=== PATIENT | female | born 1940 | race Hispanic/Latino ===

== ENCOUNTER 2017-08-11 02:00 | Emergency (ER) | payer OTHER ==
--- OUTSIDE RECORDS SUMMARY | 2017-08-11 02:03 | XMS REPORT ---
:1940 Author Organization eClinicalWorks Care Team Providers Name Role Phone Blake Barajas Provider Role Unavailable Allergies No Known Allergies Problems Problem Type Condition Code Onset Dates Condition Status Assessment Cirrhosis of liver K74.60 Active Assessment Chronic kidney disease, stage 3 N18.3 Active Assessment Hyperlipidemia, mixed E78.2 Active Assessment Hypothyroidism E03.9 Active Assessment Hypertension I10 Active Assessment Diabetes type 2, uncontrolled E11.65 Active Problem Hypomagnesemia E83.42 Active Problem Diabetic neuropathy E11.40 Active Problem Venous insufficiency I87.2 Active Problem Allergic rhinitis, seasonal J30.2 Active Problem Gastritis K29.70 Active Problem HSV (herpes simplex virus) A60.9 Active anogenital infection Problem GERD (gastroesophageal reflux K21.9 Active disease) Problem Hyperlipidemia, mixed E78.2 Active Problem Diverticulosis of colon K57.30 Active Problem Varicose veins I86.8 Active Problem Thrombocytopenia D69.6 Active Problem Nausea R11.0 Active Problem Hypothyroidism E03.9 Active Problem Vitamin D deficiency E55.9 Active Problem Elevated alkaline phosphatase level R74.8 Active Problem Diabetes type 2, uncontrolled E11.65 Active Problem Cirrhosis of liver K74.60 Active Problem Vitamin B 12 deficiency E53.8 Active Problem Malaise and fatigue R53.81 Active Problem Depression with anxiety F41.8 Active Assessment Depression with anxiety F41.8 Active Problem Cervical disc disorder at C4-C5 M50.121 Active level with radiculopathy Assessment Iron deficiency anemia due to D50.0 Active chronic blood loss Problem Chronic kidney disease, stage 3 N18.3 Active Problem Dizziness R42 Active Assessment Hypomagnesemia E83.42 Active Problem Hypertension I10 Active Problem Intramural leiomyoma of uterus D25.1 Active Problem Iron deficiency anemia due to D50.0 Active chronic blood loss Problem Osteoarthritis of multiple joints M15.9 Active Problem Secondary esophageal varices I85.10 Active without bleeding Medications Medication Code Code Instructions Start End Status Dosage System Date Date Zoloft [facility] 70009106062 25 MG Orally July Active 1 tablet Once a day 2017 Amlodipine [facility] 98939412673 10 MG Orally Active 1 tablet Besylate Once a day NovoLog Mix [facility] 41524701106 (70-30) 100 Active INJECT 70 70/30 Flexpen UNIT/ML UNITS UNDER Subcutaneous THE SKIN Twice a day EVERY MORNING WITH BREAKFAST AND 40 UNITS EVERY EVENING WITH DINNER Promethazine HCl ND 45227735626 25 MG Orally Active 1 tablet as every 12 hrs needed Omeprazole [facility] 57653495350 40 MG Orally Active 1 capsule Once a day Furosemide [facility] 09375748315 20 MG Orally Active 1 tablet Once a day Magnesium Oxide [facility] 68645761108 400 MG Orally Active 1 tablet as Once a day needed Pravastatin [facility] 74938949360 40 MG Orally Active 1 tablet Sodium Once a day Cozaar [facility] 26162986215 100 MG Orally Active 1 tablet Once a day Metoprolol [facility] 44395770374 50 MG Orally Active 1 tablet Succinate ER Once a day NovoFine [facility] 27485773750 32G X 6 MM SB July Active as directed Twice a day 2017 [place] [facility] 90381250446 5-325 MG Orally Active 1 tablet as every 6 hrs needed Acyclovir [facility] 23414869279 200 MG Orally Active 1 capsule Three times a day Aspir-81 [facility] 33691392113 81 MG Orally Active 1 tablet Once a day Levothyroxine [facility] 27199471415 125 MCG Orally Active 1 tablet on Sodium Once a day an empty stomach in the morning Meclizine HCl [facility] 59230435462 25 MG Orally Active 1 tablet as Once a day needed Results No Known Results Summary Purpose eClinicalWorks Submission
[2017-08-11] MEDS ORDERED: FAMOTIDINE 20 MG/2 ML VIAL IV ONE ×2 (03:05)
[2017-08-11 03:14] LABS: Protime INR 1.01
[2017-08-11 03:15] LABS: Absolute Lymphocytes (CBC) 1.3 K/uL (0.7-4.9); Absolute Monocytes 0.6 K/uL (0.1-1.3); Absolute Neutrophil 4.8 K/uL (1.8-8.0); Basophils % 0.4 % (0-1.3); Eosinophils % 1.3 % (0-4.4); Hematocrit 29.9 % (36.0-45.0); Lymphocytes % 19.2 % (15.3-44.8); MCH 28.8 pg (27.0-35.0); MCV 86.6 fL (80-100); MPV 11.1 fL (7.6-11.3); Monocytes % 8.2 % (3.3-12.3); RBC Red Blood Cell Count 3.45 M/uL (3.86-4.86)
[2017-08-11 03:32] LABS: Potassium 3.8 mEq/L (3.6-5.0)
[2017-08-11 03:39] LABS: Albumin 3.8 g/dL (3.2-5.5); Bilirubin Direct 0.1 mg/dL (0-0.2); Bilirubin Total 0.7 mg/dL (0.3-1.2); Magnesium 1.6 mg/dL (1.8-2.5); Protein, Total 7.6 g/dL (6.0-8.3)
[2017-08-11] MEDS ORDERED: MAGNESIUM SULFATE 1 gm IVPB 1 GM/100 ML BAG IV ONE (04:13)
--- NOTE | 2017-08-11 04:21 | ER ---
Nurse's Notes [facility] Name: Shayy Mcgovern Age: 76 yrs Sex: Female : 1940 Arrival Date: 08/11/2017 Time: 02:02 Bed 14 Private MD: Diagnosis: Chest pain, unspecified;Epigastric pain Presentation: 08/11 02:20 Presenting complaint: Patient states: She started feeling her chest burning at 1500 ea yesterday and continued throughout the night, reports the intensity has decreased. At 2100 she started feeling dizzy and had a fall, denies hitting head or LOC, reports she took her anxiety, nausea and dizziness medication. Transition of care: patient was not received from another setting of care. Onset of symptoms was August 11, 2017. Care prior to arrival: Medication(s) given: home medications. 02:20 Method Of Arrival: Wheelchair ea 02:20 Acuity: CORINE 3 ea Triage Assessment: 02:20 General: Appears uncomfortable. Pain: Denies pain. Complains of pain in epigastric area ea Pain does not radiate. Quality of pain is described as burning. Historical: - Allergies: 02:17 Ciprofloxacin; lp1 02:17 Macrodantin; lp1 02:17 nitrofuran macrocrystal (bulk); lp1 02:17 PENICILLINS; lp1 02:17 Sulfa (Sulfonamide Antibiotics); lp1 - Home Meds: 02:17 omeprazole 40 mg Oral cpDR 1 cap once daily [Active]; promethazine 25 mg Oral tab three lp1 times a day [Active]; levothyroxine 125 mcg tab 1 tab once daily [Active]; aspirin 81 mg oral TbEC once daily [Active]; furosemide 20 mg Oral tab 1 tab once daily [Active]; diazepam 5 mg Oral tab 1 tab daily [Active]; sertraline 25 mg oral tab 1 tab once daily [Active]; losartan-hydrochlorothiazide 100-25 mg Oral tab 1 tab once daily [Active]; pravastatin 40 mg Oral tab 1 tab nightly [Active]; [place] 5-325 mg Oral tab 1 tab three times a day [Active]; metoprolol tartrate 50 mg Oral tab 1 tab 2 times per day [Active]; Novolin 70/30 [place] Sub-Q 70-30 unit/mL [Active]; - PMHx: 02:17 Anxiety; Depression; Diabetes - IDDM; gastritis; Hypertension; Hypothyroidism; lp1 - Immunization history:: Adult Immunizations up to date. - Social history:: Smoking status: Patient/guardian denies using tobacco. Screenin:46 Abuse screen: Denies threats or abuse. Nutritional screening: No deficits noted. ea Tuberculosis screening: No symptoms or risk factors identified. Fall Risk None identified. Assessment: 02:15 General: Appears uncomfortable, Behavior is calm, cooperative, appropriate for age. ea Pain: Denies pain. Complains of pain in epigastric area Pain does not radiate. Quality of pain is described as burning, Pain began 1 day ago. Neuro: Level of Consciousness is awake, alert, obeys commands, Oriented to person, place, time, situation, Speech is normal, Facial symmetry appears normal. Cardiovascular: Patient's skin is warm and dry. Respiratory: Airway is patent Respiratory effort is even, unlabored, Respiratory pattern is regular, symmetrical, Breath sounds are clear bilaterally. GI: Abdomen is round Bowel sounds present X 4 quads. : No signs and/or symptoms were reported regarding the genitourinary system. Derm: Skin is dry, Skin is normal, Skin temperature is warm. 03:27 Reassessment: Pt resting with eyes closed, respirations even and unlabored, chest ea expansions even and symmetrical. No s/s of pain or discomfort at this time. Family at bedside. 03:46 Reassessment: Daughter left phone number Tiffany [phone] reported she had to go home ea and check on her family but would return. 04:21 Reassessment: Pt resting with eyes closed respirations even and unlabored, chest ea expansions even and symmetrical, no s/s of pain or discomfort noted at this time. Awaiting for completion of IV medication. 04:29 Reassessment: Patient and/or family updated on plan of care and expected duration. Pain ea level reassessed. Physician at bedside, pt reports dizziness, verbal order obtained. 04:37 Reassessment: Patient and/or family updated on plan of care and expected duration. Pain ea level reassessed. Patient is alert, oriented x 3, equal unlabored respirations, skin warm/dry/pink. Medication administered patient tolerated well. 04:44 Reassessment: Patient and/or family updated on plan of care and expected duration. Pain ea level reassessed. Patient is alert, oriented x 3, equal unlabored respirations, skin warm/dry/pink. Awaiting on completion of IV medication, daughter notified of discharge reported she will be here shortly. 05:06 Reassessment: Patient and/or family updated on plan of care and expected duration. Pain ea level reassessed. Patient is alert, oriented x 3, equal unlabored respirations, skin warm/dry/pink. Discharge instructions given to patient, awaiting on daughter to pick her up. 06:22 Reassessment: Patient and/or family updated on plan of care and expected duration. Pain ea level reassessed. Patient is alert, oriented x 3, equal unlabored respirations, skin warm/dry/pink. Daughter contacted, stated she was 5 minutes away and wanted her mother ready in the lobby. Patient states symptoms have improved. Vital Signs: 02:20 BP 152 / 78; Pulse 75; Resp 26; Temp 99.6; Pulse Ox 96% on R/A; Weight 91.17 kg; Height ea 5 ft. 5 in. (165.10 cm); 03:01 BP 133 / 61; Pulse 66; Resp 21 S; Pulse Ox 96% ; ea 03:29 BP 117 / 58; Pulse 64; Resp 18 S; Pulse Ox 96% on R/A; ea 04:39 BP 138 / 67; Pulse 64; Resp 19 S; Pulse Ox 97% on R/A; ea 05:08 BP 121 / 67; Pulse 62; Resp 19; Pulse Ox 97% on R/A; ea 02:20 Body Mass Index 33.45 (91.17 kg, 165.10 cm) ea ED Course: 02:02 Patient arrived in ED. am2 02:10 Ti Mesa MD is Attending Physician. 02:18 Ashlie Zhou, CHRIS is Primary Nurse. ea 02:20 Patient has correct armband on for positive identification. Bed in low position. Call ea light in reach. Side rails up X2. patient service coordinator on. Pulse ox on. NIBP on. 02:20 Patient placed in an exam room, on a stretcher, on oxygen, on blender, on pulse ea oximetry. 02:35 Inserted saline lock: 20 gauge in left antecubital area, using aseptic technique. Blood lp1 collected. 02:44 Triage completed. ea 02:46 XRAY Chest (1 view) In Process Unspecified. EDMS 02:46 Patient maintains SpO2 saturation greater than 95% on room air. ea 04:42 No provider procedures requiring assistance completed. ea 06:20 IV discontinued, intact, bleeding controlled, No redness/swelling at site. Pressure ea dressing applied. Administered Medications: 02:51 Drug: Pepcid 20 mg Route: IVP; Site: left antecubital; kb1 03:01 Follow up: Response: No adverse reaction ea 04:00 Drug: Magnesium Sulfate 1 grams Route: IVPB; Infused Over: 1 hrs; Site: left ea antecubital; 05:10 Follow up: Response: No adverse reaction; IV Status: Completed infusion ea 04:38 Drug: Ativan 0.5 mg Route: IVP; Site: left antecubital; ea 05:11 Follow up: Response: No adverse reaction; Marked relief of symptoms ea Point of Care Testing: Blood Glucose: 02:47 Blood Glucose: 166 mg/dL; lp1 Ranges: Outcome: 04:20 Discharge ordered by . dyan 05:07 Condition: good ea 05:07 Discharge instructions given to patient, Instructed on discharge instructions, follow up and referral plans. Demonstrated understanding of instructions, follow-up care. 06:21 Discharged to Awaiting in lobby for daughter. ea 06:21 Condition: improved 06:24 Patient left the ED. ea Signatures: Dispatcher [employer] EDMS Sapphire Gooden RN RN lp1 Angelica Marcelino am2 Ashlie Zhou RN RN Ti Martel MD MD gs Brown, Kristina, RN RN kb1
--- NOTE | 2017-08-11 04:21 | EDPHYS ---
Physician Documentation [facility] Name: Shayy Mcgovern Age: 76 yrs Sex: Female : 1940 Arrival Date: 08/11/2017 Time: 02:02 Bed 14 Private MD: ED Physician Ti Mesa HPI: 08/11 04:09 This 76 yrs old Female presents to ER via Wheelchair with complaints of Chest gs Pain, Nausea, Fall Injury. 04:09 The patient or guardian reports chest pain that is located primarily in the epigastric gs area. Onset: yesterday, at 15:00. The pain does not radiate. Associated signs and symptoms: Pertinent positives: nausea, Pertinent negatives: shortness of breath. The chest pain is described as burning, causing indigestion. Duration: The patient or guardian reports a single episode, that is still ongoing, and unchanged. Modifying factors: The symptoms are alleviated by nothing. the symptoms are aggravated by nothing. Severity of pain: At its worst the pain was moderate in the emergency department the pain is unchanged. The patient has experienced similar episodes in the past, several times. Historical: - Allergies: 02:17 Ciprofloxacin; lp1 02:17 Macrodantin; lp1 02:17 nitrofuran macrocrystal (bulk); lp1 02:17 PENICILLINS; lp1 02:17 Sulfa (Sulfonamide Antibiotics); lp1 - Home Meds: 02:17 omeprazole 40 mg Oral cpDR 1 cap once daily [Active]; promethazine 25 mg Oral tab three lp1 times a day [Active]; levothyroxine 125 mcg tab 1 tab once daily [Active]; aspirin 81 mg oral TbEC once daily [Active]; furosemide 20 mg Oral tab 1 tab once daily [Active]; diazepam 5 mg Oral tab 1 tab daily [Active]; sertraline 25 mg oral tab 1 tab once daily [Active]; losartan-hydrochlorothiazide 100-25 mg Oral tab 1 tab once daily [Active]; pravastatin 40 mg Oral tab 1 tab nightly [Active]; [place] 5-325 mg Oral tab 1 tab three times a day [Active]; metoprolol tartrate 50 mg Oral tab 1 tab 2 times per day [Active]; Novolin 70/30 [place] Sub-Q 70-30 unit/mL [Active]; - PMHx: 02:17 Anxiety; Depression; Diabetes - IDDM; gastritis; Hypertension; Hypothyroidism; lp1 - Immunization history:: Adult Immunizations up to date. - Social history:: Smoking status: Patient/guardian denies using tobacco. ROS: 04:09 Neuro: Positive for vertigo, has had before took meds for same has resolved. gs 04:09 All other systems are negative. Exam: 04:09 Head/Face: Normocephalic, atraumatic. Eyes: Pupils equal round and reactive to light, gs extra-ocular motions intact. Lids and lashes normal. Conjunctiva and sclera are non-icteric and not injected. Cornea within normal limits. Periorbital areas with no swelling, redness, or edema. ENT: Nares patent. No nasal discharge, no septal abnormalities noted. Tympanic membranes are normal and external auditory canals are clear. Oropharynx with no redness, swelling, or masses, exudates, or evidence of obstruction, uvula midline. Mucous membranes moist. Neck: Trachea midline, no thyromegaly or masses palpated, and no cervical lymphadenopathy. Supple, full range of motion without nuchal rigidity, or vertebral point tenderness. No Meningismus. Chest/axilla: Normal chest wall appearance and motion. Nontender with no deformity. No lesions are appreciated. Cardiovascular: Regular rate and rhythm with a normal S1 and S2. No gallops, murmurs, or rubs. Normal PMI, no JVD. No pulse deficits. Respiratory: Lungs have equal breath sounds bilaterally, clear to auscultation and percussion. No rales, rhonchi or wheezes noted. No increased work of breathing, no retractions or nasal flaring. Abdomen/GI: Soft, non-tender, with normal bowel sounds. No distension or tympany. No guarding or rebound. No evidence of tenderness throughout. Back: No spinal tenderness. No costovertebral tenderness. Full range of motion. Skin: Warm, dry with normal turgor. Normal color with no rashes, no lesions, and no evidence of cellulitis. MS/ Extremity: Pulses equal, no cyanosis. Neurovascular intact. Full, normal range of motion. Neuro: Awake and alert, GCS 15, oriented to person, place, time, and situation. Cranial nerves II-XII grossly intact. Motor strength 5/5 in all extremities. Sensory grossly intact. Cerebellar exam normal. Normal gait. 04:09 Constitutional: The patient appears alert, awake. 04:09 ECG was reviewed by the Attending Physician. Vital Signs: 02:20 BP 152 / 78; Pulse 75; Resp 26; Temp 99.6; Pulse Ox 96% on R/A; Weight 91.17 kg; Height ea 5 ft. 5 in. (165.10 cm); 03:01 BP 133 / 61; Pulse 66; Resp 21 S; Pulse Ox 96% ; ea 03:29 BP 117 / 58; Pulse 64; Resp 18 S; Pulse Ox 96% on R/A; ea 04:39 BP 138 / 67; Pulse 64; Resp 19 S; Pulse Ox 97% on R/A; ea 05:08 BP 121 / 67; Pulse 62; Resp 19; Pulse Ox 97% on R/A; ea 02:20 Body Mass Index 33.45 (91.17 kg, 165.10 cm) ea MDM: 02:20 Patient medically screened. 04:09 Differential diagnosis: acute myocardial infarction, chest wall pain, gastroesophageal gs reflux disease (GERD), pancreatitis. Data reviewed: vital signs, nurses notes, and as a result, I will discharge patient. Response to treatment: the patient's symptoms have resolved after treatment, the patient is now symptom free. 08/11 02:30 Order name: Basic Metabolic Panel; Complete Time: 03:46 gs 08/11 02:30 Order name: BNP; Complete Time: 03:46 gs 08/11 02:30 Order name: CBC with Diff; Complete Time: 05:47 gs 08/11 02:30 Order name: CPK; Complete Time: 03:46 gs 08/11 02:30 Order name: LFT's; Complete Time: 03:46 gs 08/11 02:30 Order name: Magnesium; Complete Time: 03:46 gs 08/11 02:30 Order name: PT-INR; Complete Time: 03:46 gs 08/11 02:30 Order name: Troponin (emerg Dept Use Only); Complete Time: 03:46 gs 08/11 02:30 Order name: XRAY Chest (1 view) gs 08/11 02:30 Order name: Lipase; Complete Time: 03:46 gs 08/11 03:18 Order name: CBC Smear Scan; Complete Time: 05:47 EDMS 08/11 04:11 Order name: Urine Dipstick--Ancillary (enter results); Complete Time: 05:47 oe 08/11 02:30 Order name: EKG; Complete Time: 02:31 gs 08/11 02:30 Order name: Cardiac monitoring; Complete Time: 02:47 gs 08/11 02:30 Order name: EKG - Nurse/Tech; Complete Time: 03:01 gs 08/11 02:30 Order name: IV Saline Lock; Complete Time: 02:47 gs 08/11 02:30 Order name: Labs collected and sent; Complete Time: 02:47 gs 08/11 02:30 Order name: O2 Per Protocol; Complete Time: 02:47 gs 08/11 02:30 Order name: O2 Sat Monitoring; Complete Time: :47 gs 08/11 02:30 Order name: Urine Dipstick-Ancillary (obtain specimen); Complete Time: 04:10 gs EC:09 Rate is 68 beats/min. Rhythm is regular. TX interval is normal. QRS interval is normal. gs T waves are Inverted. Clinical impression: Abnormal EKG without significant change. No change from previous ECG on June 15, 2017. Interpreted by me. Administered Medications: 02:51 Drug: Pepcid 20 mg Route: IVP; Site: left antecubital; kb1 03:01 Follow up: Response: No adverse reaction ea 04:00 Drug: Magnesium Sulfate 1 grams Route: IVPB; Infused Over: 1 hrs; Site: left ea antecubital; 05:10 Follow up: Response: No adverse reaction; IV Status: Completed infusion ea 04:38 Drug: Ativan 0.5 mg Route: IVP; Site: left antecubital; ea 05:11 Follow up: Response: No adverse reaction; Marked relief of symptoms ea Point of Care Testing: Blood Glucose: 02:47 Blood Glucose: 166 mg/dL; lp1 Ranges: Critical Glucose Levels:Adult <50 mg/dl or >400 mg/dl <40 mg/dl or >180 mg/dl Disposition: 08/11/17 04:20 Discharged to Home. Impression: Chest pain, unspecified, Epigastric pain. - Condition is Stable. - Discharge Instructions: Abdominal Pain, Adult, Nonspecific Chest Pain. - Medication Reconciliation Form, Thank You Letter, Antibiotic Education, Prescription Opioid Use form. - Follow up: Private Physician; When: 1 - 2 days; Reason: Recheck today's complaints, Re-evaluation by your physician. Signatures: Dispatcher [employer] Sapphire Alvarenga RN RN lp1 Ashlie Zhou RN RN ea Ti Mesa MD MD gs Lexy Tang RN RN kb1
[2017-08-11] MEDS ORDERED: LORazepam 2 MG/ML VIAL ONE (04:53)
[2017-08-11 05:06] LABS: Blood Morphology Comment NOTED (NOT SEEN); Platelet Estimate DECR; Teardrop Cell 1+; Urine White Blood Cell Casts OK
[2017-08-11 05:07] LABS: Urine Blood NEGATIVE (NEG); Urine Glucose NEGATIVE (NEG); Urine Protein NEGATIVE (NEG)
[2017-08-11 06:35] VITALS: TEMP 99.6
[2017-08-11 06:39] VITALS: O2SAT 97
[2017-08-11 06:40] VITALS: BP 121/67
--- NOTE | 2017-08-11 09:04 | RAD REPORT ---
EXAM DESCRIPTION: RAD - Chest Single View - 08/11/2017 2:46 am CLINICAL HISTORY: Diabetes, chest pain. COMPARISON: 07/06/2016, 06/21/2016 FINDINGS: Portable technique limits examination quality. The lungs are grossly clear. The heart is normal in size. No displaced fractures. IMPRESSION: No acute intrathoracic process suspected.
--- NOTE | 2017-08-11 09:18 | EKG ---
Test Date: 2017-08-11 Test Time: 02:56:18 Scarf Gluer: MALIK MEASUREMENT RESULTS: Intervals: Rate: 68 ND: 138 QRSD: 90 QT: 434 QTc: 461 [place]: P: 28 ND: 138 QRS: 17 T: 14 INTERPRETIVE STATEMENTS: Normal sinus rhythm T wave abnormality, consider anterolateral ischemia Abnormal ECG Compared to ECG 06/15/2017 15:12:06 No significant changes Electronically Signed On 08-11-17 09:17:56 CDT by Evelio Cody
== END 2017-08-11 06:24 | disposition home or self-care (01) ==
LOC: ER 02:00
DX: R10.13 Epigastric pain (principal); I10 Essential (primary) hypertension; E11.9 Type 2 diabetes mellitus without complications; F32.9 Major depressive disorder, single episode, unspecified; F41.9 Anxiety disorder, unspecified; Z79.82 Long term (current) use of aspirin; Z79.4 Long term (current) use of insulin; Z88.0 Allergy status to penicillin; Z88.2 Allergy status to sulfonamides; Z88.3 Allergy status to other anti-infective agents; Z88.8 Allergy status to other drugs, medicaments and biological substances
CPT/HCPCS: 36415; 71045; 80048; 80076; 81003; 82550; 82962; 83690; 83735; 83880; 84484; 85025; 85610; 93005; 96365; 96375; 99285; J3475

== ENCOUNTER 2017-09-10 10:46 | Emergency (ER) | payer OTHER ==
--- OUTSIDE RECORDS SUMMARY | 2017-09-10 10:49 | XMS REPORT ---
[...] End Status Dosage System Date Date Zoloft [facility] 80715579879 25 MG Orally July Active 1 tablet Once a day 2017 Amlodipine [facility] 74112069316 10 MG Orally Active 1 tablet Besylate Once a day NovoLog Mix [facility] 84533395843 (70-30) 100 Active INJECT 70 70/30 Flexpen UNIT/ML UNITS UNDER Subcutaneous THE SKIN Twice a day EVERY MORNING WITH BREAKFAST AND 40 UNITS EVERY EVENING WITH DINNER Promethazine HCl ND 72628426590 25 MG Orally Active 1 tablet as every 12 hrs needed Omeprazole [facility] 25993383100 40 MG Orally Active 1 capsule Once a day Furosemide [facility] 18634842415 20 MG Orally Active 1 tablet Once a day Magnesium Oxide [facility] 72736594058 400 MG Orally Active 1 tablet as Once a day needed Pravastatin [facility] 81782853505 40 MG Orally Active 1 tablet Sodium Once a day Cozaar [facility] 52136785609 100 MG Orally Active 1 tablet Once a day Metoprolol [facility] 65458059298 50 MG Orally Active 1 tablet Succinate ER Once a day NovoFine [facility] 75495078542 32G X 6 MM SB July Active as directed Twice a day 2017 Sunol [facility] 10858791457 5-325 MG Orally Active 1 tablet as every 6 hrs needed Acyclovir [facility] 88399798178 200 MG Orally Active 1 capsule Three times a day Aspir-81 [facility] 63667005159 81 MG Orally Active 1 tablet Once a day Levothyroxine [facility] 47424782093 125 MCG Orally Active 1 tablet on Sodium Once a day an empty stomach in the morning Meclizine HCl [facility] 60584388350 25 MG Orally Active 1 tablet as Once a day needed Results No Known Results Summary Purpose eClinicalWorks Submission
--- OUTSIDE RECORDS SUMMARY | 2017-09-10 10:49 | XMS REPORT ---
[...] Start End Status Dosage System Date Date Pravastatin [facility] 91211346885 40 MG Orally Active 1 tablet Sodium Once a day Aspir-81 [facility] 39706897487 81 MG Orally Active 1 tablet Once a day BusPIRone HCl [facility] 14170893198 5 MG Orally BID August Active 1 tablet 2017 Promethazine HCl [facility] 66837206024 25 MG Orally Active 1 tablet as every 12 hrs needed Amlodipine [facility] 02772259541 10 MG Orally Active 1 tablet Besylate Once a day Levothyroxine [facility] 96052665150 125 MCG Orally Active 1 tablet on Sodium Once a day an empty stomach in the morning Cozaar [facility] 95993310433 100 MG Orally Active 1 tablet Once a day Zoloft [facility] 25643000225 25 MG Orally Inactive 1 tablet Once a day Acyclovir [facility] 99321052907 200 MG Orally Active 1 capsule Three times a day Omeprazole [facility] 89059018604 40 MG Orally Active 1 capsule Once a day Magnesium Oxide [facility] 59888723647 400 MG Orally Active 1 tablet as Once a day needed NovoFine [facility] 36608297995 32G X 6 MM SB Active as directed Twice a day NovoLog Mix [facility] 37878140093 (70-30) 100 Active INJECT 70 70/30 Flexpen UNIT/ML UNITS UNDER Subcutaneous THE SKIN Twice a day EVERY MORNING WITH BREAKFAST AND 40 UNITS EVERY EVENING WITH DINNER [place] [facility] 17592064361 5-325 MG Orally Active 1 tablet as every 6 hrs needed True Metrix [facility] 27592466103 - Active USE TWICE Blood Glucose DAILY Test Metoprolol [facility] 41061622254 50 MG Orally Active 1 tablet Succinate ER Once a day Furosemide [facility] 40385068856 20 MG Orally Active 1 tablet Once a day Meclizine HCl [facility] 77136722229 25 MG Orally Active 1 tablet as Once a day needed Results No Known Results Summary Purpose eClinicalWorks Submission
--- OUTSIDE RECORDS SUMMARY | 2017-09-10 10:50 | XMS REPORT ---
:1940 Author Organization eClinicalWorks Care Team Providers Name Role Phone BarajasBlake Provider Role Unavailable Allergies No Known Allergies Problems Problem Type Condition Code Onset Dates Condition Status Problem Hypomagnesemia E83.42 Active Problem Diabetic neuropathy [...] Active Problem Depression with anxiety F41.8 Active Problem Cervical disc disorder at C4-C5 M50.121 Active level with radiculopathy Problem Chronic kidney disease, stage 3 N18.3 Active Problem Dizziness R42 Active Problem Hypertension I10 Active Problem Intramural leiomyoma of uterus D25.1 Active Problem Iron deficiency anemia due to D50.0 Active chronic blood loss Problem Osteoarthritis of multiple joints M15.9 Active Problem Secondary esophageal varices I85.10 Active without bleeding Medications Medication Code Code Instructions Start End Status Dosage System Date Date Nystatin [facility] [id number] UNIT/GM September 05October Active 1 application Externally Twice 2017, to a day 2018 area Results No Known Results Summary Purpose eClinicalWorks Submission
[2017-09-10] MEDS ORDERED: MECLIZINE HCL 12.5 MG TAB ONE (11:36)
[2017-09-10] MEDS ORDERED: ONDANSETRON 4 MG/2 ML VIAL ONE (11:36)
[2017-09-10] MEDS ORDERED: NA CHLORIDE 0.9% 500 ML ONE ×2 (11:36→12:40)
--- NOTE | 2017-09-10 11:37 | RAD REPORT ---
EXAM DESCRIPTION: CT - Head Brain Wo Cont - 09/10/2017 11:30 am CLINICAL HISTORY: Dizziness, syncope. COMPARISON: 07/06/2016, 08/06/2013 TECHNIQUE: All CT scans are performed using dose optimization technique as appropriate and may inclu de automated exposure control or mA/KV adjustment according to patient size. FINDINGS: No intracranial hemorrhage, hydrocephalus or extra-axial fluid collection.No areas of brai n edema or evidence of midline shift. The paranasal sinuses and mastoids are clear. The calvarium is intact. IMPRESSION: No acute intracranial abnormality.
[2017-09-10 11:45] LABS: Absolute Lymphocytes (CBC) 1.1 K/uL (0.7-4.9); Absolute Monocytes 0.3 K/uL (0.1-1.3); Absolute Neutrophil 4.7 K/uL (1.8-8.0); Basophils % 0.3 % (0-1.3); Eosinophils % 0.4 % (0-4.4); Lymphocytes % 17.1 % (15.3-44.8); MCH 28.7 pg (27.0-35.0); MCV 85.2 fL (80-100); MPV 10.5 fL (7.6-11.3); Monocytes % 5.5 % (3.3-12.3); RBC Red Blood Cell Count 3.64 M/uL (3.86-4.86)
[2017-09-10 11:47] LABS: Urine Blood NEGATIVE (NEG); Urine Glucose 2+ (NEG); Urine Protein NEGATIVE (NEG)
[2017-09-10 11:48] LABS: Protime INR 1.04
[2017-09-10 11:50] LABS: Urine Bacteria <20 /HPF (<20); Urine Culture Reflex Order NOT NEEDED; Urine RBC <5 /HPF (NONE SEEN)
[2017-09-10 11:55] LABS: Potassium 3.5 mEq/L (3.6-5.0)
[2017-09-10 12:01] LABS: Albumin 4.1 g/dL (3.2-5.5); Bilirubin Direct 0.1 mg/dL (0-0.2); Bilirubin Total 0.7 mg/dL (0.3-1.2)
[2017-09-10 12:04] LABS: Magnesium 1.3 mg/dL (1.8-2.5)
[2017-09-10] MEDS ORDERED: PROMETHAZINE 25 MG/ML VIAL ONE ×2 (12:07→13:18)
[2017-09-10 12:19] LABS: Blood Morphology Comment NOT SEEN (NOT SEEN); Platelet Estimate DECR; Urine White Blood Cell Casts OK
[2017-09-10] MEDS ORDERED: MAGNESIUM SULFATE 1 gm IVPB 1 GM/100 ML BAG IV ONE (12:41)
--- NOTE | 2017-09-10 13:49 | RAD REPORT ---
EXAM DESCRIPTION: CT - Abdomen Pelvis Wo Contrast - 09/10/2017 1:34 pm CLINICAL HISTORY: Abdominal pain. COMPARISON: 06/21/2016 TECHNIQUE: CT imaging of the abdomen and pelvis was performed without contrast. Solid organ, bowel a nd vascular assessment is limited due to lack of IV and oral contrast. All CT scans are performed using dose optimization technique as appropriate and may include automated exposure control or mA/KV adjustment according to patient size. FINDINGS: The lower lung tucker are clear. Noncontrast assessment of the liver parenchyma demonstrates a subtle nodular contour. No focal mass o r intrahepatic biliary dilatation. Moderate splenomegaly is seen. The pancreas, adrenal glands and ki dneys show no acute abnormality. No bowel obstruction, free air, free fluid or abscess. Small fat containing ventral hernia. The appen linda is normal. Prominent diverticulosis involving the sigmoid colon. The osseous structures are within normal limits. IMPRESSION: No acute abnormality is detected. Liver cirrhosis with mild splenomegaly. Sigmoid diverticulosis without diverticulitis. Small fat containing ventral hernia. A limited non-contrast examination was performed as detailed.
[2017-09-10] MEDS ORDERED: DIAZEPAM 5 MG TABLET ONE (13:57)
--- NOTE | 2017-09-10 15:13 | EDPHYS ---
Physician Documentation [facility] Name: Shayy Mcgovern Age: 76 yrs Sex: Female : 1940 Arrival Date: 09/10/2017 Time: 10:50 Bed 14 Private MD: ED Physician Jake Pressley HPI: 09/10 12:51 This 76 yrs old Female presents to ER via Ambulatory with complaints of rn Weakness, LIGHTHEADED, Nausea. 12:51 The patient presents with dizziness, sense of spinning. Onset: The symptoms/episode rn began/occurred this morning. Modifying factors: The symptoms are alleviated by nothing, the symptoms are aggravated by movement of head. Severity of symptoms: At their worst the symptoms were moderate in the emergency department the symptoms are unchanged. The patient has not experienced similar symptoms in the past. Reports woke up today around 0400 with dizziness, worse with laying down and moving head, no fever, no trauma, no headache, reports urinary burning, no abd pain/chest pain/sob. . Historical: - Allergies: 11:03 Ciprofloxacin; aj 11:03 Macrodantin; aj 11:03 nitrofuran macrocrystal (bulk); aj 11:03 PENICILLINS; aj 11:03 Sulfa (Sulfonamide Antibiotics); aj - Home Meds: 11:03 aspirin 81 mg Oral TbEC once daily [Active]; diazepam 5 mg Oral tab 1 tab daily aj [Active]; furosemide 20 mg Oral tab 1 tab once daily [Active]; levothyroxine 125 mcg tab 1 tab once daily [Active]; losartan-hydrochlorothiazide 100-25 mg Oral tab 1 tab once daily [Active]; metoprolol tartrate 50 mg Oral tab 1 tab 2 times per day [Active]; [place] 5-325 mg Oral tab 1 tab three times a day [Active]; Novolin 70/30 [place] Sub-Q 70-30 unit/mL [Active]; omeprazole 40 mg Oral cpDR 1 cap once daily [Active]; pravastatin 40 mg Oral tab 1 tab nightly [Active]; promethazine 25 mg Oral tab three times a day [Active]; sertraline 25 mg Oral tab 1 tab once daily [Active]; - PMHx: 11:03 Anxiety; Depression; Diabetes - IDDM; gastritis; Hypertension; Hypothyroidism; aj - Immunization history:: Adult Immunizations up to date. - Social history:: Smoking status: Patient/guardian denies using tobacco. - Family history:: not pertinent. - Hospitalizations: : No recent hospitalization is reported. ROS: 12:51 Constitutional: Negative for fever, chills, and weight loss, Eyes: Negative for injury, rn pain, redness, and discharge, Neck: Negative for injury, pain, and swelling, Cardiovascular: Negative for chest pain, palpitations, and edema, Respiratory: Negative for shortness of breath, cough, wheezing, and pleuritic chest pain, Abdomen/GI: Negative for abdominal pain, diarrhea, and constipation, MS/Extremity: Negative for injury and deformity, Skin: Negative for injury, rash, and discoloration, Neuro: Negative for headache, numbness, tingling, and seizure. Exam: 12:54 Constitutional: This is a well developed, well nourished patient who is awake, alert, rn appears anxious Head/Face: Normocephalic, atraumatic. Eyes: Pupils equal round and reactive to light, extra-ocular motions intact. Lids and lashes normal. Conjunctiva and sclera are non-icteric and not injected. Cornea within normal limits. Periorbital areas with no swelling, redness, or edema. ENT: Nares patent. No nasal discharge, no septal abnormalities noted. bilaterl TM normal. Neck: Trachea midline, no thyromegaly or masses palpated, and no cervical lymphadenopathy. Supple, full range of motion without nuchal rigidity, or vertebral point tenderness. No Meningismus. Cardiovascular: Regular rate and rhythm with a normal S1 and S2. No gallops, murmurs, or rubs. Normal PMI, no JVD. No pulse deficits. Respiratory: Lungs have equal breath sounds bilaterally, clear to auscultation and percussion. No rales, rhonchi or wheezes noted. No increased work of breathing, no retractions or nasal flaring. Abdomen/GI: Soft, non-tender, with normal bowel sounds. No distension or tympany. No guarding or rebound. No evidence of tenderness throughout. MS/ Extremity: Pulses equal, no cyanosis. Neurovascular intact. Full, normal range of motion. Equal circumference. Neuro: Awake and alert, GCS 15, oriented to person, place, time, and situation. Cranial nerves II-XII grossly intact. Motor strength 5/5 in all extremities. Sensory grossly intact. Cerebellar exam normal. Normal gait. Vital Signs: 11:03 BP 146 / 69; Pulse 82; Resp 19; Temp 98.0; Pulse Ox 98% on R/A; Weight 90.72 kg; Height aj 5 ft. 0 in. (152.40 cm); Pain 0/10; 12:27 BP 130 / 59; Pulse 75; Resp 19; Pulse Ox 100% on R/A; la1 15:30 BP 137 / 74; Pulse 86; Resp 16; Temp 97.5; Pulse Ox 100% on R/A; la1 11:03 Body Mass Index 39.06 (90.72 kg, 152.40 cm) aj MDM: 11:05 Patient medically screened. rn 14:18 Differential diagnosis: generalized weakness, hyperventilation, hypovolemia, idiopathic rn dizziness, vertigo. Data reviewed: vital signs, nurses notes, lab test result(s), EKG, radiologic studies, CT scan, plain films, and as a result, I will discharge patient. Counseling: I had a detailed discussion with the patient and/or guardian regarding: the historical points, exam findings, and any diagnostic results supporting the discharge/admit diagnosis, lab results, radiology results, the need for outpatient follow up, to return to the emergency department if symptoms worsen or persist or if there are any questions or concerns that arise at home. 15:10 Response to treatment: the patient's symptoms have markedly improved after treatment, rn and as a result, I will discharge patient. Special discussion: I discussed with the patient/guardian in detail that at this point there is no indication for admission to the hospital. It is understood, however, that if the symptoms persist or worsen the patient needs to return immediately for re-evaluation. Based on the history and exam findings, there is no indication for further emergent testing or inpatient evaluation. I discussed with the patient/guardian the need to see the neurologist for further evaluation of the symptoms. ED course: Pt feels better, no nausea, asking for food, reports dizziness and nausea have improved. Has ride home. States now that has had vertigo before, got better, understands return precautions. . 09/10 11:14 Order name: Urine Microscopic Only; Complete Time: 12:05 rn 09/10 11:14 Order name: Basic Metabolic Panel; Complete Time: 12:36 rn 09/10 11:14 Order name: BNP; Complete Time: 12:05 rn 09/10 11:14 Order name: CBC with Diff; Complete Time: 12:36 rn 09/10 11:14 Order name: Hepatic Function; Complete Time: 12:36 rn 09/10 11:14 Order name: Lipase; Complete Time: 12:36 rn 09/10 11:14 Order name: CT Head Brain wo Cont; Complete Time: 11:43 rn 09/10 11:14 Order name: Magnesium; Complete Time: 12:36 rn 09/10 11:14 Order name: Protime (+inr); Complete Time: 12:05 rn 09/10 11:14 Order name: Ptt, Activated; Complete Time: 12:05 rn 09/10 11:14 Order name: Troponin (emerg Dept Use Only); Complete Time: 12:05 rn 09/10 11:18 Order name: Urine Dipstick--Ancillary (enter results); Complete Time: 11:49 eb 09/10 12:04 Order name: CBC Smear Scan; Complete Time: 12:36 EDMS 09/10 12:07 Order name: CT Abd/Pelvis - Without Cont; Complete Time: 13:50 rn 09/10 11:14 Order name: EKG; Complete Time: 11:15 rn 09/10 11:14 Order name: Cardiac monitoring; Complete Time: 11:45 rn 09/10 11:14 Order name: EKG - Nurse/Tech; Complete Time: 11:45 rn 09/10 11:14 Order name: IV Saline Lock; Complete Time: 11:41 rn 09/10 11:14 Order name: Labs collected and sent; Complete Time: 11:41 rn 06 11:14 Order name: NPO; Complete Time: 11:17 rn 09/10 11:14 Order name: O2 Per Protocol; Complete Time: 11:17 rn 09/10 11:14 Order name: O2 Sat Monitoring; Complete Time: 11:17 rn 09/10 11:14 Order name: Urine Dipstick-Ancillary (obtain specimen); Complete Time: 11:17 rn Administered Medications: 11:40 Drug: NS 0.9% 500 ml Route: IV; Rate: bolus; Site: left antecubital; la1 12:18 Follow up: IV Status: Completed infusion la1 11:40 Drug: Meclizine 50 mg Route: PO; la1 12:18 Follow up: Response: No adverse reaction la1 11:40 Drug: Zofran 4 mg Route: IVP; Site: left antecubital; la1 12:18 Follow up: Response: No adverse reaction la1 12:18 Drug: Phenergan 12.5 mg Route: IVP; Site: left antecubital; la1 14:38 Follow up: Response: No adverse reaction la1 12:46 Drug: Magnesium Sulfate 1 grams Route: IVPB; Infused Over: 1 hrs; Site: left la1 antecubital; 15:31 Follow up: IV Status: Completed infusion la1 12:46 Drug: NS 0.9% 500 ml Route: IV; Rate: bolus; Site: left antecubital; la1 15:31 Follow up: IV Status: Completed infusion la1 13:20 Drug: Phenergan 12.5 mg Route: IVP; Site: left antecubital; la1 14:38 Follow up: Response: No adverse reaction; Nausea is decreased la1 14:03 Drug: Valium 2 mg Route: PO; la1 14:39 Follow up: Response: No adverse reaction la1 Disposition: 18 15:12 Discharged to Home. Impression: Vertigo. - Condition is Stable. - Discharge Instructions: Vertigo. - Prescriptions for Zofran ODT 4 mg Oral tablet,disintegrating - place 1 tablet by TRANSLINGUAL route every 8-10 hours As needed; 20 tablet. Valium 2 mg Oral Tablet - take 1 tablet by ORAL route every 8 hours As needed; 20 tablet. Zithromax Z- Adin 250 mg Oral Tablet - take 1 tablet by ORAL route as directed for 5 days Day 1 - take two (2) tablets one time. Day 2, 3, 4 , 5 take one (1) tablet once daily.; 6 tablet. - Medication Reconciliation Form, Thank You Letter, Antibiotic Education, Prescription Opioid Use form. - Follow up: Steve Becerril MD; When: As needed; Reason: Recheck today's complaints, Re-evaluation by your physician. - Problem is new. - Symptoms have improved. Signatures: Dispatcher [employer] EDAngelica Pugh RN RN aj Nieto, Roman, MD MD rn Attema, Lee, RN RN la1 Corrections: (The following items were deleted from the chart) 15:37 15:12 09/10/2017 15:12 Discharged to Home. Impression: Vertigo. Condition is Stable. la1 Forms are Medication Reconciliation Form, Thank You Letter, Antibiotic Education, Prescription Opioid Use. Follow up: Steve Becerril; When: As needed; Reason: Recheck today's complaints, Re-evaluation by your physician. Problem is new. Symptoms have improved. brandie
--- NOTE | 2017-09-10 15:13 | ER ---
Nurse's Notes [facility] Name: Shayy Mcgovern Age: 76 yrs Sex: Female : 1940 Arrival Date: 09/10/2017 Time: 10:50 Bed 14 Private MD: Diagnosis: Vertigo Presentation: 09/10 10:59 Presenting complaint: Patient states: Reports Nausea with small amount of vomiting for aj 4 days. Reports generalized weakness and SOB and burning/itching with urination. Transition of care: patient was not received from another setting of care. 10:59 Method Of Arrival: Ambulatory aj 11:00 Onset of symptoms was September 10, 2017. Initial Sepsis Screen: Does the patient meet any 2 aj criteria? No. Patient's initial sepsis screen is negative. Does the patient have a suspected source of infection? No. Patient's initial sepsis screen is negative. Care prior to arrival: None. 11:00 Acuity: CORINE 3 aj Triage Assessment: 11:03 General: Appears in no apparent distress. uncomfortable, Behavior is calm, cooperative, aj appropriate for age. Pain: Denies pain. Neuro: Level of Consciousness is awake, alert, obeys commands, Oriented to person, place, time, situation. Respiratory: Airway is patent Respiratory effort is even, unlabored, Respiratory pattern is regular, symmetrical. : Reports burning with urination. Derm: Skin is intact, is healthy with good turgor, Skin is pink, warm \T\ dry. normal. Historical: - Allergies: 11:03 Ciprofloxacin; aj 11:03 Macrodantin; aj 11:03 nitrofuran macrocrystal (bulk); aj 11:03 PENICILLINS; aj 11:03 Sulfa (Sulfonamide Antibiotics); aj - Home Meds: 11:03 aspirin 81 mg Oral TbEC once daily [Active]; diazepam 5 mg Oral tab 1 tab daily aj [Active]; furosemide 20 mg Oral tab 1 tab once daily [Active]; levothyroxine 125 mcg tab 1 tab once daily [Active]; losartan-hydrochlorothiazide 100-25 mg Oral tab 1 tab once daily [Active]; metoprolol tartrate 50 mg Oral tab 1 tab 2 times per day [Active]; [place] 5-325 mg Oral tab 1 tab three times a day [Active]; Novolin 70/30 [place] Sub-Q 70-30 unit/mL [Active]; omeprazole 40 mg Oral cpDR 1 cap once daily [Active]; pravastatin 40 mg Oral tab 1 tab nightly [Active]; promethazine 25 mg Oral tab three times a day [Active]; sertraline 25 mg Oral tab 1 tab once daily [Active]; - PMHx: 11:03 Anxiety; Depression; Diabetes - IDDM; gastritis; Hypertension; Hypothyroidism; aj - Immunization history:: Adult Immunizations up to date. - Social history:: Smoking status: Patient/guardian denies using tobacco. - Family history:: not pertinent. - Hospitalizations: : No recent hospitalization is reported. Screenin:17 Abuse screen: Denies threats or abuse. Denies injuries from another. Nutritional la1 screening: No deficits noted. Tuberculosis screening: No symptoms or risk factors identified. Fall Risk None identified. Assessment: 11:16 General: Appears uncomfortable, Behavior is calm, cooperative. Pain: Complains of pain la1 in back. Neuro: Level of Consciousness is awake, alert, obeys commands, Oriented to person, place, time, situation, Polysomnography Technician are equal bilaterally Moves all extremities. Full function Gait is steady, Speech is normal, Facial symmetry appears normal, Reports dizziness. Cardiovascular: Capillary refill < 3 seconds Patient's skin is warm and dry. Respiratory: Airway is patent Respiratory effort is even, unlabored, Respiratory pattern is regular, symmetrical, Breath sounds are clear bilaterally. GI: Abdomen is non-distended, obese, Bowel sounds present X 4 quads. Abd is soft and non tender X 4 quads. : Reports burning with urination. 11:59 Reassessment: Patient appears in no apparent distress at this time. No changes from la1 previously documented assessment. Patient and/or family updated on plan of care and expected duration. Pain level reassessed. 12:07 Reassessment: Dr. Pressley notified of critical lab value magnesium of 1.3. ss 13:38 Reassessment: Patient appears in no apparent distress at this time. No changes from la1 previously documented assessment. Patient and/or family updated on plan of care and expected duration. Pain level reassessed. 14:11 Reassessment: Patient appears in no apparent distress at this time. No changes from la1 previously documented assessment. Patient and/or family updated on plan of care and expected duration. Pain level reassessed. 15:30 Reassessment: Patient appears in no apparent distress at this time. No changes from la1 previously documented assessment. Patient and/or family updated on plan of care and expected duration. Pain level reassessed. Patient is alert, oriented x 3, equal unlabored respirations, skin warm/dry/pink. Patient states symptoms have improved. Vital Signs: 11:03 BP 146 / 69; Pulse 82; Resp 19; Temp 98.0; Pulse Ox 98% on R/A; Weight 90.72 kg; Height aj 5 ft. 0 in. (152.40 cm); Pain 0/10; 12:27 BP 130 / 59; Pulse 75; Resp 19; Pulse Ox 100% on R/A; la1 15:30 BP 137 / 74; Pulse 86; Resp 16; Temp 97.5; Pulse Ox 100% on R/A; la1 11:03 Body Mass Index 39.06 (90.72 kg, 152.40 cm) ED Course: 10:50 Patient arrived in ED. sb2 11:01 Triage completed. aj 11:03 Jake Pressley MD is Attending Physician. rn 11:03 Arm band placed on right wrist. Patient placed in an exam room. aj 11:09 Nahid Acosta RN is Primary Nurse. la1 11:17 Bed in low position. Call light in reach. Side rails up X 1. equipment monitor phototypesetting on. Pulse la1 ox on. NIBP on. 11:27 Inserted saline lock: 20 gauge in left antecubital area, using aseptic technique. Blood la1 collected. 11:29 CT completed. Patient moved to CT via wheelchair. Patient moved back from CT. bq 11:30 CT Head Brain wo Cont In Process Unspecified. EDMS 11:46 EKG done, by ED staff, reviewed by Jake Pressley MD. dh3 13:35 CT Abd/Pelvis - Without Cont In Process Unspecified. EDMS 15:12 Steve Becerril MD is Referral Physician. rn 15:30 No provider procedures requiring assistance completed. IV discontinued, intact, la1 bleeding controlled, No redness/swelling at site. Pressure dressing applied. Administered Medications: 11:40 Drug: NS 0.9% 500 ml Route: IV; Rate: bolus; Site: left antecubital; la1 12:18 Follow up: IV Status: Completed infusion la1 11:40 Drug: Meclizine 50 mg Route: PO; la1 12:18 Follow up: Response: No adverse reaction la1 11:40 Drug: Zofran 4 mg Route: IVP; Site: left antecubital; la1 12:18 Follow up: Response: No adverse reaction la1 12:18 Drug: Phenergan 12.5 mg Route: IVP; Site: left antecubital; la1 14:38 Follow up: Response: No adverse reaction la1 12:46 Drug: Magnesium Sulfate 1 grams Route: IVPB; Infused Over: 1 hrs; Site: left la1 antecubital; 15:31 Follow up: IV Status: Completed infusion la1 12:46 Drug: NS 0.9% 500 ml Route: IV; Rate: bolus; Site: left antecubital; la1 15:31 Follow up: IV Status: Completed infusion la1 13:20 Drug: Phenergan 12.5 mg Route: IVP; Site: left antecubital; la1 14:38 Follow up: Response: No adverse reaction; Nausea is decreased la1 14:03 Drug: Valium 2 mg Route: PO; la1 14:39 Follow up: Response: No adverse reaction la1 Outcome: 15:12 Discharge ordered by . rn 15:30 Discharged to home via wheelchair. la1 15:30 Condition: stable 15:30 Discharge instructions given to patient, Instructed on discharge instructions, follow up and referral plans. Demonstrated understanding of instructions, follow-up care, medications, Prescriptions given X 3. 15:37 Patient left the ED. la1 Signatures: Dispatcher [employer] Angelica Meyers RN RN aj Quilty, Betty bq Nieto, Roman, MD MD rn Smirch, Shelby, RN RN ss Attema, Lee, RN RN la1 Radha Sarkar 3 Hanny Degroot Corrections: (The following items were deleted from the chart) 11:01 10:59 Presenting complaint: Patient states: Reports Nausea with small amount of aj vomiting for 4 days. Reports generalized weakness and SOB. aj
[2017-09-10 15:52] VITALS: O2SAT 100
[2017-09-10 15:55] VITALS: BP 137/74; TEMP 97.5
--- NOTE | 2017-09-11 11:08 | EKG ---
Test Date: 2017-09-10 Test Time: 11:39:38 Computer Lab Para Professional: CHRISTOPHER MEASUREMENT RESULTS: Intervals: Rate: 87 IN: 150 QRSD: 86 QT: 390 QTc: 469 [place]: P: 57 IN: 150 QRS: 38 T: 7 INTERPRETIVE STATEMENTS: Normal sinus rhythm ST & T wave abnormality, consider anterior ischemia Abnormal ECG Compared to ECG 08/11/2017 02:56:18 no significant change from previous ECG Electronically Signed On 09-11-17 11:07:47 CDT by Evelio Cody
== END 2017-09-10 15:37 | disposition home or self-care (01) ==
LOC: ER 10:46
DX: R42 Dizziness and giddiness (principal); I10 Essential (primary) hypertension; E11.9 Type 2 diabetes mellitus without complications; E03.9 Hypothyroidism, unspecified; F41.9 Anxiety disorder, unspecified; F32.9 Major depressive disorder, single episode, unspecified; Z79.82 Long term (current) use of aspirin; Z79.4 Long term (current) use of insulin; Z88.0 Allergy status to penicillin; Z88.2 Allergy status to sulfonamides; Z88.3 Allergy status to other anti-infective agents; Z88.8 Allergy status to other drugs, medicaments and biological substances
CPT/HCPCS: 36415; 70450; 74176; 80048; 80076; 83690; 83735; 83880; 84484; 85025; 85610; 85730; 93005; J2405; J2550 ×2; J3475; 81003; 81015; 96361; 96365; 96366; 96375; 99285

== ENCOUNTER 2018-01-22 18:34 | Observation (INO) | payer OTHER ==
--- OUTSIDE RECORDS SUMMARY | 2018-01-22 18:35 | XMS REPORT ---
[...] Status Dosage System Date Date Zoloft [facility] 15132491371 25 MG Orally July Active 1 tablet Once a day 2017 Amlodipine [facility] 38035269431 10 MG Orally Active 1 tablet Besylate Once a day NovoLog Mix [facility] 14953127773 (70-30) 100 Active INJECT 70 70/30 Flexpen UNIT/ML UNITS UNDER Subcutaneous THE SKIN Twice a day EVERY MORNING WITH BREAKFAST AND 40 UNITS EVERY EVENING WITH DINNER Promethazine HCl ND 94902050578 25 MG Orally Active 1 tablet as every 12 hrs needed Omeprazole [facility] 50088160696 40 MG Orally Active 1 capsule Once a day Furosemide [facility] 72292979134 20 MG Orally Active 1 tablet Once a day Magnesium Oxide [facility] 81647935789 400 MG Orally Active 1 tablet as Once a day needed Pravastatin [facility] 04981298534 40 MG Orally Active 1 tablet Sodium Once a day Cozaar [facility] 83019145008 100 MG Orally Active 1 tablet Once a day Metoprolol [facility] 97546464418 50 MG Orally Active 1 tablet Succinate ER Once a day NovoFine [facility] 28181854161 32G X 6 MM SB July Active as directed Twice a day 2017 [place] [facility] 86155611740 5-325 MG Orally Active 1 tablet as every 6 hrs needed Acyclovir [facility] 09025533618 200 MG Orally Active 1 capsule Three times a day Aspir-81 [facility] 27435491677 81 MG Orally Active 1 tablet Once a day Levothyroxine [facility] 39305090294 125 MCG Orally Active 1 tablet on Sodium Once a day an empty stomach in the morning Meclizine HCl [facility] 12851322661 25 MG Orally Active 1 tablet as Once a day needed Results No Known Results Summary Purpose eClinicalWorks Submission
--- OUTSIDE RECORDS SUMMARY | 2018-01-22 18:36 | XMS REPORT ---
:1940 Author Organization eClinicalWorks Care Team Providers Name Role Phone Karl Blake Provider Role Unavailable Allergies No Known Allergies Problems Problem Type Condition Code Onset Dates Condition Status Assessment Aphthous ulcer of mouth K12.0 Active Problem Hypomagnesemia E83.42 Active Problem Diabetic [...] Start End Status Dosage System Date Date [facility] 95642100413 81 MG Orally Active 1 tablet Once a day Promethazine HCl ND 41625549136 25 MG Orally Active 1 tablet as every 12 hrs needed [place] [facility] 67891789842 5-325 MG Orally Active 1 tablet as every 6 hrs needed Acyclovir ND 25108767075 200 MG Orally Active 1 capsule Three times a day True Metrix [facility] 88846827315 - Active USE TWICE Blood Glucose DAILY Test NovoFine [facility] 47972477418 32G X 6 MM SB Active as directed Twice a day Metoprolol [facility] 68737271932 50 MG Orally Active 1 tablet Succinate ER Once a day Omeprazole [facility] 95210082386 40 MG Orally Active 1 capsule Once a day NovoLog Mix [facility] 43898303593 (70-30) 100 Active INJECT 70 70/30 Flexpen UNIT/ML UNITS UNDER Subcutaneous THE SKIN Twice a day EVERY MORNING WITH BREAKFAST AND 40 UNITS EVERY EVENING WITH DINNER Levothyroxine [facility] 55048074878 125 MCG Orally Active 1 tablet on Sodium Once a day an empty stomach in the morning Magnesium Oxide [facility] 11743682594 400 MG Orally Active 1 tablet as Twice a day needed Levothyroxine [facility] 33673814304 125 MCG Orally Active 1 tablet on Sodium Once a day an empty stomach in the morning Cozaar [facility] 40058808932 100 MG Orally Active 1 tablet Once a day Pravastatin [facility] 81982004791 40 MG Orally Active 1 tablet Sodium Once a day Meclizine HCl [facility] 07515751025 25 MG Orally Active 1 tablet as Once a day needed Lidocaine HCl [facility] 71477643997 2 % Dec 07, Active 15 ml to Mouth/Throat 2017 affected every 3 hrs as area as needed (Swish needed around in mouth and spit out). MAX 8 doses/day Amlodipine [facility] 96820056954 10 MG Orally Active 1 tablet Besylate Once a day BusPIRone HCl [facility] 28148810259 5 MG Orally BID Active [address] [facility] 89974116775 0.12 % Dec 07, Dec 17, Active 10-15 mL Gluconate Mouth/Throat 2017 2017 (Swish/Spit Every 12 hours ) Metoprolol [facility] 55931911634 50 MG Active 1 TAB(S) Succinate ER TWICE DAILY Furosemide ND 47963588123 20 MG Orally Active 1 tablet Once a day Results No Known Results Summary Purpose eClinicalWorks Submission
--- OUTSIDE RECORDS SUMMARY | 2018-01-22 18:36 | XMS REPORT ---
[...] End Status Dosage System Date Date Nystatin [facility] 71790481415 [id number] UNIT/GM September 05October Active 1 application Externally Twice 2017, to a day 2018 area Results No Known Results Summary Purpose eClinicalWorks Submission
--- OUTSIDE RECORDS SUMMARY | 2018-01-22 18:36 | XMS REPORT ---
:1940 Author Organization eClinicalWorks Care Team Providers Name Role Phone Gisell Barajash Provider Role Unavailable Allergies, Adverse Reactions, Alerts Substance Reaction Event Type penicillin Info Not Available Drug Allergy Macrodantin Info Not Available Drug Allergy Cipro Info Not Available Drug Allergy Bactrim DS Info Not Available Drug Allergy Problems Problem Type Condition Code Onset Dates Condition Status Assessment Acute cystitis without hematuria N30.00 Active Problem Hypomagnesemia E83.42 Active Problem Diabetic [...] Instructions Start End Status Dosage System Date [facility] 76580517287 81 MG Orally Active 1 tablet Once a day [place] [facility] 67075644470 5-325 MG Orally Active 1 tablet as every 6 hrs needed Omeprazole [facility] 62699026578 40 MG Orally Active 1 capsule Once a day Metoprolol [facility] 18716076017 50 MG Active 1 TAB(S) Succinate ER TWICE DAILY Levothyroxine [facility] 63541663795 125 MCG Orally Active 1 tablet on Sodium Once a day an empty stomach in the morning BusPIRone HCl [facility] 75724570934 5 MG Orally BID Active 1 tablet Metoprolol ND 49518886943 50 MG Orally Active 1 tablet Succinate ER Once a day Acyclovir ND 95827036983 200 MG Orally Active 1 capsule Three times a day NovoFine [facility] 55251519213 32G X 6 MM SB Active as directed Twice a day Furosemide ND 40654412418 20 MG Orally Active 1 tablet Once a day Lidocaine HCl [facility] 86639538872 2 % Dec 07, Active 15 ml to Mouth/Throat 2017 affected every 3 hrs as area as needed (Swish needed around in mouth and spit out). MAX 8 doses/day Magnesium Oxide ND 69008822103 400 MG Orally Active 1 tablet as Twice a day needed NovoLog Mix [facility] 41966341971 (70-30) 100 Active INJECT 70 70/30 Flexpen UNIT/ML UNITS UNDER Subcutaneous THE SKIN Twice a day EVERY MORNING WITH BREAKFAST AND 40 UNITS EVERY EVENING WITH DINNER Levothyroxine ND 37489427074 125 MCG Orally Active 1 tablet on Sodium Once a day an empty stomach in the morning Meclizine HCl ND 59501783113 25 MG Orally Active 1 tablet as Once a day needed Promethazine HCl ND 40699532202 25 MG Orally Active 1 tablet as every 12 hrs needed Pravastatin [facility] 10610399130 40 MG Orally Active 1 tablet Sodium Once a day Levaquin [facility] 83231094073 250 MG Orally Dec 27, Dec 30, Active 1 tablet Once a day 2017 2017 Amlodipine [facility] 92179820940 10 MG Orally Active 1 tablet Besylate Once a day True Metrix [facility] 21891770318 - Active USE TWICE Blood Glucose DAILY Test Cozaar [facility] 00249298122 100 MG Orally Active 1 tablet Once a day Results Name Result Date Reference Range Unit Abnormality Flag Urine Dip Stick ----Appearance Dark yellow/clear 20171227 ----SP. Gr 1.015 20171227 ----pH 7.0 20171227 ----Ketone Negative [id number] ----Glucose Negative 20171227 ----Blood Negative 20171227 ----Protein Negative 20171227 ----Nitrite Negative 20171227 ----Leukocytes 1+ 20171227 Summary Purpose eClinicalWorks Submission
--- OUTSIDE RECORDS SUMMARY | 2018-01-22 18:36 | XMS REPORT ---
:1940 Author Organization eClinicalWorks Care Team Providers Name Role Phone Blake Barajas Provider Role Unavailable Allergies No Known Allergies Problems Problem Type Condition Code Onset Dates Condition Status Assessment Hypothyroidism E03.9 Active Assessment Cirrhosis of liver K74.60 Active Assessment Hypertension I10 Active Assessment Hyperlipidemia, mixed E78.2 Active Assessment Diabetes type 2, uncontrolled E11.65 [...] Problem Depression with anxiety F41.8 Active Assessment Iron deficiency anemia due to D50.0 Active chronic blood loss Problem Cervical disc disorder at C4-C5 M50.121 Active level with radiculopathy Assessment Chronic kidney disease, stage 3 N18.3 Active Problem Chronic kidney disease, stage 3 N18.3 Active Assessment Hypomagnesemia E83.42 Active Problem Dizziness R42 Active Assessment Depression with anxiety F41.8 Active Problem Hypertension I10 Active Problem Intramural leiomyoma of uterus D25.1 Active Problem Iron deficiency anemia due to D50.0 Active chronic blood loss Problem Osteoarthritis of multiple joints M15.9 Active Problem Secondary esophageal varices I85.10 Active without bleeding Medications Medication Code Code Instructions Start End Status Dosage System Date Date A[place]odip[place] [facility] [place] 79653482597 10 MG Orally Active 1 tablet Besylate Once a day Ana [facility] [place] 23507303299 100 MG Orally Active 1 tablet Once a day Pravastatin ND 36846454212 40 MG Orally Active 1 tablet Sodium Once a day Omeprazole [facility] [place] 06769702321 40 MG Orally Active 1 capsule Once a day Aspir-81 [facility] [place] 83025057859 81 MG Orally Active 1 tablet Once a day Magnesium Oxide [facility] [place] 14538623719 400 MG Orally Active 1 tablet as Twice a day needed NovoFine [facility] [place] 51864532322 32G X 6 MM SB Active as directed Twice a day Levothyroxine [facility] [place] 36173155566 125 MCG Orally Active 1 tablet on Sodium Once a day an empty stomach in the morning True Metrix [facility] [place] 50691884388 - Active USE TWICE Blood Glucose DAILY Test [place] [facility] [place] 48311177557 5-325 MG Orally Active 1 tablet as every 6 hrs needed BusPIRone HCl [facility] [place] 76478782529 5 MG Orally BID Active 1 tablet NovoLog Mix [facility] [place] 49808626372 (70-30) 100 Active INJECT 70 70/30 Flexpen UNIT/ML UNITS UNDER Subcutaneous THE SKIN Twice a day EVERY MORNING WITH BREAKFAST AND 40 UNITS EVERY EVENING WITH DINNER Metoprolol [facility] [place] 11727570264 50 MG Active 1 TAB(S) Succinate ER TWICE DAILY Levothyroxine [facility] [place] 00300108531 125 MCG Orally Active 1 tablet on Sodium Once a day an empty stomach in the morning Promethazine HCl [facility] [place] 89614532911 25 MG Orally Active 1 tablet as every 12 hrs needed Acyclovir [facility] [place] 89662965934 200 MG Orally Active 1 capsule Three times a day Furosemide [facility] [place] 39840120244 20 MG Orally Active 1 tablet Once a day Metoprolol [facility] [place] 33184547845 50 MG Orally Active 1 tablet Succinate ER Once a day Meclizine HCl [facility] [place] 10659994201 25 MG Orally Active 1 tablet as Once a day needed Results No Known Results Summary Purpose eClinicalWorks Submission
--- OUTSIDE RECORDS SUMMARY | 2018-01-22 18:36 | XMS REPORT ---
[...] End Status Dosage System Date Date Pravastatin [facility] 87899455071 40 MG Orally Active 1 tablet Sodium Once a day Aspir-81 [facility] 59703916627 81 MG Orally Active 1 tablet Once a day BusPIRone HCl [facility] 58650647703 5 MG Orally BID August Active 1 tablet 2017 Promethazine HCl [facility] 90626261072 25 MG Orally Active 1 tablet as every 12 hrs needed Amlodipine [facility] 10969502356 10 MG Orally Active 1 tablet Besylate Once a day Levothyroxine [facility] 38318452618 125 MCG Orally Active 1 tablet on Sodium Once a day an empty stomach in the morning Cozaar [facility] 23938332460 100 MG Orally Active 1 tablet Once a day Zoloft [facility] 83867914190 25 MG Orally Inactive 1 tablet Once a day Acyclovir [facility] 16794413696 200 MG Orally Active 1 capsule Three times a day Omeprazole [facility] 74501971965 40 MG Orally Active 1 capsule Once a day Magnesium Oxide [facility] 02346313493 400 MG Orally Active 1 tablet as Once a day needed NovoFine [facility] 81880435597 32G X 6 MM SB Active as directed Twice a day NovoLog Mix [facility] 01495738598 (70-30) 100 Active INJECT 70 70/30 Flexpen UNIT/ML UNITS UNDER Subcutaneous THE SKIN Twice a day EVERY MORNING WITH BREAKFAST AND 40 UNITS EVERY EVENING WITH DINNER [place] [facility] 90488641899 5-325 MG Orally Active 1 tablet as every 6 hrs needed True Metrix [facility] 80308939814 - Active USE TWICE Blood Glucose DAILY Test Metoprolol [facility] 66096431219 50 MG Orally Active 1 tablet Succinate ER Once a day Furosemide [facility] 66896181681 20 MG Orally Active 1 tablet Once a day Meclizine HCl [facility] 68438449991 25 MG Orally Active 1 tablet as Once a day needed Results No Known Results Summary Purpose eClinicalWorks Submission
--- OUTSIDE RECORDS SUMMARY | 2018-01-22 18:36 | XMS REPORT ---
[...] Start End Status Dosage System Date Date Levothyroxine [facility] 27902643794 125 MCG Orally Active 1 tablet Sodium Once a day on an empty stomach in the morning Results No Known Results Summary Purpose eClinicalWorks Submission
--- OUTSIDE RECORDS SUMMARY | 2018-01-22 18:36 | XMS REPORT ---
:1940 Author Organization eClinicalWorks Care Team Providers Name Role Phone Karl Blake Provider Role Unavailable Allergies No Known Allergies Problems Problem Type Condition Code Onset Dates Condition Status Assessment Hyperlipidemia, mixed E78.2 Active Problem Hypomagnesemia E83.42 Active Problem Diabetic [...] End Status Dosage System Date Date Pravastatin [facility] 85590864820 40 MG Orally Active 1 tablet Sodium Once a day Results No Known Results Summary Purpose eClinicalWorks Submission
[2018-01-22] MEDS ORDERED: NA CHLORIDE 0.9% 1,000 ML ONE (20:08)
--- NOTE | 2018-01-22 20:10 | RAD REPORT ---
EXAM DESCRIPTION: RAD - Chest Single View - 01/22/2018 7:53 pm CLINICAL HISTORY: hyperglycemia Chest pain. COMPARISON: Chest Single View dated 08/11/2017; Chest Single View dated 07/06/2016; Chest Single View da jose 06/21/2016; Chest Single View dated 03/23/2016 FINDINGS: Portable technique limits examination quality. The lungs are grossly clear. The heart is mildly enlarged in size. No displaced fractures. IMPRESSION: No acute intrathoracic process suspected.
[2018-01-22 20:45] LABS: ALT/SGPT 23 U/L (12-78); AST/SGOT 23 U/L (15-37); Albumin 3.5 g/dL (3.4-5.0); Alkaline Phosphatase 124 U/L (45-117); BUN Blood Urea Nitrogen 14 mg/dL (7-18); Bicarbonate 24 mmol/L (21-32); Bilirubin Direct 0.1 mg/dL (0-0.2); Bilirubin Total 0.4 mg/dL (0.2-1.0); C-Reactive Protein 5.66 mg/L (<3.00); Creatine Phosphokinase 114 U/L (26-192); Glucose Level 106 mg/dL (74-106); Lipase 258 U/L (73-393); Potassium 3.8 mmol/L (3.5-5.1); Protein, Total 7.7 g/dL (6.4-8.2); Sodium Level 130 mmol/L (136-145); Troponin (Emerg Dept Use Only) < 0.02 ng/mL (0.0-0.045)
[2018-01-22 21:04] LABS: Absolute Lymphocytes (CBC) 1.8 K/uL (0.7-4.9); Absolute Monocytes 0.6 K/uL (0.1-1.3); Absolute Neutrophil 5.4 K/uL (1.8-8.0); Basophils % 0.5 % (0-1.3); Eosinophils % 1.3 % (0-4.4); Hematocrit 22.4 % (36.0-45.0); Lymphocytes % 22.4 % (15.3-44.8); MCV 81.3 fL (80-100); MPV 10.6 fL (7.6-11.3); Monocytes % 8.1 % (3.3-12.3); RBC Red Blood Cell Count 2.75 M/uL (3.86-4.86)
[2018-01-22 21:39] LABS: Urine Blood NEGATIVE (NEG); Urine Glucose NEGATIVE (NEG); Urine Protein NEGATIVE (NEG); Urine Specific Gravity 1.015 (1.005-1.030); Urine pH 6.5 (5.0-7.0)
[2018-01-22 21:56] LABS: Protime INR 1.02
[2018-01-22 22:01] LABS: Urine Bacteria <20 /HPF (<20); Urine Culture Reflex Order NOT NEEDED; Urine RBC NONE SEEN /HPF (NONE SEEN)
[2018-01-22] MEDS ORDERED: PROMETHAZINE 25 MG/ML VIAL ONE (22:05)
[2018-01-22] MEDS ORDERED: FENTANYL CITR 100 MCG/2 ML ONE (22:06)
--- NOTE | 2018-01-22 22:47 | ER ---
Nurse's Notes [facility] Name: Shayy Mcgovern Age: 77 yrs Sex: Female : 1940 Arrival Date: 01/22/2018 Time: 18:37 Bed 17 Private MD: Mike Chambers Diagnosis: Gastrointestinal hemorrhage, unspecified;Anemia, unspecified Presentation: 01/22 18:58 Presenting complaint: Patient states: mostly nicaraguan speaking, reports " my blood sg sugars have been high this morning and have just been getting higher and higher, I also have nausea. last sugar was at 1650 today with reading of greater than 500. I take medications but it has never been like this before." denies fever/vomiting/diarrhea. Transition of care: patient was not received from another setting of care. Onset of symptoms was January 22, 2018. Risk Assessment: Do you want to hurt yourself or someone else? Patient reports no desire to harm self or others. Initial Sepsis Screen: Does the patient meet any 2 criteria? No. Patient's initial sepsis screen is negative. Does the patient have a suspected source of infection? No. Patient's initial sepsis screen is negative. Care prior to arrival: None. 18:58 Method Of Arrival: Ambulatory sg 18:58 Acuity: CORINE 3 sg Historical: - Allergies: 19:00 Ciprofloxacin; sg 19:00 Macrodantin; sg 19:00 nitrofuran macrocrystal (bulk); sg 19:00 PENICILLINS; sg 19:00 Sulfa (Sulfonamide Antibiotics); sg - PMHx: 19:00 Anxiety; Depression; Diabetes - IDDM; gastritis; Hypertension; Hypothyroidism; sg - Immunization history:: Adult Immunizations up to date. - Social history:: Smoking status: Patient/guardian denies using tobacco. - Ebola Screening: : Patient negative for fever greater than or equal to 101.5 degrees Fahrenheit, and additional compatible Ebola Virus Disease symptoms Patient denies exposure to infectious person Patient denies travel to an Ebola-affected area in the 21 days before illness onset No symptoms or risks identified at this time. Screenin:13 Abuse screen: Denies threats or abuse. Denies injuries from another. Nutritional bp screening: No deficits noted. Tuberculosis screening: No symptoms or risk factors identified. Fall Risk None identified. Assessment: 19:00 General: Appears in no apparent distress. comfortable, Behavior is calm, cooperative, bp appropriate for age. Pain: Denies pain. Neuro: Level of Consciousness is awake, alert, obeys commands, Oriented to person, place, time, situation, Appropriate for age. Cardiovascular: No deficits noted. Rhythm is sinus rhythm. Respiratory: Airway is patent Respiratory effort is even, unlabored, Respiratory pattern is regular, symmetrical. GI: No signs and/or symptoms were reported involving the gastrointestinal system. : No signs and/or symptoms were reported regarding the genitourinary system. EENT: No deficits noted. Derm: No deficits noted. Musculoskeletal: Circulation, motion, and sensation intact. Range of motion: intact in all extremities. 20:29 Reassessment: PT RESTING QUIETLY ON MONITOR, INITIAL LABS IN PROCESS, BGL NOTED NORMAL. bp 21:38 Reassessment: PT INITIAL LABS ABNORMAL, PROVIDER NOTIFIED. bp 22:15 Reassessment: PT VERY ANXIOUS, STATING HER SUGAR IS LOW. BGL MEASURED AT 102. PROVIDER bp INFORMED. 22:32 Reassessment: PT TBA FOR ANEMIA. bp Vital Signs: 19:01 BP 140 / 60; Pulse 82; Resp 19; Temp 98.3; Pulse Ox 95% on R/A; sg 19:13 BP 136 / 59; Pulse 80; Resp 14; Pulse Ox 95% ; bp 20:24 BP 148 / 69; Pulse 73; Resp 14; Pulse Ox 96% ; bp 21:30 BP 140 / 68; Pulse 75; Resp 20; Pulse Ox 96% ; bp 22:23 BP 120 / 52; Pulse 73; Resp 22; Pulse Ox 95% ; bp 23:30 BP 130 / 55; Pulse 77; Resp 16; Pulse Ox 100% ; bp ED Course: 18:37 Patient arrived in ED. sb2 18:38 Mike Chambers MD is Private Physician. sb2 18:58 Arm band placed on. sg 19:00 Triage completed. sg 19:01 Mark Pichardo, CHRIS is Primary Nurse. bp 19:13 Patient has correct armband on for positive identification. Bed in low position. Call bp light in reach. Side rails up X2. 19:15 Jayy Mayberry MD is Attending Physician. russ 19:15 Anna Sherman [facility]-C [facility]. snw 19:50 X-ray completed. Portable x-ray completed in exam room. Patient tolerated procedure ka well. 19:53 Chest Single View XRAY In Process Unspecified. EDMS 20:00 Initial lab(s) drawn, by me, sent to lab. First set of blood cultures drawn. EKG done, cb2 by ED staff, reviewed by Anna SIERRA. Inserted saline lock: 20 gauge in left antecubital area, using aseptic technique. Blood collected. 21:09 Notified Nurse Practitioner and/or Physician Casino Dealer of a critical lab result(s), HGB bb of 7.4 S. Whit LEGAL SERVICES MANAGER notified. 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 Patient admitted, IV remains in place. bp 22:45 Carline Barnes MD is Hospitalizing Provider. snw Administered Medications: 19:45 Drug: NS 0.9% 1000 ml Route: IV; Rate: 125 ml/hr; Site: left antecubital; bp 23:19 Follow up: IV Status: Infusion continued upon admission bp 22:05 Drug: fentaNYL (PF) 25 mcg Route: IVP; Site: left antecubital; bp 22:21 Follow up: Response: Nausea is decreased bp 22:05 Drug: Phenergan 6.25 mg Route: IVP; Site: left antecubital; bp 22:21 Follow up: Response: Nausea is decreased bp Point of Care Testing: Blood Glucose: 20:16 Blood Glucose: 117 mg/dL; cb2 22:24 Blood Glucose: 102 mg/dL; bp Ranges: Outcome: 22:46 Decision to Hospitalize by Provider. snw 23:47 Admitted to Med/surg accompanied by tech, family with patient, via wheelchair, room bp 204, with chart, Report called to KISHA PEREZ 23:48 Condition: stable bp 23:48 Instructed on the need for admit. 23:53 Patient left the ED. bp Signatures: Dispatcher [employer] EDMS Ubaldo Brennan, Jayy Thomas RN, MD MD cha Therrien, Shelly, FNP-C FNP-Beatrizw Radha Baker, RN RN Marley Davis Christian cb2 Mark Pichardo RN RN bp Hanny Degroot sb2
--- NOTE | 2018-01-22 22:47 | EDPHYS ---
Physician Documentation [facility] Department Name: Shayy Mcgovern Age: 77 yrs Sex: Female : 1940 Arrival Date: 01/22/2018 Time: 18:37 Bed 17 Private MD: Mike Chambers ED Physician Jayy Mayberry HPI: 01/22 19:23 This 77 yrs old Female presents to ER via Ambulatory with complaints of High snw Blood Sugar. 19:23 The patient or guardian reports hyperglycemia, that was potentially precipitated by no snw particular event. Onset: The symptoms/episode began/occurred suddenly, today. Associated signs and symptoms: Pertinent positives:. Historical: - Allergies: 19:00 Ciprofloxacin; sg 19:00 Macrodantin; sg 19:00 nitrofuran macrocrystal (bulk); sg 19:00 PENICILLINS; sg 19:00 Sulfa (Sulfonamide Antibiotics); sg - PMHx: 19:00 Anxiety; Depression; Diabetes - IDDM; gastritis; Hypertension; Hypothyroidism; sg - Immunization history:: Adult Immunizations up to date. - Social history:: Smoking status: Patient/guardian denies using tobacco. - Ebola Screening: : Patient negative for fever greater than or equal to 101.5 degrees Fahrenheit, and additional compatible Ebola Virus Disease symptoms Patient denies exposure to infectious person Patient denies travel to an Ebola-affected area in the 21 days before illness onset No symptoms or risks identified at this time. ROS: 19:22 Eyes: Negative for injury, pain, redness, and discharge, ENT: Negative for injury, snw pain, and discharge, Neck: Negative for injury, pain, and swelling, Cardiovascular: Negative for chest pain, palpitations, and edema, Respiratory: Negative for shortness of breath, cough, wheezing, and pleuritic chest pain, Back: Negative for injury and pain. 19:22 MS/Extremity: Negative for injury and deformity, Skin: Negative for injury, rash, and discoloration, Neuro: Negative for headache, weakness, numbness, tingling, and seizure, Psych: Negative for depression, anxiety, suicide ideation, homicidal ideation, and hallucinations. 19:22 Constitutional: Positive for poor PO intake, because blood sugars are high today. 19:22 Abdomen/GI: Positive for nausea. 19:22 Back: Positive for Exam: 19:22 Head/Face: Normocephalic, atraumatic. Eyes: Pupils equal round and reactive to light, snw extra-ocular motions intact. Lids and lashes normal. Conjunctiva and sclera are non-icteric and not injected. Cornea within normal limits. Periorbital areas with no swelling, redness, or edema. ENT: Nares patent. No nasal discharge, no septal abnormalities noted. Tympanic membranes are normal and external auditory canals are clear. Oropharynx with no redness, swelling, or masses, exudates, or evidence of obstruction, uvula midline. Mucous membranes moist. Neck: Trachea midline, no thyromegaly or masses palpated, and no cervical lymphadenopathy. Supple, full range of motion without nuchal rigidity, or vertebral point tenderness. No Meningismus. Chest/axilla: Normal chest wall appearance and motion. Nontender with no deformity. No lesions are appreciated. Cardiovascular: Regular rate and rhythm with a normal S1 and S2. No gallops, murmurs, or rubs. Normal PMI, no JVD. No pulse deficits. Respiratory: Lungs have equal breath sounds bilaterally, clear to auscultation and percussion. No rales, rhonchi or wheezes noted. No increased work of breathing, no retractions or nasal flaring. Back: No spinal tenderness. No costovertebral tenderness. Full range of motion. Skin: Warm, dry with normal turgor. Normal color with no rashes, no lesions, and no evidence of cellulitis. MS/ Extremity: Pulses equal, no cyanosis. Neurovascular intact. Full, normal range of motion. Neuro: Awake and alert, GCS 15, oriented to person, place, time, and situation. Cranial nerves II-XII grossly intact. Motor strength 5/5 in all extremities. Sensory grossly intact. Cerebellar exam normal. Normal gait. 19:22 Constitutional: The patient appears awake, anxious, obese. 19:22 Abdomen/GI: Inspection: obese Bowel sounds: normal, Palpation: abdomen is soft and non-tender. Vital Signs: 19:01 BP 140 / 60; Pulse 82; Resp 19; Temp 98.3; Pulse Ox 95% on R/A; sg 19:13 BP 136 / 59; Pulse 80; Resp 14; Pulse Ox 95% ; bp 20:24 BP 148 / 69; Pulse 73; Resp 14; Pulse Ox 96% ; bp 21:30 BP 140 / 68; Pulse 75; Resp 20; Pulse Ox 96% ; bp 22:23 BP 120 / 52; Pulse 73; Resp 22; Pulse Ox 95% ; bp 23:30 BP 130 / 55; Pulse 77; Resp 16; Pulse Ox 100% ; bp MDM: 19:15 Patient medically screened. russ 22:46 Data reviewed: vital signs, nurses notes. Data interpreted: Pulse oximetry: on room air snw is 95 %. Interpretation: acceptable. Counseling: I had a detailed discussion with the patient and/or guardian regarding: the historical points, exam findings, and any diagnostic results supporting the discharge/admit diagnosis, lab results, the need for outpatient follow up, to return to the emergency department if symptoms worsen or persist or if there are any questions or concerns that arise at home. Counseling: I had a detailed discussion with the patient and/or guardian regarding:. Physician consultation: Carline Barnes MD was called at 22:47, was contacted at 22:47, regarding admission, to the telemetry unit. and will see patient in ED, shortly. 01/22 19:21 Order name: T\T\S [facility] 01/22 19:21 Order name: Basic Metabolic Panel; Complete Time: 20:57 w 01/22 19:21 Order name: Blood Culture Adult (2) [facility] 01/22 19:21 Order name: C-Reactive Protein; Complete Time: 20:57 w 01/22 19:21 Order name: CBC with Diff; Complete Time: 21:57 w 01/22 19:21 Order name: Ckmb; Complete Time: 20:57 w 01/22 19:21 Order name: CPK; Complete Time: 20:57 w 01/22 19:21 Order name: Lactate; Complete Time: 20:57 w 01/22 19:21 Order name: LFT's; Complete Time: 20:57 w 01/22 19:21 Order name: Lipase; Complete Time: 20:57 w 01/22 19:21 Order name: Procalcitonin [facility] 01/22 19:21 Order name: Protime (+inr); Complete Time: 22:03 w 01/22 19:21 Order name: Ptt, Activated; Complete Time: 22:03 w 01/22 19:21 Order name: Sed Rate; Complete Time: 21:57 snw 01/22 19:21 Order name: Troponin (emerg Dept Use Only); Complete Time: 20:57 snw 01/22 19:21 Order name: Chest Single View XRAY; Complete Time: 20:11 snw 01/22 21:20 Order name: Urine Dipstick--Ancillary (enter results); Complete Time: 21:40 rg2 01/22 21:22 Order name: Urine Microscopic Only; Complete Time: 22:03 bp 01/22 21:22 Order name: Urine Culture bp 01/22 22:33 Order name: Bb Add On snw 01/22 22:59 Order name: ABO/RH no charge; Complete Time: 23:03 EDCA 01/22 23:00 Order name: Packed RBC Leukored -1 [facility] 01/22 23:30 Order name: Basic Metabolic Panel [facility] 01/22 23:30 Order name: Basic Metabolic Panel [facility] 01/22 23:30 Order name: CBC with Automated Diff [facility] 01/22 23:30 Order name: CBC with Automated Diff [facility] 01/22 19:21 Order name: Accucheck; Complete Time: 20:16 snw 01/22 19:21 Order name: Cardiac monitoring; Complete Time: 20:17 snw 01/22 19:21 Order name: EKG - Nurse/Tech; Complete Time: 19:43 snw 01/22 19:21 Order name: IV Saline Lock - Large Bore; Complete Time: 20:17 snw 01/22 19:21 Order name: Labs collected and sent; Complete Time: 20:17 w 01/22 19:21 Order name: O2 Per Protocol; Complete Time: 19:43 w 01/22 19:21 Order name: O2 Sat Monitoring; Complete Time: 19:44 snw 01/22 19:21 Order name: Urine Dipstick-Ancillary (obtain specimen); Complete Time: 21:39 snw 01/22 23:30 Order name: CONS Physician Consult [facility] 01/22 23:30 Order name: NPO EDCA Administered Medications: 19:45 Drug: NS 0.9% 1000 ml Route: IV; Rate: 125 ml/hr; Site: left antecubital; bp 23:19 Follow up: IV Status: Infusion continued upon admission bp 22:05 Drug: fentaNYL (PF) 25 mcg Route: IVP; Site: left antecubital; bp 22:21 Follow up: Response: Nausea is decreased bp 22:05 Drug: Phenergan 6.25 mg Route: IVP; Site: left antecubital; bp 22:21 Follow up: Response: Nausea is decreased bp Point of Care Testing: Blood Glucose: 20:16 Blood Glucose: 117 mg/dL; cb2 22:24 Blood Glucose: 102 mg/dL; bp Ranges: Critical Glucose Levels:Adult <50 mg/dl or >400 mg/dl <40 mg/dl or >180 mg/dl Disposition: 01/23 07:22 Co-signature as Attending Physician, Jayy Mayberry MD I agree with the assessment and russ plan of care. Disposition: 01/22/18 22:46 Hospitalization ordered by Carline Barnes for Inpatient Admission. Preliminary diagnosis are Gastrointestinal hemorrhage, unspecified, Anemia, unspecified. - Bed requested for Telemetry/MedSurg (Inpatient). - Status is Inpatient Admission. bp - Condition is Stable. - Problem is new. - Symptoms have worsened. UTI on Admission? No Signatures: Dispatcher [employer] EDCA Grecia Velazco RN RN mw Gay, Steven, RN RN sg Anderson, Corey, MD MD cha Therrien, Shelly, SALES AGENT [employer] SALES AGENT [employer]Csnw Mark Pichardo, CHRIS RN bp Corrections: (The following items were deleted from the chart) 01/22 23:00 22:46 Hospitalization Ordered by Carline Barnes MD for Inpatient Admission. Preliminary diagnosis is Gastrointestinal hemorrhage, unspecified; Anemia, unspecified. Bed requested for Telemetry/MedSurg (Inpatient). Status is Inpatient Admission. Condition is Stable. Problem is new. Symptoms have worsened. UTI on Admission? No. snw 23:53 23:00 01/22/2018 22:46 Hospitalization Ordered by Carline Barnes MD for Inpatient bp Admission. Preliminary diagnosis is Gastrointestinal hemorrhage, unspecified; Anemia, unspecified. Bed requested for Telemetry/MedSurg (Inpatient). Status is Inpatient Admission. Condition is Stable. Problem is new. Symptoms have worsened. UTI on Admission? No. mw
[2018-01-22] MEDS ORDERED: ONDANSETRON 4 MG/2 ML VIAL IV PRN (23:28)
[2018-01-22] MEDS ORDERED: SODIUM CHLORIDE 0.9% 10ML INJ IV PRN (23:30)
--- NOTE | 2018-01-22 23:40 | P.HP ---
Certification for Inpatient Patient admitted to: Observation With expected LOS: <2 Midnights Practitioner: I am a practitioner with admitting privileges, knowledge of patient current condition, hospital course, and medical plan of care. Services: Services provided to patient in accordance with Admission requirements found in Title 42 Section 412.3 of the Code of Federal Regulations Patient History Date of Service: 01/22/18 Reason for admission: Anemia History of Present Illness: Ms Posey is 77-year-old woman with history of insulin-dependent diabetes mellitus, gastritis, anemia, came to ED complaining of hyperglycemia and headache. This afternoon the patient blood sugar was elevated according to her statement, it was about 300 mg/dl. She was also complaining of headache associated with nausea. She denied any chest pain, shortness of breath, abdominal pain, vomiting or diarrhea. Lab work was remarkable for hemoglobin of 7.4 mg/dl (his was a significant stroke since wearing 45 days ago, which was 9.5 mg/dl). The patient denied also black stools or bloody stools. At the time of my examination, she was in no distress, with stable vital signs. Allergies Sulfa (Sulfonamide Antibiotics) Allergy (Severe, Verified 07/17/15 06:09) Nausea/Vomiting ciprofloxacin HCl [From Cipro] Allergy (Unknown, Verified 07/17/15 06:09) Unknown gentamicin [Gentamicin] Allergy (Unknown, Verified 07/17/15 06:09) Unknown sulfamethoxazole [From Bactrim] Allergy (Unknown, Verified 07/17/15 06:09) unknown Iodinated Contrast- Oral and IV Dye [Iodinated Contrast Media - IV Dye] Allergy (Verified 07/17/15 06:09) Hives/Rash nitrofurantoin macrocrystal [From Macrodantin] Allergy (Unverified 10/17/16 07: 39) Unknown Penicillins Allergy (Unverified 07/22/15 21:27) Unknown pseudoephedrine Adverse Reaction (Verified 07/17/15 06:09) Nausea/Vomiting nitro Allergy (Uncoded 10/16/16 23:43) Unknown nitrof Allergy (Uncoded 01/25/16 18:09) Unknown nitrofuran m Allergy (Uncoded 09/03/15 22:27) Unknown nitrofuran ma Allergy (Uncoded 09/23/15 17:53) Unknown nitrofuran mac Allergy (Uncoded 09/06/15 18:18) Unknown nitrofuran macr Allergy (Uncoded 06/12/16 13:05) Unknown nitrofuran macrocrys Allergy (Uncoded 07/22/15 21:27) Unknown Home medications list reviewed: Yes Home Medications: ALPRAZolam [Xanax*] 0.25 mg PO BID PRN 10/09/14 Aspirin [Aspirin EC 81 MG] 81 mg PO DAILY 10/09/14 Losartan/Hydrochlorothiazide [Losartan-Hctz 100-25 mg Tab] 1 each PO DAILY 10/09 Metoprolol Succinate 50 mg PO BID 10/09/14 Nitroglycerin 0.4 mg SL ONCE PRN 10/09/14 Pantoprazole [Protonix Tab*] 40 mg PO DAILY 10/09/14 Promethazine Tab [Phenergan*] 25 mg PO Q6HP PRN 10/09/14 Simvastatin 40 mg PO DAILY 10/09/14 Sitagliptin Phos/Metformin HCl [Janumet Xr 50-1,000 mg Tablet] 1 each PO BID 08/20 diazePAM [Valium*] 5 mg PO DAILY PRN 10/09/14 Cyanocobalamin (Vitamin B-12) [B-12] 1,000 mcg PO DAILY 12/16/14 Gabapentin [Neurontin*] 1 cap PO BID 12/16/14 Glipizide [Glipizide ER] 10 mg PO BID 12/16/14 Levothyroxine [Synthroid*] 125 mcg PO [id number] 12/16/14 Meclizine HCl [Antivert*] 2 tab PO TIDP PRN 12/16/14 Pioglitazone [Actos*] 45 mg PO DAILY 12/16/14 Ferrous Sulfate [Ferrous Sulfate*] 325 mg PO BID #60 tab 12/17/14 Magnesium Oxide [Mag 0X*] 400 mg PO BID #60 tab 12/17/14 Hydrocodone 10/APAP 325 [[place] 10/325] 1 tab PO Q6H PRN #30 tab 07/17/15 - Past Medical/Surgical History Diabetic: Yes -: HTN -: DM -: hypothyroid -: migraines -: arthritis -: gastritis -: harvey Psychosocial/ Personal History: . - Family History Family History: Reviewed- Non-Contributory - Social History Smoking Status: Never smoker Alcohol use: No CD- Drugs: No Caffeine use: Yes Place of Residence: Home Review of Systems 10-point ROS is otherwise unremarkable Physical Examination - Physical Exam General: Alert, In no apparent distress, Other (pale) HEENT: Atraumatic, PERRLA, Mucous membr. moist/pink, EOMI, Sclerae nonicteric Neck: Supple, 2+ carotid pulse no bruit, No LAD, Without JVD or thyroid abnormality Respiratory: Clear to auscultation bilaterally, Normal air movement Cardiovascular: Normal S1 S2, No gallops Gastrointestinal: Normal bowel sounds, No tenderness Musculoskeletal: No tenderness Integumentary: No rashes Neurological: Normal speech, Normal strength at 5/5 x4 extr, Normal tone, Normal affect Lymphatics: No axilla or inguinal lymphadenopathy - Studies Laboratory Data (last 24 hrs) 01/22/18 21:24: PT 12.0, INR 1.02, APTT 27.6 01/22/18 20:00: WBC 8.0, Hgb 7.4 L*, Hct 22.4 L, Plt Count 134 L 01/22/18 20:00: Sodium 130 L, Potassium 3.8, BUN 14, Creatinine 1.10, Glucose 106, Total Bilirubin 0.4, AST 23, ALT 23, Alkaline Phosphatase 124 H, Lipase 258 Assessment and Plan - Plan Assessment: 1. Anemia 2. Insulin-dependent diabetes mellitus 3. Obesity 4. Migraine headache 5. Hypertension 6. History of gastritis Plan: Will admit the patient under observation for acute on chronic anemia. She has been ordered in ER blood transfusion, guaiac was positive, will continue with PPI, consult GI specialist for evaluation recommendation. The patient is hemodynamically stable. - Advance Directives Does patient have a Living Will: No Does patient have a Durable POA for Healthcare: No - Code Status/Comfort Care Code Status Assessed: Yes Code Status: Full Code
[2018-01-22] MEDS: D5 0.9 NS 1,000 ML IV SCH (23:45)
[2018-01-23 00:09] VITALS: BMI 33.5
[2018-01-23] MEDS ORDERED: NA CHLORIDE 0.9% 250 ML ONE (00:54)
[2018-01-23] MEDS ORDERED: LORAZEPAM 0.5 MG TABLET PO ONE (01:32)
[2018-01-23] MEDS ORDERED: KETOROLAC 30 MG/ML INJ IV PRN (05:03)
[2018-01-23] MEDS: INSULIN -REGULAR HUMAN 50 UNIT/0.5 ML ML SQ SCH ×2 (05:49)
[2018-01-23] MEDS ORDERED: MORPHINE 2 MG/ML SYR IV ONE (06:36)
[2018-01-23] MEDS ORDERED: PNEUMOCOCCAL VACCINE 0.5 ML IMVAC ONE (08:00)
[2018-01-23] MEDS ORDERED: PANTOPRAZOLE 40 MG INJ IVP SCH (09:00)
[2018-01-23] MEDS: D5 0.9 NS 1,000 ML IV SCH (09:45)
[2018-01-23 11:18] LABS: Absolute Lymphocytes (CBC) 1.3 K/uL (0.7-4.9); Absolute Monocytes 0.4 K/uL (0.1-1.3); Absolute Neutrophil 3.7 K/uL (1.8-8.0); Basophils % 0.6 % (0-1.3); Eosinophils % 1.1 % (0-4.4); Hematocrit 26.2 % (36.0-45.0); Lymphocytes % 23.5 % (15.3-44.8); MCH 27.4 pg (27.0-35.0); MCV 81.8 fL (80-100); MPV 9.8 fL (7.6-11.3)
[2018-01-23 11:28] LABS: Potassium 4.5 mmol/L (3.5-5.1)
[2018-01-23 11:59] VITALS: O2SAT 96
[2018-01-23 13:02] VITALS: BP 116/58; TEMP 97.8
--- NOTE | 2018-01-23 14:57 | P.SSS ---
Patient History Date of Service: 01/23/18 Reason for admission: Anemia History of Present Illness: Ms Posey is 77-year-old woman with history of insulin-dependent diabetes mellitus, gastritis, anemia, came to ED complaining of hyperglycemia and headache. This afternoon the patient blood sugar was elevated according to her statement, it was about 300 mg/dl. She was also complaining of headache associated with nausea. She denied any chest pain, shortness of breath, abdominal pain, vomiting or diarrhea. Lab work was remarkable for hemoglobin of 7.4 mg/dl (his was a significant stroke since wearing 45 days ago, which was 9.5 mg/dl). The patient denied also black stools or bloody stools. At the time of my examination, she was in no distress, with stable vital signs. Allergies Sulfa (Sulfonamide Antibiotics) Allergy (Severe, Verified 07/17/15 06:09) Nausea/Vomiting ciprofloxacin HCl [From Cipro] Allergy (Unknown, Verified 07/17/15 06:09) Unknown gentamicin [Gentamicin] Allergy (Unknown, Verified 07/17/15 06:09) Unknown sulfamethoxazole [From Bactrim] Allergy (Unknown, Verified 07/17/15 06:09) unknown Iodinated Contrast- Oral and IV Dye [Iodinated Contrast Media - IV Dye] Allergy (Verified 07/17/15 06:09) Hives/Rash nitrofurantoin macrocrystal [From Macrodantin] Allergy (Verified 01/23/18 05:24) Itching/Hives/Rash Penicillins Allergy (Verified 01/23/18 05:24) Itching/Hives/Rash pseudoephedrine Adverse Reaction (Verified 07/17/15 06:09) Nausea/Vomiting Home Medications: Aspirin [Aspirin EC 81 MG] 81 mg PO BEDTIME 01/23/18 Diazepam [Valium] 5 mg PO DAILY PRN 01/23/18 Hydrocodone Bit/Acetaminophen [Hydrocodon-Acetaminophen 5-325] 1 tab PO TID PRN 01/23/18 Insulin Aspart Protam & Aspart [Novolog Mix 70-30 Flexpen Syrn] 30 units SQ LUNCH 01/23/18 Insulin Aspart Protam & Aspart [Novolog Mix 70-30 Flexpen Syrn] 60 units SQ BREAKFAST 01/23/18 Levothyroxine [Synthroid*] 125 mcg PO DAILY 01/23/18 Losartan/Hydrochlorothiazide [Losartan-Hctz 100-25 mg Tab] 1 tab PO DAILY Metoprolol Succinate [Toprol Xl*] 50 mg PO DAILY 01/23/18 Omeprazole [Prilosec] 40 mg PO DAILY 01/23/18 Pravastatin Sodium [Pravachol] 40 mg PO DAILY 01/23/18 Promethazine HCl 25 mg PO BID PRN 01/23/18 - Past Medical/Surgical History Has patient received pneumonia vaccine in the past: No Diabetic: Yes -: HTN -: DM -: hypothyroid -: migraines -: arthritis -: gastritis -: harvey Psychosocial/ Personal History: . - Family History Family History: Reviewed- Non-Contributory - Social History Smoking Status: Never smoker Alcohol use: No CD- Drugs: No Caffeine use: Yes Place of Residence: Home Review of Systems 10-point ROS is otherwise unremarkable Physical Examination - Vital Signs Temperature: 97.8 F Blood Pressure: 116/58 Pulse: 69 Respirations: 20 Pulse Ox (%): 98 - Physical Exam General: Alert, In no apparent distress HEENT: Atraumatic, PERRLA, Mucous membr. moist/pink, EOMI, Sclerae nonicteric Neck: Supple, 2+ carotid pulse no bruit, No LAD, Without JVD or thyroid abnormality Respiratory: Clear to auscultation bilaterally, Normal air movement Cardiovascular: Regular rate/rhythm, Normal S1 S2 Gastrointestinal: Normal bowel sounds, No tenderness Musculoskeletal: No tenderness Integumentary: No rashes Neurological: Normal gait, Normal speech, Normal strength at 5/5 x4 extr, Normal tone, Normal affect Lymphatics: No axilla or inguinal lymphadenopathy - Studies Laboratory Data (last 24 hrs) 01/22/18 21:24: PT 12.0, INR 1.02, APTT 27.6 01/22/18 20:00: WBC 8.0, Hgb 7.4 L*, Hct 22.4 L, Plt Count 134 L 01/22/18 20:00: Sodium 130 L, Potassium 3.8, BUN 14, Creatinine 1.10, Glucose 106, Total Bilirubin 0.4, AST 23, ALT 23, Alkaline Phosphatase 124 H, Lipase 258 Treatment Summary: Discharge diagnosis: 1. Acute blood loss anemia most likely secondary to upper GI bleeding 2. Generalized weakness. 3. Fatty infiltration of the liver 4. Moderate obesity with BMI of over 30 5. Hypertension 6. Type 2 diabetes Hospital Course: Overall during the hospital stay patient remained stable The patient was initially admitted to the hospital for anemia most likely secondary to upper GI bleed with guaiac-positive. GI was consulted who stated that patient recently had an EGD done about 3 months ago consistent with gastritis and mild varices. Recommended patient get 2 units of transfusion and then be discharged home if no symptoms persist. Patient was given 2 units of blood and did well overall. No dizziness or any other associated symptoms to anemia were noted. Patient then was asked to follow up with GI outpatient where she will be scheduled for an EGD during this week to assess further for her cause of bleeding. Patient and family demonstrated understanding and thus was discharged home under stable condition. All other chronic conditions remained stable while here in the hospital - Disposition Disposition: ROUTINE DISCHARGE Condition: GOOD Patient Discharge Instructions: Please f.u with Dr Resendiz in 1 to 2 days post discharge. No New medication. Continue taking all medication as precribed especially Omeprezole. You will need to schedule for outpatient EGD with Dr Huitron to evaluate for Upper GI bleeding Diet: Regular Activity: Ad andrea
--- NOTE | 2018-01-23 15:39 | EKG ---
Test Date: 2018-01-22 Test Time: 19:34:40 [employer] Account Assistant: RAFAEL MEASUREMENT RESULTS: Intervals: Rate: 77 VT: 160 QRSD: 80 QT: 416 QTc: 470 [place]: P: 53 VT: 160 QRS: 39 T: 42 INTERPRETIVE STATEMENTS: Normal sinus rhythm T wave abnormality, consider anterior ischemia Prolonged QT Abnormal ECG Compared to ECG 09/10/2017 11:39:38 T-wave abnormality now present Prolonged QT interval now present ST (T wave) deviation no longer present Possible ischemia still present Electronically Signed On 01-23-18 15:35:15 CDT by Jeffery Jacques
== END 2018-01-23 14:50 | disposition home or self-care (01) ==
LOC: ER 18:34 → ERHOLD 23:27 → 2ND 23:35
PROVIDERS: ADMIT Internal Medicine; ATTEND Internal Medicine
PROC: 30233N1 Transfusion of Nonautologous Red Blood Cells into Peripheral Vein, Percutaneous Approach (ICD-10-PCS; principal; 2018-01-22)
DX: D62 Acute posthemorrhagic anemia (principal); E11.9 Type 2 diabetes mellitus without complications; I10 Essential (primary) hypertension; G43.909 Migraine, unspecified, not intractable, without status migrainosus; E03.9 Hypothyroidism, unspecified; R19.5 Other fecal abnormalities; E66.9 Obesity, unspecified; Z68.33 Body mass index [BMI] 33.0-33.9, adult; Z79.82 Long term (current) use of aspirin; Z88.0 Allergy status to penicillin; Z88.2 Allergy status to sulfonamides
CPT/HCPCS: 36415; 36430; 71045; 80048 ×2; 80076; 82550; 82553; 82962 ×5; 83605; 83690; 84145; 84484; 85025 ×2; 85610; 85652; 85730; 86140; 86850; 86900; 86901; 87040 ×2; 87086; 87088; 93005; 96361; 96374; 96375; 99285; C9113; J2270; J2405; J2550; J3010; J7030; P9016 ×2; 81003; 81015

== ENCOUNTER 2018-03-02 20:39 | Observation (INO) | payer OTHER ==
--- OUTSIDE RECORDS SUMMARY | 2018-03-02 20:41 | XMS REPORT ---
[...] End Status Dosage System Date Date Nystatin [facility] [id number] UNIT/GM September 05October Active 1 application Externally Twice 2017, to a day 2018 area Results No Known Results Summary Purpose eClinicalWorks Submission
--- OUTSIDE RECORDS SUMMARY | 2018-03-02 20:41 | XMS REPORT ---
[...] Status Dosage System Date Date Zoloft [facility] 98879622869 25 MG Orally July Active 1 tablet Once a day 2017 Amlodipine [facility] 87481517564 10 MG Orally Active 1 tablet Besylate Once a day NovoLog Mix [facility] 62469890762 (70-30) 100 Active INJECT 70 70/30 Flexpen UNIT/ML UNITS UNDER Subcutaneous THE SKIN Twice a day EVERY MORNING WITH BREAKFAST AND 40 UNITS EVERY EVENING WITH DINNER Promethazine HCl ND 09808848524 25 MG Orally Active 1 tablet as every 12 hrs needed Omeprazole [facility] 81833211106 40 MG Orally Active 1 capsule Once a day Furosemide [facility] 95651488386 20 MG Orally Active 1 tablet Once a day Magnesium Oxide [facility] 85235176070 400 MG Orally Active 1 tablet as Once a day needed Pravastatin [facility] 72968088544 40 MG Orally Active 1 tablet Sodium Once a day Cozaar [facility] 25962261030 100 MG Orally Active 1 tablet Once a day Metoprolol [facility] 97585638148 50 MG Orally Active 1 tablet Succinate ER Once a day NovoFine [facility] 83410513960 32G X 6 MM SB July Active as directed Twice a day 2017 [place] [facility] 11630290093 5-325 MG Orally Active 1 tablet as every 6 hrs needed Acyclovir [facility] 93218853161 200 MG Orally Active 1 capsule Three times a day Aspir-81 [facility] 69146377177 81 MG Orally Active 1 tablet Once a day Levothyroxine [facility] 89559991301 125 MCG Orally Active 1 tablet on Sodium Once a day an empty stomach in the morning Meclizine HCl [facility] 46742184240 25 MG Orally Active 1 tablet as Once a day needed Results No Known Results Summary Purpose eClinicalWorks Submission
--- OUTSIDE RECORDS SUMMARY | 2018-03-02 20:41 | XMS REPORT ---
[...] End Status Dosage System Date Date Pravastatin [facility] 72969137618 40 MG Orally Active 1 tablet Sodium Once a day Aspir-81 [facility] 75326871701 81 MG Orally Active 1 tablet Once a day BusPIRone HCl [facility] 63458217162 5 MG Orally BID August Active 1 tablet 2017 Promethazine HCl [facility] 78595519612 25 MG Orally Active 1 tablet as every 12 hrs needed Amlodipine [facility] 19629825375 10 MG Orally Active 1 tablet Besylate Once a day Levothyroxine [facility] 16294404786 125 MCG Orally Active 1 tablet on Sodium Once a day an empty stomach in the morning Cozaar [facility] 28058592831 100 MG Orally Active 1 tablet Once a day Zoloft [facility] 15195826209 25 MG Orally Inactive 1 tablet Once a day Acyclovir [facility] 68933372006 200 MG Orally Active 1 capsule Three times a day Omeprazole [facility] 05663870415 40 MG Orally Active 1 capsule Once a day Magnesium Oxide [facility] 30147956070 400 MG Orally Active 1 tablet as Once a day needed NovoFine [facility] 04201100333 32G X 6 MM SB Active as directed Twice a day NovoLog Mix [facility] 07385345793 (70-30) 100 Active INJECT 70 70/30 Flexpen UNIT/ML UNITS UNDER Subcutaneous THE SKIN Twice a day EVERY MORNING WITH BREAKFAST AND 40 UNITS EVERY EVENING WITH DINNER [place] [facility] 53566359772 5-325 MG Orally Active 1 tablet as every 6 hrs needed True Metrix [facility] 51762895476 - Active USE TWICE Blood Glucose DAILY Test Metoprolol [facility] 33291276933 50 MG Orally Active 1 tablet Succinate ER Once a day Furosemide [facility] 28688862565 20 MG Orally Active 1 tablet Once a day Meclizine HCl [facility] 02539139806 25 MG Orally Active 1 tablet as Once a day needed Results No Known Results Summary Purpose eClinicalWorks Submission
--- OUTSIDE RECORDS SUMMARY | 2018-03-02 20:42 | XMS REPORT ---
[...] End Status Dosage System Date Date Pravastatin [facility] 43122702814 40 MG Orally Active 1 tablet Sodium Once a day Results No Known Results Summary Purpose eClinicalWorks Submission
--- OUTSIDE RECORDS SUMMARY | 2018-03-02 20:42 | XMS REPORT ---
[...] Condition Code Onset Dates Condition Status Assessment Slow transit constipation K59.01 Active Assessment Dysuria R30.0 Active Problem Hypomagnesemia E83.42 Active Problem Secondary esophageal varices I85.10 Active without bleeding Problem Intramural leiomyoma of uterus D25.1 Active Problem Iron deficiency anemia due to D50.0 Active chronic blood loss Problem Venous insufficiency I87.2 Active Problem Allergic rhinitis, seasonal J30.2 Active Problem Gastritis K29.70 Active Problem HSV (herpes simplex virus) A60.9 Active anogenital infection Problem GERD (gastroesophageal reflux K21.9 Active disease) Problem Vitamin D deficiency E55.9 Active Problem Diabetes type 2, uncontrolled E11.65 Active Problem Osteoarthritis of multiple joints M15.9 Active Problem Chronic kidney disease, stage 3 N18.3 Active Problem Diverticulosis of colon K57.30 Active Problem Varicose veins I86.8 Active Problem Slow transit constipation K59.01 Active Problem Hyperlipidemia, mixed E78.2 Active Problem Dizziness R42 Active Problem Hypothyroidism E03.9 Active Problem Cervical disc disorder at C4-C5 M50.121 Active level with radiculopathy Problem Hypertension I10 Active Problem Depression with anxiety F41.8 Active Problem Malaise and fatigue R53.81 Active Problem Vitamin B 12 deficiency E53.8 Active Problem Cirrhosis of liver K74.60 Active Problem Elevated alkaline phosphatase level R74.8 Active Problem Diabetic neuropathy E11.40 Active Problem Nausea R11.0 Active Problem Thrombocytopenia D69.6 Active Medications Medication Code Code Instructions Start End Status Dosage System Date Date Acyclovir [facility] 42476687021 200 MG Orally Active 1 capsule Three times a day Omeprazole [facility] 69965947441 40 MG Orally Active 1 capsule Once a day Promethazine HCl [facility] 76395794517 25 MG Orally Active 1 tablet as every 12 hrs needed Meclizine HCl [facility] 67222270813 25 MG Orally Active 1 tablet as Once a day needed BusPIRone HCl [facility] 03212923714 5 MG Orally BID Active 1 tablet Cozaar [facility] 50202037246 100 MG Orally Active 1 tablet Once a day Pravastatin [facility] 90264848473 40 MG Orally Active 1 tablet Sodium Once a day True Metrix [facility] 55064565530 - Active USE TWICE Blood Glucose DAILY Test Metoprolol [facility] 72913505168 50 MG Orally Active 1 tablet Succinate ER Once a day NovoLog Mix [facility] 03072291068 (70-30) 100 Active INJECT 70 70/30 Flexpen UNIT/ML UNITS UNDER Subcutaneous THE SKIN Twice a day EVERY MORNING WITH BREAKFAST AND 40 UNITS EVERY EVENING WITH DINNER Lidocaine HCl [facility] 12851999548 2 % Dec 07, Active 15 ml to Mouth/Throat 2018 affected every 3 hrs as area as needed (Swish needed around in mouth and spit out). MAX 8 doses/day Levothyroxine [facility] 38280960649 125 MCG Orally Active 1 tablet on Sodium Once a day an empty stomach in the morning Amitiza [facility] 97925746215 8 MCG Orally Feb 12, Mar 14, Active 1 capsule Twice a day 2017 2017 with food Cozaar [facility] 84691048220 100 Orally Once Active 1 tablet a day Metoprolol [facility] 40073253987 50 MG Active 1 TAB(S) Succinate ER TWICE DAILY [place] [facility] 75294161569 5-325 MG Orally Active 1 tablet as every 6 hrs needed Metoprolol [facility] 61523264840 50 Active 1 TAB(S) Succinate ER TWICE DAILY Metoprolol [facility] 97137337506 50 MG Active 1 TAB(S) Succinate ER TWICE DAILY - [facility] 01515460272 81 MG Orally Active 1 tablet Once a day Amlodipine [facility] 98794788351 10 MG Orally Active 1 tablet Besylate Once a day Levothyroxine [facility] 33279593251 125 MCG Orally Active 1 tablet on Sodium Once a day an empty stomach in the morning Magnesium Oxide [facility] 63906108544 400 MG Orally Active 1 tablet as Twice a day needed Furosemide [facility] 00073275412 20 MG Orally Active 1 tablet Once a day Metoprolol [facility] 88296210037 50 MG Orally Active 1 tablet Succinate ER Once a day NovoFine [facility] 28497839715 32G X 6 MM SB Active as directed Twice a day Results Name Result Date Reference Range Unit Abnormality Flag Urine Dip Stick ----Appearance Yellow,slight cloudy 20180212 ----SP. Gr 1.020 20180212 ----pH 6.0 20180212 ----Ketone Negative 20180212 ----Glucose Negative 20180212 ----Blood Trace 20180212 ----Protein Negative 20180212 ----Nitrite Negative 20180212 ----Leukocytes Negative [id number] Summary Purpose eClinicalWorks Submission
--- OUTSIDE RECORDS SUMMARY | 2018-03-02 20:42 | XMS REPORT ---
:1940 Author Organization eClinicalWorks Care Team Providers Name Role Phone Karl Blake Provider Role Unavailable Allergies No Known Allergies Problems Problem Type Condition Code Onset Dates Condition Status Assessment Hypertension I10 Active Problem Hypomagnesemia E83.42 Active Problem Diabetic [...] I85.10 Active without bleeding Medications Medication Code System Code Instructions Start Date End Date Status Dosage Cozaar [facility] 40151572356 100 MG Orally Active 1 tablet Once a day Results No Known Results Summary Purpose eClinicalWorks Submission
--- OUTSIDE RECORDS SUMMARY | 2018-03-02 20:42 | XMS REPORT ---
[...] End Status Dosage System Date Date Amlodipine [facility] 98389874825 10 MG Orally Active 1 tablet Besylate Once a day [place] [facility] 05292452593 100 MG Orally Active 1 tablet Once a day Pravastatin [place] 98421793488 40 MG Orally Active 1 tablet Sodium Once a day Omeprazole [facility] 79616909455 40 MG Orally Active 1 capsule Once a day Aspir-[address] [facility] 49581131370 81 MG Orally Active 1 tablet Once a day Magnesium Oxide [facility] 67970805183 400 MG Orally Active 1 tablet as Twice a day needed NovoFine [facility] 78829927643 32G X 6 MM SB Active as directed Twice a day Levothyroxine [facility] 63979344738 125 MCG Orally Active 1 tablet on Sodium Once a day an empty stomach in the morning True Metrix [facility] 99372150047 - Active USE TWICE Blood Glucose DAILY Test [place] [facility] 62979074717 5-325 MG Orally Active 1 tablet as every 6 hrs needed BusPIRone HCl [facility] 27490999486 5 MG Orally BID Active 1 tablet NovoLog Mix [facility] 05314517136 (70-30) 100 Active INJECT 70 70/30 Flexpen UNIT/ML UNITS UNDER Subcutaneous THE SKIN Twice a day EVERY MORNING WITH BREAKFAST AND 40 UNITS EVERY EVENING WITH DINNER Metoprolol [facility] 03275535050 50 MG Active 1 TAB(S) Succinate ER TWICE DAILY Levothyroxine [facility] 76960431242 125 MCG Orally Active 1 tablet on Sodium Once a day an empty stomach in the morning Promethazine HCl [facility] 39096270366 25 MG Orally Active 1 tablet as every 12 hrs needed Acyclovir [facility] 54521409949 200 MG Orally Active 1 capsule Three times a day Furosemide [facility] 91071613898 20 MG Orally Active 1 tablet Once a day Metoprolol [facility] 06115629037 50 MG Orally Active 1 tablet Succinate ER Once a day Meclizine HCl [facility] 50626368436 25 MG Orally Active 1 tablet as Once a day needed Results No Known Results Summary Purpose eClinicalWorks Submission
--- OUTSIDE RECORDS SUMMARY | 2018-03-02 20:42 | XMS REPORT ---
[...] esophageal varices I85.10 Active without bleeding Medications No Known Medications Results No Known Results Summary Purpose eClinicalSoundTag Submission
--- OUTSIDE RECORDS SUMMARY | 2018-03-02 20:42 | XMS REPORT ---
[...] Start End Status Dosage System Date Date [facility] 33817020794 81 MG Orally Active 1 tablet Once a day Promethazine HCl ND 84917913896 25 MG Orally Active 1 tablet as every 12 hrs needed [place] [facility] 63241188736 5-325 MG Orally Active 1 tablet as every 6 hrs needed Acyclovir ND 88934259541 200 MG Orally Active 1 capsule Three times a day True Metrix [facility] 16868669634 - Active USE TWICE Blood Glucose DAILY Test NovoFine [facility] 12378466835 32G X 6 MM SB Active as directed Twice a day Metoprolol [facility] 34177311300 50 MG Orally Active 1 tablet Succinate ER Once a day Omeprazole [facility] 66311147556 40 MG Orally Active 1 capsule Once a day NovoLog Mix [facility] 54438462521 (70-30) 100 Active INJECT 70 70/30 Flexpen UNIT/ML UNITS UNDER Subcutaneous THE SKIN Twice a day EVERY MORNING WITH BREAKFAST AND 40 UNITS EVERY EVENING WITH DINNER Levothyroxine [facility] 58486739061 125 MCG Orally Active 1 tablet on Sodium Once a day an empty stomach in the morning Magnesium Oxide [facility] 75778958911 400 MG Orally Active 1 tablet as Twice a day needed Levothyroxine [facility] 43692248539 125 MCG Orally Active 1 tablet on Sodium Once a day an empty stomach in the morning Cozaar [facility] 88468119337 100 MG Orally Active 1 tablet Once a day Pravastatin [facility] 56387812337 40 MG Orally Active 1 tablet Sodium Once a day Meclizine HCl [facility] 99042366799 25 MG Orally Active 1 tablet as Once a day needed Lidocaine HCl [facility] 38341956492 2 % Dec 07, Active 15 ml to Mouth/Throat 2017 affected every 3 hrs as area as needed (Swish needed around in mouth and spit out). MAX 8 doses/day Amlodipine [facility] 10102231852 10 MG Orally Active 1 tablet Besylate Once a day BusPIRone HCl [facility] 70289392253 5 MG Orally BID Active 1 tablet Chlorhexidine [facility] 34552764442 0.12 % Dec 07, Dec 17, Active 10-15 mL Gluconate Mouth/Throat 2017 2017 (Swish/Spit Every 12 hours ) Metoprolol [facility] 24356242981 50 MG Active 1 TAB(S) Succinate ER TWICE DAILY Furosemide ND 15323802135 20 MG Orally Active 1 tablet Once a day Results No Known Results Summary Purpose eClinicalWorks Submission
--- OUTSIDE RECORDS SUMMARY | 2018-03-02 20:42 | XMS REPORT ---
[...] End Status Dosage System Date Date Levothyroxine [facility] 02194098667 125 MCG Orally Active 1 tablet Sodium Once a day on an empty stomach in the morning Results No Known Results Summary Purpose eClinicalWorks Submission
--- OUTSIDE RECORDS SUMMARY | 2018-03-02 20:42 | XMS REPORT ---
[...] Instructions Start End Status Dosage System Date [facility] 51630169965 81 MG Orally Active 1 tablet Once a day Niotaze [facility] 92393667135 5-325 MG Orally Active 1 tablet as every 6 hrs needed Omeprazole [facility] 88604423065 40 MG Orally Active 1 capsule Once a day Metoprolol [facility] 56173835295 50 MG Active 1 TAB(S) Succinate ER TWICE DAILY Levothyroxine [facility] 46541891158 125 MCG Orally Active 1 tablet on Sodium Once a day an empty stomach in the morning BusPIRone HCl [facility] 50638835951 5 MG Orally BID Active 1 tablet Metoprolol ND 66794237787 50 MG Orally Active 1 tablet Succinate ER Once a day Acyclovir ND 22543212819 200 MG Orally Active 1 capsule Three times a day NovoFine [facility] 46048684119 32G X 6 MM SB Active as directed Twice a day Furosemide ND 04470356892 20 MG Orally Active 1 tablet Once a day Lidocaine HCl [facility] 56465908759 2 % Dec 07, Active 15 ml to Mouth/Throat 2017 affected every 3 hrs as area as needed (Swish needed around in mouth and spit out). MAX 8 doses/day Magnesium Oxide ND 60442819448 400 MG Orally Active 1 tablet as Twice a day needed NovoLog Mix [facility] 40323655680 (70-30) 100 Active INJECT 70 70/30 Flexpen UNIT/ML UNITS UNDER Subcutaneous THE SKIN Twice a day EVERY MORNING WITH BREAKFAST AND 40 UNITS EVERY EVENING WITH DINNER Levothyroxine ND 40640612917 125 MCG Orally Active 1 tablet on Sodium Once a day an empty stomach in the morning Meclizine HCl ND 86013738058 25 MG Orally Active 1 tablet as Once a day needed Promethazine HCl ND 90000298722 25 MG Orally Active 1 tablet as every 12 hrs needed Pravastatin [facility] 45004649448 40 MG Orally Active 1 tablet Sodium Once a day Levaquin [facility] 77359826690 250 MG Orally Dec 27, Dec 30, Active 1 tablet Once a day 2017 2017 Amlodipine [facility] 33809129439 10 MG Orally Active 1 tablet Besylate Once a day True Metrix [facility] 36079933931 - Active USE TWICE Blood Glucose DAILY Test Cozaar [facility] 25680316459 100 MG Orally Active 1 tablet Once a day Results Name Result Date Reference Range Unit Abnormality Flag Urine Dip Stick ----Appearance Dark yellow/clear 20171227 ----SP. Gr 1.015 20171227 ----pH 7.0 20171227 ----Ketone Negative 25394235 ----Glucose Negative 20171227 ----Blood Negative 20171227 ----Protein Negative 20171227 ----Nitrite Negative 20171227 ----Leukocytes 1+ 20171227 Summary Purpose eClinicalWorks Submission
--- OUTSIDE RECORDS SUMMARY | 2018-03-02 20:42 | XMS REPORT ---
:1940 Author Organization eClinicalWorks Care Team Providers Name Role Phone Karl Blake Provider Role Unavailable Allergies No Known Allergies Problems Problem Type Condition Code Onset Dates Condition Status Problem Hypomagnesemia E83.42 Active Problem Secondary esophageal [...] R11.0 Active Problem Thrombocytopenia D69.6 Active Medications No Known Medications Results No Known Results Summary Purpose [employer] Consult[employer] Submission
--- NOTE | 2018-03-02 21:39 | RAD REPORT ---
EXAM DESCRIPTION: CT - Facial Bones W/ Mpr - 03/02/2018 9:26 pm CLINICAL HISTORY: Facial injury status post fall. Facial pain COMPARISON: None TECHNIQUE: Computed axial tomography of the face was obtained. Coronal and sagittal reconstruction w as performed. All CT scans are performed using dose optimization technique as appropriate and may include automated exposure control or mA/KV adjustment according to patient size. FINDINGS: A fracture is not seen. Lucency adjacent to a left mandibular tooth likely represents an abscess. Decay of a left mandibular tooth is also suspected. A TMJ dislocation is not noted. The globes are intact. Fluid within the sinuses is not seen. IMPRESSION: Negative for a facial fracture.
--- NOTE | 2018-03-02 21:46 | RAD REPORT ---
EXAM DESCRIPTION: CT - Head C Spine Mpr Wo Con - 03/02/2018 9:26 pm CLINICAL HISTORY: Head and neck injury status post fall. Head and neck pain COMPARISON: September 2017 TECHNIQUE: Computed axial tomography of the head and cervical spine was obtained. Sagittal and coronal reconstruction was performed. All CT scans are performed using dose optimization technique as appropriate and may include automated exposure control or mA/KV adjustment according to patient size. FINDINGS: An intracranial bleed is not seen. The ventricles are normal in caliber. An extra-axial fl uid collection is not noted.Fluid within the visualized sinuses and mastoids is not seen Some of the images are degraded by patient motion artifact. A cervical fracture is not visualized. No dislocation is noted. IMPRESSION: No acute intracranial abnormality is seen. A gross cervical fracture is not visualized. If the patient continues to have symptoms to suggest in tracranial /spinal cord pathology then MRI would be recommended
--- NOTE | 2018-03-02 21:54 | RAD REPORT ---
EXAM DESCRIPTION: RAD - Humerus Left - 03/02/2018 9:48 pm CLINICAL HISTORY: Left arm pain status post fall FINDINGS: A 4 centimeter avulsion fracture involves the lateral humeral head and neck.
--- NOTE | 2018-03-02 22:00 | RAD REPORT ---
EXAM DESCRIPTION: RAD - Forearm Left - 03/02/2018 9:49 pm CLINICAL HISTORY: Left forearm pain status post injury FINDINGS: The bones are osteoporotic. Cortical irregularity involves posterior distal radius seen o n the lateral view. No abnormality seen on the frontal view. Distal radioulnar space appears widened. However on the lateral view it appears normal. Remainder the exam is unremarkable Given the above-mentioned findings it is recommended that the patient have a dedicated three-view daron in film series of the left wrist for further evaluation
[2018-03-02] MEDS ORDERED: IBUPROFEN 400 MG TAB ONE (22:40)
[2018-03-02 23:05] LABS: Absolute Lymphocytes (CBC) 0.8 K/uL (0.7-4.9); Absolute Monocytes 0.6 K/uL (0.1-1.3); Absolute Neutrophil 5.3 K/uL (1.8-8.0); Basophils % 0.5 % (0-1.3); Eosinophils % 0.6 % (0-4.4); Hematocrit 23.6 % (36.0-45.0); Lymphocytes % 11.9 % (15.3-44.8); MCH 26.7 pg (27.0-35.0); MCV 78.7 fL (80-100); MPV 9.9 fL (7.6-11.3); Monocytes % 8.2 % (3.3-12.3)
[2018-03-02 23:13] LABS: BUN Blood Urea Nitrogen 16 mg/dL (7-18); Bicarbonate 24 mmol/L (21-32); Glucose Level 189 mg/dL (74-106); Potassium 3.7 mmol/L (3.5-5.1); Sodium Level 132 mmol/L (136-145); Troponin I < 0.02 ng/mL (0.0-0.045)
[2018-03-02] MEDS ORDERED: LIDOCAINE 1% MPF 5 ML VIAL ONE (23:19)
[2018-03-02] MEDS ORDERED: ONDANSETRON 4 MG/2 ML VIAL ONE (23:19)
[2018-03-02] MEDS ORDERED: NA CHLORIDE 0.9% 1,000 ML ONE (23:32)
[2018-03-02 23:43] LABS: Urine Blood TRACE (NEG); Urine Glucose NEGATIVE (NEG); Urine Protein NEGATIVE (NEG); Urine Specific Gravity 1.015 (1.005-1.030)
--- NOTE | 2018-03-03 00:01 | EDPHYS ---
Physician Documentation [facility] Name: Shayy Mcgovern Age: 77 yrs Sex: Female : 1940 Arrival Date: 03/02/2018 Time: 20:39 Bed 17 Private MD: ED Physician Rick Cochran HPI: 03/02 21:30 This 77 yrs old Female presents to ER via Wheelchair with complaints of Fall cp Injury. 21:30 Details of fall: The patient fell from an upright position. cp 21:30 Onset: The symptoms/episode began/occurred just prior to arrival. Associated injuries: cp The patient sustained injury to the head, laceration, of the mouth. Family member reports patient was found outside on ground conscious after suspected slip and fall on wet surface. Fall was unwitnessed as patient's daughter had left patient alone at home shortly before. 21:30 Patient unable to recall events prior to after being found on ground. cp Historical: - Allergies: 20:52 Ciprofloxacin; aj 20:52 Macrodantin; aj 20:52 nitrofuran macrocrystal (bulk); aj 20:52 PENICILLINS; aj 20:52 Sulfa (Sulfonamide Antibiotics); aj - Home Meds: 20:52 aspirin 81 mg Oral TbEC once daily [Active]; diazepam 5 mg Oral tab 1 tab daily aj [Active]; furosemide 20 mg Oral tab 1 tab once daily [Active]; levothyroxine 125 mcg tab 1 tab once daily [Active]; losartan-hydrochlorothiazide 100-25 mg Oral tab 1 tab once daily [Active]; metoprolol tartrate 50 mg Oral tab 1 tab 2 times per day [Active]; [place] 5-325 mg Oral tab 1 tab three times a day [Active]; Novolin 70/30 [place] Sub-Q 70-30 unit/mL [Active]; omeprazole 40 mg Oral cpDR 1 cap once daily [Active]; pravastatin 40 mg Oral tab 1 tab nightly [Active]; promethazine 25 mg Oral tab three times a day [Active]; sertraline 25 mg Oral tab 1 tab once daily [Active]; - PMHx: 20:52 Anxiety; Depression; Diabetes - IDDM; gastritis; Hypertension; Hypothyroidism; aj - PSHx: 20:52 Cholecystectomy; aj - Immunization history: Last tetanus immunization: unknown. - Social history:: Smoking status: Patient/guardian denies using tobacco. - Ebola Screening: : Patient negative for fever greater than or equal to 101.5 degrees Fahrenheit, and additional compatible Ebola Virus Disease symptoms Patient denies exposure to infectious person Patient denies travel to an Ebola-affected area in the 21 days before illness onset No symptoms or risks identified at this time. ROS: 21:35 Constitutional: Negative for fever. cp 21:35 Eyes: Negative for injury, pain, redness, and discharge. cp 21:35 Cardiovascular: Negative for chest pain, edema. 21:35 Respiratory: Negative for cough, shortness of breath, wheezing. 21:35 Abdomen/GI: Negative for abdominal pain, nausea, vomiting, and diarrhea, black/tarry stool, rectal bleeding. 21:35 Back: Negative for pain at rest, pain with movement. 21:35 Skin: Positive for laceration(s), Negative for cellulitis, rash. 21:35 Neuro: Negative for altered mental status, headache. 21:35 All other systems are negative. Exam: 21:42 Constitutional: The patient appears in no acute distress, alert, awake, cp non-diaphoretic, non-toxic, well developed, well nourished. 21:42 Head/face: Noted is a laceration(s), that is deep, 1 cm(s), of the upper lip, cp swelling, that is mild, of the mouth, tenderness, that is mild, of the mouth, Sinus tenderness, is not appreciated. 21:42 Eyes: Periorbital structures: appear normal, Pupils: equal, round, and reactive to light and accomodation, Extraocular movements: intact throughout, Conjunctiva: normal, no exudate, no injection, Sclera: no appreciated abnormality, Lids and lashes: appear normal, bilaterally. 21:42 ENT: External ear(s): are unremarkable, Ear canal(s): are normal, clear, TM's: bulging, is not appreciated, bilaterally, dullness, bilaterally, erythema, is not appreciated, bilaterally, Nose: is normal, Mouth: Oral mucosa: pink and intact, moist, Tongue: is normal, Posterior pharynx: Airway: no evidence of obstruction, patent, Uvula: midline, swelling, is not appreciated, erythema, is not appreciated, exudate, is not appreciated, Dental exam: fractured teeth are noted, not appreciated, missing teeth, not appreciated. 21:42 Neck: C-spine: vertebral tenderness, is not appreciated, crepitus, is not appreciated, ROM/movement: is normal, is supple, no range of motions limitations, no nuchal rigidity. 21:42 Chest/axilla: Inspection: normal, Palpation: is normal, no crepitus, no tenderness. 21:42 Cardiovascular: Rate: normal, Rhythm: regular, Pulses: Pulses are 2+ in right radial artery and left radial artery. Edema: is not appreciated, JVD: is not appreciated. 21:42 Respiratory: the patient does not display signs of respiratory distress, Respirations: normal, no use of accessory muscles, no retractions, no splinting, no tachypnea, labored breathing, is not present, Breath sounds: are clear throughout, no decreased breath sounds, no stridor, no wheezing. 21:42 Abdomen/GI: Inspection: abdomen appears normal, Bowel sounds: active, all quadrants, Palpation: abdomen is soft and non-tender, in all quadrants, rebound tenderness, is not appreciated, voluntary guarding, is not appreciated, involuntary guarding, is not appreciated. 21:42 Back: pain, is absent, ROM is normal, vertebral tenderness, is not appreciated. 21:42 Musculoskeletal/extremity: Exam is negative for decreased range of motion, deformity, edema, injury. 21:42 Skin: cellulitis, is not appreciated, no rash present. 21:42 Neuro: Orientation: to person, place \T\ time. Mentation: is normal, Cerebellar function: is grossly normal, Motor: moves all fours, strength is normal, Sensation: no obvious gross deficits. 22:45 ECG was reviewed by the Attending Physician. cp Vital Signs: 20:46 BP 149 / 76; Pulse 105; Resp 23; Pulse Ox 100% on R/A; Weight 93.89 kg; Height 5 ft. 3 aj in. (160.02 cm); 21:19 BP 159 / 74; Pulse 99; Resp 19; Pulse Ox 99% on R/A; mt 22:30 BP 139 / 72; Pulse 80; Resp 20; Pulse Ox 98% on R/A; mt 23:19 BP 146 / 72; Pulse 89; Resp 17; Pulse Ox 98% on R/A; mt 03/03 00:50 BP 130 / 78; Pulse 80; Resp 18; Pulse Ox 98% ; ea 01:45 BP 138 / 67; Pulse 77; Resp 18; Temp 97.8; Pulse Ox 98% on R/A; ea 03/02 20:46 Body Mass Index 36.67 (93.89 kg, 160.02 cm) aj Cathy Coma Score: 03/02 20:46 Eye Response: spontaneous(4). Verbal Response: oriented(5). Motor Response: obeys aj commands(6). Total: 15. 21:30 Eye Response: spontaneous(4). Verbal Response: oriented(5). Motor Response: obeys ea commands(6). Total: 15. 22:30 Eye Response: spontaneous(4). Verbal Response: oriented(5). Motor Response: obeys ea commands(6). Total: 15. 23:58 Eye Response: spontaneous(4). Verbal Response: oriented(5). Motor Response: obeys ea commands(6). Total: 15. Trauma Score (Adult): 20:46 Eye Response: spontaneous(1); Verbal Response: oriented(1); Motor Response: obeys aj commands(2); Systolic BP: > 89 mm Hg(4); Respiratory Rate: 10 to 29 per min(4); Cathy Score: 15; Trauma Score: 12 Laceration: 03/03 00:00 Wound Repair of 1cm ( 0.4in ) subcutaneous laceration to upper lip. Irregularly cp shaped.. Distal neuro/vascular/tendon intact. Anesthesia: Wound infiltrated with 2 mls of 1% lidocaine. Wound prep: Moderate cleansing by me, Wound irrigation by me. Skin closed with 3 5-0 Vicryl using interrupted sutures and sterile technique. Dressed with Bacitracin. Patient tolerated well. MDM: 03/02 21:13 Patient medically screened. cp 22:00 Differential diagnosis: closed head injury, fracture, laceration, multiple trauma. cp 03/03 00:00 Data reviewed: vital signs, nurses notes, lab test result(s), EKG, radiologic studies, cp CT scan, plain films. 00:00 Test interpretation: by ED physician or midlevel provider: ECG, plain radiologic cp studies. Counseling: I had a detailed discussion with the patient and/or guardian regarding: the historical points, exam findings, and any diagnostic results supporting the discharge/admit diagnosis, lab results, radiology results, the need for further work-up and treatment in the hospital. Response to treatment: the patient's symptoms have markedly improved after treatment. Physician consultation: Brenden Hadley MD was contacted at 23:50, regarding admission. 03/02 22:24 Order name: CBC with Diff; Complete Time: 23:15 cp 03/02 23:16 Interpretation: Normal except: RBC 3.00; HGB 8.0; HCT 23.6; MCV 78.7; MCH 26.7; PLT cp 108; RDW 15.3; MICHAEL% 78.8; LYM% 11.9. 03/02 22:24 Order name: BMP; Complete Time: 23:15 cp 03/02 23:17 Interpretation: Normal except: NA 132; GLUC 189; GFR 44. cp 03/02 21:13 Order name: XRAY Humerus LEFT; Complete Time: 22:22 cp 03/02 21:13 Order name: CT Head C Spine; Complete Time: 22:22 cp 03/02 22:25 Order name: Troponin I; Complete Time: 23:15 cp 03/02 23:29 Order name: Urine Dipstick--Ancillary (enter results); Complete Time: 23:57 ms 03/02 21:13 Order name: CT Facial Bones W/O Con; Complete Time: 22:22 cp 03/02 21:13 Order name: XRAY Forearm LEFT; Complete Time: 22:22 cp 03/02 22:22 Order name: XRAY Wrist LEFT 3 view cp 03/02 22:24 Order name: EKG; Complete Time: 22:25 cp 03/02 22:24 Order name: EKG - Nurse/Tech; Complete Time: 22:44 cp 03/02 22:25 Order name: Urine Dipstick-Ancillary (obtain specimen); Complete Time: 23:30 cp 03/02 22:42 Order name: Vicryl, Sutures: 5-0; Complete Time: 22:50 cp 03/02 22:42 Order name: Prolene, Sutures: 6-0; Complete Time: 22:51 cp 03/02 22:42 Order name: Dressing - Wound; Complete Time: 22:51 cp 03/02 22:42 Order name: Gloves, Sterile; Complete Time: 22:50 cp 03/02 22:42 Order name: Setup Suture Tray; Complete Time: 22:50 cp EC/26 22:45 Rate is 79 beats/min. Rhythm is regular. KS interval is normal. QRS interval is normal. cp QT interval is normal. T waves are Inverted in leads V2, V3, V4. Interpreted by me. Reviewed by me. Administered Medications: 22:44 Drug: Ibuprofen 800 mg Route: PO; ea 23:30 Follow up: Response: No adverse reaction; Pain is decreased ea 23:12 Drug: Zofran 4 mg Route: IVP; Site: right antecubital; ea 03/03 00:07 Follow up: Response: No adverse reaction; Marked relief of symptoms; Nausea is decreasedea 03/02 23:29 Drug: NS 0.9% 250 ml Route: IV; Rate: calculated rate; Site: right antecubital; ea 03/03 03:23 Follow up: Response: No adverse reaction; IV Status: Completed infusion; IV Intake: ea 250ml Disposition: 03:30 Chart complete. cp 04:11 Co-signature as Attending Physician, Rick Cochran MD I agree with the assessment and kdr plan of care. Disposition: 03/03/18 00:00 Hospitalization ordered by Brenden Hadley for Observation. Preliminary diagnosis are Syncope and collapse, Laceration without foreign body of lip, Avulsion Fracture Proximal Left Humerus. - Bed requested for Telemetry/MedSurg (observation). - Status is Observation. fl - Condition is Stable. - Problem is new. - Symptoms have improved. UTI on Admission? No Signatures: Dispatcher [employer] EDMS Grecia Velazco RN RN Angelica Giron RN RN aj Rittger, Kevin, MD MD kdr Chretien, Felicia, RN RN fc Page, Corey, PA PA cp [facility] Ashlie Zhou RN RN ea Corrections: (The following items were deleted from the chart) 00:13 00:00 Hospitalization Ordered by Brenden Hadley MD for Observation. Preliminary diagnosis is Syncope and collapse; Laceration without foreign body of lip; Avulsion Fracture Proximal Left Humerus. Bed requested for Telemetry/MedSurg (observation). Status is Observation. Condition is Stable. Problem is new. Symptoms have improved. UTI on Admission? No. cp 00:19 00:13 03/03/2018 00:00 Hospitalization Ordered by Brenden Hadley MD for Observation. mw Preliminary diagnosis is Syncope and collapse; Laceration without foreign body of lip; Avulsion Fracture Proximal Left Humerus. Bed requested for Telemetry/MedSurg (observation). Status is Observation. Condition is Stable. Problem is new. Symptoms have improved. UTI on Admission? No. mw 00:49 00:19 03/03/2018 00:00 Hospitalization Ordered by Brenden Hadley MD for Observation. fc Preliminary diagnosis is Syncope and collapse; Laceration without foreign body of lip; Avulsion Fracture Proximal Left Humerus. Bed requested for Telemetry/MedSurg (observation). Status is Observation. Condition is Stable. Problem is new. Symptoms have improved. UTI on Admission? No. mw 03:08 00:49 03/03/2018 00:00 Hospitalization Ordered by Brenden Hadley MD for Observation. mt Preliminary diagnosis is Syncope and collapse; Laceration without foreign body of lip; Avulsion Fracture Proximal Left Humerus. Bed requested for Telemetry/MedSurg (observation). Status is Observation. Condition is Stable. Problem is new. Symptoms have improved. UTI on Admission? No. fc
--- NOTE | 2018-03-03 00:01 | ER ---
Nurse's Notes [facility] Name: Shayy Mcgovern Age: 77 yrs Sex: Female : 1940 Arrival Date: 03/02/2018 Time: 20:39 Bed 17 Private MD: Diagnosis: Syncope and collapse;Laceration without foreign body of lip;Avulsion Fracture Proximal Left Humerus Presentation: 03/02 20:46 Presenting complaint: Patient states: Patient fell onto concrete at 1930 today, hitting aj face, and left arm. Right upper lip laceration with small amount of bleeding. Patient reports pain to left arm as well. Denies LOC. Care prior to arrival: None. Mechanism of Injury: Fall from standing position. Trauma event details: Injury occurred in the [facility], Injury occurred: at home. Injury occurred: March 02, 2018 Injury occurred at: 19:30. 20:46 Acuity: CORINE 4 aj 20:46 Method Of Arrival: Wheelchair aj 21:00 Transition of care: patient was not received from another setting of care. Onset of ea symptoms was March 02, 2018. Risk Assessment: Do you want to hurt yourself or someone else? Patient reports no desire to harm self or others. Initial Sepsis Screen: Does the patient meet any 2 criteria? No. Patient's initial sepsis screen is negative. Does the patient have a suspected source of infection? No. Patient's initial sepsis screen is negative. Trauma Activation: Alert Physician: ED Physician; Name: ; Notified At: ; Arrived At: Physician: General Surgeon; Name: ; Notified At: ; Arrived At: Physician: Radiology; Name: ; Notified At: ; Arrived At: Physician: Respiratory; Name: ; Notified At: ; Arrived At: Physician: Lab; Name: ; Notified At: ; Arrived At: Historical: - Allergies: 20:52 Ciprofloxacin; aj 20:52 Macrodantin; aj 20:52 nitrofuran macrocrystal (bulk); aj 20:52 PENICILLINS; aj 20:52 Sulfa (Sulfonamide Antibiotics); aj - Home Meds: 20:52 aspirin 81 mg Oral TbEC once daily [Active]; diazepam 5 mg Oral tab 1 tab daily aj [Active]; furosemide 20 mg Oral tab 1 tab once daily [Active]; levothyroxine 125 mcg tab 1 tab once daily [Active]; losartan-hydrochlorothiazide 100-25 mg Oral tab 1 tab once daily [Active]; metoprolol tartrate 50 mg Oral tab 1 tab 2 times per day [Active]; [place] 5-325 mg Oral tab 1 tab three times a day [Active]; Novolin 70/30 [place] Sub-Q 70-30 unit/mL [Active]; omeprazole 40 mg Oral cpDR 1 cap once daily [Active]; pravastatin 40 mg Oral tab 1 tab nightly [Active]; promethazine 25 mg Oral tab three times a day [Active]; sertraline 25 mg Oral tab 1 tab once daily [Active]; - PMHx: 20:52 Anxiety; Depression; Diabetes - IDDM; gastritis; Hypertension; Hypothyroidism; aj - PSHx: 20:52 Cholecystectomy; aj - Immunization history: Last tetanus immunization: unknown. - Social history:: Smoking status: Patient/guardian denies using tobacco. - Ebola Screening: : Patient negative for fever greater than or equal to 101.5 degrees Fahrenheit, and additional compatible Ebola Virus Disease symptoms Patient denies exposure to infectious person Patient denies travel to an Ebola-affected area in the 21 days before illness onset No symptoms or risks identified at this time. Screenin:11 Abuse screen: Denies threats or abuse. Nutritional screening: No deficits noted. ea Tuberculosis screening: No symptoms or risk factors identified. Fall Risk Fall in past 12 months (25 points). IV access (20 points). Primary Survey: 20:46 Breathing/Chest: Respiratory pattern: regular, Respiratory effort: spontaneous, aj unlabored, Breath sounds: clear, bilaterally. Chest inspection: symmetrical rise and fall of the chest. Circulation: Skin color: pink, Skin temperature: warm, dry. Disability Alert. 22:30 Reassessment Breathing/Chest Respiratory pattern Regular Respiratory effort Spontaneous ea Unlabored Breath sounds Clear Circulation Color Canon Temperature Warm Disability Alert. Secondary Survey: 20:46 HEENT: Face Other laceration to right upper lip. Musculoskeletal: Reports pain in left ea arm and upper lip. Assessment: 20:46 General: Appears in no apparent distress. uncomfortable, Behavior is calm, cooperative, aj appropriate for age. Pain: Complains of pain in left arm and upper lip. Neuro: Level of Consciousness is awake, alert, obeys commands, Oriented to person, place, time, situation, Appropriate for age. Respiratory: Airway is patent Respiratory effort is even, unlabored, Respiratory pattern is regular, symmetrical. Derm: Skin is intact, is healthy with good turgor, Skin is pink, warm \T\ dry. normal. Musculoskeletal: Reports pain in left arm and upper lip. 21:00 General: Appears uncomfortable, Behavior is calm, appropriate for age. Pain: Complains ea of pain in left arm and upper lip. Neuro: Level of Consciousness is awake, alert, Oriented to person, place, time, situation. Cardiovascular: Heart tones S1 S2 present Patient's skin is warm and dry. Respiratory: Airway is patent Respiratory effort is even, unlabored, Respiratory pattern is regular, symmetrical, Breath sounds are clear bilaterally. GI: Abdomen is non-distended, Bowel sounds present X 4 quads. Derm: Skin is pink, warm \T\ dry. Musculoskeletal: Reports pain in left arm and upper lip. 22:51 Reassessment: Patient and/or family updated on plan of care and expected duration. Pain ea level reassessed. Patient is alert, oriented x 3, equal unlabored respirations, skin warm/dry/pink. 23:54 Reassessment: Patient and/or family updated on plan of care and expected duration. Pain ea level reassessed. Patient is alert, oriented x 3, equal unlabored respirations, skin warm/dry/pink. Patient states feeling better. Patient states symptoms have improved. 03/03 00:00 Reassessment: Patient and/or family updated on plan of care and expected duration. Pain ea level reassessed. Patient is alert, oriented x 3, equal unlabored respirations, skin warm/dry/pink. 01:00 Reassessment: Patient and/or family updated on plan of care and expected duration. Pain ea level reassessed. Patient is alert, oriented x 3, equal unlabored respirations, skin warm/dry/pink. 02:30 Reassessment: Patient and/or family updated on plan of care and expected duration. Pain ea level reassessed. Patient is alert, oriented x 3, equal unlabored respirations, skin warm/dry/pink. Report called to Brenda PEREZ on second floor. Vital Signs: 03/02 20:46 BP 149 / 76; Pulse 105; Resp 23; Pulse Ox 100% on R/A; Weight 93.89 kg; Height 5 ft. 3 aj in. (160.02 cm); 21:19 BP 159 / 74; Pulse 99; Resp 19; Pulse Ox 99% on R/A; mt 22:30 BP 139 / 72; Pulse 80; Resp 20; Pulse Ox 98% on R/A; mt 23:19 BP 146 / 72; Pulse 89; Resp 17; Pulse Ox 98% on R/A; mt 03/03 00:50 BP 130 / 78; Pulse 80; Resp 18; Pulse Ox 98% ; ea 01:45 BP 138 / 67; Pulse 77; Resp 18; Temp 97.8; Pulse Ox 98% on R/A; ea 03/02 20:46 Body Mass Index 36.67 (93.89 kg, 160.02 cm) aj [place] Coma Score: 03/02 20:46 Eye Response: spontaneous(4). Verbal Response: oriented(5). Motor Response: obeys aj commands(6). Total: 15. 21:30 Eye Response: spontaneous(4). Verbal Response: oriented(5). Motor Response: obeys ea commands(6). Total: 15. 22:30 Eye Response: spontaneous(4). Verbal Response: oriented(5). Motor Response: obeys ea commands(6). Total: 15. 23:58 Eye Response: spontaneous(4). Verbal Response: oriented(5). Motor Response: obeys ea commands(6). Total: 15. Trauma Score (Adult): 20:46 Eye Response: spontaneous(1); Verbal Response: oriented(1); Motor Response: obeys aj commands(2); Systolic BP: > 89 mm Hg(4); Respiratory Rate: 10 to 29 per min(4); [place] Score: 15; Trauma Score: 12 ED Course: 20:39 Patient arrived in ED. ag3 20:47 Ashlie Zhou, RN is Primary Nurse. ea 20:48 Triage completed. aj 20:52 Arm band placed on left wrist. Patient placed in an exam room, on a stretcher. aj 20:54 Rick Cochran MD is Attending Physician. kdr 21:00 Patient has correct armband on for positive identification. Bed in low position. Call ea light in reach. Side rails up X2. 21:11 Patient maintains SpO2 saturation greater than 95% on room air. Thermoregulation: warm ea blanket given to patient. 21:12 [facility]. cp 21:[address] via stretcher. vm2 21:26 CT completed. Patient moved to radiology. vm2 21:26 CT Head C Spine In Process Unspecified. EDMS 21:26 CT Facial Bones W/O Con In Process Unspecified. EDMS 21:49 XRAY Humerus LEFT In Process Unspecified. EDMS 21:49 XRAY Forearm LEFT In Process Unspecified. EDMS 22:35 X-ray completed. Portable x-ray completed in exam room. Patient tolerated procedure ls3 well. 22:36 XRAY Wrist LEFT 3 view In Process Unspecified. EDMS 23:40 Assist provider with laceration repair on upper lip that was between 2.6 to 7.5 cm ea using sutures. Set up tray. Performed by Jayy VALENZUELA Patient tolerated well. 23:58 Brenden Hadley MD is Hospitalizing Provider. cp 03/03 01:30 IV discontinued, intact, bleeding controlled, No redness/swelling at site. Pressure ea dressing applied, 20 G to RAC discontinued due to infiltration. Warm compress applied, pt tolerated well. 01:45 Inserted saline lock: 22 gauge in left antecubital area, using aseptic technique. ea 02:06 Patient admitted, IV remains in place. ea Administered Medications: 03/02 22:44 Drug: Ibuprofen 800 mg Route: PO; ea 23:30 Follow up: Response: No adverse reaction; Pain is decreased ea 23:12 Drug: Zofran 4 mg Route: IVP; Site: right antecubital; ea 03/03 00:07 Follow up: Response: No adverse reaction; Marked relief of symptoms; Nausea is decreasedea 03/02 23:29 Drug: NS 0.9% 250 ml Route: IV; Rate: calculated rate; Site: right antecubital; ea 03/03 03:23 Follow up: Response: No adverse reaction; IV Status: Completed infusion; IV Intake: ea 250ml Intake: 02:30 PO: 250ml (Water); Total: 250ml. ea 03:23 IV: 250ml; Total: 500ml. ea Outcome: 00:00 Decision to Hospitalize by Provider. cp 00:13 Pt being hospitalizedPatient's length of stay extended due to ea 00:14 Instructed on the need for admit, Demonstrated understanding of instructions. ea 02:06 Admitted to Med/surg accompanied by tech, room 230, with chart, Report called to fuentes Gutierrez RN 02:06 Condition: stable 02:30 Patient left the ED. fuentes Signatures: Dispatcher [employer] EDAngelica Pugh, RN Rick Montenegro MD MD [facility] Jayy Gill PA PA cp McGuire, Ruth 2 Jazzmine Vora ut Ashlie Zhou RN RN ea Siler, Lynzie 3 Radha Gardner 3 Corrections: (The following items were deleted from the chart) 03:20 03:08 Patient left the ED. duoglas dill
[2018-03-03] MEDS ORDERED: NA CHLORIDE 0.9% 250 ML IV SCH (01:00)
[2018-03-03] MEDS: ACETAMINOPHEN 500 MG TAB PO PRN ×2 (03:36→17:43)
[2018-03-03] MEDS: MORPHINE 2 MG/ML SYR IV PRN ×3 (03:37→17:34)
[2018-03-03 05:24] LABS: Hematocrit 23.6 % (36.0-45.0)
[2018-03-03 05:28] LABS: RBC Red Blood Cell Count 2.95 M/uL (3.86-4.86)
[2018-03-03 06:06] LABS: Ferritin 7.3 ng/mL (8-388); Folic Acid, (Folate) 15.6 ng/mL (3.1-17.5)
[2018-03-03] MEDS: HYDROCODONE/APAP 5/325 MG TAB PO PRN ×2 (07:33→21:39)
[2018-03-03] MEDS: LEVOTHYROXINE SOD 0.125 MG TAB PO SCH (07:34)
[2018-03-03] MEDS ORDERED: INSULIN ASPART PROTAM SQ SCH ×2 (08:00→12:00)
[2018-03-03] MEDS ORDERED: INFLUENZA VACCINE (for 3y+) 0.5 ML DOSE IMVAC ONE (08:00)
[2018-03-03] MEDS ORDERED: PNEUMOCOCCAL VACCINE 0.5 ML IMVAC ONE (08:00)
[2018-03-03] MEDS ORDERED: ASPART SQ SCH ×2 (08:00→12:00)
[2018-03-03] MEDS ORDERED: [UNRECOGNIZED DRUG - OTHER] SQ SCH (08:00)
--- NOTE | 2018-03-03 08:32 | RAD REPORT ---
EXAM DESCRIPTION: RAD - Wrist Left 3 View - 03/02/2018 10:36 pm CLINICAL HISTORY: Fall, wrist pain COMPARISON: Left forearm March 02 FINDINGS: Subtle cortical changes are seen along the dorsal margin of the distal radius on the later al view and there is a subtle mixed lucent and sclerotic focus transversely across the distal radius approximately 1 centimeter from the articular surface. Findings are considered highly suspicious for a nondisplaced, nonangulated distal radius fracture. Ulna is intact. The patient has a minimal positi ve ulnar variance configuration as a normal variant. Mild to moderate degenerative change involves the scaphoid trapezium articulation. Patient has underl mikel osteopenia. No pathologic bone process. No foreign body or other soft tissue abnormality. IMPRESSION: Distal left radius fracture without distraction or angulation.
[2018-03-03 08:44] VITALS: BMI 36.6
[2018-03-03 08:50] LABS: Hematocrit 25.5 % (36.0-45.0)
[2018-03-03] MEDS ORDERED: PANTOPRAZOLE 40 MG INJ IVP SCH (09:00)
[2018-03-03] MEDS ORDERED: HOME MED 1 EA UNK (Omeprazole [Prilosec] 40 MG) PO SCH (09:00)
[2018-03-03] MEDS ORDERED: HOME MED 1 EA UNK (Pravastatin Sodium [Pravachol] 40 MG) PO SCH (09:00)
[2018-03-03] MEDS: METOPROLOL XL 50 MG TAB PO SCH (10:28)
[2018-03-03] MEDS: ONDANSETRON 4 MG/2 ML VIAL IV PRN ×2 (10:28→17:32)
[2018-03-03] MEDS: INSULIN 70/30 100 UNITS/ML SQ SCH (10:29)
[2018-03-03] MEDS ORDERED: D50W 25 GM/50 ML SYRINGE IV PRN (11:37)
[2018-03-03] MEDS ORDERED: GLUCAGON 1 MG/VIAL IM PRN (11:37)
[2018-03-03] MEDS ORDERED: [UNRECOGNIZED DRUG - OTHER] SQ SCH (12:00)
[2018-03-03] MEDS ORDERED: INSULIN 70/30 100 UNITS/ML SQ SCH (12:00)
[2018-03-03] MEDS: INSULIN -REGULAR HUMAN 50 UNIT/0.5 ML ML SQ SCH ×2 (17:36→21:28)
--- NOTE | 2018-03-03 18:21 | CON ---
Date of Consultation: 03/03/2018 Consultation is requested by Dr. Rick Cochran. History Of Present Illness: This 77-year-old female presented by wheelchair to the emergency departm ent with complaints of falling at home with injury. The patient has suffered facial impact and left upper extremity and shoulder impact in her fall. Consultation is for management of injuries to left wrist, forearm and shoulder. Allergies: THE PATIENT IS ALLERGIC TO CIPRO, MACRODANTIN, NITROFURANTOIN, PENICILLINS, AND SULFA MED ICATIONS. Medications: She currently takes home medications to include aspirin 81 mg tablets daily, diazepam, furosemide, levothyroxine, losartan, hydrochlorothiazide, metoprolol, [place] 5/325 t.i.d., Novolin, om eprazole, pravastatin, promethazine, sertraline. Past Medical History: Positive for anxiety, depression, diabetes, insulin-dependent diabetes mellitu s, gastritis, hypertension, and hypothyroidism. Past Surgical History: Limited to cholecystectomy. Physical Examination: Vital Signs: Blood pressure 149/76, pulse 105, respiration 23, pulse ox 100% on room air. General: This is a well-nourished, well-developed 77-year-old female who suffered a fall with impact to face and left upper extremity. On presentation, she is in a hospital room with her left arm in a shoulder immobilizer sling and swathe. The swathe part does not connect from elbow to wrist because of the shortness of the strap. The sling was removed. The patient indicates pain is localized in t he mid forearm area. She has mild swelling for the forearm, wrist and hand. The hand demonstrates f ull opening and closing to a fist and the patient denies numbness or tingling. Casing Running Machine Tender strength is good . She can flex her wrist and dorsiflex actively. Supination and pronation are slightly inhibited. The patient does not have discomfort to palpation at the wrist. There is discomfort to palpation in the mid shaft area closer to the radial shaft and ulnar shaft. There is some swelling at the elbow, but the patient can extend completely and flex to touch her shoulder. She tolerates circumduction fo r the shoulder and denies pain with compression over the clavicle, acromioclavicular joint and proxim al glenohumeral joint. The patient's major complaints now in regard her left cheek were facial impac t caused some teeth to be lost last night. The patient feels swelling in her jaw that is referred to hospitalist to decide if oral surgery or dental consultation is necessary. Data: On review of laboratory, hemoglobin was 8.0 on admission and the following morning has risen t o 8.4. White blood cell count is 6.7 with 79% neutrophils. Blood chemistries show sodium slightly l ow at 132, GFR initially 44. Glucose 189. Imaging included head and C-spine CT reporting no acute i ntracranial abnormality seen. No gross cervical fracture seen. Left humerus x-ray, 2 views, was rosendo cribed as showing a 4 cm avulsion fracture involving the lateral humeral head and neck. My review of the film showed abnormality with the head. I could not identify a 4 cm fragment. Left forearm x-ra y, 2 views, was described as showing osteoporotic bones and concern about the distal radius, posterio r aspect, as showing cortical irregularity with radial ulnar space appearing widened in the AP view b ut normal in the lateral view. Remainder exam was unremarkable and wrist films were recommended. Th ere appeared to me some curve in the proximal ulna which may have been angulation flexion or extensio n during x-ray film. Wrist films, 3 views, show distal left radius fracture without distraction or a ngulation described as subtle cortical changes along the dorsal margin of the distal radius, 1 cm pro ximal to the articular surface suspicious for nondisplaced, non-angulated distal radius fracture. Ul na is described as intact. Plan: The patient's lack of discomfort in the wrist and shoulder with complaints in the forearm will be assessed over time. She is in a shoulder immobilizer, which basically immobilizes the wrist as w ell as the shoulder and this will be continued as we will allow contusion and impact to resolve with regard to her fall last night. X-ray of the patient's facial bones was read as negative for facial f racture. The patient was reassured that the swelling and tenderness she feels is from the contusion without fracture. Further consultation will be considered to address this issue if it does not resol ve. Immobilization of the left upper extremity can be done as an outpatient and this patient may be followed up in my office for her complaints of left forearm and she will be closely followed for return of wrist and shoulder function with serial examinations. PHU/MODL Voice ID: [id number] Report ID: [id number]
--- NOTE | 2018-03-03 20:36 | RAD REPORT ---
EXAM DESCRIPTION: USCarotid Artery Prvzipfrr04/27/2018 8:26 pm CLINICAL HISTORY: Syncope COMPARISON: None FINDINGS: The velocity of the right internal carotid artery equals 62 cm/sec. The right ICA/CCA rati o 0.7 The velocity of the left internal carotid artery equals 55 cm/sec. The left ICA/CCA ratio 0.4 Minimal plaque is present within the carotid arteries. The vertebral arteries demonstrate antegrade flow IMPRESSION: Minimal plaque within the carotid arteries without evidence of a hemodynamically signifi cant stenosis
[2018-03-03] MEDS: ATORVASTATIN 10 MG TAB PO SCH (21:26)
[2018-03-03] MEDS: FERROUS SULFATE 325 MG TAB PO SCH (21:27)
--- NOTE | 2018-03-04 00:13 | P.HP ---
Certification for Inpatient Patient admitted to: Observation With expected LOS: <2 Midnights Patient will require the following post-hospital care: None Practitioner: I am a practitioner with admitting privileges, knowledge of patient current condition, hospital course, and medical plan of care. Services: Services provided to patient in accordance with Admission requirements found in Title 42 Section 412.3 of the Code of Federal Regulations Patient History Date of Service: 03/03/18 Reason for admission: Syncope History of Present Illness: Patient is a 77yo who presents with syncopal event. Patient fell and suffered fracture of her left humerus. She apparently passed out. She thinks she was out for just a few seconds. She was having pain in her left arm and she suffered a lip laceration. She will be admitted for further evaluation of her syncope. She was also extremely anemic, and she was admitted for further evaluation. Allergies Sulfa (Sulfonamide Antibiotics) Allergy (Severe, Verified 03/03/18 02:57) Nausea/Vomiting ciprofloxacin HCl [From Cipro] Allergy (Unknown, Verified 03/03/18 02:57) Unknown gentamicin [Gentamicin] Allergy (Unknown, Verified 03/03/18 02:57) Unknown sulfamethoxazole [From Bactrim] Allergy (Unknown, Verified 03/03/18 02:57) unknown Iodinated Contrast- Oral and IV Dye [Iodinated Contrast Media - IV Dye] Allergy (Verified 03/03/18 02:57) Hives/Rash nitrofurantoin macrocrystal [From Macrodantin] Allergy (Verified 03/03/18 02:57) Itching/Hives/Rash Penicillins Allergy (Verified 03/03/18 02:57) Itching/Hives/Rash pseudoephedrine Adverse Reaction (Verified 03/03/18 02:57) Nausea/Vomiting Home Medications: Aspirin [Aspirin EC 81 MG] 81 mg PO BEDTIME 01/23/18 Diazepam [Valium] 5 mg PO DAILY PRN 01/23/18 Hydrocodone Bit/Acetaminophen [Hydrocodon-Acetaminophen 5-325] 1 tab PO TID PRN 01/23/18 Insulin Aspart Protam & Aspart [Novolog Mix 70-30 Flexpen Syrn] 30 units SQ LUNCH 01/23/18 Insulin Aspart Protam & Aspart [Novolog Mix 70-30 Flexpen Syrn] 60 units SQ BREAKFAST 01/23/18 Levothyroxine [Synthroid*] 125 mcg PO DAILY 01/23/18 Losartan/Hydrochlorothiazide [Losartan-Hctz 100-25 mg Tab] 1 tab PO DAILY Metoprolol Succinate [Toprol Xl*] 50 mg PO DAILY 01/23/18 Omeprazole [Prilosec] 40 mg PO DAILY 01/23/18 Pravastatin Sodium [Pravachol] 40 mg PO DAILY 01/23/18 Promethazine HCl 25 mg PO BID PRN 01/23/18 - Past Medical/Surgical History Has patient received pneumonia vaccine in the past: No Diabetic: Yes -: HTN -: DM -: hypothyroid -: migraines -: arthritis -: gastritis -: cholecystectomy Psychosocial/ Personal History: . - Family History Sister Medical History: Hypertension, Diabetes - Social History Smoking Status: Never smoker Alcohol use: No CD- Drugs: No Caffeine use: Yes Place of Residence: Home Review of Systems 10-point ROS is otherwise unremarkable Physical Examination - Vital Signs Temperature: 97.9 F Blood Pressure: 145/70 Pulse: 79 Respirations: 16 Pulse Ox (%): 98 - Physical Exam General: Alert, In no apparent distress, Oriented x3 HEENT: Atraumatic, PERRLA, Mucous membr. moist/pink, Other (facial/lip laceration), EOMI, Sclerae nonicteric Neck: Supple, 2+ carotid pulse no bruit, No LAD, Without JVD or thyroid abnormality Respiratory: Clear to auscultation bilaterally, Normal air movement Cardiovascular: Regular rate/rhythm, Normal S1 S2, No murmurs Gastrointestinal: Normal bowel sounds, Soft and benign, Non-distended, No tenderness Musculoskeletal: No clubbing, No swelling, No tenderness Integumentary: No rashes Neurological: Normal gait, Normal speech, Normal tone, Sensation intact, Cranial nerves 3-12 intact, Normal affect, Abnormal strength (weakness of the left arm/shoulder/ with pain) Lymphatics: No axilla or inguinal lymphadenopathy Assessment & Plan - Problems (Diagnosis) (1) Syncope and collapse Current Visit: Yes Status: Acute (2) Obesity Onset Date: 01/23/18 Current Visit: No Status: Acute (3) DM w/o complication type II Onset Date: 12/16/14 Current Visit: No Status: Chronic (4) Depression with anxiety Onset Date: 12/16/14 Current Visit: No Status: Chronic (5) HTN (hypertension) Onset Date: 12/16/14 Current Visit: No Status: Chronic (6) Hyperlipidemia Onset Date: 12/16/14 Current Visit: No Status: Chronic (7) Hypothyroidism Onset Date: 12/16/14 Current Visit: No Status: Chronic (8) Iron (Fe) deficiency anemia Onset Date: 12/16/14 Current Visit: No Status: Chronic - Plan PLAN: 1. Carotid doppler and echocardiogram 2. IV hydration 3. Cardiology and orthopedics 4. Anemia work-up 5. Monitor telemetry and hemodynamics 6. Monitor labs 7. GI/DVT prophylaxis Discharge Plan: Home Plan to discharge in: 48 Hours - Advance Directives Does patient have a Living Will: No Does patient have a Durable POA for Healthcare: No - Code Status/Comfort Care Code Status Assessed: Yes Code Status: Full Code Critical Care: No Time Spent Managing PTS Care (In Minutes): 50
[2018-03-04] MEDS: PANTOPRAZOLE 40MG TABLET PO SCH (05:43)
[2018-03-04] MEDS: HYDROCODONE/APAP 5/325 MG TAB PO PRN ×2 (05:43→15:05)
[2018-03-04] MEDS: LEVOTHYROXINE SOD 0.125 MG TAB PO SCH (05:44)
[2018-03-04 06:24] LABS: Albumin 3.3 g/dL (3.4-5.0); Bilirubin Total 0.6 mg/dL (0.2-1.0); Potassium 3.6 mmol/L (3.5-5.1); Protein, Total 7.4 g/dL (6.4-8.2)
[2018-03-04 06:26] LABS: Protime INR 1.14
[2018-03-04 06:36] LABS: Absolute Lymphocytes (CBC) 1.4 K/uL (0.7-4.9); Absolute Monocytes 0.7 K/uL (0.1-1.3); Absolute Neutrophil 4.6 K/uL (1.8-8.0); Basophils % 0.5 % (0-1.3); Eosinophils % 2.2 % (0-4.4); Hematocrit 24.8 % (36.0-45.0); Lymphocytes % 20.8 % (15.3-44.8); MCV 78.1 fL (80-100); MPV 9.7 fL (7.6-11.3); Monocytes % 10.5 % (3.3-12.3); RBC Red Blood Cell Count 3.18 M/uL (3.86-4.86)
--- NOTE | 2018-03-04 07:13 | CON ---
Date of Consultation: 03/03/[address] Walton's service on 03/03/2018. She was seen on 03/03/2018. Reason For Consultation: Syncope and humerus fracture. History Of Present Illness: Ms. Posey is a 77-year-old woman. She does not speak any Bengali. She had come in with syncope and broke her humerus. She had a left lateral head and ne ck fracture of her left femur. She had syncope, but no chest pain. Denied PND, orthopnea, pedal lakshmi ma, or palpitation. Was found to have a normal troponin and normal BNP. Past Medical History: Include hypothyroidism, diabetes, hypertension, dyslipidemia, obesity, gastroe sophageal reflux disease, anxiety and depression as well as history of migraine. Allergies: TO SULFA, CIPRO. Medications: At home include Prilosec, Pravachol, aspirin, Valium, insulin, metoprolol, thyroid medi cine, and Hyzaar. Physical Examination: General: She was pleasant, alert and oriented, no acute distress. Vital Signs: Stable. She was in sinus rhythm. No fever. HEENT: Negative. Neck: Supple. No bruit. Chest: Clear. Cardiac: Revealed a regular rhythm and rate with an S4 gallops. No murmurs or rubs. Abdomen: Benign. Extremities: Revealed no clubbing, cyanosis, or edema. Diagnostic Data: Include a creatinine 1.2, normal EKG, normal x-ray, hemoglobin of 8, glucose of 197 . Echocardiogram in 2015 was normal. Impression And Plan: Syncope most likely orthostatic. I agree with holding her Hyzaar for now and h ydrating her. It is certainly possible that her anemia could have contributed to her syncope as well . This probably should be investigated. I agree with getting another echocardiogram. Ms. Posey does not have any cardiac history and certainly if anything surgical is needed, she should be at low risk for perioperative mortality. Her blood pressure and dyslipidemia and gastroesophageal reflux di sease are well controlled. She has hypothyroidism, on Synthroid. She also has a history of anxiety, depression, and obesity, as well as migraine disorder. We will follow Ms. Posey as needed. FAUSTINO/ANNIKAL Voice ID: [id number] Report ID: [id number]
[2018-03-04] MEDS: INSULIN 70/30 100 UNITS/ML SQ SCH ×2 (10:24→12:00)
[2018-03-04] MEDS: METOPROLOL XL 50 MG TAB PO SCH (10:24)
[2018-03-04] MEDS: INSULIN -REGULAR HUMAN 50 UNIT/0.5 ML ML SQ SCH ×4 (10:24→21:00)
[2018-03-04] MEDS: FERROUS SULFATE 325 MG TAB PO SCH ×2 (10:24→21:14)
--- NOTE | 2018-03-04 11:43 | P.PN ---
Date of Service: 03/04/18 (HOSP DAY#2) S: PATIENT COMFORTABLE AND HAPPY THIS MORNING. INDICATES SHE HAS BEEN UP TO B.R. BY HERSELF. O: VSS, PATIENT HAS FEW COMPLAINTS REGARDING LUE. NO TENDERNESS TO PALPATION LEFT SHOULDER OR WRIST. FORE ARM COMPLAINT MUCH BETTER TODAY. PATIENT ACTUALLY C /O BRUISES ON RIGHT FORE ARM AND UPPER ARM. PATIENT ABLE TO IMITATE HER TORTILLA -MAKING MOVEMENTS IN A RAPIDLY ALTERNATING MOVEMENT WITH BOTH ARMS, WRISTS AND HANDS. SHE DESCRIBES PRIOR INJURY TO LEFT SHOULDER 2 YEARS AGO TO EXPLAIN X-RAY CHANGES THERE. SYMPTOMATICALLY THE RIGHT WRIST IS NOT A PROBLEM. A: PATIENT'S CONTUSIONS IMPROVING RAPIDLY. P: WILL FOLLOW PATIENT OUTPATIENT AND IF INDICATED.
[2018-03-04] MEDS: NA CHLORIDE 0.9% 1,000 ML IV SCH (13:00)
[2018-03-04] MEDS: ENOXAPARIN 30 MG/0.3 ML SQ SCH (13:01)
--- NOTE | 2018-03-04 14:25 | PN ---
Subjective: Currently, the patient lying in bed. She was wearing sling. She felt fine. She has no chest pain. No abdominal pain. No fever or chills overnight. She looks comfortable. Objective: Vital Signs: Today, blood pressure is 143/66, respiratory rate 17, pulse 75, temperature 97.5. General: She is alert and oriented x3. Does not look in any distress. HEENT: Atraumatic, normocephalic. PERRLA. Oral mucosa is moist. Neck: Supple. No JVD. No bruits. Heart: Regular rate and rhythm. S1, S2 normal. No gallop or murmur. Abdomen: Soft, nontender. No masses. No hepatosplenomegaly. Positive bowel sounds. Extremities: No clubbing, cyanosis, or edema. No calf tenderness. Left arm in sling. Neurologic: Grossly intact. Laboratory Data: Today, showed CBC with hemoglobin 8.3, white blood cells 6.9, platelet 121. Chemis try, sodium 132, GFR 54, glucose 115, calcium 8.4, alkaline phosphatase 125, glucose in the range of 155 to 303. Assessment And Plan: 1.Syncopal episode with fall. Appreciate cardiology's recommendation most likely orthostatic, but e chocardiogram is pending. Carotid Doppler unremarkable. The patient will stay until tomorrow until echo is done. Continue IV hydration. GFR improving from 44 to 45 overnight. 2.Iron deficiency anemia. Workup in progress. Stool occult had ordered yesterday, but no results y et. The patient on oral iron twice a day. GI workup can be done as outpatient if stool occult is po sitive. 3.Hypertension today. She reported hypotension previously. Her Hyzaar placed on hold due to renal insufficiency and orthostatic hypotension. I will place the patient on p.r.n. hydralazine until kidn ey function is better and we can resume Hyzaar. 4.Hyperlipidemia. She is on atorvastatin, continue with that. 5.Diabetes mellitus, not well controlled. She is on NPH 30 units at lunch and 60 at breakfast 70/30 . I will increase her lunch 70/30 to 35 units. 6.I will check hemoglobin A1c. 7.Hypothyroidism. She is on Synthroid. 8.We will start DVT prophylaxis, on Lovenox. 9.Symptomatic treatment for pain with oxycodone. 10.Physical therapy eval. 11.Discharge plan in the a.m. hopefully if echocardiogram normal. MT/LENNIE Voice ID: [id number] Report ID: [id number]
--- NOTE | 2018-03-04 19:18 | EKG ---
Test Date: 2018-03-02 Test Time: 22:36:23 Scleroscope Tester: VINCENT MEASUREMENT RESULTS: Intervals: Rate: 79 AR: 140 QRSD: 86 QT: 380 QTc: 435 [employer]: P: 57 AR: 140 QRS: 42 T: 12 INTERPRETIVE STATEMENTS: Normal sinus rhythm ST & T wave abnormality, consider anterior ischemia Abnormal ECG Compared to ECG 01/22/2018 19:34:40 ST (T wave) deviation now present T-wave abnormality no longer present Prolonged QT interval no longer present Possible ischemia still present Electronically Signed On 03-04-18 19:15:11 CDT by Jeffery Jacques
[2018-03-04] MEDS: ASPIRIN EC 81 MG TAB PO SCH (21:00)
[2018-03-04] MEDS: ATORVASTATIN 10 MG TAB PO SCH (21:14)
[2018-03-05] MEDS: NA CHLORIDE 0.9% 1,000 ML IV SCH ×2 (01:01→13:40)
[2018-03-05] MEDS: ONDANSETRON 4 MG/2 ML VIAL IV PRN (01:42)
[2018-03-05] MEDS: HYDROCODONE/APAP 5/325 MG TAB PO PRN ×3 (03:55→19:00)
[2018-03-05] MEDS: LEVOTHYROXINE SOD 0.125 MG TAB PO SCH (05:47)
[2018-03-05] MEDS: PANTOPRAZOLE 40MG TABLET PO SCH (05:47)
[2018-03-05] MEDS: INSULIN -REGULAR HUMAN 50 UNIT/0.5 ML ML SQ SCH ×4 (07:30→21:00)
[2018-03-05] MEDS: INSULIN 70/30 100 UNITS/ML SQ SCH ×2 (08:00→12:00)
[2018-03-05] MEDS: ENOXAPARIN 30 MG/0.3 ML SQ SCH (11:16)
[2018-03-05] MEDS: METOPROLOL XL 50 MG TAB PO SCH (11:17)
[2018-03-05] MEDS: FERROUS SULFATE 325 MG TAB PO SCH ×2 (11:17→20:40)
[2018-03-05 12:12] LABS: Albumin 3.1 g/dL (3.4-5.0); Bilirubin Total 0.4 mg/dL (0.2-1.0); Protein, Total 6.9 g/dL (6.4-8.2)
--- NOTE | 2018-03-05 13:20 | ECHO ---
HEIGHT: 5 ft 3 in WEIGHT: 207 lb 0 oz DATE OF STUDY: 03/05/[address]: Brenden Hadley MD 2-DIMENSIONAL: YES M.MODE: YES DOPPLER: YES COLOR FLOW: YES TDS: PORTABLE: DEFINITY: BUBBLE STUDY: DIAGNOSIS: CARDIAC HISTORY: CATHERIZATION: NO SURGERY: NO PROSTHETIC VALVE: NO PACEMAKER: NO MEASUREMENTS (cm) DIASTOLIC (NORMALS) SYSTOLIC (NORMALS) IVSd 1.2 (0.6-1.2) LA Diam 4.5 (1.9-4.0) LVEF 62% LVIDd 4.5 (3.5-5.7) LVIDs 3.0 (2.0-3.5) %FS 33% LVPWd 1.2 (0.6-1.2) Ao Diam 2.8 (2.0-3.7) 2 DIMENSIONAL ASSESSMENT: RIGHT ATRIUM: NORMAL LEFT ATRIUM: DILATED RIGHT VENTRICLE: NORMAL LEFT VENTRICLE: NORMAL TRICUSPID VALVE: NORMAL MITRAL VALVE: MITRAL ANNULAR CALCIFICATION PULMONIC VALVE: NORMAL AORTIC VALVE: AORTIC SCELROSIS PERICARDIAL EFFUSION: NONE AORTIC ROOT: NORMAL LEFT VENTRICULAR WALL MOTION: NORMAL DOPPLER/COLOR FLOW: MILD TRICUSPID REGURGITATION. COMMENTS: MILD TRICUSPID REGURGITATION. AORTIC SCLEROSIS. MITRAL ANNULAR CALCIFICATION. NORMAL LEFT VENTRICULAR SIZE AND FUNCTION. TECHNOLOGIST: GRETA FOSTER
[2018-03-05 15:38] LABS: Absolute Lymphocytes (CBC) 1.2 K/uL (0.7-4.9); Absolute Monocytes 0.4 K/uL (0.1-1.3); Absolute Neutrophil 3.7 K/uL (1.8-8.0); Basophils % 0.6 % (0-1.3); Hematocrit 22.1 % (36.0-45.0); Lymphocytes % 21.6 % (15.3-44.8); MCH 25.9 pg (27.0-35.0); MCV 79.1 fL (80-100); MPV 9.8 fL (7.6-11.3); Monocytes % 7.6 % (3.3-12.3); RBC Red Blood Cell Count 2.79 M/uL (3.86-4.86)
--- NOTE | 2018-03-05 16:14 | P.DS ---
Admission Date: 03/03/18 Discharge Date: 03/05/18 Disposition: ROUTINE DISCHARGE Discharge Condition: GOOD Reason for Admission: Syncope Consultations: Cardiology, Dr. Jacques Orthopedic, Dr. North Brief History of Present Illness: Patient is a 77yo who presents with syncopal event. Patient fell and suffered fracture of her left humerus. She apparently passed out. She thinks she was out for just a few seconds. She was having pain in her left arm and she suffered a lip laceration. She will be admitted for further evaluation of her syncope. She was also extremely anemic, and she was admitted for further evaluation. Hospital Course: Patient was admitted for syncope and collapse. She was started on IV hydration , workup including echocardiogram, carotid Doppler has been negative. Cardiology and orthopedics were consulted. No surgical intervention planned. For her iron-deficiency anemia, workup was started. She would like to continue workup with her outpatient primary care physician. Instructed patient to follow up with primary care physician in 1 week. Continue oral iron tablets Patient was hypertensive previously. After her blood pressure stabilized, she was restarted on p.r.n. hydralazine as her kidney function was low. Will restart highs are upon discharge history kidney functions returned to baseline. She will follow up with primary care physician in 1 week. For her diabetes, she was not well controlled by her insulin 70 30 was 635 units at lunch. Will continue with the increased to 35 units on discharge. She is to follow up with primary care physician in 1 week. Otherwise she remained stable and no other medication changes were made throughout the stay. At the time of discharge, patient was alert oriented x3 without any further syncopal episodes during this admission. She denied any chest pain, abdominal pain, nausea, vomiting, headache, dizziness, lightheadedness, or vision changes. Vital Signs/Physical Exam: Temp Pulse Resp BP Pulse Ox 97.4 F 74 20 127/60 95 03/05/18 12:00 03/05/18 12:00 03/05/18 12:00 03/05/18 12:00 03/05/18 12:00 General: Alert, In no apparent distress HEENT: Atraumatic, PERRLA, EOMI Neck: Supple, JVD not distended Respiratory: Clear to auscultation bilaterally, Normal air movement Cardiovascular: Regular rate/rhythm, Normal S1 S2 Gastrointestinal: Normal bowel sounds, No tenderness Musculoskeletal: No tenderness Integumentary: No rashes Neurological: Normal speech, Normal tone, Normal affect Lymphatics: No axilla or inguinal lymphadenopathy Laboratory Data at Discharge: WBC 6.9 K/uL (4.3-10.9) 03/04/18 05:33 Hgb 8.3 g/dL (12.0-15.0) L 03/04/18 05:33 Hct 24.8 % (36.0-45.0) L 03/04/18 05:33 Plt Count 121 K/uL (152-406) L 03/04/18 05:33 PT 13.5 SECONDS (9.5-12.5) H 03/04/18 05:33 INR 1.14 03/04/18 05:33 APTT 28.0 SECONDS (24.3-36.9) 03/04/18 05:33 Sodium 132 mmol/L (136-145) L 03/05/18 11:24 Potassium 4.0 mmol/L (3.5-5.1) 03/05/18 11:24 BUN 12 mg/dL (7-18) 03/05/18 11:24 Creatinine 1.00 mg/dL (0.55-1.3) 03/05/18 11:24 Glucose 222 mg/dL (74-106) H 03/05/18 11:24 Total Bilirubin 0.4 mg/dL (0.2-1.0) 03/05/18 11:24 AST 25 U/L (15-37) 03/05/18 11:24 ALT 23 U/L (12-78) 03/05/18 11:24 Alkaline Phosphatase 123 U/L (45-117) H 03/05/18 11:24 Troponin I < 0.02 ng/mL (0.0-0.045) 03/02/18 22:45 Home Medications: Aspirin [Aspirin EC 81 MG] 81 mg PO BEDTIME 01/23/18 Diazepam [Valium] 5 mg PO DAILY PRN 01/23/18 Hydrocodone Bit/Acetaminophen [Hydrocodon-Acetaminophen 5-325] 1 tab PO TID PRN 01/23/18 Insulin Aspart Protam & Aspart [Novolog Mix 70-30 Flexpen Syrn] 60 units SQ BREAKFAST 01/23/18 Levothyroxine [Synthroid*] 125 mcg PO DAILY 01/23/18 Losartan/Hydrochlorothiazide [Losartan-Hctz 100-25 mg Tab] 1 tab PO DAILY Metoprolol Succinate [Toprol Xl*] 50 mg PO DAILY 01/23/18 Omeprazole [Prilosec] 40 mg PO DAILY 01/23/18 Pravastatin Sodium [Pravachol] 40 mg PO DAILY 01/23/18 Promethazine HCl 25 mg PO BID PRN 01/23/18 Insulin Aspart Protam & Aspart [Novolog Mix 70-30 Flexpen Syrn] 35 units SQ LUNCH #7 insuln.pen 03/05/18 New Medications: Insulin Aspart Protam & Aspart [Novolog Mix 70-30 Flexpen Syrn] 35 units SQ LUNCH #7 insuln.pen Patient Discharge Instructions: Please follow up with primary care physician in 1 week Diet: Regular Activity: Ad andrea Time spent managing pt's care (in minutes): 55
[2018-03-05 17:41] LABS: ALT/SGPT 23 U/L (12-78); AST/SGOT 18 U/L (15-37); Albumin 3.1 g/dL (3.4-5.0); Alkaline Phosphatase 122 U/L (45-117); Bilirubin Direct < 0.1 mg/dL (0-0.2); Bilirubin Total 0.3 mg/dL (0.2-1.0); Ferritin 23.4 ng/mL (8-388); Protein, Total 7.2 g/dL (6.4-8.2); Transferrin 338 mg/dL (200-360)
[2018-03-05] MEDS: ATORVASTATIN 10 MG TAB PO SCH (20:40)
[2018-03-05] MEDS: ASPIRIN EC 81 MG TAB PO SCH (20:40)
[2018-03-06] MEDS: NA CHLORIDE 0.9% 1,000 ML IV SCH ×2 (00:37→16:20)
[2018-03-06 00:51] VITALS: O2SAT 97
[2018-03-06] MEDS: MORPHINE 2 MG/ML SYR IV PRN (01:47)
[2018-03-06] MEDS: HYDROCODONE/APAP 5/325 MG TAB PO PRN ×2 (03:43→15:34)
[2018-03-06] MEDS: DIAZEPAM 5 MG TABLET PO PRN ×2 (03:58→14:00)
[2018-03-06] MEDS: PANTOPRAZOLE 40MG TABLET PO SCH (06:35)
[2018-03-06] MEDS: LEVOTHYROXINE SOD 0.125 MG TAB PO SCH (06:35)
[2018-03-06] MEDS: INSULIN -REGULAR HUMAN 50 UNIT/0.5 ML ML SQ SCH ×3 (07:30→16:30)
[2018-03-06] MEDS: FERROUS SULFATE 325 MG TAB PO SCH (08:39)
[2018-03-06] MEDS: ENOXAPARIN 30 MG/0.3 ML SQ SCH (08:41)
[2018-03-06] MEDS: INSULIN 70/30 100 UNITS/ML SQ SCH ×2 (08:41→16:50)
[2018-03-06] MEDS: METOPROLOL XL 50 MG TAB PO SCH (09:00)
[2018-03-06] MEDS ORDERED: NA CHLORIDE 0.9% 250 ML ONE (13:07)
--- NOTE | 2018-03-06 13:56 | EKG ---
Test Date: 2018-03-06 Test Time: 01:21:15 Deputy Attorney General: DAVID MEASUREMENT RESULTS: Intervals: Rate: 71 ME: 158 QRSD: 80 QT: 412 QTc: 447 [place]: P: 64 ME: 158 QRS: 47 T: -19 INTERPRETIVE STATEMENTS: Normal sinus rhythm ST & T wave abnormality, consider anterolateral ischemia Abnormal ECG Compared to ECG 03/02/2018 22:36:23 No significant changes Electronically Signed On 03-06-18 13:53:22 CDT by Jeffery Jacques
--- NOTE | 2018-03-06 14:10 | P.PN ---
Subjective Date of Service: 03/06/18 Chief Complaint: Syncope Subjective: No new changes, No C/O voiced, Tolerating diet, Ambulating, Doing well Patient seen and examined at bedside. No family at bedside. Patient eager to go home Review of Systems 10-point ROS is otherwise unremarkable Physical Examination - Vital Signs Temperature: 97.3 F Blood Pressure: 114/57 Pulse: 78 Respirations: 18 Pulse Ox (%): 95 - Physical Exam General: Alert, In no apparent distress HEENT: Atraumatic, PERRLA, EOMI Neck: Supple, JVD not distended Respiratory: Clear to auscultation bilaterally, Normal air movement Cardiovascular: Regular rate/rhythm, Normal S1 S2 Gastrointestinal: Normal bowel sounds, No tenderness Musculoskeletal: No tenderness Integumentary: No rashes Neurological: Normal speech, Normal tone, Normal affect Lymphatics: No axilla or inguinal lymphadenopathy - Studies Medications List Reviewed: Yes Assessment And Plan - Plan - Syncopal episode with fall. Appreciate cardiology's recommendation most likely orthostatic, echocardiogram is normal. Carotid Doppler unremarkable. Tolerating oral diet without any concerns or complaints. - Iron deficiency anemia. Hemoglobin of 7.2, a drop from 9.8. Stool occult blood pending. No overt evidence of bleeding. Patient with a history of chronic anemia. Continue iron twice a day. Will give 1 unit of PRBCs. If occult blood is positive, outpatient follow up with GI. - Hypertension- p.r.n. hydralazine. Will follow up on kidney function, resume hyzaar on discharge if kidney function normalizes. - Hyperlipidemia. She is on atorvastatin, continue with that. - Diabetes mellitus, not well controlled. Continue increased 70/30, 35 units with lunch and 60 at breakfast. - Hypothyroidism. She is on Synthroid. DVT prophylaxis: Lovenox Diet: Regular Disposition: Likely discharge home after blood transfusion. Outpatient follow up with primary care physician and GI
[2018-03-06 18:32] LABS: Hematocrit 26.5 % (36.0-45.0)
[2018-03-06 20:22] VITALS: BP 119/58; TEMP 98.2
--- NOTE | 2018-03-07 12:41 | P.DS ---
Admission Date: 03/03/18 Discharge Date: 03/07/18 Disposition: ROUTINE DISCHARGE Discharge Condition: GOOD Reason for Admission: Syncope Brief History of Present Illness: Patient is a 77yo who presents with syncopal event. Patient fell and suffered fracture of her left humerus. She apparently passed out. She thinks she was out for just a few seconds. She was having pain in her left arm and she suffered a lip laceration. She will be admitted for further evaluation of her syncope. She was also extremely anemic, and she was admitted for further evaluation. Hospital Course: Patient was admitted for syncope and collapse. She was started on IV hydration , workup including echocardiogram, carotid Doppler has been negative. Cardiology and orthopedics were consulted. No surgical intervention planned. For her iron-deficiency anemia, workup was started. She would like to continue workup with her outpatient primary care physician. Instructed patient to follow up with primary care physician in 1 week. Continue oral iron tablets Patient was hypertensive previously. After her blood pressure stabilized, she was restarted on p.r.n. hydralazine as her kidney function was low. Will restart highs are upon discharge history kidney functions returned to baseline. She will follow up with primary care physician in 1 week. For her diabetes, she was not well controlled by her insulin 70 30 was 635 units at lunch. Will continue with the increased to 35 units on discharge. She is to follow up with primary care physician in 1 week. Otherwise she remained stable and no other medication changes were made throughout the stay. At the time of discharge, patient was alert oriented x3 without any further syncopal episodes during this admission. She denied any chest pain, abdominal pain, nausea, vomiting, headache, dizziness, lightheadedness, or vision changes. Discharge was delayed due 1 night because patient heated transfusion. She received 1 unit PRBCs, 12th postprandial and stabilized at 8.2. Patient was then discharged home Vital Signs/Physical Exam: Temp Pulse Resp BP Pulse Ox 98.2 F 74 18 119/58 L 96 03/06/18 20:00 03/06/18 20:00 03/06/18 20:00 03/06/18 20:00 03/06/18 20:00 General: Alert, In no apparent distress HEENT: Atraumatic, PERRLA, EOMI Neck: Supple, JVD not distended Respiratory: Clear to auscultation bilaterally, Normal air movement Cardiovascular: Regular rate/rhythm, Normal S1 S2 Gastrointestinal: Normal bowel sounds, No tenderness Musculoskeletal: No tenderness Integumentary: No rashes Neurological: Normal speech, Normal tone, Normal affect Lymphatics: No axilla or inguinal lymphadenopathy Laboratory Data at Discharge: WBC 5.4 K/uL (4.3-10.9) D 03/05/18 15:02 Hgb 8.7 g/dL (12.0-15.0) L 03/06/18 18:00 Hct 26.5 % (36.0-45.0) L D 03/06/18 18:00 Plt Count 114 K/uL (152-406) L 03/05/18 15:02 PT 13.5 SECONDS (9.5-12.5) H 03/04/18 05:33 INR 1.14 03/04/18 05:33 APTT 28.0 SECONDS (24.3-36.9) 03/04/18 05:33 Sodium 132 mmol/L (136-145) L 03/05/18 11:24 Potassium 4.0 mmol/L (3.5-5.1) 03/05/18 11:24 BUN 12 mg/dL (7-18) 03/05/18 11:24 Creatinine 1.00 mg/dL (0.55-1.3) 03/05/18 11:24 Glucose 222 mg/dL (74-106) H 03/05/18 11:24 Total Bilirubin 0.3 mg/dL (0.2-1.0) 03/05/18 17:08 AST 18 U/L (15-37) 03/05/18 17:08 ALT 23 U/L (12-78) 03/05/18 17:08 Alkaline Phosphatase 122 U/L (45-117) H 03/05/18 17:08 Troponin I < 0.02 ng/mL (0.0-0.045) 03/02/18 22:45 Home Medications: Aspirin [Aspirin EC 81 MG] 81 mg PO BEDTIME 01/23/18 Diazepam [Valium] 5 mg PO DAILY PRN 01/23/18 Hydrocodone Bit/Acetaminophen [Hydrocodon-Acetaminophen 5-325] 1 tab PO TID PRN 01/23/18 Insulin Aspart Protam & Aspart [Novolog Mix 70-30 Flexpen Syrn] 60 units SQ BREAKFAST 01/23/18 Levothyroxine [Synthroid*] 125 mcg PO DAILY 01/23/18 Losartan/Hydrochlorothiazide [Losartan-Hctz 100-25 mg Tab] 1 tab PO DAILY Metoprolol Succinate [Toprol Xl*] 50 mg PO DAILY 01/23/18 Omeprazole [Prilosec] 40 mg PO DAILY 01/23/18 Pravastatin Sodium [Pravachol] 40 mg PO DAILY 01/23/18 Promethazine HCl 25 mg PO BID PRN 01/23/18 Patient Discharge Instructions: Please follow up with primary care physician in 1 week Diet: Regular Activity: Ad andrea Followup: Jeffery Jacques MD [ACTIVE - CAN ADMIT] - 1-2 Weeks Mingo North MD [ACTIVE - CAN ADMIT] - 1-2 Weeks Time spent managing pt's care (in minutes): 55
== END 2018-03-06 20:28 | disposition home or self-care (01) ==
LOC: ER 20:39 → ERHOLD 03-03 00:25 → 2ND 03-03 01:36
PROVIDERS: ADMIT Hospitalist; ATTEND Hospitalist
PROC: 0CQ0XZZ Repair Upper Lip, External Approach (ICD-10-PCS; principal; 2018-03-02)
PROC: 30233N1 Transfusion of Nonautologous Red Blood Cells into Peripheral Vein, Percutaneous Approach (ICD-10-PCS; 2018-03-06)
DX: D50.9 Iron deficiency anemia, unspecified (principal); R55 Syncope and collapse; S01.511A Laceration without foreign body of lip, initial encounter; S42.212A Unspecified displaced fracture of surgical neck of left humerus, initial encounter for closed fracture; I10 Essential (primary) hypertension; E03.9 Hypothyroidism, unspecified; E78.5 Hyperlipidemia, unspecified; W18.30XA Fall on same level, unspecified, initial encounter; Y92.009 Unspecified place in unspecified non-institutional (private) residence as the place of occurrence of the external cause; F41.8 Other specified anxiety disorders; Z88.2 Allergy status to sulfonamides; Z88.0 Allergy status to penicillin
CPT/HCPCS: 12011; 36415 ×4; 36430 ×2; 70450; 70486; 72125; 73060; 73090; 73110; 76377; 80048; 80053 ×2; 80076; 81003; 82607; 82728 ×2; 82746; 82962 ×19; 83010; 83540 ×2; 83615; 84466 ×2; 84484; 85014 ×3; 85018 ×3; 85025 ×3; 85044; 85610; 85730; 86850 ×2; 86900 ×2; 86901 ×2; 93005 ×2; 93306; 93880; 96361; 96374; 97116 ×4; 97163; 99285; G0378 ×2; J1650 ×3; J2270 ×4; J2405 ×4; J7030 ×5; P9016; 96365; 96366; 96375

== ENCOUNTER 2018-05-08 02:19 | Emergency (ER) | payer OTHER ==
--- OUTSIDE RECORDS SUMMARY | 2018-05-08 02:23 | XMS REPORT ---
[...] End Status Dosage System Date Date Nystatin [facility] [id number] UNIT/GM September 05October Active 1 application Externally Twice 2017, to a day 2018 area Results No Known Results Summary Purpose eClinicalWorks Submission
--- OUTSIDE RECORDS SUMMARY | 2018-05-08 02:23 | XMS REPORT ---
[...] Start End Status Dosage System Date Date [facility][NOTE 3] 24933830893 81 MG Orally Active 1 tablet Once a day Promethazine HCl ND 02163752426 25 MG Orally Active 1 tablet as every 12 hrs needed Delta [facility][NOTE 3] 34308248336 5-325 MG Orally Active 1 tablet as every 6 hrs needed Acyclovir ND 03403284149 200 MG Orally Active 1 capsule Three times a day True Metrix [facility][NOTE 3] 71970688106 - Active USE TWICE Blood Glucose DAILY Test NovoFine [facility][NOTE 3] 62261685383 32G X 6 MM SB Active as directed Twice a day Metoprolol [facility][NOTE 3] 39614903429 50 MG Orally Active 1 tablet Succinate ER Once a day Omeprazole [facility][NOTE 3] 05951783742 40 MG Orally Active 1 capsule Once a day NovoLog Mix [facility][NOTE 3] 26829553344 (70-30) 100 Active INJECT 70 70/30 Flexpen UNIT/ML UNITS UNDER Subcutaneous THE SKIN Twice a day EVERY MORNING WITH BREAKFAST AND 40 UNITS EVERY EVENING WITH DINNER Levothyroxine [facility][NOTE 3] 30276402886 125 MCG Orally Active 1 tablet on Sodium Once a day an empty stomach in the morning Magnesium Oxide [facility][NOTE 3] 28837495430 400 MG Orally Active 1 tablet as Twice a day needed Levothyroxine [facility][NOTE 3] 04191008992 125 MCG Orally Active 1 tablet on Sodium Once a day an empty stomach in the morning Cozaar [facility][NOTE 3] 65982363244 100 MG Orally Active 1 tablet Once a day Pravastatin [facility][NOTE 3] 44723362954 40 MG Orally Active 1 tablet Sodium Once a day Meclizine HCl [facility][NOTE 3] 96789573199 25 MG Orally Active 1 tablet as Once a day needed Lidocaine HCl [facility][NOTE 3] 93658882149 2 % Dec 07, Active 15 ml to Mouth/Throat 2017 affected every 3 hrs as area as needed (Swish needed around in mouth and spit out). MAX 8 doses/day Amlodipine [facility][NOTE 3] 82154732891 10 MG Orally Active 1 tablet Besylate Once a day BusPIRone HCl [facility][NOTE 3] 74777359948 5 MG Orally BID Active 1 tablet Chlorhexidine [facility][NOTE 3] 24036519981 0.12 % Dec 07, Dec 17, Active 10-15 mL Gluconate Mouth/Throat 2017 2017 (Swish/Spit Every 12 hours ) Metoprolol [facility][NOTE 3] 35968240847 50 MG Active 1 TAB(S) Succinate ER TWICE DAILY Furosemide ND 27163896516 20 MG Orally Active 1 tablet Once a day Results No Known Results Summary Purpose eClinicalWorks Submission
--- OUTSIDE RECORDS SUMMARY | 2018-05-08 02:23 | XMS REPORT ---
[...] End Status Dosage System Date Date Zoloft [facility] 27648782506 25 MG Orally July Active 1 tablet Once a day [address] [facility] 15542169415 10 MG Orally Active 1 tablet Besylate Once a day NovoLog Mix [facility] 63541896606 (70-30) 100 Active INJECT 70 70/30 Flexpen UNIT/ML UNITS UNDER Subcutaneous THE SKIN Twice a day EVERY MORNING WITH BREAKFAST AND 40 UNITS EVERY EVENING WITH DINNER Promethazine HCl ND 01138141211 25 MG Orally Active 1 tablet as every 12 hrs needed Omeprazole [facility] 45959552483 40 MG Orally Active 1 capsule Once a day Furosemide [facility] 72085625523 20 MG Orally Active 1 tablet Once a day Magnesium Oxide [facility] 12894977729 400 MG Orally Active 1 tablet as Once a day needed Pravastatin [facility] 31657829725 40 MG Orally Active 1 tablet Sodium Once a day Cozaar [facility] 83601563626 100 MG Orally Active 1 tablet Once a day Metoprolol [facility] 85130450949 50 MG Orally Active 1 tablet Succinate ER Once a day NovoFine [facility] 27616345454 32G X 6 MM SB July Active as directed Twice a day [address] [place] [facility] 41618094876 5-325 MG Orally Active 1 tablet as every 6 hrs needed Acyclovir [facility] 51087334633 200 MG Orally Active 1 capsule Three times a day Aspir-[address] [facility] 76670334807 81 MG Orally Active 1 tablet Once a day Levothyroxine [facility] 41528459428 125 MCG Orally Active 1 tablet on Sodium Once a day an empty stomach in the morning Meclizine HCl [facility] 10913388099 25 MG Orally Active 1 tablet as Once a day needed Results No Known Results Summary Purpose eClinicalWorks Submission
--- OUTSIDE RECORDS SUMMARY | 2018-05-08 02:23 | XMS REPORT ---
[...] End Status Dosage System Date Date Amlodipine [facility] 97057060370 10 MG Orally Active 1 tablet Besylate Once a day [place] [facility] 31578444289 100 MG Orally Active 1 tablet Once a day Pravastatin ND 68557637013 40 MG Orally Active 1 tablet Sodium Once a day Omeprazole [facility] 98778317273 40 MG Orally Active 1 capsule Once a day Aspir-81 [facility] 19390184780 81 MG Orally Active 1 tablet Once a day Magnesium Oxide [facility] 15634987386 400 MG Orally Active 1 tablet as Twice a day needed NovoFine [facility] 85986414651 32G X 6 MM SB Active as directed Twice a day Levothyroxine [facility] 48521672517 125 MCG Orally Active 1 tablet on Sodium Once a day an empty stomach in the morning True Metrix [facility] 39307934565 - Active USE TWICE Blood Glucose DAILY Test [place] [facility] 79962275308 5-325 MG Orally Active 1 tablet as every 6 hrs needed BusPIRone HCl [facility] 61830184333 5 MG Orally BID Active 1 tablet NovoLog Mix [facility] 90637442948 (70-30) 100 Active INJECT 70 70/30 Flexpen UNIT/ML UNITS UNDER Subcutaneous THE SKIN Twice a day EVERY MORNING WITH BREAKFAST AND 40 UNITS EVERY EVENING WITH DINNER Metoprolol [facility] 13912350198 50 MG Active 1 TAB(S) Succinate ER TWICE DAILY Levothyroxine [facility] 73368399528 125 MCG Orally Active 1 tablet on Sodium Once a day an empty stomach in the morning Promethazine HCl [facility] 49731521714 25 MG Orally Active 1 tablet as every 12 hrs needed Acyclovir [facility] 12147192468 200 MG Orally Active 1 capsule Three times a day Furosemide [facility] 91302644403 20 MG Orally Active 1 tablet Once a day Metoprolol [facility] 37922571966 50 MG Orally Active 1 tablet Succinate ER Once a day Meclizine HCl [facility] 65634929665 25 MG Orally Active 1 tablet as Once a day needed Results No Known Results Summary Purpose eClinicalWorks Submission
--- OUTSIDE RECORDS SUMMARY | 2018-05-08 02:23 | XMS REPORT ---
[...] End Status Dosage System Date Date Pravastatin [facility] 86502451469 40 MG Orally Active 1 tablet Sodium Once a day Aspir-81 [facility] 77393434658 81 MG Orally Active 1 tablet Once a day BusPIRone HCl [facility] 42168418619 5 MG Orally BID [place] Active 1 tablet 2017 Promethazine HCl [facility] 97192492020 25 MG Orally Active 1 tablet as every 12 hrs needed Amlodipine [facility] 89157761084 10 MG Orally Active 1 tablet Besylate Once a day Levothyroxine [facility] 64072957912 125 MCG Orally Active 1 tablet on Sodium Once a day an empty stomach in the morning Cozaar [facility] 01706521787 100 MG Orally Active 1 tablet Once a day Zoloft [facility] 25038976087 25 MG Orally Inactive 1 tablet Once a day Acyclovir [facility] 70722099723 200 MG Orally Active 1 capsule Three times a day Omeprazole [facility] 29098519750 40 MG Orally Active 1 capsule Once a day Magnesium Oxide [facility] 04872371773 400 MG Orally Active 1 tablet as Once a day needed NovoFine [facility] 56580547330 32G X 6 MM SB Active as directed Twice a day NovoLog Mix [facility] 99093355351 (70-30) 100 Active INJECT 70 70/30 Flexpen UNIT/ML UNITS UNDER Subcutaneous THE SKIN Twice a day EVERY MORNING WITH BREAKFAST AND 40 UNITS EVERY EVENING WITH DINNER [place] [facility] 76566370589 5-325 MG Orally Active 1 tablet as every 6 hrs needed True Metrix [facility] 49982820512 - Active USE TWICE Blood Glucose DAILY Test Metoprolol [facility] 77293082512 50 MG Orally Active 1 tablet Succinate ER Once a day Furosemide [facility] 01268059698 20 MG Orally Active 1 tablet Once a day Meclizine HCl [facility] 58569268751 25 MG Orally Active 1 tablet as Once a day needed Results No Known Results Summary Purpose eClinicalWorks Submission
--- OUTSIDE RECORDS SUMMARY | 2018-05-08 02:24 | XMS REPORT ---
[...] End Status Dosage System Date Date Pravastatin [facility] 53067946658 40 MG Orally Active 1 tablet Sodium Once a day Results No Known Results Summary Purpose eClinicalWorks Submission
--- OUTSIDE RECORDS SUMMARY | 2018-05-08 02:24 | XMS REPORT ---
[...] Medications Results No Known Results Summary Purpose eClinicalMyClean Submission
--- OUTSIDE RECORDS SUMMARY | 2018-05-08 02:24 | XMS REPORT ---
[...] End Status Dosage System Date Date Acyclovir [facility] 63972497967 200 MG Orally Active 1 capsule Three times a day Omeprazole [facility] 16810177609 40 MG Orally Active 1 capsule Once a day Promethazine HCl NDC 74264284199 25 MG Orally Active 1 tablet as every 12 hrs needed Meclizine HCl [facility] 73092262128 25 MG Orally Active 1 tablet as Once a day needed BusPIRone HCl [facility] 53750757374 5 MG Orally BID Active 1 tablet Cozaar [facility] 17801737261 100 MG Orally Active 1 tablet Once a day Pravastatin [facility] 13610528330 40 MG Orally Active 1 tablet Sodium Once a day True Metrix [facility] 46142078404 - Active USE TWICE Blood Glucose DAILY Test Metoprolol [facility] 05561786558 50 MG Orally Active 1 tablet Succinate ER Once a day NovoLog Mix [facility] 31134395596 (70-30) 100 Active INJECT 70 70/30 Flexpen UNIT/ML UNITS UNDER Subcutaneous THE SKIN Twice a day EVERY MORNING WITH BREAKFAST AND 40 UNITS EVERY EVENING WITH DINNER Lidocaine HCl [facility] 12069181007 2 % Dec 07, Active 15 ml to Mouth/Throat 2018 affected every 3 hrs as area as needed (Swish needed around in mouth and spit out). MAX 8 doses/day Levothyroxine [facility] 87428512968 125 MCG Orally Active 1 tablet on Sodium Once a day an empty stomach in the morning [place] [facility] 91220044441 8 MCG Orally Feb 12, Mar 14, Active 1 capsule Twice a day 2017 2017 with food Cozaar [facility] 99203528081 100 Orally Once Active 1 tablet a day Metoprolol [facility] 78962816843 50 MG Active 1 TAB(S) Succinate ER TWICE DAILY [place] [facility] 99961577026 5-325 MG Orally Active 1 tablet as every 6 hrs needed Metoprolol [facility] 52495933378 50 Active 1 TAB(S) Succinate ER TWICE DAILY Metoprolol [facility] 43600977545 50 MG Active 1 TAB(S) Succinate ER TWICE DAILY - [facility] 42559304479 81 MG Orally Active 1 tablet Once a day Amlodipine [facility] 43706043984 10 MG Orally Active 1 tablet Besylate Once a day Levothyroxine [facility] 58834868670 125 MCG Orally Active 1 tablet on Sodium Once a day an empty stomach in the morning Magnesium Oxide [facility] 25936737187 400 MG Orally Active 1 tablet as Twice a day needed Furosemide [facility] 42833655916 20 MG Orally Active 1 tablet Once a day Metoprolol [facility] 05367300902 50 MG Orally Active 1 tablet Succinate ER Once a day NovoFine [facility] 98854578747 32G X 6 MM SB Active as directed Twice a day Results Name Result Date Reference Range Unit Abnormality Flag Urine Dip Stick ----Appearance Yellow,slight cloudy 20180212 ----SP. Gr 1.020 20180212 ----pH 6.0 20180212 ----Ketone Negative 20180212 ----Glucose Negative 20180212 ----Blood Trace 20180212 ----Protein Negative 20180212 ----Nitrite Negative 20180212 ----Leukocytes Negative [id number] Summary Purpose eClinicalWorks Submission
--- OUTSIDE RECORDS SUMMARY | 2018-05-08 02:24 | XMS REPORT ---
[...] Medications Results No Known Results Summary Purpose eClinicalContent [place] Submission
--- OUTSIDE RECORDS SUMMARY | 2018-05-08 02:24 | XMS REPORT ---
[...] Start Date End Date Status Dosage Cozaar [facility] 97714903736 100 MG Orally Active 1 tablet Once a day Results No Known Results Summary Purpose eClinicalWorks Submission
--- OUTSIDE RECORDS SUMMARY | 2018-05-08 02:24 | XMS REPORT ---
[...] End Status Dosage System Date Date Levothyroxine [facility] 35356382542 125 MCG Orally Active 1 tablet Sodium Once a day on an empty stomach in the morning Results No Known Results Summary Purpose eClinicalWorks Submission
--- OUTSIDE RECORDS SUMMARY | 2018-05-08 02:24 | XMS REPORT ---
[...] Instructions Start End Status Dosage System Date [facility] 13051247119 81 MG Orally Active 1 tablet Once a day [place] [facility] 92796335195 5-325 MG Orally Active 1 tablet as every 6 hrs needed Omeprazole [facility] 03359476773 40 MG Orally Active 1 capsule Once a day Metoprolol [facility] 23251806084 50 MG Active 1 TAB(S) Succinate ER TWICE DAILY Levothyroxine [facility] 51370090122 125 MCG Orally Active 1 tablet on Sodium Once a day an empty stomach in the morning BusPIRone HCl [facility] 02587927514 5 MG Orally BID Active 1 tablet Metoprolol ND 80323469550 50 MG Orally Active 1 tablet Succinate ER Once a day Acyclovir ND 99056567573 200 MG Orally Active 1 capsule Three times a day NovoFine [facility] 61271609626 32G X 6 MM SB Active as directed Twice a day Furosemide ND 01237487453 20 MG Orally Active 1 tablet Once a day Lidocaine HCl [facility] 04083271940 2 % Dec 07, Active 15 ml to Mouth/Throat 2017 affected every 3 hrs as area as needed (Swish needed around in mouth and spit out). MAX 8 doses/day Magnesium Oxide ND 29567134187 400 MG Orally Active 1 tablet as Twice a day needed NovoLog Mix [facility] 32283394290 (70-30) 100 Active INJECT 70 70/30 Flexpen UNIT/ML UNITS UNDER Subcutaneous THE SKIN Twice a day EVERY MORNING WITH BREAKFAST AND 40 UNITS EVERY EVENING WITH DINNER Levothyroxine ND 25605571566 125 MCG Orally Active 1 tablet on Sodium Once a day an empty stomach in the morning Meclizine HCl ND 77991497661 25 MG Orally Active 1 tablet as Once a day needed Promethazine HCl ND 98249157750 25 MG Orally Active 1 tablet as every 12 hrs needed Pravastatin [facility] 04315424614 40 MG Orally Active 1 tablet Sodium Once a day Levaquin [facility] 60687118378 250 MG Orally Dec 27, Dec 30, Active 1 tablet Once a day 2017 2017 Amlodipine [facility] 93602299148 10 MG Orally Active 1 tablet Besylate Once a day True Metrix [facility] 24175451723 - Active USE TWICE Blood Glucose DAILY Test Cozaar [facility] 05151820978 100 MG Orally Active 1 tablet Once a day Results Name Result Date Reference Range Unit Abnormality Flag Urine Dip Stick ----Appearance Dark yellow/clear 20171227 ----SP. Gr 1.015 20171227 ----pH 7.0 20171227 ----Ketone Negative 57447925 ----Glucose Negative 20171227 ----Blood Negative 20171227 ----Protein Negative 20171227 ----Nitrite Negative 20171227 ----Leukocytes 1+ 20171227 Summary Purpose eClinicalWorks Submission
[2018-05-08 04:18] LABS: Urine Bacteria <20 /HPF (<20); Urine Culture Reflex Order NOT NEEDED; Urine Mucus LIGHT /HPF (NONE SEEN); Urine RBC <5 /HPF (NONE SEEN)
--- NOTE | 2018-05-08 04:39 | ER ---
Nurse's Notes [facility] Name: Shayy Mcgovern Age: 77 yrs Sex: Female : 1940 Arrival Date: 05/08/2018 Time: 02:22 Bed 6 Private MD: Blake Barajas Diagnosis: Cystitis Presentation: 05/08 02:52 Presenting complaint: Patient states: Reports she has been having congestion, headache, ea dizziness, difficulty breathing and anxiety. Pt reports she ran out of anxiety and pain medication and has been unable to get it filled. Transition of care: patient was not received from another setting of care. Onset of symptoms was May 08, 2018. Risk Assessment: Do you want to hurt yourself or someone else? Patient reports no desire to harm self or others. Initial Sepsis Screen: Does the patient meet any 2 criteria? No. Patient's initial sepsis screen is negative. Does the patient have a suspected source of infection? No. Patient's initial sepsis screen is negative. Care prior to arrival: Medication(s) given: Tylenol. 02:52 Method Of Arrival: Wheelchair ea 02:52 Acuity: CORINE 3 ea Triage Assessment: 02:59 General: Appears in no apparent distress. Behavior is anxious. Pain: Complains of pain ea in headache across forehead Alleviated by medications. Neuro: Level of Consciousness is awake, alert, obeys commands, Oriented to person, place, time, situation. Neuro: Reports dizziness. Cardiovascular: Patient's skin is warm and dry. Respiratory: Reports cough that is non-productive, labored breathing since this afternoon Pt reports nasal congestion that started on May 03 Airway is patent Respiratory effort is even, unlabored, Respiratory pattern is regular, symmetrical, Breath sounds are clear bilaterally. Onset: The symptoms/episode began/occurred today, the patient reports symptoms have resolved. GI: Abdomen is non-distended. Derm: Skin is pink, warm \T\ dry. Musculoskeletal: Circulation, motion, and sensation intact. Historical: - Allergies: 03:09 Ciprofloxacin; ea 03:09 Macrodantin; ea 03:09 nitrofuran macrocrystal (bulk); ea 03:09 PENICILLINS; ea 03:09 Sulfa (Sulfonamide Antibiotics); ea - Home Meds: 03:09 aspirin 81 mg Oral TbEC once daily [Active]; diazepam 5 mg Oral tab 1 tab daily ea [Active]; levothyroxine 125 mcg tab 1 tab once daily [Active]; losartan-hydrochlorothiazide 100-25 mg Oral tab 1 tab once daily [Active]; Novolin 70/30 [place] Sub-Q 70-30 unit/mL [Active]; [place] 5-325 mg Oral tab 1 tab three times a day [Active]; metoprolol tartrate 50 mg Oral tab 1 tab 2 times per day [Active]; pravastatin 40 mg Oral tab 1 tab nightly [Active]; omeprazole 40 mg Oral cpDR 1 cap once daily [Active]; promethazine 25 mg Oral tab three times a day [Active]; MagOx 400 mg oral tab 1 cap twice a day [Active]; nortriptyline 10 mg Oral cap 1 caps QD [Active]; - PMHx: 03:09 Hypothyroidism; Hypertension; gastritis; Diabetes - IDDM; Depression; Anxiety; ea - PSHx: 03:09 Cholecystectomy; ea - Immunization history:: Adult Immunizations up to date. - Social history:: Smoking status: Patient/guardian denies using tobacco. - Ebola Screening: : No symptoms or risks identified at this time. Screenin:56 Abuse screen: Denies threats or abuse. Nutritional screening: No deficits noted. ea Tuberculosis screening: No symptoms or risk factors identified. Fall Risk None identified. Assessment: 03:03 Reassessment: see triage assessment. ea 04:04 Reassessment: Patient and/or family updated on plan of care and expected duration. Pain ea level reassessed. Patient is alert, oriented x 3, equal unlabored respirations, skin warm/dry/pink. 05:03 Reassessment: Patient and/or family updated on plan of care and expected duration. Pain ea level reassessed. Patient is alert, oriented x 3, equal unlabored respirations, skin warm/dry/pink. Discharge instructions given to patient, verbalized the understanding of instruction. Awaiting on family member for transport home. 05:48 Reassessment: Patient and/or family updated on plan of care and expected duration. Pain ea level reassessed. Patient is alert, oriented x 3, equal unlabored respirations, skin warm/dry/pink. Patient reported son will be here soon and would pick her up in 5 minutes. [facility], awaiting on son for bean picker. Patient states symptoms have improved. Vital Signs: 02:55 BP 147 / 62; Pulse 79; Resp 19; Temp 97.6; Pulse Ox 99% on R/A; Weight 81.65 kg; Height ea 5 ft. 4 in. (162.56 cm); 03:10 BP 120 / 57; Pulse 63; Resp 18; Pulse Ox 97% on R/A; ea 04:32 BP 128 / 60; Pulse 62; Resp 18; Pulse Ox 98% on R/A; ea 05:45 BP 120 / 62; Pulse 66; Resp 18; Temp 97.8(O); Pulse Ox 99% on R/A; Pain 0/10; ea 02:55 Body Mass Index 30.90 (81.65 kg, 162.56 cm) ea ED Course: 02:22 Patient arrived in ED. am2 02:23 Blake Barajas DO is Private Physician. am2 02:52 Ashlie Zhou RN is Primary Nurse. ea 02:55 Triage completed. ea 02:58 Arm band placed on right wrist. Patient placed in an exam room, on a stretcher, on ea pulse oximetry. 02:59 Patient has correct armband on for positive identification. Bed in low position. Call ea light in reach. Side rails up X 1. 03:27 Ti Mesa MD is Attending Physician. 05:02 No provider procedures requiring assistance completed. Patient did not have IV access ea during this emergency room visit. Administered Medications: 04:50 Drug: Valium 5 mg Route: PO; ea 05:15 Follow up: Response: No adverse reaction; Marked relief of symptoms ea Outcome: 04:38 Discharge ordered by . gs 05:02 Condition: improved ea 05:02 Discharge instructions given to patient, Instructed on discharge instructions, follow up and referral plans. medication usage, Demonstrated understanding of instructions, follow-up care, medications, Prescriptions given X 3. 05:49 Discharged to lobby awaiting on family for transportation ea 05:50 Patient left the ED. ea Signatures: Angelica Marcelino am2 Ashlie Zhou, RN RN Ti Martel MD MD
--- NOTE | 2018-05-08 04:39 | EDPHYS ---
Physician Documentation [facility] Name: Shayy Mcgovern Age: 77 yrs Sex: Female : 1940 Arrival Date: 05/08/2018 Time: 02:22 Bed 6 Private MD: Blake Barajas ED Physician Ti Mesa HPI: 05/08 04:36 This 77 yrs old Female presents to ER via Wheelchair with complaints of Pain gs With Urination. 04:36 Onset: The symptoms/episode began/occurred 3 day(s) ago, and became persistent. gs Modifying factors: The symptoms are alleviated by nothing, the symptoms are aggravated by urinating. Associated signs and symptoms: Pertinent negatives: fever, vomiting. Severity of symptoms: At their worst the symptoms were moderate, in the emergency department the symptoms are unchanged. The patient has experienced similar episodes in the past, a few times. Historical: - Allergies: 03:09 Ciprofloxacin; ea 03:09 Macrodantin; ea 03:09 nitrofuran macrocrystal (bulk); ea 03:09 PENICILLINS; ea 03:09 Sulfa (Sulfonamide Antibiotics); ea - Home Meds: 03:09 aspirin 81 mg Oral TbEC once daily [Active]; diazepam 5 mg Oral tab 1 tab daily ea [Active]; levothyroxine 125 mcg tab 1 tab once daily [Active]; losartan-hydrochlorothiazide 100-25 mg Oral tab 1 tab once daily [Active]; Novolin 70/30 [place] Sub-Q 70-30 unit/mL [Active]; [place] 5-325 mg Oral tab 1 tab three times a day [Active]; metoprolol tartrate 50 mg Oral tab 1 tab 2 times per day [Active]; pravastatin 40 mg Oral tab 1 tab nightly [Active]; omeprazole 40 mg Oral cpDR 1 cap once daily [Active]; promethazine 25 mg Oral tab three times a day [Active]; MagOx 400 mg oral tab 1 cap twice a day [Active]; nortriptyline 10 mg Oral cap 1 caps QD [Active]; - PMHx: 03:09 Hypothyroidism; Hypertension; gastritis; Diabetes - IDDM; Depression; Anxiety; ea - PSHx: 03:09 Cholecystectomy; ea - Immunization history:: Adult Immunizations up to date. - Social history:: Smoking status: Patient/guardian denies using tobacco. - Ebola Screening: : No symptoms or risks identified at this time. ROS: 04:36 Respiratory: Positive for cough. gs 04:36 Psych: Positive for out of anxiolytics and pain meds. 04:36 All other systems are negative. Exam: 04:36 Head/Face: Normocephalic, atraumatic. Eyes: Pupils equal round and reactive to light, gs extra-ocular motions intact. Lids and lashes normal. Conjunctiva and sclera are non-icteric and not injected. Cornea within normal limits. Periorbital areas with no swelling, redness, or edema. ENT: Nares patent. No nasal discharge, no septal abnormalities noted. Tympanic membranes are normal and external auditory canals are clear. Oropharynx with no redness, swelling, or masses, exudates, or evidence of obstruction, uvula midline. Mucous membranes moist. Neck: Trachea midline, no thyromegaly or masses palpated, and no cervical lymphadenopathy. Supple, full range of motion without nuchal rigidity, or vertebral point tenderness. No Meningismus. Chest/axilla: Normal chest wall appearance and motion. Nontender with no deformity. No lesions are appreciated. Cardiovascular: Regular rate and rhythm with a normal S1 and S2. No gallops, murmurs, or rubs. Normal PMI, no JVD. No pulse deficits. Respiratory: Lungs have equal breath sounds bilaterally, clear to auscultation and percussion. No rales, rhonchi or wheezes noted. No increased work of breathing, no retractions or nasal flaring. Abdomen/GI: Soft, non-tender, with normal bowel sounds. No distension or tympany. No guarding or rebound. No evidence of tenderness throughout. Back: No spinal tenderness. No costovertebral tenderness. Full range of motion. Skin: Warm, dry with normal turgor. Normal color with no rashes, no lesions, and no evidence of cellulitis. MS/ Extremity: Pulses equal, no cyanosis. Neurovascular intact. Full, normal range of motion. Neuro: Awake and alert, GCS 15, oriented to person, place, time, and situation. Cranial nerves II-XII grossly intact. Motor strength 5/5 in all extremities. Sensory grossly intact. Cerebellar exam normal. Normal gait. 04:36 Constitutional: The patient appears alert, awake. Vital Signs: 02:55 BP 147 / 62; Pulse 79; Resp 19; Temp 97.6; Pulse Ox 99% on R/A; Weight 81.65 kg; Height ea 5 ft. 4 in. (162.56 cm); 03:10 BP 120 / 57; Pulse 63; Resp 18; Pulse Ox 97% on R/A; ea 04:32 BP 128 / 60; Pulse 62; Resp 18; Pulse Ox 98% on R/A; ea 05:45 BP 120 / 62; Pulse 66; Resp 18; Temp 97.8(O); Pulse Ox 99% on R/A; Pain 0/10; ea 02:55 Body Mass Index 30.90 (81.65 kg, 162.56 cm) ea MDM: 03:40 Patient medically screened. 04:36 Differential diagnosis: urinary tract infection. Data reviewed: vital signs, nurses gs notes. Response to treatment: the patient's symptoms have markedly improved after treatment, and as a result, I will discharge patient. 10:42 ED course: [facility] called regarding the narcotic Rx and the combination of kdr benzo and opioid. Given that this regimen was part of the patients home medicines and he was only giving 10 tabs each, I Ok'd the distribution. The pharmacist to dispense as written. She indicated that the pharmacy may not dispense. 05/08 03:40 Order name: Urine Microscopic Only 05/08 03:56 Order name: Urine Dipstick--Ancillary (enter results) mw2 05/08 03:40 Order name: Urine Dipstick-Ancillary (obtain specimen); Complete Time: 04:04 Administered Medications: 04:50 Drug: Valium 5 mg Route: PO; ea 05:15 Follow up: Response: No adverse reaction; Marked relief of symptoms ea Disposition: 05/08/18 04:38 Discharged to Home. Impression: Cystitis. - Condition is Stable. - Discharge Instructions: Urinary Tract Infection, Adult. - Prescriptions for Ceftin 500 mg Oral Tablet - take 1 tablet by ORAL route every 12 hours for 7 days; 14 tablet. Tylenol- Codeine #4 300-60 mg Oral Tablet - take 1 tablet by ORAL route every 6 hours As needed; 10 tablet. Valium 5 mg Oral Tablet - take 1 tablet by ORAL route every 8 hours As needed; 10 tablet. - Medication Reconciliation Form, Thank You Letter, Antibiotic Education, Prescription Opioid Use form. - Follow up: Private Physician; When: 2 - 3 days; Reason: Re-evaluation by your physician. Signatures: Dispatcher [employer] Rick Bhatti MD MD kdr Antunez, Elena, RN RN Ti Martel MD MD gs Corrections: (The following items were deleted from the chart) 05:50 04:38 05/08/2018 04:38 Discharged to Home. Impression: Cystitis. Condition is Stable. ea Forms are Medication Reconciliation Form, Thank You Letter, Antibiotic Education, Prescription Opioid Use. Follow up: Private Physician; When: 2 - 3 days; Reason: Re-evaluation by your physician. gs
[2018-05-08] MEDS ORDERED: DIAZEPAM 5 MG TABLET ONE (04:54)
[2018-05-08 05:07] LABS: Urine Blood TRACE (NEG); Urine Glucose NEGATIVE (NEG); Urine Protein TRACE (NEG); Urine pH 6.5 (5.0-7.0)
[2018-05-08 05:59] VITALS: BP 120/62; TEMP 97.8; O2SAT 99
== END 2018-05-08 05:50 | disposition home or self-care (01) ==
LOC: ER 02:19
DX: N30.90 Cystitis, unspecified without hematuria (principal); E03.9 Hypothyroidism, unspecified; I10 Essential (primary) hypertension; E11.9 Type 2 diabetes mellitus without complications; F41.8 Other specified anxiety disorders; Z88.0 Allergy status to penicillin; Z88.2 Allergy status to sulfonamides
CPT/HCPCS: 81003; 81015; 99283

== ENCOUNTER 2018-05-08 11:58 | Observation (INO) | payer OTHER ==
--- OUTSIDE RECORDS SUMMARY | 2018-05-08 12:05 | XMS REPORT ---
[...] End Status Dosage System Date Date Amlodipine [facility] 12911731013 10 MG Orally Active 1 tablet Besylate Once a day [place] [facility] 60786725258 100 MG Orally Active 1 tablet Once a day Pravastatin ND 33956935865 40 MG Orally Active 1 tablet Sodium Once a day Omeprazole [facility] 48993933300 40 MG Orally Active 1 capsule Once a day Aspir-81 [facility] 51638109449 81 MG Orally Active 1 tablet Once a day Magnesium Oxide [facility] 13658447270 400 MG Orally Active 1 tablet as Twice a day needed NovoFine [facility] 61713747054 32G X 6 MM SB Active as directed Twice a day Levothyroxine [facility] 86847714785 125 MCG Orally Active 1 tablet on Sodium Once a day an empty stomach in the morning True Metrix [facility] 69633916196 - Active USE TWICE Blood Glucose DAILY Test [place] [facility] 58349204311 5-325 MG Orally Active 1 tablet as every 6 hrs needed BusPIRone HCl [facility] 48980240067 5 MG Orally BID Active 1 tablet NovoLog Mix [facility] 87364975658 (70-30) 100 Active INJECT 70 70/30 Flexpen UNIT/ML UNITS UNDER Subcutaneous THE SKIN Twice a day EVERY MORNING WITH BREAKFAST AND 40 UNITS EVERY EVENING WITH DINNER Metoprolol [facility] 63727929140 50 MG Active 1 TAB(S) Succinate ER TWICE DAILY Levothyroxine [facility] 35467102829 125 MCG Orally Active 1 tablet on Sodium Once a day an empty stomach in the morning Promethazine HCl [facility] 09669944563 25 MG Orally Active 1 tablet as every 12 hrs needed Acyclovir [facility] 81951602240 200 MG Orally Active 1 capsule Three times a day Furosemide [facility] 43682290889 20 MG Orally Active 1 tablet Once a day Metoprolol [facility] 57790948823 50 MG Orally Active 1 tablet Succinate ER Once a day Meclizine HCl [facility] 89319259913 25 MG Orally Active 1 tablet as Once a day needed Results No Known Results Summary Purpose eClinicalWorks Submission
--- OUTSIDE RECORDS SUMMARY | 2018-05-08 12:05 | XMS REPORT ---
[...] End Status Dosage System Date Date Zoloft [facility] 72844840777 25 MG Orally July Active 1 tablet Once a day 2017 Amlodipine [facility] 79965735299 10 MG Orally Active 1 tablet Besylate Once a day NovoLog Mix [facility] 12180416285 (70-30) 100 Active INJECT 70 70/30 Flexpen UNIT/ML UNITS UNDER Subcutaneous THE SKIN Twice a day EVERY MORNING WITH BREAKFAST AND 40 UNITS EVERY EVENING WITH DINNER Promethazine HCl ND 81095713477 25 MG Orally Active 1 tablet as every 12 hrs needed Omeprazole [facility] 47302363356 40 MG Orally Active 1 capsule Once a day Furosemide [facility] 07123856859 20 MG Orally Active 1 tablet Once a day Magnesium Oxide [facility] 24364855986 400 MG Orally Active 1 tablet as Once a day needed Pravastatin [facility] 45838589787 40 MG Orally Active 1 tablet Sodium Once a day Cozaar [facility] 63721419560 100 MG Orally Active 1 tablet Once a day Metoprolol [facility] 72145659240 50 MG Orally Active 1 tablet Succinate ER Once a day NovoFine [facility] 98135037986 32G X 6 MM SB July Active as directed Twice a day 2017 [place] [facility] 14375630207 5-325 MG Orally Active 1 tablet as every 6 hrs needed Acyclovir [facility] 89141810380 200 MG Orally Active 1 capsule Three times a day Aspir-81 [facility] 17201289198 81 MG Orally Active 1 tablet Once a day Levothyroxine [facility] 57148116334 125 MCG Orally Active 1 tablet on Sodium Once a day an empty stomach in the morning Meclizine HCl [facility] 55883956483 25 MG Orally Active 1 tablet as Once a day needed Results No Known Results Summary Purpose eClinicalWorks Submission
--- OUTSIDE RECORDS SUMMARY | 2018-05-08 12:05 | XMS REPORT ---
[...] End Status Dosage System Date Date Levothyroxine [facility] 49444540806 125 MCG Orally Active 1 tablet Sodium Once a day on an empty stomach in the morning Results No Known Results Summary Purpose eClinicalWorks Submission
--- OUTSIDE RECORDS SUMMARY | 2018-05-08 12:05 | XMS REPORT ---
[...] End Status Dosage System Date Date Pravastatin [facility] 65942736075 40 MG Orally Active 1 tablet Sodium Once a day Aspir-81 [facility] 57596196000 81 MG Orally Active 1 tablet Once a day BusPIRone HCl [facility] 26148114904 5 MG Orally BID August Active 1 tablet 2017 Promethazine HCl [facility] 79020822125 25 MG Orally Active 1 tablet as every 12 hrs needed Amlodipine [facility] 48466647988 10 MG Orally Active 1 tablet Besylate Once a day Levothyroxine [facility] 15800091232 125 MCG Orally Active 1 tablet on Sodium Once a day an empty stomach in the morning Cozaar [facility] 73285573013 100 MG Orally Active 1 tablet Once a day Zoloft [facility] 72392747082 25 MG Orally Inactive 1 tablet Once a day Acyclovir [facility] 34152524796 200 MG Orally Active 1 capsule Three times a day Omeprazole [facility] 19293369417 40 MG Orally Active 1 capsule Once a day Magnesium Oxide [facility] 52866304294 400 MG Orally Active 1 tablet as Once a day needed NovoFine [facility] 04982747213 32G X 6 MM SB Active as directed Twice a day NovoLog Mix [facility] 07077869530 (70-30) 100 Active INJECT 70 70/30 Flexpen UNIT/ML UNITS UNDER Subcutaneous THE SKIN Twice a day EVERY MORNING WITH BREAKFAST AND 40 UNITS EVERY EVENING WITH DINNER [place] [facility] 87904942869 5-325 MG Orally Active 1 tablet as every 6 hrs needed True Metrix [facility] 98272535120 - Active USE TWICE Blood Glucose DAILY Test Metoprolol [facility] 00458334546 50 MG Orally Active 1 tablet Succinate ER Once a day Furosemide [facility] 52874371878 20 MG Orally Active 1 tablet Once a day Meclizine HCl [facility] 03386396321 25 MG Orally Active 1 tablet as Once a day needed Results No Known Results Summary Purpose eClinicalWorks Submission
--- OUTSIDE RECORDS SUMMARY | 2018-05-08 12:05 | XMS REPORT ---
[...] End Status Dosage System Date Date Pravastatin [facility] 91273654654 40 MG Orally Active 1 tablet Sodium Once a day Results No Known Results Summary Purpose eClinicalWorks Submission
--- OUTSIDE RECORDS SUMMARY | 2018-05-08 12:05 | XMS REPORT ---
[...] Start End Status Dosage System Date Date [facility] 59624027904 81 MG Orally Active 1 tablet Once a day Promethazine HCl ND 78235216930 25 MG Orally Active 1 tablet as every 12 hrs needed [place] [facility] 42394636950 5-325 MG Orally Active 1 tablet as every 6 hrs needed Acyclovir ND 38236155241 200 MG Orally Active 1 capsule Three times a day True Metrix [facility] 86771246166 - Active USE TWICE Blood Glucose DAILY Test NovoFine [facility] 95250912578 32G X 6 MM SB Active as directed Twice a day Metoprolol [facility] 12246553906 50 MG Orally Active 1 tablet Succinate ER Once a day Omeprazole [facility] 22831662241 40 MG Orally Active 1 capsule Once a day NovoLog Mix [facility] 84076378376 (70-30) 100 Active INJECT 70 70/30 Flexpen UNIT/ML UNITS UNDER Subcutaneous THE SKIN Twice a day EVERY MORNING WITH BREAKFAST AND 40 UNITS EVERY EVENING WITH DINNER Levothyroxine [facility] 40331280720 125 MCG Orally Active 1 tablet on Sodium Once a day an empty stomach in the morning Magnesium Oxide [facility] 84801660199 400 MG Orally Active 1 tablet as Twice a day needed Levothyroxine [facility] 29938224349 125 MCG Orally Active 1 tablet on Sodium Once a day an empty stomach in the morning Cozaar [facility] 98637329787 100 MG Orally Active 1 tablet Once a day Pravastatin [facility] 26030137606 40 MG Orally Active 1 tablet Sodium Once a day Meclizine HCl [facility] 91950139013 25 MG Orally Active 1 tablet as Once a day needed Lidocaine HCl [facility] 83979588053 2 % Dec 07, Active 15 ml to Mouth/Throat 2017 affected every 3 hrs as area as needed (Swish needed around in mouth and spit out). MAX 8 doses/day Amlodipine [facility] 01663521535 10 MG Orally Active 1 tablet Besylate Once a day BusPIRone HCl [facility] 89325315820 5 MG Orally BID Active 1 tablet Chlorhexidine [facility] 14374122227 0.12 % Dec 07, Dec 17, Active 10-15 mL Gluconate Mouth/Throat 2017 2017 (Swish/Spit Every 12 hours ) Metoprolol [facility] 00434022509 50 MG Active 1 TAB(S) Succinate ER TWICE DAILY Furosemide ND 65819371859 20 MG Orally Active 1 tablet Once a day Results No Known Results Summary Purpose eClinicalWorks Submission
--- OUTSIDE RECORDS SUMMARY | 2018-05-08 12:05 | XMS REPORT ---
[...] Instructions Start End Status Dosage System Date [facility] 39809540971 81 MG Orally Active 1 tablet Once a day Addis [facility] 06621023076 5-325 MG Orally Active 1 tablet as every 6 hrs needed Omeprazole [facility] 16273988279 40 MG Orally Active 1 capsule Once a day Metoprolol [facility] 81223854722 50 MG Active 1 TAB(S) Succinate ER TWICE DAILY Levothyroxine [facility] 66392919458 125 MCG Orally Active 1 tablet on Sodium Once a day an empty stomach in the morning BusPIRone HCl [facility] 07541361117 5 MG Orally BID Active 1 tablet Metoprolol ND 55506667504 50 MG Orally Active 1 tablet Succinate ER Once a day Acyclovir ND 04752006390 200 MG Orally Active 1 capsule Three times a day NovoFine [facility] 78524683925 32G X 6 MM SB Active as directed Twice a day Furosemide ND 38497163918 20 MG Orally Active 1 tablet Once a day Lidocaine HCl [facility] 04776412544 2 % Dec 07, Active 15 ml to Mouth/Throat 2017 affected every 3 hrs as area as needed (Swish needed around in mouth and spit out). MAX 8 doses/day Magnesium Oxide ND 97131226268 400 MG Orally Active 1 tablet as Twice a day needed NovoLog Mix [facility] 20094393511 (70-30) 100 Active INJECT 70 70/30 Flexpen UNIT/ML UNITS UNDER Subcutaneous THE SKIN Twice a day EVERY MORNING WITH BREAKFAST AND 40 UNITS EVERY EVENING WITH DINNER Levothyroxine ND 74103260985 125 MCG Orally Active 1 tablet on Sodium Once a day an empty stomach in the morning Meclizine HCl ND 38261007236 25 MG Orally Active 1 tablet as Once a day needed Promethazine HCl ND 78981719719 25 MG Orally Active 1 tablet as every 12 hrs needed Pravastatin [facility] 10641346362 40 MG Orally Active 1 tablet Sodium Once a day Levaquin [facility] 84042743797 250 MG Orally Dec 27, Dec 30, Active 1 tablet Once a day 2017 2017 Amlodipine [facility] 32374640423 10 MG Orally Active 1 tablet Besylate Once a day True Metrix [facility] 28797173869 - Active USE TWICE Blood Glucose DAILY Test Cozaar [facility] 93922390263 100 MG Orally Active 1 tablet Once a day Results Name Result Date Reference Range Unit Abnormality Flag Urine Dip Stick ----Appearance Dark yellow/clear 20171227 ----SP. Gr 1.015 20171227 ----pH 7.0 20171227 ----Ketone Negative 99158027 ----Glucose Negative 20171227 ----Blood Negative 20171227 ----Protein Negative 20171227 ----Nitrite Negative 20171227 ----Leukocytes 1+ 20171227 Summary Purpose eClinicalWorks Submission
--- OUTSIDE RECORDS SUMMARY | 2018-05-08 12:05 | XMS REPORT ---
[...] End Status Dosage System Date Date Nystatin [facility] [id number] UNIT/GM September 05October Active 1 application Externally Twice 2017, to a day 2018 area Results No Known Results Summary Purpose eClinicalWorks Submission
--- OUTSIDE RECORDS SUMMARY | 2018-05-08 12:06 | XMS REPORT ---
[...] End Status Dosage System Date Date Acyclovir [facility] 53685765286 200 MG Orally Active 1 capsule Three times a day Omeprazole [facility] 52890326091 40 MG Orally Active 1 capsule Once a day Promethazine HCl NDC 28793483701 25 MG Orally Active 1 tablet as every 12 hrs needed Meclizine HCl [facility] 76704557653 25 MG Orally Active 1 tablet as Once a day needed BusPIRone HCl [facility] 83417750115 5 MG Orally BID Active 1 tablet Cozaar [facility] 00951176613 100 MG Orally Active 1 tablet Once a day Pravastatin [facility] 87226842472 40 MG Orally Active 1 tablet Sodium Once a day True Metrix [facility] 75943600915 - Active USE TWICE Blood Glucose DAILY Test Metoprolol [facility] 99537344885 50 MG Orally Active 1 tablet Succinate ER Once a day NovoLog Mix [facility] 91871465823 (70-30) 100 Active INJECT 70 70/30 Flexpen UNIT/ML UNITS UNDER Subcutaneous THE SKIN Twice a day EVERY MORNING WITH BREAKFAST AND 40 UNITS EVERY EVENING WITH DINNER Lidocaine HCl [facility] 72730812837 2 % Dec 07, Active 15 ml to Mouth/Throat 2018 affected every 3 hrs as area as needed (Swish needed around in mouth and spit out). MAX 8 doses/day Levothyroxine [facility] 53974556717 125 MCG Orally Active 1 tablet on Sodium Once a day an empty stomach in the morning Amitiza [facility] 65244674265 8 MCG Orally Feb 12, Mar 14, Active 1 capsule Twice a day 2017 2017 with food Cozaar [facility] 57094507066 100 Orally Once Active 1 tablet a day Metoprolol [facility] 56827268822 50 MG Active 1 TAB(S) Succinate ER TWICE DAILY [place] [facility] 10856472933 5-325 MG Orally Active 1 tablet as every 6 hrs needed Metoprolol [facility] 58447287778 50 Active 1 TAB(S) Succinate ER TWICE DAILY Metoprolol [facility] 49241263101 50 MG Active 1 TAB(S) Succinate ER TWICE DAILY - [facility] 84875742159 81 MG Orally Active 1 tablet Once a day Amlodipine [facility] 89812355733 10 MG Orally Active 1 tablet Besylate Once a day Levothyroxine [facility] 23152957268 125 MCG Orally Active 1 tablet on Sodium Once a day an empty stomach in the morning Magnesium Oxide [facility] 43277286069 400 MG Orally Active 1 tablet as Twice a day needed Furosemide [facility] 78494388792 20 MG Orally Active 1 tablet Once a day Metoprolol [facility] 77332078461 50 MG Orally Active 1 tablet Succinate ER Once a day NovoFine [facility] 72539676064 32G X 6 MM SB Active as directed Twice a day Results Name Result Date Reference Range Unit Abnormality Flag Urine Dip Stick ----Appearance Yellow,slight cloudy 20180212 ----SP. Gr 1.020 20180212 ----pH 6.0 20180212 ----Ketone Negative 20180212 ----Glucose Negative 20180212 ----Blood Trace 20180212 ----Protein Negative 20180212 ----Nitrite Negative 20180212 ----Leukocytes Negative 20180212 Summary Purpose eClinicalWorks Submission
--- OUTSIDE RECORDS SUMMARY | 2018-05-08 12:06 | XMS REPORT ---
[...] Medications Results No Known Results Summary Purpose eClinicaljigl Submission
--- OUTSIDE RECORDS SUMMARY | 2018-05-08 12:06 | XMS REPORT ---
[...] Start Date End Date Status Dosage Cozaar [facility] 42337510597 100 MG Orally Active 1 tablet Once a day Results No Known Results Summary Purpose eClinicalWorks Submission
--- OUTSIDE RECORDS SUMMARY | 2018-05-08 12:06 | XMS REPORT ---
[...] Medications Results No Known Results Summary Purpose eClinicalMattermark Submission
[2018-05-08] MEDS ORDERED: NA CHLORIDE 0.9% 1,000 ML ONE (13:26)
[2018-05-08] MEDS ORDERED: LORazepam 2 MG/ML VIAL ONE (13:27)
--- NOTE | 2018-05-08 13:55 | RAD REPORT ---
EXAM DESCRIPTION: CT - Head Brain Wo Cont - 05/08/2018 1:29 pm CLINICAL HISTORY: Headache, dizziness COMPARISON: None. TECHNIQUE: Axial 5 mm thick images of the head were obtained without IV contrast. All CT scans are performed using dose optimization technique as appropriate and may include automated exposure control or mA/KV adjustment according to patient size. FINDINGS: No intracranial hemorrhage, mass, edema or shift of mid-line structures. No acute infarcti on changes seen. Mild to moderate atrophy and chronic ischemic changes are present. Ventricular size is in proportion to the volume loss. Vascular calcifications present. Mastoid air cells and visualized portions of the paranasal sinuses are clear. No acute bony findings. IMPRESSION: Negative non-contrast CT head examination for acute finding. Mild to moderate atrophy and chronic ischemic changes are present. Ventricular size is in proportio n to the volume loss.
--- NOTE | 2018-05-08 14:00 | RAD REPORT ---
EXAM DESCRIPTION: CT - Stone Protocol - 05/08/2018 1:32 pm CLINICAL HISTORY: Abdominal pain COMPARISON: September 2017 CT imaging, June 2016 CT imaging TECHNIQUE: Axial 5 mm thick images were obtained without oral or IV contrast. The unglf-et-obtt span s the entirety of the system including uppermost abdomen and lung bases. All CT scans are performed using dose optimization technique as appropriate and may include automated exposure control or mA/KV adjustment according to patient size. FINDINGS: No hydronephrosis is present and no obstructing ureteral calculi. No suspicious renal mass es. Isodense masses and pyelonephritis are not excluded on a stone protocol CT scan. No urinary bladd er suspicious finding. No significant adrenal finding. Calcified uterine fibroids present. No acute u terine finding. A 3.6 centimeter left ovarian or paraovarian cyst is present. This may be slightly la rger than the September 2017 study. Liver shows a nodular capsular contour consistent with cirrhosis or hepatic parenchymal disease. Left lobe is enlarged. No suspicious focal liver lesion. Splenomegaly is present. No pancreatic abnormali ty. Motion limits gallbladder assessment. Gallbladder appears to be contracted. Gallbladder could be absent. No biliary tree dilatation. Dx no acute stomach or small bowel finding. No acute colon process. The appendix is normal. Patient h as diverticulosis without diverticulitis. Fat extends into each inguinal canal. Patient has a 4 centimeter umbilical hernia containing only fat . Approximately 5 cm superior to the umbilicus there is a 7 centimeter fat only hernia. Neck is 3 cm. No mass or bulky lymphadenopathy otherwise noted. No free air, free fluid or inflammatory stranding. No significant bony abnormality. IMPRESSION: No bowel obstruction, free air or surgically emergent finding. Diverticulosis present without diverticulitis. No acute GI process identifiable. A 3.6 centimeter left ovarian or paraovarian cystic masses present showing progression of enlargement since June 2016. No calcification or solid mass component. A developing cystic ovarian malignanc y cannot be excluded in this needs ongoing monitoring and follow-up. Cirrhosis or diffuse hepatic parenchymal disease. Splenomegaly is present. No ascites. Umbilical and supraumbilical ventral hernias containing only fat. Isodense masses and pyelonephritis are not excluded on stone protocol technique.
[2018-05-08 14:04] LABS: Absolute Monocytes 0.4 K/uL (0.1-1.3); Absolute Neutrophil 4.3 K/uL (1.8-8.0); Basophils % 0.8 % (0-1.3); Eosinophils % 0.8 % (0-4.4); Hematocrit 25.1 % (36.0-45.0); Lymphocytes % 16.4 % (15.3-44.8); MPV 9.8 fL (7.6-11.3); Monocytes % 7.6 % (3.3-12.3); RBC Red Blood Cell Count 2.97 M/uL (3.86-4.86)
[2018-05-08 14:12] LABS: Protime INR 1.13
--- NOTE | 2018-05-08 14:18 | RAD REPORT ---
EXAM DESCRIPTION: RAD - Chest Single View - 05/08/2018 2:09 pm CLINICAL HISTORY: Cough, weakness and dizziness COMPARISON: January 2018 TECHNIQUE: AP portable chest image was obtained 1405 hours . FINDINGS: No focal lung parenchymal process. Lung markings are similar to comparison. Heart and vasc ulature are normal. No measurable pleural effusion and no pneumothorax. No acute bony abnormality see n. No acute aortic findings suspected. IMPRESSION: No acute cardiopulmonary process. No significant interval change.
[2018-05-08 14:25] LABS: ALT/SGPT 26 U/L (12-78); AST/SGOT 24 U/L (15-37); Albumin 3.5 g/dL (3.4-5.0); Alkaline Phosphatase 113 U/L (45-117); BUN Blood Urea Nitrogen 12 mg/dL (7-18); Bicarbonate 25 mmol/L (21-32); Bilirubin Direct 0.1 mg/dL (0-0.2); Bilirubin Total 0.4 mg/dL (0.2-1.0); Glucose Level 124 mg/dL (74-106); Lipase 122 U/L (73-393); Magnesium 1.7 mg/dL (1.8-2.4); NT PRO-BNP 380 pg/mL (<450); Potassium 3.7 mmol/L (3.5-5.1); Protein, Total 7.8 g/dL (6.4-8.2); Sodium Level 131 mmol/L (136-145); Troponin (Emerg Dept Use Only) < 0.02 ng/mL (0.0-0.045)
[2018-05-08] MEDS ORDERED: MAGNESIUM SULFATE 1 gm IVPB 1 GM/100 ML BAG IV ONE (15:31)
--- NOTE | 2018-05-08 16:41 | ER ---
Nurse's Notes [facility] Name: Shayy Mcgovern Age: 77 yrs Sex: Female : 1940 Arrival Date: 05/08/2018 Time: 12:04 Bed 16 Private MD: Diagnosis: Anxiety disorder, unspecified;Altered mental status, unspecified;Anemia, unspecified;Hypomagnesemia;Cystitis;Unspecified cirrhosis of liver;Other ovarian cysts-3. 7 cm mass, paraovarian;Type 1 diabetes mellitus Presentation: 05/08 12:36 Presenting complaint: Patient states: Feeling dizzy and weak x 4 days, seen here and dx ph w/ UTI today, was able to fill prescription for antibiotic but pharmacy was unable to fill prescriptions for Valium and Tylenol #3, pt tearful and anxious in triage. Transition of care: patient was not received from another setting of care. Onset of symptoms was May 08, 2018. Risk Assessment: Do you want to hurt yourself or someone else? Patient reports no desire to harm self or others. Initial Sepsis Screen: Does the patient meet any 2 criteria? No. Patient's initial sepsis screen is negative. Does the patient have a suspected source of infection? Yes: Dysuria/Frequency/Urgency/UTI. Care prior to arrival: None. 12:36 Method Of Arrival: Wheelchair ph 12:36 Acuity: CORINE 4 ph Historical: - Allergies: 12:39 Ciprofloxacin; ph 12:39 Macrodantin; ph 12:39 nitrofuran macrocrystal (bulk); ph 12:39 PENICILLINS; ph 12:39 Sulfa (Sulfonamide Antibiotics); ph - Home Meds: 12:39 aspirin 81 mg Oral TbEC once daily [Active]; diazepam 5 mg Oral tab 1 tab daily ph [Active]; furosemide 20 mg Oral tab 1 tab once daily [Active]; levothyroxine 125 mcg tab 1 tab once daily [Active]; losartan-hydrochlorothiazide 100-25 mg Oral tab 1 tab once daily [Active]; MagOx 400 mg Oral tab 1 cap twice a day [Active]; metoprolol tartrate 50 mg Oral tab 1 tab 2 times per day [Active]; Corwith 5-325 mg Oral tab 1 tab three times a day [Active]; nortriptyline 10 mg Oral cap 1 caps QD [Active]; Novolin 70/30 [place] Sub-Q 70-30 unit/mL [Active]; omeprazole 40 mg Oral cpDR 1 cap once daily [Active]; pravastatin 40 mg Oral tab 1 tab nightly [Active]; promethazine 25 mg Oral tab three times a day [Active]; sertraline 25 mg Oral tab 1 tab once daily [Active]; - PMHx: 12:39 Anxiety; Depression; Diabetes - IDDM; gastritis; Hypertension; Hypothyroidism; ph - PSHx: 12:39 Cholecystectomy; ph - Immunization history:: Adult Immunizations unknown. - Social history:: Smoking status: unknown. Screenin:45 Abuse screen: Denies threats or abuse. Denies injuries from another. Nutritional jl7 screening: No deficits noted. Tuberculosis screening: No symptoms or risk factors identified. Fall Risk IV access (20 points). Total Carney Fall Scale indicates No Risk (0-24 pts). Assessment: 13:45 General: Appears in no apparent distress. uncomfortable, Behavior is cooperative, jl7 anxious. Pain: Complains of pain in top of head and forehead Pain does not radiate. Pain currently is 10 out of 10 on a pain scale. Neuro: Level of Consciousness is awake, alert, obeys commands, Oriented to person, place, time, situation, Reports dizziness, headache frontal area. Cardiovascular: Denies chest pain, Patient's skin is warm and dry. Respiratory: Airway is patent Respiratory effort is even, unlabored, Respiratory pattern is regular, symmetrical, Denies shortness of breath. GI: No signs and/or symptoms were reported involving the gastrointestinal system. Patient currently denies diarrhea, nausea, vomiting. : Reports urinary frequency. EENT: No signs and/or symptoms were reported regarding the EENT system. Derm: Skin is pink, warm \\T\\ dry. Musculoskeletal: No signs and/or symptoms reported regarding the musculoskeletal system. 14:20 Reassessment: pt reports decreased dizziness at this time. Patient states symptoms have jl7 improved. 14:30 Reassessment: Pt requesting a turkey sandwich, reports "I haven't eaten today." BGL jl7 139, turkey sandwich and chips provided. 14:45 Reassessment: pt laying in bed with eyes closed, respirations even and unlabored, no jl7 signs of distress noted at this time. 16:30 Reassessment: Patient appears in no apparent distress at this time. Patient and/or jl7 family updated on plan of care and expected duration. Pain level reassessed. Patient is alert, oriented x 3, equal unlabored respirations, skin warm/dry/pink. 17:30 Reassessment: Pt c/o increased dizziness and appears anxious, ERD notified, see MAR for jl7 orders. 17:45 Reassessment: Attempted to call report, floor principal secretary reports "We haven't assigned jl7 that room yet, please call back.". 18:12 Reassessment: Patient appears in no apparent distress at this time. Patient states jl7 symptoms have improved. 18:13 Reassessment: Attempted to call report, floor nurse in the room with a pt and will call jl7 back for report. 19:05 Reassessment: Patient appears in no apparent distress at this time. Patient and/or jb4 family updated on plan of care and expected duration. Pain level reassessed. Patient is alert, oriented x 3, equal unlabored respirations, skin warm/dry/pink. 19:30 Reassessment: attempted to call report. On hold for 10 minute. jb4 20:00 Reassessment: Patient appears in no apparent distress at this time. Patient and/or jb4 family updated on plan of care and expected duration. Pain level reassessed. Patient is alert, oriented x 3, equal unlabored respirations, skin warm/dry/pink. Vital Signs: 12:37 BP 125 / 66; Pulse 77; Resp 26; Temp 97.5; Pulse Ox 100% on R/A; ph 13:00 BP 138 / 69; Pulse 79; Resp 19; Temp 98.0(O); Pulse Ox 100% on R/A; mh5 14:00 BP 148 / 71; Pulse 80; Resp 17; Temp 98.8(O); Pulse Ox 100% on R/A; mh5 15:53 BP 125 / 67; Pulse 80; Resp 17; Temp 97.6(O); Pulse Ox 98% on R/A; mh5 16:30 BP 139 / 65; Pulse 79; Resp 16 S; Pulse Ox 100% on R/A; jl7 17:30 BP 129 / 62; Pulse 77; Resp 16 S; Pulse Ox 100% on R/A; jl7 18:14 BP 128 / 71; Pulse 78; Resp 16 S; Pulse Ox 100% on R/A; jl7 19:00 BP 140 / 65; Pulse 72; Resp 16; Pulse Ox 98% on R/A; jb4 20:00 BP 121 / 69; Pulse 72; Resp 16; Pulse Ox 97% on R/A; jb4 ED Course: 12:04 Patient arrived in ED. mr 12:29 Jayy Mayberry MD is Attending Physician. russ 12:37 Triage completed. ph 12:39 Arm band placed on Patient placed in an exam room, on a stretcher. ph 13:02 Milo Castorena RN is Primary Nurse. jl7 13:30 CT Head Brain wo Cont In Process Unspecified. EDMS 13:32 CT Stone Protocol In Process Unspecified. EDMS 13:45 Patient has correct armband on for positive identification. Placed in gown. Bed in low jl7 position. Call light in reach. Side rails up X 1. monitoring analyst on. Pulse ox on. NIBP on. Warm blanket given. 13:45 Initial lab(s) drawn, by me, sent to lab. Inserted saline lock: 20 gauge in left jl7 antecubital area, using aseptic technique. Blood collected. 14:02 X-ray completed. Portable x-ray completed in exam room. Patient tolerated procedure ls3 well. 14:10 XRAY Chest (1 view) In Process Unspecified. EDMS 15:29 CBC with Diff Sent. jl7 16:13 Basic Metabolic Panel Sent. jl7 16:36 Addison Marinelli MD is Hospitalizing Provider. russ 18:14 No provider procedures requiring assistance completed. Patient admitted, IV remains in jl7 place. intact, No redness/swelling at site. Administered Medications: 13:59 Drug: NS 0.9% 500 ml Route: IV; Rate: bolus; Site: left antecubital; jl7 14:30 Follow up: Response: No adverse reaction; IV Status: Completed infusion jl7 14:00 Drug: Ativan 1 mg Route: IVP; Site: left antecubital; jl7 14:20 Follow up: Response: No adverse reaction; Marked relief of symptoms jl7 15:28 Drug: Magnesium Sulfate 1 grams Route: IVPB; Infused Over: 1 hrs; Site: left jl7 antecubital; 16:30 Follow up: Response: No adverse reaction; IV Status: Completed infusion jl7 17:49 Drug: Ativan 1 mg Route: IVP; Site: left antecubital; jl7 18:15 Follow up: Response: No adverse reaction; Marked relief of symptoms jl7 18:51 Drug: Pepcid 20 mg Route: IVP; Site: left antecubital; jl7 18:54 Follow up: Response: No adverse reaction jl7 18:54 Drug: Rocephin 1 grams Route: IV; Rate: per protocol; Site: left antecubital; jl7 18:54 Follow up: Response: No adverse reaction; IV Status: Completed infusion jl7 Outcome: 16:40 Decision to Hospitalize by Provider. russ 20:32 Admitted to Med/surg accompanied by tech, via wheelchair, room 203, with chart, Report jb4 called to CHRIS York 20:32 Condition: stable 20:32 Discharge instructions given to patient, Instructed on the need for admit, Demonstrated understanding of instructions. 20:33 Patient left the ED. jb4 Signatures: Dispatcher [employer] EDJayy Moon MD MD cha Rivera, Holley Christensen, RN RN Gil Mora RN RN [email or web address] Edna Rodriguez Jahala, RN RN akin7 Juan Overton 3
--- NOTE | 2018-05-08 16:41 | EDPHYS ---
Physician Documentation [facility] Name: Shayy Mcgovern Age: 77 yrs Sex: Female : 1940 Arrival Date: 05/08/2018 Time: 12:04 Bed 16 Private MD: IKE Physician Jayy Mayberry HPI: 05/08 13:12 This 77 yrs old Female presents to ER via Wheelchair with complaints of russ Urinary Problem. 13:12 The patient complains of pain to the forehead, left side of the back of head, left russ temporal area, right side of the back of head and right temporal area. The patient describes the headache as aching. Onset: The symptoms/episode began/occurred at an unknown time. Modifying factors: The symptoms are alleviated by nothing, the symptoms are aggravated by nothing. Severity of symptoms: At its worst the pain was moderate, in the emergency department the pain is unchanged. 13:13 The patient presents with urinary symptoms, dysuria. Onset: The symptoms/episode russ began/occurred 2 day(s) ago. Associated signs and symptoms: The patient has no apparent associated signs or symptoms. Severity of symptoms: At their worst the symptoms were mild, moderate, in the emergency department the symptoms are unchanged. Historical: - Allergies: 12:39 Ciprofloxacin; ph 12:39 Macrodantin; ph 12:39 nitrofuran macrocrystal (bulk); ph 12:39 PENICILLINS; ph 12:39 Sulfa (Sulfonamide Antibiotics); ph - Home Meds: 12:39 aspirin 81 mg Oral TbEC once daily [Active]; diazepam 5 mg Oral tab 1 tab daily ph [Active]; furosemide 20 mg Oral tab 1 tab once daily [Active]; levothyroxine 125 mcg tab 1 tab once daily [Active]; losartan-hydrochlorothiazide 100-25 mg Oral tab 1 tab once daily [Active]; MagOx 400 mg Oral tab 1 cap twice a day [Active]; metoprolol tartrate 50 mg Oral tab 1 tab 2 times per day [Active]; Peyton 5-325 mg Oral tab 1 tab three times a day [Active]; nortriptyline 10 mg Oral cap 1 caps QD [Active]; Novolin 70/30 [place] Sub-Q 70-30 unit/mL [Active]; omeprazole 40 mg Oral cpDR 1 cap once daily [Active]; pravastatin 40 mg Oral tab 1 tab nightly [Active]; promethazine 25 mg Oral tab three times a day [Active]; sertraline 25 mg Oral tab 1 tab once daily [Active]; - PMHx: 12:39 Anxiety; Depression; Diabetes - IDDM; gastritis; Hypertension; Hypothyroidism; ph - PSHx: 12:39 Cholecystectomy; ph - Immunization history:: Adult Immunizations unknown. - Social history:: Smoking status: unknown. ROS: 13:13 Constitutional: Negative for fever, chills, and weight loss, Eyes: Negative for injury, russ pain, redness, and discharge, ENT: Negative for injury, pain, and discharge, Neck: Negative for injury, pain, and swelling, Cardiovascular: Negative for chest pain, palpitations, and edema, Respiratory: Negative for shortness of breath, cough, wheezing, and pleuritic chest pain, Abdomen/GI: Negative for abdominal pain, nausea, vomiting, diarrhea, and constipation, Back: Negative for injury and pain, MS/Extremity: Negative for injury and deformity, Skin: Negative for injury, rash, and discoloration, Neuro: Negative for headache, weakness, numbness, tingling, and seizure, Allergy/Immunology: Negative for hives, rash, and allergies, Endocrine: Negative for neck swelling, polydipsia, polyuria, polyphagia, and marked weight changes, Hematologic/Lymphatic: Negative for swollen nodes, abnormal bleeding, and unusual bruising. 13:13 : Positive for urinary symptoms, pelvic pain. 13:13 Psych: Positive for anxiety. Exam: 13:13 Head/Face: Normocephalic, atraumatic. Eyes: Pupils equal round and reactive to light, russ extra-ocular motions intact. Lids and lashes normal. Conjunctiva and sclera are non-icteric and not injected. Cornea within normal limits. Periorbital areas with no swelling, redness, or edema. ENT: Nares patent. No nasal discharge, no septal abnormalities noted. Tympanic membranes are normal and external auditory canals are clear. Oropharynx with no redness, swelling, or masses, exudates, or evidence of obstruction, uvula midline. Mucous membranes moist. Neck: Trachea midline, no thyromegaly or masses palpated, and no cervical lymphadenopathy. Supple, full range of motion without nuchal rigidity, or vertebral point tenderness. No Meningismus. Chest/axilla: Normal chest wall appearance and motion. Nontender with no deformity. No lesions are appreciated. Cardiovascular: Regular rate and rhythm with a normal S1 and S2. No gallops, murmurs, or rubs. Normal PMI, no JVD. No pulse deficits. Respiratory: Lungs have equal breath sounds bilaterally, clear to auscultation and percussion. No rales, rhonchi or wheezes noted. No increased work of breathing, no retractions or nasal flaring. Abdomen/GI: Soft, non-tender, with normal bowel sounds. No distension or tympany. No guarding or rebound. No evidence of tenderness throughout. Back: No spinal tenderness. No costovertebral tenderness. Full range of motion. Skin: Warm, dry with normal turgor. Normal color with no rashes, no lesions, and no evidence of cellulitis. MS/ Extremity: Pulses equal, no cyanosis. Neurovascular intact. Full, normal range of motion. 13:13 Constitutional: The patient appears in obvious distress, mildly distressed, moderately distressed. 13:13 : CVA tenderness, is absent, Pelvic Exam: External exam: is normal, Bladder: is normal. 13:13 Psych: Behavior/mood is anxious, Affect is animated, Oriented to person, place, time, Patient has no thoughts/intents to harm self or others. Delusions/hallucinations are not present. Vital Signs: 12:37 BP 125 / 66; Pulse 77; Resp 26; Temp 97.5; Pulse Ox 100% on R/A; ph 13:00 BP 138 / 69; Pulse 79; Resp 19; Temp 98.0(O); Pulse Ox 100% on R/A; mh5 14:00 BP 148 / 71; Pulse 80; Resp 17; Temp 98.8(O); Pulse Ox 100% on R/A; mh5 15:53 BP 125 / 67; Pulse 80; Resp 17; Temp 97.6(O); Pulse Ox 98% on R/A; mh5 16:30 BP 139 / 65; Pulse 79; Resp 16 S; Pulse Ox 100% on R/A; jl7 17:30 BP 129 / 62; Pulse 77; Resp 16 S; Pulse Ox 100% on R/A; jl7 18:14 BP 128 / 71; Pulse 78; Resp 16 S; Pulse Ox 100% on R/A; jl7 19:00 BP 140 / 65; Pulse 72; Resp 16; Pulse Ox 98% on R/A; jb4 20:00 BP 121 / 69; Pulse 72; Resp 16; Pulse Ox 97% on R/A; jb4 MDM: 12:29 Patient medically screened. [facility] 13:16 Data reviewed: vital signs, nurses notes, lab test result(s), EKG, radiologic studies, [facility] CT scan, plain films. 05/08 13:11 Order name: CBC with Diff [facility] 05/08 13:11 Order name: Basic Metabolic Panel [facility] 05/08 13:11 Order name: LFT's; Complete Time: 15:10 [facility] 05/08 13:11 Order name: Magnesium; Complete Time: 15:10 [facility] 05/08 13:11 Order name: NT PRO-BNP; Complete Time: 15:10 [facility] 05/08 13:11 Order name: PT-INR; Complete Time: 15:10 [facility] 05/08 13:11 Order name: CT Head Brain wo Cont; Complete Time: 15:10 [facility] 05/08 13:11 Order name: CT Stone Protocol; Complete Time: 15:10 [facility] 05/08 13:11 Order name: Troponin (emerg Dept Use Only); Complete Time: 15:10 [facility] 05/08 13:11 Order name: Lipase; Complete Time: 15:10 [facility] 05/08 13:11 Order name: CBC with Automated Diff; Complete Time: 15:10 [facility] 05/08 13:11 Order name: Basic Metabolic Panel; Complete Time: 15:10 [facility] 05/08 15:12 Order name: AMMONIA; Complete Time: 18:46 [facility] 05/08 15:32 Order name: CA 125 Antigen [facility] 05/08 13:11 Order name: XRAY Chest (1 view); Complete Time: 15:10 [facility] 05/08 16:32 Interpretation: Abnormal. [facility] 05/08 13:11 Order name: EKG; Complete Time: 13:12 [facility] 05/08 13:11 Order name: Cardiac monitoring; Complete Time: 14:00 [facility] 05/08 13:11 Order name: EKG - Nurse/Tech; Complete Time: 14:00 [facility] 05/08 13:11 Order name: IV Saline Lock; Complete Time: 14:00 [facility] 05/08 13:11 Order name: Labs collected and sent; Complete Time: 14:00 [facility] 05/08 13:11 Order name: O2 Per Protocol; Complete Time: 14:00 [facility] 05/08 13:11 Order name: O2 Sat Monitoring; Complete Time: 14:00 [facility] Administered Medications: 13:59 Drug: NS 0.9% 500 ml Route: IV; Rate: bolus; Site: left antecubital; jl7 14:30 Follow up: Response: No adverse reaction; IV Status: Completed infusion jl7 14:00 Drug: Ativan 1 mg Route: IVP; Site: left antecubital; jl7 14:20 Follow up: Response: No adverse reaction; Marked relief of symptoms jl7 15:28 Drug: Magnesium Sulfate 1 grams Route: IVPB; Infused Over: 1 hrs; Site: left jl7 antecubital; 16:30 Follow up: Response: No adverse reaction; IV Status: Completed infusion jl7 17:49 Drug: Ativan 1 mg Route: IVP; Site: left antecubital; jl7 18:15 Follow up: Response: No adverse reaction; Marked relief of symptoms jl7 18:51 Drug: Pepcid 20 mg Route: IVP; Site: left antecubital; jl7 18:54 Follow up: Response: No adverse reaction jl7 18:54 Drug: Rocephin 1 grams Route: IV; Rate: per protocol; Site: left antecubital; jl7 18:54 Follow up: Response: No adverse reaction; IV Status: Completed infusion jl7 Disposition: 05/08/18 16:40 Hospitalization ordered by Addison Marinelli for Observation. Preliminary diagnosis are Anxiety disorder, unspecified, Altered mental status, unspecified, Anemia, unspecified, Hypomagnesemia, Cystitis, Unspecified cirrhosis of liver, Other ovarian cysts - 3. 7 cm mass, paraovarian, Type 1 diabetes mellitus. - Bed requested for Telemetry/MedSurg (observation). - Status is Observation. jb4 - Condition is Fair. - Problem is new. - Symptoms have improved. UTI on Admission? Yes Signatures: Dispatcher [employer] EDJayy Moon MD MD cha Hall, Patricia RN RN Gil Mora RN RN jb4 Milo Castorena RN RN jl7 Jasmin English Corrections: (The following items were deleted from the chart) 17:40 16:40 Hospitalization Ordered by Addison Marinelli MD for Observation. Preliminary diagnosis eb is Anxiety disorder, unspecified; Altered mental status, unspecified; Anemia, unspecified; Hypomagnesemia; Cystitis; Unspecified cirrhosis of liver; Other ovarian cysts - 3. 7 cm mass, paraovarian; Type 1 diabetes mellitus. Bed requested for Telemetry/MedSurg (observation). Status is Observation. Condition is Fair. Problem is new. Symptoms have improved. UTI on Admission? Yes. [facility] 20:33 17:40 05/08/2018 16:40 Hospitalization Ordered by Addison Marinelli MD for Observation. jb4 Preliminary diagnosis is Anxiety disorder, unspecified; Altered mental status, unspecified; Anemia, unspecified; Hypomagnesemia; Cystitis; Unspecified cirrhosis of liver; Other ovarian cysts - 3. 7 cm mass, paraovarian; Type 1 diabetes mellitus. Bed requested for Telemetry/MedSurg (observation). Status is Observation. Condition is Fair. Problem is new. Symptoms have improved. UTI on Admission? Yes. eb
[2018-05-08] MEDS ORDERED: CEFTRIAXONE/SWI 1gm 1 GM/10 ML SYR ONE (19:00)
[2018-05-08] MEDS ORDERED: FAMOTIDINE 20 MG/2 ML VIAL IV ONE (19:00)
[2018-05-08 21:09] VITALS: O2SAT 97
[2018-05-08] MEDS ORDERED: D50W 25 GM/50 ML SYRINGE IV PRN (21:59)
[2018-05-08] MEDS ORDERED: GLUCAGON 1 MG/VIAL IM PRN (21:59)
--- NOTE | 2018-05-08 22:06 | P.HP ---
Certification for Inpatient Patient admitted to: Observation With expected LOS: <2 Midnights Practitioner: I am a practitioner with admitting privileges, knowledge of patient current condition, hospital course, and medical plan of care. Services: Services provided to patient in accordance with Admission requirements found in Title 42 Section 412.3 of the Code of Federal Regulations Patient History Date of Service: 05/08/18 Reason for admission: UTI, anxiety History of Present Illness: Ms Posey is a 77 years old woman with history of anxiety, chronic pain, IDDM , who came to ER early this morning due to dysuria, she was diagnosed with UTI, and was discharged home with oral antibiotics. The patient was very anxious as well since she was running out of pain and anxiety medication. She went to the pharmacy and was able to fill her antibiotics but not valium and Tylenol#3 prescribed as well this morning. The patient then, came back to ED complaining again of dysuria, dizziness and anxiety. No fever, vital signs stable. At my encounter the patient said that she has improved already from dysuria. Allergies Sulfa (Sulfonamide Antibiotics) Allergy (Severe, Verified 03/03/18 02:57) Nausea/Vomiting ciprofloxacin HCl [From Cipro] Allergy (Unknown, Verified 03/03/18 02:57) Unknown gentamicin [Gentamicin] Allergy (Unknown, Verified 03/03/18 02:57) Unknown sulfamethoxazole [From Bactrim] Allergy (Unknown, Verified 03/03/18 02:57) unknown Iodinated Contrast- Oral and IV Dye [Iodinated Contrast Media - IV Dye] Allergy (Verified 03/03/18 02:57) Hives/Rash nitrofurantoin macrocrystal [From Macrodantin] Allergy (Verified 03/03/18 02:57) Itching/Hives/Rash Penicillins Allergy (Verified 03/03/18 02:57) Itching/Hives/Rash pseudoephedrine Adverse Reaction (Verified 03/03/18 02:57) Nausea/Vomiting Home medications list reviewed: Yes Home Medications: Aspirin [Aspirin EC 81 MG] 81 mg PO BEDTIME 01/23/18 Insulin Aspart Protam & Aspart [Novolog Mix 70-30 Flexpen Syrn] 60 units SQ BREAKFAST 01/23/18 Levothyroxine [Synthroid*] 125 mcg PO DAILY 01/23/18 Losartan/Hydrochlorothiazide [Losartan-Hctz 100-25 mg Tab] 1 tab PO DAILY Metoprolol Succinate [Toprol Xl*] 50 mg PO DAILY 01/23/18 Omeprazole [Prilosec] 40 mg PO DAILY 01/23/18 Pravastatin Sodium [Pravachol] 40 mg PO DAILY 01/23/18 Promethazine HCl 25 mg PO BID PRN 01/23/18 Magnesium Oxide [Mag 0X*] 1 tab PO BID 05/08/18 Nortriptyline HCl [Pamelor] 10 mg PO BEDTIME PRN 05/08/18 - Past Medical/Surgical History Diabetic: Yes -: HTN -: DM -: hypothyroid -: migraines -: arthritis -: gastritis -: cholecystectomy Psychosocial/ Personal History: . - Family History Sister -: Hypertension, Diabetes - Social History Smoking Status: Never smoker Alcohol use: No CD- Drugs: No Caffeine use: Yes Place of Residence: Home Review of Systems 10-point ROS is otherwise unremarkable Physical Examination - Vital Signs Temperature: 97.6 F Blood Pressure: 121/69 Pulse: 72 Respirations: 16 - Physical Exam General: Mild distress (due to she was unable to fill her pain medication prescription.) HEENT: Atraumatic, PERRLA, Mucous membr. moist/pink, EOMI, Sclerae nonicteric Neck: Supple, 2+ carotid pulse no bruit, No LAD, Without JVD or thyroid abnormality Respiratory: Clear to auscultation bilaterally, Normal air movement Cardiovascular: Regular rate/rhythm, Normal S1 S2 Gastrointestinal: Normal bowel sounds, No tenderness Musculoskeletal: No tenderness Integumentary: No rashes Neurological: Normal speech, Normal strength at 5/5 x4 extr, Normal tone, Normal affect Lymphatics: No axilla or inguinal lymphadenopathy - Studies Laboratory Data (last 24 hrs) 05/08/18 13:56: PT 13.4 H, INR 1.13 05/08/18 13:56: Sodium 131 L, Potassium 3.7, BUN 12, Creatinine 0.99, Glucose 124 H, Magnesium 1.7 L, Total Bilirubin 0.4, AST 24, ALT 26, Alkaline Phosphatase 113, Lipase 122 05/08/18 13:56: WBC 5.8, Hgb 8.4 L, Hct 25.1 L, Plt Count 110 L Assessment and Plan - Problems (Diagnosis) (1) UTI (urinary tract infection) Current Visit: Yes Status: Acute Qualifiers: Urinary tract infection type: acute cystitis Hematuria presence: without hematuria Qualified Code(s): N30.00 - Acute cystitis without hematuria (2) Anxiety Current Visit: Yes Status: Acute (3) HTN (hypertension) Onset Date: 12/16/14 Current Visit: No Status: Chronic Qualifiers: Hypertension type: essential hypertension Qualified Code(s): I10 - Essential (primary) hypertension (4) Hypothyroidism Onset Date: 12/16/14 Current Visit: No Status: Chronic Qualifiers: Hypothyroidism type: unspecified Qualified Code(s): E03.9 - Hypothyroidism , unspecified - Plan The patient was admitted due to UTI, and axiety. No systemic symptoms. Vital signs stable. Continue empiric antibiotic treatment. She will be d/c home in AM if remain stable. - Advance Directives Does patient have a Living Will: No Does patient have a Durable POA for Healthcare: No - Code Status/Comfort Care Code Status Assessed: Yes Code Status: Full Code
[2018-05-08 23:39] VITALS: BMI 35.4
[2018-05-08] MEDS: ACETAMINOPHEN 500 MG TAB PO PRN (23:42)
[2018-05-09 06:01] LABS: Absolute Lymphocytes (CBC) 1.1 K/uL (0.7-4.9); Absolute Monocytes 0.5 K/uL (0.1-1.3); Absolute Neutrophil 3.3 K/uL (1.8-8.0); Basophils % 0.7 % (0-1.3); Eosinophils % 1.5 % (0-4.4); Lymphocytes % 22.2 % (15.3-44.8); MPV 9.7 fL (7.6-11.3); Monocytes % 10.4 % (3.3-12.3); RBC Red Blood Cell Count 2.76 M/uL (3.86-4.86)
[2018-05-09 06:16] LABS: Albumin 3.2 g/dL (3.4-5.0); Bilirubin Total 0.2 mg/dL (0.2-1.0); Potassium 4.1 mmol/L (3.5-5.1)
[2018-05-09] MEDS ORDERED: ONDANSETRON 4 MG/2 ML VIAL IV PRN (06:37)
[2018-05-09 07:21] LABS: Magnesium 1.8 mg/dL (1.8-2.4)
--- NOTE | 2018-05-09 08:01 | EKG ---
Test Date: 2018-05-08 Test Time: 13:48:17 [place]liver Handler: ELKIN MEASUREMENT RESULTS: Intervals: Rate: 77 OH: 122 QRSD: 82 QT: 420 QTc: 475 [place]: P: 29 OH: 122 QRS: 52 T: 43 INTERPRETIVE STATEMENTS: Normal sinus rhythm ST & T wave abnormality, consider anterolateral ischemia Prolonged QT Abnormal ECG Compared to ECG 03/06/2018 01:21:15 Prolonged QT interval now present ST (T wave) deviation still present Possible ischemia still present Electronically Signed On 05-09-18 08:00:58 CHART WRITER by Evelio Cody
[2018-05-09] MEDS ORDERED: PNEUMOCOCCAL VACCINE 0.5 ML IMVAC ONE (09:00)
[2018-05-09] MEDS ORDERED: CEFTRIAXONE 1 GM/NS 50 ML 1 GM/50 ML BAG IV SCH ×2 (09:00→19:00)
[2018-05-09] MEDS ORDERED: ENOXAPARIN 40 MG/0.4 ML SQ SCH (09:00)
[2018-05-09] MEDS ORDERED: INFLUENZA VACCINE (for 3y+) 0.5 ML DOSE IMVAC ONE (09:00)
[2018-05-09] MEDS: ACETAMINOPHEN 500 MG TAB PO PRN (09:22)
[2018-05-09] MEDS: INSULIN -REGULAR HUMAN 50 UNIT/0.5 ML ML SQ SCH ×2 (09:28→12:08)
[2018-05-09 12:29] VITALS: BP 114/56; TEMP 97.7
[2018-05-09] MEDS ORDERED: CEFTRIAXONE/SWI 1gm 1 GM/10 ML SYR IV SCH (18:00)
--- NOTE | 2018-05-09 19:05 | P.SSS ---
Patient History Date of Service: 05/09/18 Reason for admission: UTI, anxiety History of Present Illness: Ms Posey is a 77 years old woman with history of anxiety, chronic pain, IDDM , who came to ER early this morning due to dysuria, she was diagnosed with UTI, and was discharged home with oral antibiotics. The patient was very anxious as well since she was running out of pain and anxiety medication. She went to the pharmacy and was able to fill her antibiotics but not valium and Tylenol#3 prescribed as well this morning. The patient then, came back to ED complaining again of dysuria, dizziness and anxiety. No fever, vital signs stable. At my encounter the patient said that she has improved already from dysuria. Allergies Sulfa (Sulfonamide Antibiotics) Allergy (Severe, Verified 03/03/18 02:57) Nausea/Vomiting ciprofloxacin HCl [From Cipro] Allergy (Unknown, Verified 03/03/18 02:57) Unknown gentamicin [Gentamicin] Allergy (Unknown, Verified 03/03/18 02:57) Unknown sulfamethoxazole [From Bactrim] Allergy (Unknown, Verified 03/03/18 02:57) unknown Iodinated Contrast- Oral and IV Dye [Iodinated Contrast Media - IV Dye] Allergy (Verified 03/03/18 02:57) Hives/Rash nitrofurantoin macrocrystal [From Macrodantin] Allergy (Verified 03/03/18 02:57) Itching/Hives/Rash Penicillins Allergy (Verified 03/03/18 02:57) Itching/Hives/Rash pseudoephedrine Adverse Reaction (Verified 03/03/18 02:57) Nausea/Vomiting Home Medications: Aspirin [Aspirin EC 81 MG] 81 mg PO BEDTIME 01/23/18 Insulin Aspart Protam & Aspart [Novolog Mix 70-30 Flexpen Syrn] 60 units SQ BREAKFAST 01/23/18 Levothyroxine [Synthroid*] 125 mcg PO DAILY 01/23/18 Losartan/Hydrochlorothiazide [Losartan-Hctz 100-25 mg Tab] 1 tab PO DAILY Metoprolol Succinate [Toprol Xl*] 50 mg PO DAILY 01/23/18 Omeprazole [Prilosec] 40 mg PO DAILY 01/23/18 Pravastatin Sodium [Pravachol] 40 mg PO DAILY 01/23/18 Promethazine HCl 25 mg PO BID PRN 01/23/18 Magnesium Oxide [Mag 0X*] 1 tab PO BID 05/08/18 Nortriptyline HCl [Pamelor*] 10 mg PO BEDTIME PRN 05/08/18 Cefuroxime [Ceftin] 250 mg PO BID #14 tab 05/09/18 - Past Medical/Surgical History Has patient received pneumonia vaccine in the past: No Diabetic: Yes -: HTN -: DM -: hypothyroid -: migraines -: arthritis -: gastritis -: cholecystectomy Psychosocial/ Personal History: . - Family History Sister -: Hypertension, Diabetes - Social History Smoking Status: Never smoker Alcohol use: No CD- Drugs: No Caffeine use: Yes Place of Residence: Home Review of Systems 10-point ROS is otherwise unremarkable Physical Examination - Vital Signs Temperature: 97.7 F Blood Pressure: 114/56 Pulse: 77 Respirations: 18 Pulse Ox (%): 98 - Physical Exam General: Alert, In no apparent distress, Oriented x3 HEENT: Atraumatic, PERRLA, Mucous membr. moist/pink, EOMI, Sclerae nonicteric Neck: Supple, 2+ carotid pulse no bruit, No LAD, Without JVD or thyroid abnormality Respiratory: Clear to auscultation bilaterally, Normal air movement Cardiovascular: Regular rate/rhythm, Normal S1 S2 Gastrointestinal: Normal bowel sounds, No tenderness Musculoskeletal: No tenderness Integumentary: No rashes Neurological: Normal gait, Normal speech, Normal strength at 5/5 x4 extr, Normal tone, Normal affect Lymphatics: No axilla or inguinal lymphadenopathy Treatment Summary: - Problems (Diagnosis) (1) UTI (urinary tract infection) Current Visit: Yes Status: Acute Qualifiers: Urinary tract infection type: acute cystitis Hematuria presence: without hematuria Qualified Code(s): N30.00 - Acute cystitis without hematuria (2) Anxiety Current Visit: Yes Status: Acute (3) HTN (hypertension) Onset Date: 12/16/14 Current Visit: No Status: Chronic Qualifiers: Hypertension type: essential hypertension Qualified Code(s): I10 - Essential (primary) hypertension (4) Hypothyroidism Onset Date: 12/16/14 Current Visit: No Status: Chronic Qualifiers: Hypothyroidism type: unspecified Qualified Code(s): E03.9 - Hypothyroidism , unspecified - Plan The patient was admitted due to UTI, and anxiety. No systemic symptoms. Vital signs stable. Continue empiric antibiotic treatment. She was discharged home in a stable manner on oral antibiotics. - Disposition Condition: GOOD Patient Discharge Instructions: Please follow up with your primary care physician in 1-2 weeks. New medication:L Antibiotic for your urinary tract infection. Diet: AHA Activity: Ad andrea Physician Review: Patient Assessed, Agree with Above Assessment and Plan Time Spent Managing Pts Care (In Minutes): 45
== END 2018-05-09 16:43 | disposition home or self-care (01) ==
LOC: ER 11:58 → ERHOLD 17:01 → 2ND 20:13
PROVIDERS: ADMIT Family Medicine; ATTEND Internal Medicine
DX: N30.00 Acute cystitis without hematuria (principal); I10 Essential (primary) hypertension; E11.9 Type 2 diabetes mellitus without complications; E03.9 Hypothyroidism, unspecified; Z79.82 Long term (current) use of aspirin; Z88.0 Allergy status to penicillin; Z88.2 Allergy status to sulfonamides; Z23 Encounter for immunization
CPT/HCPCS: 36415; 70450; 71045; 74176; 76377; 80048; 80053; 80076; 82140; 82962; 83690; 83735; 83880; 84484; 85025; 85610; 86304; 90670; 93005; 94760; 96361; 96365; 96375; 99285; G0008; G0009; G0378; J0696; J1650; J2405; J3475; J7030; Q2035

== ENCOUNTER 2018-08-12 11:57 | Emergency (ER) | payer OTHER ==
--- OUTSIDE RECORDS SUMMARY | 2018-08-12 12:00 | XMS REPORT ---
[...] Instructions Start End Status Dosage System Date [facility] 73468648463 81 MG Orally Active 1 tablet Once a day Jennings [facility] 13458343245 5-325 MG Orally Active 1 tablet as every 6 hrs needed Omeprazole [facility] 19965144674 40 MG Orally Active 1 capsule Once a day Metoprolol [facility] 39070695857 50 MG Active 1 TAB(S) Succinate ER TWICE DAILY Levothyroxine [facility] 07951307571 125 MCG Orally Active 1 tablet on Sodium Once a day an empty stomach in the morning BusPIRone HCl [facility] 44369717330 5 MG Orally BID Active 1 tablet Metoprolol ND 32679221150 50 MG Orally Active 1 tablet Succinate ER Once a day Acyclovir ND 04024675241 200 MG Orally Active 1 capsule Three times a day NovoFine [facility] 50735625784 32G X 6 MM SB Active as directed Twice a day Furosemide ND 02217271755 20 MG Orally Active 1 tablet Once a day Lidocaine HCl [facility] 50922348455 2 % Dec 07, Active 15 ml to Mouth/Throat 2017 affected every 3 hrs as area as needed (Swish needed around in mouth and spit out). MAX 8 doses/day Magnesium Oxide ND 33441546001 400 MG Orally Active 1 tablet as Twice a day needed NovoLog Mix [facility] 92531530626 (70-30) 100 Active INJECT 70 70/30 Flexpen UNIT/ML UNITS UNDER Subcutaneous THE SKIN Twice a day EVERY MORNING WITH BREAKFAST AND 40 UNITS EVERY EVENING WITH DINNER Levothyroxine ND 48908493747 125 MCG Orally Active 1 tablet on Sodium Once a day an empty stomach in the morning Meclizine HCl ND 49395123714 25 MG Orally Active 1 tablet as Once a day needed Promethazine HCl ND 21920477681 25 MG Orally Active 1 tablet as every 12 hrs needed Pravastatin [facility] 21198257512 40 MG Orally Active 1 tablet Sodium Once a day Levaquin [facility] 85601645216 250 MG Orally Dec 27, Dec 30, Active 1 tablet Once a day 2017 2017 Amlodipine [facility] 14872304248 10 MG Orally Active 1 tablet Besylate Once a day True Metrix [facility] 65497241173 - Active USE TWICE Blood Glucose DAILY Test Cozaar [facility] 48667947414 100 MG Orally Active 1 tablet Once a day Results Name Result Date Reference Range Unit Abnormality Flag Urine Dip Stick ----Appearance Dark yellow/clear 20171227 ----SP. Gr 1.015 20171227 ----pH 7.0 20171227 ----Ketone Negative [id number] ----Glucose Negative 20171227 ----Blood Negative 20171227 ----Protein Negative 20171227 ----Nitrite Negative 20171227 ----Leukocytes 1+ 20171227 Summary Purpose eClinicalWorks Submission
--- OUTSIDE RECORDS SUMMARY | 2018-08-12 12:00 | XMS REPORT ---
[...] Start End Status Dosage System Date Date [facility] 93685755244 81 MG Orally Active 1 tablet Once a day Promethazine HCl ND 67837351418 25 MG Orally Active 1 tablet as every 12 hrs needed [place] [facility] 45782911588 5-325 MG Orally Active 1 tablet as every 6 hrs needed Acyclovir ND 10102018297 200 MG Orally Active 1 capsule Three times a day True Metrix [facility] 38490279910 - Active USE TWICE Blood Glucose DAILY Test NovoFine [facility] 02203775196 32G X 6 MM SB Active as directed Twice a day Metoprolol [facility] 02015246321 50 MG Orally Active 1 tablet Succinate ER Once a day Omeprazole [facility] 55610024714 40 MG Orally Active 1 capsule Once a day NovoLog Mix [facility] 29274186209 (70-30) 100 Active INJECT 70 70/30 Flexpen UNIT/ML UNITS UNDER Subcutaneous THE SKIN Twice a day EVERY MORNING WITH BREAKFAST AND 40 UNITS EVERY EVENING WITH DINNER Levothyroxine [facility] 79081284663 125 MCG Orally Active 1 tablet on Sodium Once a day an empty stomach in the morning Magnesium Oxide [facility] 73673361324 400 MG Orally Active 1 tablet as Twice a day needed Levothyroxine [facility] 64633711214 125 MCG Orally Active 1 tablet on Sodium Once a day an empty stomach in the morning Cozaar [facility] 20901408392 100 MG Orally Active 1 tablet Once a day Pravastatin [facility] 19075009296 40 MG Orally Active 1 tablet Sodium Once a day Meclizine HCl [facility] 35616752101 25 MG Orally Active 1 tablet as Once a day needed Lidocaine HCl [facility] 85755504179 2 % Dec 07, Active 15 ml to Mouth/Throat 2017 affected every 3 hrs as area as needed (Swish needed around in mouth and spit out). MAX 8 doses/day Amlodipine [facility] 10926943346 10 MG Orally Active 1 tablet Besylate Once a day BusPIRone HCl [facility] 09456965015 5 MG Orally BID Active 1 tablet Chlorhexidine [facility] 75659761560 0.12 % Dec 07, Dec 17, Active 10-15 mL Gluconate Mouth/Throat 2017 2017 (Swish/Spit Every 12 hours ) Metoprolol [facility] 48460083187 50 MG Active 1 TAB(S) Succinate ER TWICE DAILY Furosemide ND 45374073980 20 MG Orally Active 1 tablet Once a day Results No Known Results Summary Purpose eClinicalWorks Submission
--- OUTSIDE RECORDS SUMMARY | 2018-08-12 12:00 | XMS REPORT ---
[...] End Status Dosage System Date Date Amlodipine [facility] 63180256081 10 MG Orally Active 1 tablet Besylate Once a day Ana [facility] 79500851951 100 MG Orally Active 1 tablet Once a day Pravastatin ND 22812683685 40 MG Orally Active 1 tablet Sodium Once a day Omeprazole [facility] 54879540893 40 MG Orally Active 1 capsule Once a day Aspir-81 [facility] 37550107766 81 MG Orally Active 1 tablet Once a day Magnesium Oxide [facility] 32737968632 400 MG Orally Active 1 tablet as Twice a day needed NovoFine [facility] 52885819167 32G X 6 MM SB Active as directed Twice a day Levothyroxine [facility] 85553058928 125 MCG Orally Active 1 tablet on Sodium Once a day an empty stomach in the morning True Metrix [facility] 42917697532 - Active USE TWICE Blood Glucose DAILY Test Elora [facility] 22813692758 5-325 MG Orally Active 1 tablet as every 6 hrs needed BusPIRone HCl [facility] 45149287531 5 MG Orally BID Active 1 tablet NovoLog Mix [facility] 42005194983 (70-30) 100 Active INJECT 70 70/30 Flexpen UNIT/ML UNITS UNDER Subcutaneous THE SKIN Twice a day EVERY MORNING WITH BREAKFAST AND 40 UNITS EVERY EVENING WITH DINNER Metoprolol [facility] 00635708099 50 MG Active 1 TAB(S) Succinate ER TWICE DAILY Levothyroxine [facility] 31762755380 125 MCG Orally Active 1 tablet on Sodium Once a day an empty stomach in the morning Promethazine HCl [facility] 86409560890 25 MG Orally Active 1 tablet as every 12 hrs needed Acyclovir [facility] 47242917501 200 MG Orally Active 1 capsule Three times a day Furosemide [facility] 61345871591 20 MG Orally Active 1 tablet Once a day Metoprolol [facility] 97315175464 50 MG Orally Active 1 tablet Succinate ER Once a day Meclizine HCl [facility] 19859542905 25 MG Orally Active 1 tablet as Once a day needed Results No Known Results Summary Purpose eClinicalWorks Submission
--- OUTSIDE RECORDS SUMMARY | 2018-08-12 12:00 | XMS REPORT ---
[...] Status Dosage System Date Date Pravastatin [facility] 61622800403 40 MG Orally Active 1 tablet Sodium Once a day Aspir-81 [facility] 89277222702 81 MG Orally Active 1 tablet Once a day BusPIRone HCl [facility] 40991197669 5 MG Orally BID August Active 1 tablet 2017 Promethazine HCl [facility] 08318809453 25 MG Orally Active 1 tablet as every 12 hrs needed Amlodipine [facility] 61158934849 10 MG Orally Active 1 tablet Besylate Once a day Levothyroxine [facility] 69743228233 125 MCG Orally Active 1 tablet on Sodium Once a day an empty stomach in the morning Cozaar [facility] 81926733273 100 MG Orally Active 1 tablet Once a day Zoloft [facility] 82878745805 25 MG Orally Inactive 1 tablet Once a day Acyclovir [facility] 55085095083 200 MG Orally Active 1 capsule Three times a day Omeprazole [facility] 85493056874 40 MG Orally Active 1 capsule Once a day Magnesium Oxide [facility] 70899947630 400 MG Orally Active 1 tablet as Once a day needed NovoFine [facility] 19057533859 32G X 6 MM SB Active as directed Twice a day NovoLog Mix [facility] 31569196864 (70-30) 100 Active INJECT 70 70/30 Flexpen UNIT/ML UNITS UNDER Subcutaneous THE SKIN Twice a day EVERY MORNING WITH BREAKFAST AND 40 UNITS EVERY EVENING WITH DINNER Ames [facility] 13905111312 5-325 MG Orally Active 1 tablet as every 6 hrs needed True Metrix [facility] 20848606083 - Active USE TWICE Blood Glucose DAILY Test Metoprolol [facility] 41620352116 50 MG Orally Active 1 tablet Succinate ER Once a day Furosemide [facility] 76205033270 20 MG Orally Active 1 tablet Once a day Meclizine HCl [facility] 71026828392 25 MG Orally Active 1 tablet as Once a day needed Results No Known Results Summary Purpose eClinicalWorks Submission
--- OUTSIDE RECORDS SUMMARY | 2018-08-12 12:00 | XMS REPORT ---
[...] End Status Dosage System Date Date Nystatin [facility] 18060215273 557744 UNIT/GM September 05October Active 1 application Externally Twice 2017, to a day 2018 area Results No Known Results Summary Purpose eClinicalWorks Submission
--- OUTSIDE RECORDS SUMMARY | 2018-08-12 12:01 | XMS REPORT ---
[...] to D50.0 Active chronic blood loss Problem Allergic rhinitis, seasonal J30.2 Active Problem Venous insufficiency I87.2 Active Problem Gastritis K29.70 Active Problem HSV [...] Problem Thrombocytopenia D69.6 Active Medications Medication Code System Code Instructions Start End Date Status Dosage Date Acyclovir [facility] 84471597121 200 MG Orally Active 1 capsule Three times a day Results No Known Results Summary Purpose eClinicalWorks Submission
--- OUTSIDE RECORDS SUMMARY | 2018-08-12 12:01 | XMS REPORT ---
[...] End Status Dosage System Date Date Pravastatin [facility] 76025735194 40 MG Orally Active 1 tablet Sodium Once a day Results No Known Results Summary Purpose eClinicalWorks Submission
--- OUTSIDE RECORDS SUMMARY | 2018-08-12 12:01 | XMS REPORT ---
[...] End Status Dosage System Date Date Levothyroxine [facility] 18802949841 125 MCG Orally Active 1 tablet Sodium Once a day on an empty stomach in the morning Results No Known Results Summary Purpose eClinicalWorks Submission
--- OUTSIDE RECORDS SUMMARY | 2018-08-12 12:01 | XMS REPORT ---
[...] Medications Results No Known Results Summary Purpose eClinicalStyleSaint Submission
--- OUTSIDE RECORDS SUMMARY | 2018-08-12 12:01 | XMS REPORT ---
[...] Start Date End Date Status Dosage Cozaar [facility] 59121039372 100 MG Orally Active 1 tablet Once a day Results No Known Results Summary Purpose eClinicalWorks Submission
--- OUTSIDE RECORDS SUMMARY | 2018-08-12 12:01 | XMS REPORT ---
[...] End Status Dosage System Date Date Acyclovir [facility] 28640756685 200 MG Orally Active 1 capsule Three times a day Omeprazole [facility] 31535077042 40 MG Orally Active 1 capsule Once a day Promethazine HCl [facility] 76581608794 25 MG Orally Active 1 tablet as every 12 hrs needed Meclizine HCl [facility] 38455166917 25 MG Orally Active 1 tablet as Once a day needed BusPIRone HCl [facility] 14294282650 5 MG Orally BID Active 1 tablet Cozaar [facility] 92186732758 100 MG Orally Active 1 tablet Once a day Pravastatin [facility] 33016973693 40 MG Orally Active 1 tablet Sodium Once a day True Metrix [facility] 31273329973 - Active USE TWICE Blood Glucose DAILY Test Metoprolol [facility] 44666592403 50 MG Orally Active 1 tablet Succinate ER Once a day NovoLog Mix [facility] 82057541996 (70-30) 100 Active INJECT 70 70/30 Flexpen UNIT/ML UNITS UNDER Subcutaneous THE SKIN Twice a day EVERY MORNING WITH BREAKFAST AND 40 UNITS EVERY EVENING WITH DINNER Lidocaine HCl [facility] 56753618632 2 % Dec 07, Active 15 ml to Mouth/Throat 2018 affected every 3 hrs as area as needed (Swish needed around in mouth and spit out). MAX 8 doses/day Levothyroxine [facility] 02683212377 125 MCG Orally Active 1 tablet on Sodium Once a day an empty stomach in the morning Amitiza [facility] 02179870183 8 MCG Orally Feb 12, Mar 14, Active 1 capsule Twice a day 2017 2017 with food Cozaar [facility] 67979645297 100 Orally Once Active 1 tablet a day Metoprolol [facility] 28381025387 50 MG Active 1 TAB(S) Succinate ER TWICE DAILY Metamora [facility] 10658453280 5-325 MG Orally Active 1 tablet as every 6 hrs needed Metoprolol [facility] 70961998123 50 Active 1 TAB(S) Succinate ER TWICE DAILY Metoprolol [facility] 31268577148 50 MG Active 1 TAB(S) Succinate ER TWICE DAILY - [facility] 28581986703 81 MG Orally Active 1 tablet Once a day Amlodipine [facility] 83691903711 10 MG Orally Active 1 tablet Besylate Once a day Levothyroxine [facility] 80406026531 125 MCG Orally Active 1 tablet on Sodium Once a day an empty stomach in the morning Magnesium Oxide [facility] 55938681804 400 MG Orally Active 1 tablet as Twice a day needed Furosemide [facility] 51532682152 20 MG Orally Active 1 tablet Once a day Metoprolol [facility] 70990298708 50 MG Orally Active 1 tablet Succinate ER Once a day NovoFine [facility] 40793520630 32G X 6 MM SB Active as directed Twice a day Results Name Result Date Reference Range Unit Abnormality Flag Urine Dip Stick ----Appearance Yellow,slight cloudy 20180212 ----SP. Gr 1.020 20180212 ----pH 6.0 20180212 ----Ketone Negative 20180212 ----Glucose Negative 20180212 ----Blood Trace 20180212 ----Protein Negative 20180212 ----Nitrite Negative 20180212 ----Leukocytes Negative 20180212 Summary Purpose eClinicalWorks Submission
--- OUTSIDE RECORDS SUMMARY | 2018-08-12 12:01 | XMS REPORT ---
[...] Medications Results No Known Results Summary Purpose eClinicalVolvant Submission
--- OUTSIDE RECORDS SUMMARY | 2018-08-12 12:02 | XMS REPORT ---
[...] Start End Status Dosage System Date Date True Metrix [facility] 74200269969 - In Vitro twice Active as directed Blood Glucose daily Test Results No Known Results Summary Purpose eClinicalWorks Submission
--- OUTSIDE RECORDS SUMMARY | 2018-08-12 12:02 | XMS REPORT ---
[...] Start End Status Dosage System Date Date Promethazine HCl [facility] 85968397503 25 MG Orally May 23, Active 1 tablet every 12 hrs 2018 as needed for nausea Results No Known Results Summary Purpose eClinicalWorks Submission
--- OUTSIDE RECORDS SUMMARY | 2018-08-12 12:02 | XMS REPORT ---
[...] Medications Results No Known Results Summary Purpose eClinicalMediasurface Submission
--- OUTSIDE RECORDS SUMMARY | 2018-08-12 12:02 | XMS REPORT ---
[...] Medications Results No Known Results Summary Purpose [employer]ClinicalNordic [employer] Portals Submission
--- OUTSIDE RECORDS SUMMARY | 2018-08-12 12:02 | XMS REPORT ---
:1940 Author Organization eClinicalWorks Care Team Providers Name Role Phone Karl Blake Provider Role Unavailable Allergies No Known Allergies Problems Problem Type Condition Code Onset Dates Condition Status Assessment Diabetes type 2, uncontrolled E11.65 Active Problem Hypomagnesemia E83.42 Active Problem Secondary [...] Start End Status Dosage System Date Date NovoLog Mix [facility] 15489624860 (70-30) 100 Active INJECT 70 70/30 Flexpen UNIT/ML UNITS UNDER Subcutaneous THE SKIN Twice a day EVERY MORNING WITH BREAKFAST AND 40 UNITS EVERY EVENING WITH DINNER Results No Known Results Summary Purpose eClinicalWorks Submission
--- OUTSIDE RECORDS SUMMARY | 2018-08-12 12:02 | XMS REPORT ---
[...] Medications Results No Known Results Summary Purpose [employer] ([place]) Submission
--- OUTSIDE RECORDS SUMMARY | 2018-08-12 12:02 | XMS REPORT ---
:1940 Author Organization eClinicalWorks Care Team Providers Name Role Phone Blake Barajas Provider Role Unavailable Allergies, Adverse Reactions, Alerts Substance Reaction Event Type penicillin Info Not Available Drug Allergy Macrodantin Info Not Available Drug Allergy Cipro Info Not Available Drug Allergy Bactrim DS Info Not Available Drug Allergy Problems Problem Type Condition Code Onset Dates Condition Status Assessment Diabetes type 2, uncontrolled E11.65 Active Assessment Hypertension I10 Active Assessment Iron deficiency anemia due to D50.0 Active chronic blood loss Assessment Left ovarian cyst N83.202 Active Problem Hypomagnesemia E83.42 Active Problem Secondary [...] K57.30 Active Problem Varicose veins I86.8 Active Assessment Depression with anxiety F41.8 Active Problem Slow transit constipation K59.01 Active Problem Hyperlipidemia, mixed E78.2 Active Assessment Hypomagnesemia E83.42 Active Problem Dizziness R42 Active Problem Hypothyroidism E03.9 Active Problem Cervical disc disorder at C4-C5 M50.121 Active level with radiculopathy Problem Hypertension I10 Active Assessment Hyperlipidemia, mixed E78.2 Active Problem Depression with anxiety F41.8 Active Assessment Closed fracture of distal end of S52.502A Active left radius, unspecified fracture morphology, initial encounter Problem Malaise and fatigue R53.81 Active Assessment Hypothyroidism E03.9 Active Problem Vitamin B 12 deficiency E53.8 Active Assessment History of fall within past 90 Z91.81 Active days Problem Cirrhosis of liver K74.60 Active Assessment Chronic kidney disease, stage 3 N18.3 Active Problem Elevated alkaline phosphatase R74.8 Active level Assessment Cirrhosis of liver K74.60 Active Problem Diabetic neuropathy E11.40 Active Problem Nausea R11.0 Active Problem Thrombocytopenia D69.6 Active Medications Medication Code Code Instructions Start End Status Dosage System Date Date Levothyroxine [facility] 58569223742 125 MCG Orally Active 1 tablet on Sodium Once a day an empty stomach in the morning NovoLog Mix [facility] 91155574485 (70-30) 100 Active INJECT 70 70/30 Flexpen UNIT/ML UNITS UNDER Subcutaneous THE SKIN Twice a day EVERY MORNING WITH BREAKFAST AND 40 UNITS EVERY EVENING WITH DINNER Furosemide [facility] 66506958073 20 MG Orally Active 1 tablet Once a day Metoprolol [facility] 33492398859 50 MG Orally Active 1 tablet Succinate ER Once a day NovoFine [facility] 77022755357 32G X 6 MM SB Active as directed Twice a day Ferrous Sulfate [facility] [address]-44 325 MG Orally Active as directed OneTouch Ultra [facility] 68561688116 - Active TEST THREE Test TIMES DAILY NovoFine [facility] 81507768784 32G X 6 MM SB Active as directed Twice a day Magnesium Oxide [facility] 52832057103 400 MG Orally Active 1 tablet as Three times a needed day Promethazine HCl [facility] 66286802826 25 MG Orally Active 1 tablet as every 12 hrs needed Metoprolol [facility] 60096648173 50 Active TAKE 1 Succinate ER TABLET BY MOUTH EVERY DAY Losartan [facility] 84014948037 100-25 MG Active TAKE 1 Potassium-HCTZ TABLET BY MOUTH EVERY DAY Acyclovir [facility] 14142562298 200 MG Orally Active 1 capsule Three times a day Levothyroxine [facility] 94117092948 125 MCG Orally Active 1 tablet on Sodium Once a day an empty stomach in the morning Pravastatin [facility] 65152736601 40 MG Orally Active 1 tablet Sodium Once a day -81 [facility] 81582166025 81 MG Orally Active 1 tablet Once a day True Metrix [facility] 49042690171 - In Vitro Active as directed Blood Glucose twice daily Test Amlodipine [facility] 20285243933 10 MG Orally Active 1 tablet Besylate Once a day Cozaar [facility] 36387187324 100 MG Orally Active 1 tablet Once a day BusPIRone HCl [facility] 97836775608 5 MG Orally Inactive 1 tablet BID Meclizine HCl [facility] 87655994366 25 MG Orally Active 1 tablet as Once a day needed Ferrous Sulfate [facility] 97918699112 325 (65 Fe) MG May 15, Active 1 tablet Orally BID 2018 Lidocaine HCl ND 56241099348 2 % Dec 07, Active 15 ml to Mouth/Throat 2017 affected every 3 hrs as area as needed (Swish needed around in mouth and spit out). MAX 8 doses/day Blomkest [facility] 05716337174 5-325 MG Active 1 tablet as Orally every 6 needed hrs Omeprazole ND 05444359176 40 MG Orally Active 1 capsule Once a day Cozaar [facility] 50407681978 100 Orally Active 1 tablet Once a day Results No Known Results Summary Purpose eClinicalWorks Submission
--- OUTSIDE RECORDS SUMMARY | 2018-08-12 12:03 | XMS REPORT ---
[...] Condition Code Onset Dates Condition Status Assessment Iron deficiency anemia due to D50.0 Active chronic blood loss Assessment Left ovarian cyst N83.202 Active Problem Hypomagnesemia E83.42 Active Problem Secondary esophageal varices I85.10 Active without bleeding Problem Intramural leiomyoma of uterus D25.1 Active Problem Iron deficiency anemia due to D50.0 Active chronic blood loss Problem Allergic rhinitis, seasonal J30.2 Active Problem HSV (herpes simplex virus) A60.9 Active anogenital infection Problem Hyperlipidemia, mixed E78.2 Active Problem GERD (gastroesophageal reflux K21.9 Active disease) Problem Diabetes type 2, uncontrolled E11.65 Active Problem Varicose veins I86.8 Active Problem Vitamin D deficiency E55.9 Active Problem Dizziness R42 Active Problem Hypothyroidism E03.9 Active Problem Torus fracture of lower end of S52.522S Active left radius, sequela Problem Slow transit constipation K59.01 Active Problem Cirrhosis of liver K74.60 Active Problem Vitamin B 12 deficiency E53.8 Active Assessment Cirrhosis of liver K74.60 Active Problem Displaced fracture of greater S42.252S Active tuberosity of left humerus, sequela Problem Diverticulosis of colon K57.30 Active Assessment Chronic kidney disease, stage 3 N18.3 Active Problem Cervical disc disorder at C4-C5 M50.121 Active level with radiculopathy Assessment Depression with anxiety F41.8 Active Problem Hypertension I10 Active Assessment Hypomagnesemia E83.42 Active Problem Osteoarthritis of multiple joints M15.9 Active Assessment Non-compliant behavior R46.89 Active Problem Chronic kidney disease, stage 3 N18.3 Active Assessment Hypertension I10 Active Problem Nausea R11.0 Active Assessment Diabetes type 2, uncontrolled E11.65 Active Problem Thrombocytopenia D69.6 Active Assessment Hyperlipidemia, mixed E78.2 Active Problem Depression with anxiety F41.8 Active Assessment Closed fracture of distal end of S52.502A Active left radius, unspecified fracture morphology, initial encounter Problem Malaise and fatigue R53.81 Active Assessment Hypothyroidism E03.9 Active Problem Venous insufficiency I87.2 Active Assessment History of fall within past 90 Z91.81 Active days Problem Gastritis K29.70 Active Problem Elevated alkaline phosphatase R74.8 Active level Problem Diabetic neuropathy E11.40 Active Medications Medication Code Code Instructions Start End Status Dosage System Date Date Amlodipine [facility] 55614782593 10 MG Orally Active 1 tablet Besylate Once a day Cozaar [facility] 41777166100 100 MG Orally Active 1 tablet Once a day Magnesium [facility] 0 Active not defined Ferrous Sulfate [facility] [address]-84 Active not defined Losartan [facility] [address]-81 Active not defined Potassium-HCTZ NovoLog Mix [facility] [address]-16 Active not defined 70/30 Flexpen Perphenazine [facility] [address]-30 Active not defined Furosemide [facility] 27187858716 20 MG Orally Active 1 tablet Once a day Omeprazole [facility] [address]-65 Active not defined NovoFine [facility] 29904263245 32G X 6 MM SB Active as directed Twice a day Hydrocodone-Acet [facility] [address]-95 Active not defined aminophen Levothyroxine [facility] [address]-32 Active not defined Sodium Metoprolol [facility] [address]-99 Active not defined Succinate ER Aspirin 81 [facility] 57236-00458 Active not defined Folic Acid [facility] 56079210058 1 MG Orally Active 1 tablet Once a day Meclizine HCl [facility] 48015929674 25 MG Orally Active 1 tablet as Once a day needed Nortriptyline [facility] [address]-41 Active not defined HCl Pravastatin [facility] [address]-26 Active not defined Sodium Promethazine HCl [facility] [address]-19 Active not defined Metoprolol [facility] 24168854681 50 MG Orally Active 1 tablet Succinate ER Once a day NovoLog Mix [facility] 10827285907 (70-30) 100 Active INJECT 70 70/30 Flexpen UNIT/ML UNITS UNDER Subcutaneous THE SKIN Twice a day EVERY MORNING WITH BREAKFAST AND 40 UNITS EVERY EVENING WITH DINNER Ferrous Sulfate [facility] 87195831781 325 (65 Fe) MG Active 1 tablet Orally BID Pravastatin ND 23221390581 40 MG Orally Active 1 tablet Sodium Once a day Levothyroxine [facility] 56287968829 125 MCG Orally Active 1 tablet on Sodium Once a day an empty stomach in the morning Magnesium Oxide [facility] 66281560134 400 MG Orally Active 1 tablet as Three times a needed day Results No Known Results Summary Purpose eClinicalWorks Submission
--- OUTSIDE RECORDS SUMMARY | 2018-08-12 12:03 | XMS REPORT ---
:1940 Author Organization eClinicalWorks Care Team Providers Name Role Phone [place] Provider Role Unavailable Allergies, Adverse Reactions, Alerts Substance Reaction Event Type penicillin Info Not Available Drug Allergy Macrodantin Info Not Available Drug Allergy Cipro Info Not Available Drug Allergy Bactrim DS Info Not Available Drug Allergy Problems Problem Type Condition Code Onset Dates Condition Status Assessment Pain in joint of left wrist M25.532 Active Assessment Pain, joint, shoulder, left M25.512 Active Problem Hypomagnesemia E83.42 Active Problem Secondary [...] Vitamin B 12 deficiency E53.8 Active Problem Displaced fracture of greater S42.252S Active tuberosity of left humerus, sequela Problem Diverticulosis of colon K57.30 Active Problem Cervical disc disorder at C4-C5 M50.121 Active level with radiculopathy Problem Hypertension I10 Active Problem Osteoarthritis of multiple joints M15.9 Active Problem Chronic kidney disease, stage 3 N18.3 Active Assessment Torus fracture of lower end of S52.522S Active left radius, sequela Problem Nausea R11.0 Active Assessment Displaced fracture of greater S42.252S Active tuberosity of left humerus, sequela Problem Thrombocytopenia D69.6 Active Problem Depression with anxiety F41.8 Active Problem Malaise and fatigue R53.81 Active Problem Venous insufficiency I87.2 Active Problem Gastritis K29.70 Active Problem Elevated alkaline phosphatase R74.8 Active level Problem Diabetic neuropathy E11.40 Active Medications Medication Code Code Instructions Start End Status Dosage System Date Date NovoLog Mix [facility] [address]-95 Active not 70/30 Flexpen defined Perphenazine [facility] [address]-51 Active not defined Promethazine HCl [facility] [address]-15 Active not defined Pravastatin [facility] [address]-62 Active not Sodium defined Hydrocodone-Acet [facility] [address]-35 Active not aminophen defined Metoprolol [facility] [address]-14 Active not Succinate ER defined Ferrous Sulfate [facility] [address]-42 Active not defined Nortriptyline [facility] [address]-56 Active not HCl defined Magnesium [facility] 0 Active not defined Omeprazole [facility] [address]-31 Active not defined Folic Acid [facility] 03939760746 1 MG Orally Active 1 tablet Once a day Levothyroxine [facility] [address]-79 Active not Sodium defined Losartan [facility] [address]-80 Active not Potassium-HCTZ defined Meclizine HCl [facility] 81586922872 25 MG Orally Active 1 tablet Once a day as needed Aspirin 81 [facility] [address]16 Active not defined Results No Known Results Summary Purpose eClinicalWorks Submission
--- OUTSIDE RECORDS SUMMARY | 2018-08-12 12:03 | XMS REPORT ---
:1940 Author Organization eClinicalWorks Care Team Providers Name Role Phone Daniel [place] Provider Role Unavailable Allergies, Adverse Reactions, Alerts Substance Reaction Event Type penicillin Info Not Available Drug Allergy Macrodantin Info Not Available Drug Allergy Cipro Info Not Available Drug Allergy Bactrim DS Info Not Available Drug Allergy Problems Problem Type Condition Code Onset Dates Condition Status Problem Secondary esophageal varices I85.10 Active without bleeding Problem Hypomagnesemia E83.42 Active Problem Iron deficiency anemia due to D50.0 Active chronic blood loss Problem Intramural leiomyoma of uterus D25.1 Active Problem Allergic rhinitis, seasonal J30.2 Active Problem HSV (herpes simplex virus) A60.9 Active anogenital infection Problem Hyperlipidemia, mixed E78.2 Active Problem Varicose veins I86.8 Active Problem Diverticulosis of colon K57.30 Active Problem Vitamin B 12 deficiency E53.8 Active Problem Hypothyroidism E03.9 Active Problem Dizziness R42 Active Problem Cirrhosis of liver K74.60 Active Problem Hypertension I10 Active Problem Chronic kidney disease, stage 3 N18.3 Active Problem Osteoarthritis of multiple joints M15.9 Active Problem Torus fracture of lower end of S52.522S Active left radius, sequela Problem Encounter for screening mammogram Z12.31 Active for breast cancer Problem Nausea R11.0 Active Problem Malaise and fatigue R53.81 Active Problem Displaced fracture of greater S42.252S Active tuberosity of left humerus, sequela Problem Depression with anxiety F41.8 Active Problem Slow transit constipation K59.01 Active Problem Cervical disc disorder at C4-C5 M50.121 Active level with radiculopathy Problem Encounter for gynecological Z01.419 Active examination without abnormal finding Problem Left ovarian cyst N83.202 Active Assessment Left ovarian cyst N83.202 Active Problem Diabetic neuropathy E11.40 Active Problem Venous insufficiency I87.2 Active Assessment Encounter for screening mammogram Z12.31 Active for breast cancer Problem Thrombocytopenia D69.6 Active Assessment Encounter for gynecological Z01.419 Active examination without abnormal finding Problem Elevated alkaline phosphatase R74.8 Active level Problem Diabetes type 2, uncontrolled E11.65 Active Problem Vitamin D deficiency E55.9 Active Problem Gastritis K29.70 Active Problem GERD (gastroesophageal reflux K21.9 Active disease) Medications Medication Code Code Instructions Start End Status Dosage System Date Date Omeprazole [facility] [address]-89 Active not defined Aspirin 81 [facility] [address] Active not defined Losartan [facility] [address]-65 Active not defined Potassium-HCTZ NovoLog Mix [facility] [address]-52 Active not defined 70/30 Flexpen Cozaar [facility] 68399373629 100 MG Orally Active 1 tablet Once a day NovoLog Mix [facility] 02856124733 (70-30) 100 Active INJECT 70 70/30 Flexpen UNIT/ML UNITS UNDER Subcutaneous THE SKIN Twice a day EVERY MORNING WITH BREAKFAST AND 40 UNITS EVERY EVENING WITH DINNER Levothyroxine [facility] 58565636838 125 MCG Orally Active 1 tablet on Sodium Once a day an empty stomach in the morning Ferrous Sulfate [facility] [address]-08 Active not defined Hydrocodone-Acet [facility] [address]-00 Active not defined aminophen Meclizine HCl [facility] 65663818443 25 MG Orally Active 1 tablet as Once a day needed Pravastatin [facility] 73248355715 40 MG Orally Active 1 tablet Sodium Once a day Metoprolol [facility] 11416710394 50 MG Orally Active 1 tablet Succinate ER Once a day NovoFine [facility] 04314239793 32G X 6 MM SB Active as directed Twice a day Ferrous Sulfate [facility] 53144179972 325 (65 Fe) MG Active 1 tablet Orally BID Perphenazine [facility] [address]-63 Active not defined Nortriptyline [facility] [address]-79 Active not defined HCl Magnesium Oxide [facility] 01315657438 400 MG Orally Active 1 tablet as Three times a needed day Levothyroxine [facility] [address]-63 Active not defined Sodium Metoprolol [facility] [address]-79 Active not defined Succinate ER Pravastatin [facility] [address]-20 Active not defined Sodium Promethazine HCl [facility] [address]-53 Active not defined Furosemide [facility] 16811740020 20 MG Orally Active 1 tablet Once a day Folic Acid [facility] 63751343983 1 MG Orally Active 1 tablet Once a day Magnesium NDC 0 Active not defined Amlodipine [facility] 45979529920 10 MG Orally Active 1 tablet Besylate Once a day Results No Known Results Summary Purpose eClinicalWorks Submission
--- OUTSIDE RECORDS SUMMARY | 2018-08-12 12:03 | XMS REPORT ---
[...] finding Problem Left ovarian cyst N83.202 Active Problem Diabetic neuropathy E11.40 Active Problem Venous insufficiency I87.2 Active Problem Thrombocytopenia D69.6 Active Problem Elevated alkaline phosphatase R74.8 Active level Problem Diabetes type 2, uncontrolled E11.65 Active Problem Vitamin D deficiency E55.9 Active Problem Gastritis K29.70 Active Problem GERD (gastroesophageal reflux K21.9 Active disease) Medications No Known Medications Results No Known Results Summary Purpose eClinicalWorks Submission
--- OUTSIDE RECORDS SUMMARY | 2018-08-12 12:04 | XMS REPORT ---
[...] Problem Left ovarian cyst N83.202 Active Assessment Hypothyroidism E03.9 Active Problem Diabetic neuropathy E11.40 Active Problem Venous insufficiency I87.2 Active Problem Thrombocytopenia D69.6 Active Problem Elevated alkaline phosphatase R74.8 Active level Problem Diabetes type 2, uncontrolled E11.65 Active Problem Vitamin D deficiency E55.9 Active Problem Gastritis K29.70 Active Problem GERD (gastroesophageal reflux K21.9 Active disease) Medications Medication Code Code Instructions Start End Status Dosage System Date Date Levothyroxine [facility] 14313201842 125 MCG Orally Active 1 tablet Sodium Once a day on an empty stomach in the morning Results No Known Results Summary Purpose eClinicalWorks Submission
--- OUTSIDE RECORDS SUMMARY | 2018-08-12 12:04 | XMS REPORT ---
:1940 Author Organization eClinicalWorks Care Team Providers Name Role Phone Dm [place] Provider Role Unavailable Allergies No Known Allergies [...]
[2018-08-12] MEDS ORDERED: NA CHLORIDE 0.9% 1,000 ML ONE (12:54)
[2018-08-12] MEDS ORDERED: CEFTRIAXONE/SWI 1gm 1 GM/10 ML SYR ONE (12:54)
[2018-08-12 13:08] LABS: Absolute Lymphocytes (CBC) 1.1 K/uL (0.7-4.9); Absolute Monocytes 0.5 K/uL (0.1-1.3); Absolute Neutrophil 3.3 K/uL (1.8-8.0); Basophils % 0.8 % (0-1.3); Eosinophils % 1.8 % (0-4.4); Hematocrit 26.3 % (36.0-45.0); Lymphocytes % 21.8 % (15.3-44.8); MPV 9.3 fL (7.6-11.3); Monocytes % 9.6 % (3.3-12.3); RBC Red Blood Cell Count 2.97 M/uL (3.86-4.86)
[2018-08-12 13:16] LABS: Protime INR 1.07
--- NOTE | 2018-08-12 13:27 | RAD REPORT ---
EXAM DESCRIPTION: CT - Head Brain Wo Cont - 08/12/2018 1:16 pm CLINICAL HISTORY: Weakness, numbness, possible CVA COMPARISON: May 08, 2018 TECHNIQUE: Axial 5 mm thick images of the head were obtained without IV contrast. All CT scans are performed using dose optimization technique as appropriate and may include automated exposure control or mA/KV adjustment according to patient size. FINDINGS: No intracranial hemorrhage, mass, edema or shift of mid-line structures. No acute infarcti on changes seen. Atrophy and chronic ischemic changes are present mild to moderate for age and simila r to comparison. Ventricles are in proportion to volume loss. Mastoid air cells and visualized portions of the paranasal sinuses are clear. No acute bony findings. IMPRESSION: Mild to moderate atrophy and chronic ischemic change similar to comparison. No acute findings identifiable. Chronic ischemic changes can mask nonhemorrhagic acute infarction. MR brain followup can be obtained if there is ongoing concern for acute ischemia.
[2018-08-12 14:01] LABS: ALT/SGPT 22 U/L (12-78); AST/SGOT 27 U/L (15-37); Albumin 3.4 g/dL (3.4-5.0); Alkaline Phosphatase 114 U/L (45-117); BUN Blood Urea Nitrogen 8 mg/dL (7-18); Bicarbonate 24 mmol/L (21-32); Bilirubin Direct < 0.1 mg/dL (0-0.2); Bilirubin Total 0.3 mg/dL (0.2-1.0); Glucose Level 84 mg/dL (74-106); Lipase 97 U/L (73-393); Magnesium 1.6 mg/dL (1.8-2.4); NT PRO-BNP 385 pg/mL (<450); Potassium 3.9 mmol/L (3.5-5.1); Protein, Total 7.5 g/dL (6.4-8.2); Sodium Level 129 mmol/L (136-145); Troponin (Emerg Dept Use Only) < 0.02 ng/mL (0.0-0.045)
[2018-08-12] MEDS ORDERED: MAGNESIUM SULFATE 1 gm IVPB 1 GM/100 ML BAG IV ONE (14:59)
[2018-08-12 15:17] LABS: Urine Blood NEGATIVE (NEG); Urine Glucose NEGATIVE (NEG); Urine Protein NEGATIVE (NEG); Urine Specific Gravity 1.015 (1.005-1.030)
--- NOTE | 2018-08-12 15:17 | RAD REPORT ---
EXAM DESCRIPTION: RAD - Chest Single View - 08/12/2018 1:23 pm CLINICAL HISTORY: COUGH Chest pain. COMPARISON: Chest Single View dated 05/08/2018; Chest Single View dated 01/22/2018; Chest Single View d ated 08/11/2017; Chest Single View dated 07/06/2016 FINDINGS: Portable technique limits examination quality. The lungs are emphysematous but grossly clear. The heart is mildly enlarged in size. No displaced fra ctures. IMPRESSION: Prominent COPD.
--- NOTE | 2018-08-12 16:44 | ER ---
Nurse's Notes [facility] Name: Shayy Mcgovern Age: 77 yrs Sex: Female : 1940 Arrival Date: 08/12/2018 Time: 11:58 Bed 2 Private MD: Diagnosis: Weakness;Anemia, unspecified;Hypomagnesemia;Type 1 diabetes mellitus;Hypoglycemia, unspecified;Urinary tract infection, site not specified Presentation: 08/12 12:09 Presenting complaint: Patient states: I have been having weakness in both of my arms la1 and legs since yesterday and I feel burning when I urinate. I am taking iron and another pill the doctor gave me but I do not feel any better. Transition of care: patient was not received from another setting of care. Onset of symptoms was August 12, 2018. Risk Assessment: Do you want to hurt yourself or someone else? Patient reports no desire to harm self or others. Initial Sepsis Screen: Does the patient meet any 2 criteria? No. Patient's initial sepsis screen is negative. Does the patient have a suspected source of infection? No. Patient's initial sepsis screen is negative. Care prior to arrival: None. 12:09 Method Of Arrival: Ambulatory la1 12:09 Acuity: CORINE 3 la1 Triage Assessment: 17:00 General: Appears in no apparent distress. Behavior is calm, cooperative. iw Historical: - Allergies: 12:09 Sulfa (Sulfonamide Antibiotics); la1 12:09 PENICILLINS; la1 12:09 nitrofuran macrocrystal (bulk); la1 12:09 Macrodantin; la1 12:09 Ciprofloxacin; la1 12:09 Gentamicin; la1 12:09 Bactrim; la1 - PMHx: 12:09 Anxiety; Depression; Diabetes - IDDM; gastritis; Hypertension; Hypothyroidism; la1 - Immunization history:: Adult Immunizations up to date. - Social history:: Smoking status: Patient/guardian denies using tobacco. - Ebola Screening: : No symptoms or risks identified at this time. - Family history:: not pertinent. Screenin:12 Abuse screen: Denies threats or abuse. Denies injuries from another. Nutritional iw screening: No deficits noted. Tuberculosis screening:. Fall Risk IV access (20 points). Assessment: 13:18 Reassessment: Patient appears in no apparent distress at this time. Patient and/or iw family updated on plan of care and expected duration. Pain level reassessed. Patient is alert, oriented x 3, equal unlabored respirations, skin warm/dry/pink. Pain: Denies pain. 14:50 Reassessment: Patient appears in no apparent distress at this time. Patient and/or iw family updated on plan of care and expected duration. Pain level reassessed. Patient is alert, oriented x 3, equal unlabored respirations, skin warm/dry/pink. pt sitting up eating sandwich Patient denies pain at this time. 16:07 Reassessment: Patient appears in no apparent distress at this time. Patient and/or iw family updated on plan of care and expected duration. Pain level reassessed. Patient is alert, oriented x 3, equal unlabored respirations, skin warm/dry/pink. pt ambulatory to bathroom with steady gait, VSS, pt feeling better, asking if she can go home now Patient states feeling better. Patient states symptoms have improved. Vital Signs: 12:07 BP 153 / 71; Pulse 68; Resp 18; Pulse Ox 98% on R/A; la1 12:11 Weight 92.53 kg; la1 15:11 BP 140 / 72; Pulse 64; Resp 16; Pulse Ox 100% on R/A; Pain 7/10; iw 16:34 BP 115 / 52; Pulse 60; Resp 16; Pulse Ox 98% ; Pain 0/10; iw ED Course: 11:58 Patient arrived in ED. as 12:09 Arm band placed on right wrist. la1 12:11 Triage completed. la1 12:15 Patient has correct armband on for positive identification. iw 12:18 Jayy Mayberry MD is Attending Physician. russ 12:27 Nicole Winter, RN is Primary Nurse. iw 12:35 Urine collected: clean catch specimen, clear. dh3 12:50 Initial lab(s) drawn, by me, sent to lab. Inserted saline lock: 20 gauge in left iw antecubital area, using aseptic technique. Blood collected. 13:16 CT Head Brain wo Cont In Process Unspecified. EDMS 13:22 XRAY Chest (1 view) In Process Unspecified. EDMS 16:43 Deandra Figueroa MD is Referral Physician. russ 16:59 No provider procedures requiring assistance completed. IV discontinued, intact, iw bleeding controlled, No redness/swelling at site. Pressure dressing applied. Administered Medications: 13:00 Drug: NS 0.9% 500 ml Route: IV; Rate: bolus; Site: left antecubital; iw 14:00 Follow up: IV Status: Completed infusion iw 13:00 Drug: Rocephin - (cefTRIAXone) 1 grams Route: IVPB; Infused Over: 30 mins; Site: left iw antecubital; 13:15 Follow up: IV Status: Completed infusion iw 14:49 Drug: Magnesium Sulfate 1 grams Route: IVPB; Infused Over: 1 hrs; Site: left iw antecubital; 15:50 Follow up: IV Status: Completed infusion Point of Care Testing: Blood Glucose: 14:50 Blood Glucose: 68 mg/dL; Ranges: Outcome: 16:43 Discharge ordered by MD. solano 16:59 Discharged to home ambulatory, with family. iw 16:59 Condition: good 16:59 Discharge instructions given to patient, Instructed on discharge instructions, follow up and referral plans. medication usage, Demonstrated understanding of instructions, follow-up care, medications, Prescriptions given X 3. 17:00 Patient left the ED. iw Addendum: 08/15/2018 15:09 Addendum: Culture Results: Positive urine culture. No further action required. Phone s s call Attempt #1 attempted to call patient, no answer. Left Certified letter sent to listed address for patient. Signatures: Dispatcher [employer] [facility] Jayy Mayberry MD MD cha Martinez, Amelia as Williams, Irene, RN RN Ariana Blanco RN RN Nahid Acosta RN RN [facility] Radha Sarkar [facility]
--- NOTE | 2018-08-12 16:44 | EDPHYS ---
Physician Documentation [facility] Name: Shayy Mcgovern Age: 77 yrs Sex: Female : 1940 Arrival Date: 08/12/2018 Time: 11:58 Bed 2 Private MD: IKE Physician Jayy Mayberry HPI: 08/12 12:39 This 77 yrs old Female presents to ER via Ambulatory with complaints of russ Numbness, Urinary Problem. 12:39 The patient's problem is reported as weakness, that is generalized. Onset: The russ symptoms/episode began/occurred 1 day(s) ago. Duration: The episode is continuous. Context: occurred at home. The symptoms are alleviated by rest, The symptoms are aggravated by nothing. Associated signs and symptoms: The patient has no apparent associated signs or symptoms. Severity of symptoms: At their worst the symptoms were mild in the emergency department the symptoms are unchanged. Patient's baseline: Neuro: alert and fully oriented. Historical: - Allergies: 12:09 Sulfa (Sulfonamide Antibiotics); la1 12:09 PENICILLINS; la1 12:09 nitrofuran macrocrystal (bulk); la1 12:09 Macrodantin; la1 12:09 Ciprofloxacin; la1 12:09 Gentamicin; la1 12:09 Bactrim; la1 - PMHx: 12:09 Anxiety; Depression; Diabetes - IDDM; gastritis; Hypertension; Hypothyroidism; la1 - Immunization history:: Adult Immunizations up to date. - Social history:: Smoking status: Patient/guardian denies using tobacco. - Ebola Screening: : No symptoms or risks identified at this time. - Family history:: not pertinent. ROS: 12:39 Constitutional: Negative for fever, chills, and weight loss, Eyes: Negative for injury, russ pain, redness, and discharge, ENT: Negative for injury, pain, and discharge, Neck: Negative for injury, pain, and swelling, Cardiovascular: Negative for chest pain, palpitations, and edema, Respiratory: Negative for shortness of breath, cough, wheezing, and pleuritic chest pain, Abdomen/GI: Negative for abdominal pain, nausea, vomiting, diarrhea, and constipation, Back: Negative for injury and pain, : Negative for injury, bleeding, discharge, and swelling, MS/Extremity: Negative for injury and deformity, Skin: Negative for injury, rash, and discoloration, Psych: Negative for depression, anxiety, suicide ideation, homicidal ideation, and hallucinations, Allergy/Immunology: Negative for hives, rash, and allergies, Endocrine: Negative for neck swelling, polydipsia, polyuria, polyphagia, and marked weight changes, Hematologic/Lymphatic: Negative for swollen nodes, abnormal bleeding, and unusual bruising. 12:39 Neuro: Positive for weakness. Exam: 12:39 Constitutional: This is a well developed, well nourished patient who is awake, alert, russ and in no acute distress. Head/Face: Normocephalic, atraumatic. Eyes: Pupils equal round and reactive to light, extra-ocular motions intact. Lids and lashes normal. Conjunctiva and sclera are non-icteric and not injected. Cornea within normal limits. Periorbital areas with no swelling, redness, or edema. ENT: Nares patent. No nasal discharge, no septal abnormalities noted. Tympanic membranes are normal and external auditory canals are clear. Oropharynx with no redness, swelling, or masses, exudates, or evidence of obstruction, uvula midline. Mucous membranes moist. Neck: Trachea midline, no thyromegaly or masses palpated, and no cervical lymphadenopathy. Supple, full range of motion without nuchal rigidity, or vertebral point tenderness. No Meningismus. Chest/axilla: Normal chest wall appearance and motion. Nontender with no deformity. No lesions are appreciated. Cardiovascular: Regular rate and rhythm with a normal S1 and S2. No gallops, murmurs, or rubs. Normal PMI, no JVD. No pulse deficits. Respiratory: Lungs have equal breath sounds bilaterally, clear to auscultation and percussion. No rales, rhonchi or wheezes noted. No increased work of breathing, no retractions or nasal flaring. Abdomen/GI: Soft, non-tender, with normal bowel sounds. No distension or tympany. No guarding or rebound. No evidence of tenderness throughout. Back: No spinal tenderness. No costovertebral tenderness. Full range of motion. Female : Normal external genitalia. Skin: Warm, dry with normal turgor. Normal color with no rashes, no lesions, and no evidence of cellulitis. MS/ Extremity: Pulses equal, no cyanosis. Neurovascular intact. Full, normal range of motion. Neuro: Awake and alert, GCS 15, oriented to person, place, time, and situation. Cranial nerves II-XII grossly intact. Motor strength 5/5 in all extremities. Sensory grossly intact. Cerebellar exam normal. Normal gait. Psych: Awake, alert, with orientation to person, place and time. Behavior, mood, and affect are within normal limits. 12:40 Radiologist reports: see reports [facility] Vital Signs: 12:07 BP 153 / 71; Pulse 68; Resp 18; Pulse Ox 98% on R/A; la1 12:11 Weight 92.53 kg; la1 15:11 BP 140 / 72; Pulse 64; Resp 16; Pulse Ox 100% on R/A; Pain 7/10; iw 16:34 BP 115 / 52; Pulse 60; Resp 16; Pulse Ox 98% ; Pain 0/10; iw MDM: 12:18 Patient medically screened. [facility] 12:41 Data reviewed: vital signs, nurses notes, lab test result(s), EKG, radiologic studies, [facility] CT scan, plain films. 08/12 12:38 Order name: Basic Metabolic Panel; Complete Time: 14:36 [facility] 08/12 12:38 Order name: CBC with Diff; Complete Time: 13:32 [facility] 08/12 12:38 Order name: LFT's; Complete Time: 14:36 [facility] 08/12 12:38 Order name: Magnesium; Complete Time: 14:36 [facility] 08/12 12:38 Order name: NT PRO-BNP; Complete Time: 14:36 [facility] 08/12 12:38 Order name: PT-INR; Complete Time: 13:32 [facility] 08/12 12:38 Order name: Troponin (emerg Dept Use Only); Complete Time: 14:36 [facility] 08/12 12:38 Order name: XRAY Chest (1 view) [facility] 08/12 12:38 Order name: Urine Culture [facility] 08/12 12:38 Order name: Lipase; Complete Time: 14:36 [facility] 08/12 12:38 Order name: CT Head Brain wo Cont; Complete Time: 13:32 [facility] 08/12 15:12 Order name: Urine Dipstick--Ancillary (enter results) 08/12 12:38 Order name: Cardiac monitoring; Complete Time: 13:20 [facility] 08/12 12:38 Order name: EKG - Nurse/Tech; Complete Time: 13:20 [facility] 08/12 12:38 Order name: IV Saline Lock; Complete Time: 13:20 [facility] 08/12 12:38 Order name: Labs collected and sent; Complete Time: 13:20 [facility] 08/12 12:38 Order name: O2 Per Protocol; Complete Time: 13:20 [facility] 08/12 12:38 Order name: O2 Sat Monitoring; Complete Time: 13:20 [facility] 08/12 12:38 Order name: Urine Dipstick-Ancillary (obtain specimen); Complete Time: 13:20 [facility] 08/12 14:41 Order name: Diet Ada 2000 Cuauhtemoc; Complete Time: 14:42 [facility] Administered Medications: 13:00 Drug: NS 0.9% 500 ml Route: IV; Rate: bolus; Site: left antecubital; iw 14:00 Follow up: IV Status: Completed infusion iw 13:00 Drug: Rocephin - (cefTRIAXone) 1 grams Route: IVPB; Infused Over: 30 mins; Site: left iw antecubital; 13:15 Follow up: IV Status: Completed infusion iw 14:49 Drug: Magnesium Sulfate 1 grams Route: IVPB; Infused Over: 1 hrs; Site: left iw antecubital; 15:50 Follow up: IV Status: Completed infusion iw Point of Care Testing: Blood Glucose: 14:50 Blood Glucose: 68 mg/dL; iw Ranges: Critical Glucose Levels:Adult <50 mg/dl or >400 mg/dl <40 mg/dl or >180 mg/dl Disposition: 08/12/18 16:43 Discharged to Home. Impression: Weakness, Anemia, unspecified, Hypomagnesemia, Type 1 diabetes mellitus, Hypoglycemia, unspecified, Urinary tract infection, site not specified. - Condition is Stable. - Discharge Instructions: Iron Deficiency Anemia, Adult, Anemia, Nonspecific, Iron-Rich Diet, Hypoglycemia, Hypomagnesemia, Urinary Tract Infection, Adult, Weakness, Fatigue, Urinary Tract Infection, Adult, Xunm-iu-Zgty, Weakness, Ugea-ht-Xkcz, Iron Deficiency Anemia, Adult, Srjj-ti-Eafl, Hypoglycemia, Waqu-vf-Vdpa. - Prescriptions for Ferrous Sulfate 325 mg (65 mg Iron) Oral Tablet - take 1 tablet by ORAL route every 8 hours; 90 tablet. Protonix 40 mg Oral Tablet, Delayed Release (E.C.) - take 1 tablet by ORAL route once daily; 20 tablet. Ceftin 250 mg Oral Tablet - take 1 tablet by ORAL route every 12 hours for 7 days; 14 tablet. - Medication Reconciliation Form, Thank You Letter, Antibiotic Education, Prescription Opioid Use form. - Follow up: Private Physician; When: 2 - 3 days; Reason: Recheck today's complaints, Continuance of care, Re-evaluation by your physician. Follow up: Deandra Figueroa; When: 2 - 3 days; Reason: Recheck today's complaints, Continuance of care, Re-evaluation by your physician. - Problem is new. - Symptoms have improved. Signatures: Dispatcher [employer] EDMS Jayy Mayberry MD MD cha Williams, Irene, RN RN Nahid Peterson RN RN la1 Corrections: (The following items were deleted from the chart) 17:00 16:43 08/12/2018 16:43 Discharged to Home. Impression: Weakness; Anemia, unspecified; iw Hypomagnesemia; Type 1 diabetes mellitus; Hypoglycemia, unspecified; Urinary tract infection, site not specified. Condition is Stable. Discharge Instructions: Iron Deficiency Anemia, Adult, Anemia, Nonspecific, Iron-Rich Diet, Hypomagnesemia, Weakness, Fatigue, Weakness, Plkr-ei-Qyew, Iron Deficiency Anemia, Adult, Jcfu-lv-Hsfn, Hypoglycemia, Hypoglycemia, Kwil-zk-Inev, Urinary Tract Infection, Adult, Urinary Tract Infection, Adult, Xveh-yz-Guce. Prescriptions for Ferrous Sulfate 325 mg (65 mg Iron) Oral Tablet - take 1 tablet by ORAL route every 8 hours; 90 tablet, Protonix 40 mg Oral Tablet, Delayed Release (E.C.) - take 1 tablet by ORAL route once daily; 20 tablet, Ceftin 250 mg Oral Tablet - take 1 tablet by ORAL route every 12 hours for 7 days; 14 tablet. and Forms are Medication Reconciliation Form, Thank You Letter, Antibiotic Education, Prescription Opioid Use. Follow up: Private Physician; When: 2 - 3 days; Reason: Recheck today's complaints, Continuance of care, Re-evaluation by your physician. Follow up: Deandra Figueroa; When: 2 - 3 days; Reason: Recheck today's complaints, Continuance of care, Re-evaluation by your physician. Problem is new. Symptoms have improved. russ
[2018-08-12 17:51] VITALS: BP 115/52; O2SAT 98
== END 2018-08-12 17:00 | disposition home or self-care (01) ==
LOC: ER 11:57
DX: R53.1 Weakness (principal); D64.9 Anemia, unspecified; E83.42 Hypomagnesemia; E10.65 Type 1 diabetes mellitus with hyperglycemia; N39.0 Urinary tract infection, site not specified; F41.9 Anxiety disorder, unspecified; F32.9 Major depressive disorder, single episode, unspecified; I10 Essential (primary) hypertension; E03.9 Hypothyroidism, unspecified; Z88.1 Allergy status to other antibiotic agents; Z88.0 Allergy status to penicillin; Z88.2 Allergy status to sulfonamides
CPT/HCPCS: 96365; 96361; 87088; 85025; 87086; 80048; 36415; 83735; 85610; 80076; 87077; 87186; 81003; 84484; 83690; 83880; 70450; 71045; 96375; 99284; J3475; J0696; J7030

== ENCOUNTER 2018-08-23 20:29 | Emergency (ER) | payer OTHER ==
--- OUTSIDE RECORDS SUMMARY | 2018-08-23 20:31 | XMS REPORT ---
[...] Dosage System Date Date Pravastatin [facility] 74733479572 40 MG Orally Active 1 tablet Sodium Once a day Aspir-81 [facility] 39663818728 81 MG Orally Active 1 tablet Once a day BusPIRone HCl [facility] 14948776837 5 MG Orally BID August Active 1 tablet 2017 Promethazine HCl [facility] 17729492659 25 MG Orally Active 1 tablet as every 12 hrs needed Amlodipine [facility] 40510594775 10 MG Orally Active 1 tablet Besylate Once a day Levothyroxine [facility] 79632967267 125 MCG Orally Active 1 tablet on Sodium Once a day an empty stomach in the morning Cozaar [facility] 22357343484 100 MG Orally Active 1 tablet Once a day Zoloft [facility] 26184279103 25 MG Orally Inactive 1 tablet Once a day Acyclovir [facility] 33180563488 200 MG Orally Active 1 capsule Three times a day Omeprazole [facility] 17767537881 40 MG Orally Active 1 capsule Once a day Magnesium Oxide [facility] 62733593638 400 MG Orally Active 1 tablet as Once a day needed NovoFine [facility] 70744635365 32G X 6 MM SB Active as directed Twice a day NovoLog Mix [facility] 85434180197 (70-30) 100 Active INJECT 70 70/30 Flexpen UNIT/ML UNITS UNDER Subcutaneous THE SKIN Twice a day EVERY MORNING WITH BREAKFAST AND 40 UNITS EVERY EVENING WITH DINNER [place] [facility] 65192518916 5-325 MG Orally Active 1 tablet as every 6 hrs needed True Metrix [facility] 57303435617 - Active USE TWICE Blood Glucose DAILY Test Metoprolol [facility] 61818965424 50 MG Orally Active 1 tablet Succinate ER Once a day Furosemide [facility] 01880365625 20 MG Orally Active 1 tablet Once a day Meclizine HCl [facility] 35155809806 25 MG Orally Active 1 tablet as Once a day needed Results No Known Results Summary Purpose eClinicalWorks Submission
--- OUTSIDE RECORDS SUMMARY | 2018-08-23 20:32 | XMS REPORT ---
[...] End Status Dosage System Date Date Pravastatin [facility] 42768170723 40 MG Orally Active 1 tablet Sodium Once a day Results No Known Results Summary Purpose eClinicalWorks Submission
--- OUTSIDE RECORDS SUMMARY | 2018-08-23 20:32 | XMS REPORT ---
[...] End Status Dosage System Date Date Amlodipine [facility] 20347561629 10 MG Orally Active 1 tablet Besylate Once a day Ana [facility] 37516055833 100 MG Orally Active 1 tablet Once a day Pravastatin [place] 81261459532 40 MG Orally Active 1 tablet Sodium Once a day Omeprazole [facility] 82838407602 40 MG Orally Active 1 capsule Once a day Aspir-81 [facility] 89610288992 81 MG Orally Active 1 tablet Once a day Magnesium Oxide [facility] 29706301991 400 MG Orally Active 1 tablet as Twice a day needed NovoFine [facility] 32810315980 32G X 6 MM SB Active as directed Twice a day Levothyroxine [facility] 40892839879 125 MCG Orally Active 1 tablet on Sodium Once a day an empty stomach in the morning True Metrix [facility] 84944860966 - Active USE TWICE Blood Glucose DAILY Test [place] [facility] 42276506748 5-325 MG Orally Active 1 tablet as every 6 hrs needed BusPIRone HCl [facility] 23536137650 5 MG Orally BID Active 1 tablet NovoLog Mix [facility] 19201386798 (70-30) 100 Active INJECT 70 70/30 Flexpen UNIT/ML UNITS UNDER Subcutaneous THE SKIN Twice a day EVERY MORNING WITH BREAKFAST AND 40 UNITS EVERY EVENING WITH DINNER Metoprolol [facility] 41964400793 50 MG Active 1 TAB(S) Succinate ER TWICE DAILY Levothyroxine [facility] 32834278340 125 MCG Orally Active 1 tablet on Sodium Once a day an empty stomach in the morning Promethazine HCl [facility] 48504098747 25 MG Orally Active 1 tablet as every 12 hrs needed Acyclovir [facility] 98800823156 200 MG Orally Active 1 capsule Three times a day Furosemide [facility] 05508382665 20 MG Orally Active 1 tablet Once a day Metoprolol [facility] 52938881714 50 MG Orally Active 1 tablet Succinate ER Once a day Meclizine HCl [facility] 10802390578 25 MG Orally Active 1 tablet as Once a day needed Results No Known Results Summary Purpose eClinicalWorks Submission
--- OUTSIDE RECORDS SUMMARY | 2018-08-23 20:32 | XMS REPORT ---
[...] End Status Dosage System Date Date Nystatin [facility] 32899785067 825149 UNIT/GM September 05October Active 1 application Externally Twice 2017, to a day 2018 area Results No Known Results Summary Purpose eClinicalWorks Submission
--- OUTSIDE RECORDS SUMMARY | 2018-08-23 20:32 | XMS REPORT ---
[...] Start Date End Date Status Dosage Cozaar [facility] 14247210677 100 MG Orally Active 1 tablet Once a day Results No Known Results Summary Purpose eClinicalWorks Submission
--- OUTSIDE RECORDS SUMMARY | 2018-08-23 20:32 | XMS REPORT ---
[...] Start End Status Dosage System Date Date [facility] 84558304421 81 MG Orally Active 1 tablet Once a day Promethazine HCl ND 13353948380 25 MG Orally Active 1 tablet as every 12 hrs needed [place] [facility] 24660157696 5-325 MG Orally Active 1 tablet as every 6 hrs needed Acyclovir ND 87289788741 200 MG Orally Active 1 capsule Three times a day True Metrix [facility] 98425810115 - Active USE TWICE Blood Glucose DAILY Test NovoFine [facility] 01375627334 32G X 6 MM SB Active as directed Twice a day Metoprolol [facility] 78408684578 50 MG Orally Active 1 tablet Succinate ER Once a day Omeprazole [facility] 77507197599 40 MG Orally Active 1 capsule Once a day NovoLog Mix [facility] 11170519154 (70-30) 100 Active INJECT 70 70/30 Flexpen UNIT/ML UNITS UNDER Subcutaneous THE SKIN Twice a day EVERY MORNING WITH BREAKFAST AND 40 UNITS EVERY EVENING WITH DINNER Levothyroxine [facility] 90365822922 125 MCG Orally Active 1 tablet on Sodium Once a day an empty stomach in the morning Magnesium Oxide [facility] 70836749564 400 MG Orally Active 1 tablet as Twice a day needed Levothyroxine [facility] 26730701917 125 MCG Orally Active 1 tablet on Sodium Once a day an empty stomach in the morning Cozaar [facility] 73019787076 100 MG Orally Active 1 tablet Once a day Pravastatin [facility] 98561359142 40 MG Orally Active 1 tablet Sodium Once a day Meclizine HCl [facility] 33388359146 25 MG Orally Active 1 tablet as Once a day needed Lidocaine HCl [facility] 97272125261 2 % Dec 07, Active 15 ml to Mouth/Throat 2017 affected every 3 hrs as area as needed (Swish needed around in mouth and spit out). MAX 8 doses/day Amlodipine [facility] 89474940257 10 MG Orally Active 1 tablet Besylate Once a day BusPIRone HCl [facility] 70439839989 5 MG Orally BID Active 1 tablet Chlorhexidine [facility] 22260294595 0.12 % Dec 07, Dec 17, Active 10-15 mL Gluconate Mouth/Throat 2017 2017 (Swish/Spit Every 12 hours ) Metoprolol [facility] 03145864784 50 MG Active 1 TAB(S) Succinate ER TWICE DAILY Furosemide ND 67284513712 20 MG Orally Active 1 tablet Once a day Results No Known Results Summary Purpose eClinicalWorks Submission
--- OUTSIDE RECORDS SUMMARY | 2018-08-23 20:32 | XMS REPORT ---
[...] End Status Dosage System Date Date Levothyroxine [facility] 16381431799 125 MCG Orally Active 1 tablet Sodium Once a day on an empty stomach in the morning Results No Known Results Summary Purpose eClinicalWorks Submission
--- OUTSIDE RECORDS SUMMARY | 2018-08-23 20:32 | XMS REPORT ---
:1940 Author Organization eClinicalWorks Care Team Providers Name Role Phone Gisell Barjaash Provider Role Unavailable Allergies, Adverse Reactions, Alerts [...] Start End Status Dosage System Date [facility] 81726788812 81 MG Orally Active 1 tablet Once a day [place] [facility] 32565013005 5-325 MG Orally Active 1 tablet as every 6 hrs needed Omeprazole [facility] 98786756457 40 MG Orally Active 1 capsule Once a day Metoprolol [facility] 54517994185 50 MG Active 1 TAB(S) Succinate ER TWICE DAILY Levothyroxine [facility] 19920962024 125 MCG Orally Active 1 tablet on Sodium Once a day an empty stomach in the morning BusPIRone HCl [facility] 55107703406 5 MG Orally BID Active 1 tablet Metoprolol ND 53199152754 50 MG Orally Active 1 tablet Succinate ER Once a day Acyclovir ND 06292364320 200 MG Orally Active 1 capsule Three times a day NovoFine [facility] 05404746715 32G X 6 MM SB Active as directed Twice a day Furosemide ND 77094559188 20 MG Orally Active 1 tablet Once a day Lidocaine HCl [facility] 22491935242 2 % Dec 07, Active 15 ml to Mouth/Throat 2017 affected every 3 hrs as area as needed (Swish needed around in mouth and spit out). MAX 8 doses/day Magnesium Oxide ND 21605593807 400 MG Orally Active 1 tablet as Twice a day needed NovoLog Mix [facility] 16590551440 (70-30) 100 Active INJECT 70 70/30 Flexpen UNIT/ML UNITS UNDER Subcutaneous THE SKIN Twice a day EVERY MORNING WITH BREAKFAST AND 40 UNITS EVERY EVENING WITH DINNER Levothyroxine ND 94981429144 125 MCG Orally Active 1 tablet on Sodium Once a day an empty stomach in the morning Meclizine HCl ND 72502389088 25 MG Orally Active 1 tablet as Once a day needed Promethazine HCl ND 66817459815 25 MG Orally Active 1 tablet as every 12 hrs needed Pravastatin [facility] 22820405545 40 MG Orally Active 1 tablet Sodium Once a day Levaquin [facility] 13500634326 250 MG Orally Dec 27, Dec 30, Active 1 tablet Once a day 2017 2017 Amlodipine [facility] 79301552240 10 MG Orally Active 1 tablet Besylate Once a day True Metrix [facility] 49416229263 - Active USE TWICE Blood Glucose DAILY Test Cozaar [facility] 81626084565 100 MG Orally Active 1 tablet Once a day Results Name Result Date Reference Range Unit Abnormality Flag Urine Dip Stick ----Appearance Dark yellow/clear 20171227 ----SP. Gr 1.015 20171227 ----pH 7.0 20171227 ----Ketone Negative [id number] ----Glucose Negative 20171227 ----Blood Negative 20171227 ----Protein Negative 20171227 ----Nitrite Negative 20171227 ----Leukocytes 1+ 20171227 Summary Purpose eClinicalWorks Submission
--- OUTSIDE RECORDS SUMMARY | 2018-08-23 20:33 | XMS REPORT ---
[...] End Status Dosage System Date Date Levothyroxine [facility] 28318917594 125 MCG Orally Active 1 tablet on Sodium Once a day an empty stomach in the morning NovoLog Mix [facility] 14223502772 (70-30) 100 Active INJECT 70 70/30 Flexpen UNIT/ML UNITS UNDER Subcutaneous THE SKIN Twice a day EVERY MORNING WITH BREAKFAST AND 40 UNITS EVERY EVENING WITH DINNER Furosemide [facility] 85156823624 20 MG Orally Active 1 tablet Once a day Metoprolol [facility] 20308755077 50 MG Orally Active 1 tablet Succinate ER Once a day NovoFine [facility] 82897904350 32G X 6 MM SB Active as directed Twice a day Ferrous Sulfate [facility] [address]-69 325 MG Orally Active as directed OneTouch Ultra [facility] 52486413873 - Active TEST THREE Test TIMES DAILY NovoFine [facility] 17403887628 32G X 6 MM SB Active as directed Twice a day Magnesium Oxide [facility] 02284635836 400 MG Orally Active 1 tablet as Three times a needed day Promethazine HCl [facility] 45678983479 25 MG Orally Active 1 tablet as every 12 hrs needed Metoprolol [facility] 98633697937 50 Active TAKE 1 Succinate ER TABLET BY MOUTH EVERY DAY Losartan [facility] 11058796345 100-25 MG Active TAKE 1 Potassium-HCTZ TABLET BY MOUTH EVERY DAY Acyclovir [facility] 00701663984 200 MG Orally Active 1 capsule Three times a day Levothyroxine [facility] 46519854937 125 MCG Orally Active 1 tablet on Sodium Once a day an empty stomach in the morning Pravastatin [facility] 61240340709 40 MG Orally Active 1 tablet Sodium Once a day -81 [facility] 91932680606 81 MG Orally Active 1 tablet Once a day True Metrix [facility] 75136646938 - In Vitro Active as directed Blood Glucose twice daily Test Amlodipine [facility] 98398016075 10 MG Orally Active 1 tablet Besylate Once a day Cozaar [facility] 80701299438 100 MG Orally Active 1 tablet Once a day BusPIRone HCl [facility] 32549380324 5 MG Orally Inactive 1 tablet BID Meclizine HCl [facility] 46608030436 25 MG Orally Active 1 tablet as Once a day needed Ferrous Sulfate [facility] 98386272512 325 (65 Fe) MG May 15, Active 1 tablet Orally BID 2018 Lidocaine HCl ND 58637412889 2 % Dec 07, Active 15 ml to Mouth/Throat 2017 affected every 3 hrs as area as needed (Swish needed around in mouth and spit out). MAX 8 doses/day [place] [facility] 46085756387 5-325 MG Active 1 tablet as Orally every 6 needed hrs Omeprazole ND 88978435016 40 MG Orally Active 1 capsule Once a day Cozaar [facility] 11502839007 100 Orally Active 1 tablet Once a day Results No Known Results Summary Purpose eClinicalWorks Submission
--- OUTSIDE RECORDS SUMMARY | 2018-08-23 20:33 | XMS REPORT ---
[...] Medications Results No Known Results Summary Purpose [employer] Submission
--- OUTSIDE RECORDS SUMMARY | 2018-08-23 20:33 | XMS REPORT ---
[...] Medications Results No Known Results Summary Purpose eClinicalGateMe Submission
--- OUTSIDE RECORDS SUMMARY | 2018-08-23 20:33 | XMS REPORT ---
[...] Medications Results No Known Results Summary Purpose [employer] Submission
--- OUTSIDE RECORDS SUMMARY | 2018-08-23 20:33 | XMS REPORT ---
[...] Medications Results No Known Results Summary Purpose [employer] Submission
--- OUTSIDE RECORDS SUMMARY | 2018-08-23 20:33 | XMS REPORT ---
[...] End Status Dosage System Date Date Acyclovir [facility] 84957727982 200 MG Orally Active 1 capsule Three times a day Omeprazole [facility] 55855808295 40 MG Orally Active 1 capsule Once a day Promethazine HCl NDC 57157650517 25 MG Orally Active 1 tablet as every 12 hrs needed Meclizine HCl [facility] 12825081681 25 MG Orally Active 1 tablet as Once a day needed BusPIRone HCl [facility] 30772798899 5 MG Orally BID Active 1 tablet Cozaar [facility] 08649048571 100 MG Orally Active 1 tablet Once a day Pravastatin [facility] 59565654102 40 MG Orally Active 1 tablet Sodium Once a day True Metrix [facility] 24422689492 - Active USE TWICE Blood Glucose DAILY Test Metoprolol [facility] 60051497891 50 MG Orally Active 1 tablet Succinate ER Once a day NovoLog Mix [facility] 71473765525 (70-30) 100 Active INJECT 70 70/30 Flexpen UNIT/ML UNITS UNDER Subcutaneous THE SKIN Twice a day EVERY MORNING WITH BREAKFAST AND 40 UNITS EVERY EVENING WITH DINNER Lidocaine HCl [facility] 62675820086 2 % Dec 07, Active 15 ml to Mouth/Throat 2018 affected every 3 hrs as area as needed (Swish needed around in mouth and spit out). MAX 8 doses/day Levothyroxine [facility] 51512717914 125 MCG Orally Active 1 tablet on Sodium Once a day an empty stomach in the morning Amitiza [facility] 24245450356 8 MCG Orally Feb 12, Mar 14, Active 1 capsule Twice a day 2017 2017 with food Cozaar [facility] 22416057197 100 Orally Once Active 1 tablet a day Metoprolol [facility] 68449420641 50 MG Active 1 TAB(S) Succinate ER TWICE DAILY [place] [facility] 99956656829 5-325 MG Orally Active 1 tablet as every 6 hrs needed Metoprolol [facility] 41722890031 50 Active 1 TAB(S) Succinate ER TWICE DAILY Metoprolol [facility] 65543384289 50 MG Active 1 TAB(S) Succinate ER TWICE DAILY - [facility] 21263313577 81 MG Orally Active 1 tablet Once a day Amlodipine [facility] 11350778251 10 MG Orally Active 1 tablet Besylate Once a day Levothyroxine [facility] 84581247561 125 MCG Orally Active 1 tablet on Sodium Once a day an empty stomach in the morning Magnesium Oxide [facility] 46907893281 400 MG Orally Active 1 tablet as Twice a day needed Furosemide [facility] 80935685258 20 MG Orally Active 1 tablet Once a day Metoprolol [facility] 64509597990 50 MG Orally Active 1 tablet Succinate ER Once a day NovoFine [facility] 67308324982 32G X 6 MM SB Active as directed Twice a day Results Name Result Date Reference Range Unit Abnormality Flag Urine Dip Stick ----Appearance Yellow,slight cloudy 20180212 ----SP. Gr 1.020 20180212 ----pH 6.0 20180212 ----Ketone Negative 20180212 ----Glucose Negative 20180212 ----Blood Trace 20180212 ----Protein Negative 20180212 ----Nitrite Negative 20180212 ----Leukocytes Negative [id number] Summary Purpose eClinicalWorks Submission
--- OUTSIDE RECORDS SUMMARY | 2018-08-23 20:33 | XMS REPORT ---
[...] Start End Date Status Dosage Date Acyclovir [facility] 51725782735 200 MG Orally Active 1 capsule Three times a day Results No Known Results Summary Purpose eClinicalWorks Submission
--- OUTSIDE RECORDS SUMMARY | 2018-08-23 20:33 | XMS REPORT ---
[...] Status Dosage System Date Date True Metrix [facility] 42284575821 - In Vitro twice Active as directed Blood Glucose daily Test Results No Known Results Summary Purpose eClinicalWorks Submission
--- OUTSIDE RECORDS SUMMARY | 2018-08-23 20:34 | XMS REPORT ---
[...] Status Dosage System Date Date NovoLog Mix [facility] [address]-18 Active not 70/30 Flexpen defined Perphenazine [facility] [address]-42 Active not defined Promethazine HCl [facility] [address]-28 Active not defined Pravastatin [facility] [address]-16 Active not Sodium defined Hydrocodone-Acet [facility] [address]-45 Active not aminophen defined Metoprolol [facility] [address]-63 Active not Succinate ER defined Ferrous Sulfate [facility] [address]-00 Active not defined Nortriptyline [facility] [address]-04 Active not HCl defined Magnesium [facility] 0 Active not defined Omeprazole [facility] [address]-69 Active not defined Folic Acid [facility] 77225496561 1 MG Orally Active 1 tablet Once a day Levothyroxine [facility] [address]-95 Active not Sodium defined Losartan [facility] [address]-05 Active not Potassium-HCTZ defined Meclizine HCl [facility] 64447677402 25 MG Orally Active 1 tablet Once a day as needed Aspirin 81 [facility] [address] Active not defined Results No Known Results Summary Purpose eClinicalWorks Submission
--- OUTSIDE RECORDS SUMMARY | 2018-08-23 20:34 | XMS REPORT ---
[...] Date Date Promethazine HCl [facility] 47607617334 25 MG Orally May 23, Active 1 tablet every 12 hrs 2018 as needed for nausea Results No Known Results Summary Purpose eClinicalWorks Submission
--- OUTSIDE RECORDS SUMMARY | 2018-08-23 20:34 | XMS REPORT ---
:1940 Author Organization eClinicalWorks Care Team Providers Name Role Phone Mingo Norht Provider Role Unavailable Allergies, Adverse Reactions, Alerts [...]
--- OUTSIDE RECORDS SUMMARY | 2018-08-23 20:34 | XMS REPORT ---
[...] Status Dosage System Date Date NovoLog Mix [facility] 94294526694 (70-30) 100 Active INJECT 70 70/30 Flexpen UNIT/ML UNITS UNDER Subcutaneous THE SKIN Twice a day EVERY MORNING WITH BREAKFAST AND 40 UNITS EVERY EVENING WITH DINNER Results No Known Results Summary Purpose eClinicalWorks Submission
--- OUTSIDE RECORDS SUMMARY | 2018-08-23 20:34 | XMS REPORT ---
[...] Medications Results No Known Results Summary Purpose [employer] Submission
--- OUTSIDE RECORDS SUMMARY | 2018-08-23 20:34 | XMS REPORT ---
[...] End Status Dosage System Date Date Omeprazole [facility] [address]-35 Active not defined Aspirin 81 [facility] [address] Active not defined Losartan [facility] [address]-96 Active not defined Potassium-HCTZ NovoLog Mix [facility] [address]-10 Active not defined 70/30 Flexpen Cozaar [facility] 30872625013 100 MG Orally Active 1 tablet Once a day NovoLog Mix [facility] 40067818149 (70-30) 100 Active INJECT 70 70/30 Flexpen UNIT/ML UNITS UNDER Subcutaneous THE SKIN Twice a day EVERY MORNING WITH BREAKFAST AND 40 UNITS EVERY EVENING WITH DINNER Levothyroxine [facility] 92492815554 125 MCG Orally Active 1 tablet on Sodium Once a day an empty stomach in the morning Ferrous Sulfate [facility] [address]-87 Active not defined Hydrocodone-Acet [facility] [address]-52 Active not defined aminophen Meclizine HCl [facility] 90655620101 25 MG Orally Active 1 tablet as Once a day needed Pravastatin [facility] 88263663751 40 MG Orally Active 1 tablet Sodium Once a day Metoprolol [facility] 85238790343 50 MG Orally Active 1 tablet Succinate ER Once a day NovoFine [facility] 22393710406 32G X 6 MM SB Active as directed Twice a day Ferrous Sulfate [facility] 72443445918 325 (65 Fe) MG Active 1 tablet Orally BID Perphenazine [facility] [address]-95 Active not defined Nortriptyline [facility] [address]-24 Active not defined HCl Magnesium Oxide [facility] 42970148986 400 MG Orally Active 1 tablet as Three times a needed day Levothyroxine [facility] [address]-23 Active not defined Sodium Metoprolol [facility] [address]-36 Active not defined Succinate ER Pravastatin [facility] [address]-38 Active not defined Sodium Promethazine HCl [facility] [address]-93 Active not defined Furosemide [facility] 41634105210 20 MG Orally Active 1 tablet Once a day Folic Acid [facility] 66187570745 1 MG Orally Active 1 tablet Once a day Magnesium NDC 0 Active not defined Amlodipine [facility] 18502409215 10 MG Orally Active 1 tablet Besylate Once a day Results No Known Results Summary Purpose eClinicalWorks Submission
--- OUTSIDE RECORDS SUMMARY | 2018-08-23 20:34 | XMS REPORT ---
[...] Amlodipine [facility] 73404804723 10 MG Orally Active 1 tablet Besylate Once a day Cozaar [facility] 15434090251 100 MG Orally Active 1 tablet Once a day Magnesium [facility] 0 Active not defined Ferrous Sulfate [facility] [address]-61 Active not defined Losartan [facility] [address]-23 Active not defined Potassium-HCTZ NovoLog Mix [facility] [address]-39 Active not defined 70/30 Flexpen Perphenazine [facility] [address]-49 Active not defined Furosemide [facility] 09627484351 20 MG Orally Active 1 tablet Once a day Omeprazole [facility] [address]-83 Active not defined NovoFine [facility] 20435169108 32G X 6 MM SB Active as directed Twice a day Hydrocodone-Acet [facility] [address]-97 Active not defined aminophen Levothyroxine [facility] [address]-13 Active not defined Sodium Metoprolol [facility] [address]-42 Active not defined Succinate ER Aspirin 81 [facility] [address] Active not defined Folic Acid [facility] 54299311335 1 MG Orally Active 1 tablet Once a day Meclizine HCl [facility] 62246577857 25 MG Orally Active 1 tablet as Once a day needed Nortriptyline [facility] [address]-61 Active not defined HCl Pravastatin [facility] [address]-84 Active not defined Sodium Promethazine HCl [facility] [address]-11 Active not defined Metoprolol [facility] 28333350505 50 MG Orally Active 1 tablet Succinate ER Once a day NovoLog Mix [facility] 30939788471 (70-30) 100 Active INJECT 70 70/30 Flexpen UNIT/ML UNITS UNDER Subcutaneous THE SKIN Twice a day EVERY MORNING WITH BREAKFAST AND 40 UNITS EVERY EVENING WITH DINNER Ferrous Sulfate [facility] 20699483254 325 (65 Fe) MG Active 1 tablet Orally BID Pravastatin [place] 67689412435 40 MG Orally Active 1 tablet Sodium Once a day Levothyroxine [facility] 71090752224 125 MCG Orally Active 1 tablet on Sodium Once a day an empty stomach in the morning Magnesium Oxide [facility] 43316108989 400 MG Orally Active 1 tablet as Three times a needed day Results No Known Results Summary Purpose eClinicalWorks Submission
--- OUTSIDE RECORDS SUMMARY | 2018-08-23 20:35 | XMS REPORT ---
[...] Status Dosage System Date Date Levothyroxine [facility] 18236311271 125 MCG Orally Active 1 tablet Sodium Once a day on an empty stomach in the morning Results No Known Results Summary Purpose eClinicalWorks Submission
--- OUTSIDE RECORDS SUMMARY | 2018-08-23 20:35 | XMS REPORT ---
[...] Active Problem Malaise and fatigue R53.81 Active Assessment Chronic kidney disease, stage 3 N18.3 Active Problem Displaced fracture of greater S42.252S Active tuberosity of left humerus, sequela Problem Depression with anxiety F41.8 Active Assessment Iron deficiency anemia due to D50.0 Active chronic blood loss Problem Slow transit constipation K59.01 Active Assessment Hypomagnesemia E83.42 Active Problem Cervical disc disorder at C4-C5 M50.121 Active level with radiculopathy Problem Encounter for gynecological Z01.419 Active examination without abnormal finding Problem Left ovarian cyst N83.202 Active Assessment Cirrhosis of liver K74.60 Active Problem Diabetic neuropathy E11.40 Active Problem Venous insufficiency I87.2 Active Assessment Hyperlipidemia, mixed E78.2 Active Problem Thrombocytopenia D69.6 Active Assessment Hypertension I10 Active Problem Elevated alkaline phosphatase R74.8 Active level Assessment Depression with anxiety F41.8 Active Problem Diabetes type 2, uncontrolled E11.65 Active Assessment Hypothyroidism E03.9 Active Problem Vitamin D deficiency E55.9 Active Problem Gastritis K29.70 Active Problem GERD (gastroesophageal reflux K21.9 Active disease) Medications Medication Code Code Instructions Start End Status Dosage System Date Date Levothyroxine [facility] [address]-05 Active not defined Sodium Hydrocodone-Acet [facility] [address]-99 Active not defined aminophen Pravastatin [facility] 74301088334 40 MG Orally Active 1 tablet Sodium Once a day Ferrous Sulfate [facility] 27243590564 325 (65 Fe) MG Active 1 tablet Orally BID Ferrous Sulfate [facility] [address]-36 Active not defined Folic Acid [facility] 71221100797 1 MG Orally Active 1 tablet Once a day Furosemide [facility] 12734930469 20 MG Orally Active 1 tablet Once a day Levothyroxine [facility] 05827858883 125 MCG Orally Active 1 tablet on Sodium Once a day an empty stomach in the morning NovoLog Mix [facility] 83509754961 (70-30) 100 Active INJECT 70 70/30 Flexpen UNIT/ML UNITS UNDER Subcutaneous THE SKIN Twice a day EVERY MORNING WITH BREAKFAST AND 40 UNITS EVERY EVENING WITH DINNER NovoLog Mix [facility] [address]-98 Active not defined 70/30 Flexpen Aspirin 81 [facility] [address] Active not defined Omeprazole [facility] 67912196635 Active not defined Pravastatin [facility] [address]-58 Active not defined Sodium Amlodipine [facility] 73877643461 10 MG Orally Active 1 tablet Besylate Once a day Pravachol [facility] 91185791451 40 Active 1 EACH ONCE A DAY (AT BEDTIME) Magnesium Oxide [facility] 63604284868 400 MG Orally Active 1 tablet as Three times a needed day Meclizine HCl [facility] 48161660683 25 MG Orally Active 1 tablet as Once a day needed NovoFine [facility] 63473581331 32G X 6 MM SB Active as directed Twice a day Metoprolol [facility] 41948809479 50 MG Orally Active 1 tablet Succinate ER Once a day Perphenazine [facility] [address]-90 Active not defined Metoprolol [facility] [address]-46 Active not defined Succinate ER Cozaar [facility] 86581466454 100 MG Orally Active 1 tablet Once a day Promethazine HCl [facility] [address]-08 Active not defined Losartan [facility] [address]-16 Active not defined Potassium-HCTZ Nortriptyline [facility] [address]-61 Active not defined HCl Magnesium [facility] 0 Active not defined Results No Known Results Summary Purpose eClinicalWorks Submission
[2018-08-23] MEDS ORDERED: NA CHLORIDE 0.9% 500 ML ONE (21:21)
[2018-08-23] MEDS ORDERED: FAMOTIDINE 20 MG/2 ML VIAL IV ONE (21:21)
[2018-08-23] MEDS ORDERED: ONDANSETRON 4 MG/2 ML VIAL ONE (21:21)
[2018-08-23 21:42] LABS: Absolute Lymphocytes (CBC) 1.3 K/uL (0.7-4.9); Absolute Monocytes 0.4 K/uL (0.1-1.3); Absolute Neutrophil 3.3 K/uL (1.8-8.0); Basophils % 0.6 % (0-1.3); Eosinophils % 1.2 % (0-4.4); Hematocrit 27.1 % (36.0-45.0); Lymphocytes % 25.4 % (15.3-44.8); MPV 9.4 fL (7.6-11.3); Monocytes % 8.3 % (3.3-12.3); RBC Red Blood Cell Count 3.02 M/uL (3.86-4.86)
[2018-08-23 21:46] LABS: Protime INR 1.03
[2018-08-23 22:02] LABS: ALT/SGPT 24 U/L (12-78); AST/SGOT 21 U/L (15-37); Albumin 3.5 g/dL (3.4-5.0); Alkaline Phosphatase 114 U/L (45-117); BUN Blood Urea Nitrogen 11 mg/dL (7-18); Bicarbonate 25 mmol/L (21-32); Bilirubin Direct 0.1 mg/dL (0-0.2); Bilirubin Total 0.4 mg/dL (0.2-1.0); Glucose Level 129 mg/dL (74-106); Magnesium 1.6 mg/dL (1.8-2.4); Potassium 3.8 mmol/L (3.5-5.1); Protein, Total 7.4 g/dL (6.4-8.2); Sodium Level 130 mmol/L (136-145); Troponin (Emerg Dept Use Only) < 0.02 ng/mL (0.0-0.045)
[2018-08-23 22:23] LABS: Urine Blood NEGATIVE (NEG); Urine Glucose NEGATIVE (NEG); Urine Protein NEGATIVE (NEG); Urine Specific Gravity 1.015 (1.005-1.030)
--- NOTE | 2018-08-23 23:45 | ER ---
Nurse's Notes [facility] Name: Shayy Mcgovern Age: 77 yrs Sex: Female : 1940 Arrival Date: 08/23/2018 Time: 20:32 Bed 6 Private MD: Blake Barajas Diagnosis: Weakness-general Presentation: 08/23 20:51 Presenting complaint: Patient states: Complaint of no appetite yesterday, feeling weak lp1 and dizzy today; Family states similar symptoms with UTI; Denies any fever, N/V/D; States some burring with urination. Transition of care: patient was not received from another setting of care. Onset of symptoms was August 23, 2018. Risk Assessment: Do you want to hurt yourself or someone else? Patient reports no desire to harm self or others. Initial Sepsis Screen: Does the patient meet any 2 criteria? No. Patient's initial sepsis screen is negative. Does the patient have a suspected source of infection? No. Patient's initial sepsis screen is negative. Care prior to arrival: None. 20:51 Method Of Arrival: Wheelchair lp1 20:51 Acuity: CORINE 3 lp1 Historical: - Allergies: 20:57 Macrodantin; lp1 20:57 Macrobid; lp1 20:57 PENICILLINS; lp1 20:57 Ciprofloxacin; lp1 20:57 Iodinated Contrast Media - IV Dye; lp1 20:57 Sulfa (Sulfonamide Antibiotics); lp1 20:57 Gentamicin; lp1 20:57 Bactrim; lp1 20:57 nitrofuran macrocrystal (bulk); lp1 - Home Meds: 20:57 aspirin 81 mg Oral TbEC once daily [Active]; losartan-hydrochlorothiazide 100-25 mg lp1 Oral tab 1 tab once daily [Active]; ferrous sulfate 325 mg (65 mg iron) Oral tab every 8 hours [Active]; pravastatin 40 mg Oral tab 1 tab nightly [Active]; meclizine 25 mg Oral tab twice a day [Active]; promethazine 25 mg Oral tab 2 times per day [Active]; levothyroxine 125 mcg tab 1 tab once daily [Active]; metoprolol tartrate 50 mg Oral tab 1 tab once daily [Active]; omeprazole 40 mg Oral cpDR 1 cap once daily [Active]; gabapentin 300 mg oral cap [Active]; MagOx 400 mg Oral tab 1 cap three times a day [Active]; Novolin 70/30 [place] Sub-Q 70-30 unit/mL [Active]; - PMHx: 20:57 Anxiety; Depression; Diabetes - IDDM; gastritis; Hypertension; Hypothyroidism; lp1 - Immunization history:: Adult Immunizations up to date. - Social history:: Smoking status: Patient/guardian denies using tobacco. - Ebola Screening: : No symptoms or risks identified at this time. Screenin:36 Abuse screen: Denies threats or abuse. Nutritional screening: No deficits noted. ea Tuberculosis screening: No symptoms or risk factors identified. Fall Risk IV access (20 points). Assessment: 21:40 Derm: Skin is pink, warm \T\ dry. Musculoskeletal: Circulation, motion, and sensation ea intact. 21:42 General: Appears uncomfortable, Behavior is calm, cooperative, appropriate for age. ea 21:42 Pain: Denies pain. Neuro: Level of Consciousness is awake, alert, obeys commands, ea Oriented to person, place, time, situation. Cardiovascular: Heart tones S1 S2 present Patient's skin is warm and dry. Respiratory: Airway is patent Respiratory effort is even, unlabored, Respiratory pattern is regular, symmetrical. GI: Abdomen is non-distended, Bowel sounds present X 4 quads. : Reports burning with urination. 22:35 Reassessment: Patient and/or family updated on plan of care and expected duration. Pain ea level reassessed. Patient is alert, oriented x 3, equal unlabored respirations, skin warm/dry/pink. Pt PO challenged, tolerated well. 23:57 Reassessment: Patient and/or family updated on plan of care and expected duration. Pain ea level reassessed. Patient is alert, oriented x 3, equal unlabored respirations, skin warm/dry/pink. Discharge instruction given to patient, verbalized the understanding of instruction. No s/s of pain or discomfort noted at this time. pt currently awaiting on daughter to pick her up. 08/24 00:06 Reassessment: Patient and/or family updated on plan of care and expected duration. Pain ea level reassessed. Patient is alert, oriented x 3, equal unlabored respirations, skin warm/dry/pink. Pt discharged home with daughter. Pt left ED ambulating, tolerating well. Vital Signs: 08/23 20:53 BP 168 / 72; Pulse 75; Resp 18; Temp 98.4(O); Pulse Ox 100% on R/A; Weight 92.53 kg; lp1 Height 5 ft. 3 in. (160.02 cm); Pain 0/10; 21:17 BP 151 / 76 Supine; Pulse 70; Resp 26; Pulse Ox 99% on R/A; ag4 21:17 BP 155 / 83 Sitting; Pulse 75; Resp 22 S; Pulse Ox 100% on R/A; ag4 21:17 BP 163 / 84 Standing; Pulse 75; Resp 16; Pulse Ox 99% on R/A; ag4 22:00 BP 135 / 76; Pulse 72; Resp 20; Pulse Ox 98% ; ea 23:57 BP 137 / 76; Pulse 70; Resp 18; Temp 98; Pulse Ox 99% ; ea 20:53 Body Mass Index 36.14 (92.53 kg, 160.02 cm) lp1 ED Course: 20:32 Patient arrived in ED. am2 20:33 Blake Barajas DO is Private Physician. am2 20:53 Triage completed. lp1 20:54 Arm band placed on right wrist. lp1 20:55 EKG done, by ED staff. ag4 20:56 Jayy Gill PA is PHCP. cp 20:56 Ti Mesa MD is Attending Physician. cp 20:56 geographic information system surveyor on. Pulse ox on. NIBP on. ag4 21:00 Patient has correct armband on for positive identification. Bed in low position. Call ea light in reach. Side rails up X2. 21:05 Aslhie Zhou, CHRIS is Primary Nurse. ea 21:13 Haider Pruitt MD is Attending Physician. cp 21:21 XRAY Chest (1 view) In Process Unspecified. EDMS 21:30 Inserted saline lock: 20 gauge in right antecubital area, using aseptic technique. ea Blood collected. 23:44 Blake Barajas DO is Referral Physician. cp 23:58 No provider procedures requiring assistance completed. IV discontinued, intact, ea bleeding controlled, No redness/swelling at site. Pressure dressing applied. Administered Medications: 20:38 Drug: Zofran 4 mg Route: IVP; Site: left antecubital; ea 22:19 Follow up: Response: No adverse reaction ea 20:38 Drug: NS 0.9% 500 ml Route: IV; Rate: bolus; Site: left antecubital; ea 22:24 Follow up: Response: No adverse reaction; IV Status: Completed infusion; IV Intake: ea 500ml 20:40 Drug: Pepcid 20 mg Route: IVP; Site: left antecubital; ea 22:19 Follow up: Response: No adverse reaction ea Intake: 22:24 IV: 500ml; Total: 500ml. ea Outcome: 23:44 Discharge ordered by . siomara 23:58 Condition: improved ea 23:58 Discharge instructions given to patient, Instructed on discharge instructions, follow up and referral plans. Demonstrated understanding of instructions, follow-up care. 08/24 00:06 Discharged to home ambulatory, with family. ea 00:07 Patient left the ED. ea Signatures: Dispatcher [employer] EDMS Sapphire Gooden RN RN lp1 Jayy Gill PA PA cp Moreno, Amanda am2 Ashlie Zhou RN RN ea Guzman, Adan ag4 Corrections: (The following items were deleted from the chart) 08/23 21:41 20:38 NS 0.9% 500 ml IV at bolus in right antecubital ea ea 22:22 21:42 General: Appears ea ea 22: 22:21 Pain: Denies pain. ea ea 22:23 22:21 Neuro: Level of Consciousness is awake, alert, obeys commands, Oriented to ea person, place, time, situation, ea 22: 22:21 Cardiovascular: Heart tones S1 S2 present Patient's skin is warm and dry. ea ea 22:23 22:21 Respiratory: Airway is patent Respiratory effort is even, unlabored, Respiratory ea pattern is regular, symmetrical, ea 22:23 22:21 GI: Abdomen is non-distended, Bowel sounds present X 4 quads. ea ea 22:23 22:21 : Reports burning with urination, ea ea
--- NOTE | 2018-08-23 23:45 | EDPHYS ---
Physician Documentation [facility] Name: Shayy Mcgovern Age: 77 yrs Sex: Female : 1940 Arrival Date: 08/23/2018 Time: 20:32 Bed 6 Private MD: Blake Barajas ED Physician Haider Pruitt HPI: 08/23 21:05 This 77 yrs old Female presents to ER via Wheelchair with complaints of cp Dizziness, Decreased Appetite, General Weakness. 21:05 The patient presents with lightheadedness. Onset: The symptoms/episode began/occurred cp today. 21:05 Context: just prior to the episode the patient experienced no apparent symptoms. cp Associated signs and symptoms: Pertinent positives: nausea, decreased appetite, Pertinent negatives: abdominal pain, chest pain, focal weakness, headache, shortness of breath, vomiting. Patient's baseline: Neuro: alert and fully oriented, Motor: no deficits, Ambulation: walks without assistance, Speech: normal. Daughter reports patient had similar symptoms when diagnosed with UTI. Historical: - Allergies: 20:57 Macrodantin; lp1 20:57 Macrobid; lp1 20:57 PENICILLINS; lp1 20:57 Ciprofloxacin; lp1 20:57 Iodinated Contrast Media - IV Dye; lp1 20:57 Sulfa (Sulfonamide Antibiotics); lp1 20:57 Gentamicin; lp1 20:57 Bactrim; lp1 20:57 nitrofuran macrocrystal (bulk); lp1 - Home Meds: 20:57 aspirin 81 mg Oral TbEC once daily [Active]; losartan-hydrochlorothiazide 100-25 mg lp1 Oral tab 1 tab once daily [Active]; ferrous sulfate 325 mg (65 mg iron) Oral tab every 8 hours [Active]; pravastatin 40 mg Oral tab 1 tab nightly [Active]; meclizine 25 mg Oral tab twice a day [Active]; promethazine 25 mg Oral tab 2 times per day [Active]; levothyroxine 125 mcg tab 1 tab once daily [Active]; metoprolol tartrate 50 mg Oral tab 1 tab once daily [Active]; omeprazole 40 mg Oral cpDR 1 cap once daily [Active]; gabapentin 300 mg oral cap [Active]; MagOx 400 mg Oral tab 1 cap three times a day [Active]; Novolin 70/30 [place] Sub-Q 70-30 unit/mL [Active]; - PMHx: 20:57 Anxiety; Depression; Diabetes - IDDM; gastritis; Hypertension; Hypothyroidism; lp1 - Immunization history:: Adult Immunizations up to date. - Social history:: Smoking status: Patient/guardian denies using tobacco. - Ebola Screening: : No symptoms or risks identified at this time. ROS: 21:10 Constitutional: Positive for poor PO intake, Negative for body aches, chills, fever. cp 21:10 Eyes: Negative for injury, pain, redness, and discharge. cp 21:10 ENT: Negative for drainage from ear(s), ear pain, sore throat, difficulty swallowing, difficulty handling secretions. 21:10 Cardiovascular: Negative for chest pain, edema. 21:10 Respiratory: Negative for cough, shortness of breath, wheezing. 21:10 Abdomen/GI: Positive for nausea, Negative for abdominal pain, vomiting, diarrhea, constipation, black/tarry stool, rectal bleeding. 21:10 : Positive for burning with urination. 21:10 Skin: Negative for cellulitis, rash. 21:10 Neuro: Positive for dizziness, general weakness, Negative for altered mental status, gait disturbance, headache, speech changes. 21:10 All other systems are negative. Exam: 21:30 Constitutional: The patient appears in no acute distress, alert, awake, cp non-diaphoretic, non-toxic, well developed, well nourished, obese. 21:30 Head/Face: Normocephalic, atraumatic. cp 21:30 Eyes: Periorbital structures: appear normal, Pupils: equal, round, and reactive to light and accomodation, Extraocular movements: intact throughout, Conjunctiva: normal, no exudate, no injection, Sclera: no appreciated abnormality, Lids and lashes: appear normal, bilaterally. 21:30 ENT: External ear(s): are unremarkable, Ear canal(s): are normal, clear, TM's: bulging, is not appreciated, bilaterally, dullness, bilaterally, erythema, is not appreciated, bilaterally, Nose: is normal, Mouth: Lips: dry, Oral mucosa: dry, Posterior pharynx: Airway: no evidence of obstruction, patent, Tonsils: are normal in appearance, erythema, is not appreciated, exudate, is not appreciated, Dental exam: dental caries, that is moderate, diffusely. 21:30 Neck: ROM/movement: is normal, is supple, without pain, no range of motions limitations, no meningismus, no nuchal rigidity. 21:30 Chest/axilla: Inspection: normal, Palpation: is normal, no crepitus, no tenderness. 21:30 Cardiovascular: Rate: normal, Rhythm: regular, Edema: is not appreciated, JVD: is not appreciated. 21:30 Respiratory: the patient does not display signs of respiratory distress, Respirations: normal, no use of accessory muscles, no retractions, no splinting, no tachypnea, Breath sounds: are clear throughout, no decreased breath sounds, no stridor, no wheezing. 21:30 Abdomen/GI: Inspection: abdomen appears normal, Bowel sounds: active, all quadrants, Palpation: abdomen is soft and non-tender, in all quadrants. 21:30 Back: pain, is absent, ROM is normal. 21:30 Musculoskeletal/extremity: Exam is negative for decreased range of motion, edema, injury. 21:30 Skin: cellulitis, is not appreciated, no rash present. 21:30 Neuro: Orientation: to person, place \T\ time. Mentation: is normal, Cerebellar function: is grossly normal, Motor: moves all fours, strength is normal, Sensation: no obvious gross deficits. Vital Signs: 20:53 BP 168 / 72; Pulse 75; Resp 18; Temp 98.4(O); Pulse Ox 100% on R/A; Weight 92.53 kg; lp1 Height 5 ft. 3 in. (160.02 cm); Pain 0/10; 21:17 BP 151 / 76 Supine; Pulse 70; Resp 26; Pulse Ox 99% on R/A; ag4 21:17 BP 155 / 83 Sitting; Pulse 75; Resp 22 S; Pulse Ox 100% on R/A; ag4 21:17 BP 163 / 84 Standing; Pulse 75; Resp 16; Pulse Ox 99% on R/A; ag4 22:00 BP 135 / 76; Pulse 72; Resp 20; Pulse Ox 98% ; ea 23:57 BP 137 / 76; Pulse 70; Resp 18; Temp 98; Pulse Ox 99% ; ea 20:53 Body Mass Index 36.14 (92.53 kg, 160.02 cm) lp1 MDM: 20:56 Patient medically screened. cp 21:30 Differential diagnosis: cardiac arrhythmia, CVA, generalized weakness, GI bleed, cp hypovolemia, idiopathic dizziness, sepsis, TIA. 23:42 Data reviewed: vital signs, nurses notes, lab test result(s), EKG, radiologic studies, cp plain films, chest xray negative for infiltrates. 23:42 Test interpretation: by ED physician or midlevel provider: ECG, plain radiologic cp studies. Counseling: I had a detailed discussion with the patient and/or guardian regarding: the historical points, exam findings, and any diagnostic results supporting the discharge/admit diagnosis, the presence of at least one elevated blood pressure reading (>120/80) during this emergency department visit, lab results, radiology results, the need for outpatient follow up, an layout mechanic, to return to the emergency department if symptoms worsen or persist or if there are any questions or concerns that arise at home. Response to treatment: the patient's symptoms have markedly improved after treatment, and as a result, I will discharge patient. 08/23 21:05 Order name: Basic Metabolic Panel 08/23 21:05 Order name: CBC with Diff; Complete Time: 22:08 08/23 22:08 Interpretation: Normal except: RBC 3.02; HGB 9.0; HCT 27.1; PLT 102; RDW 15.8. 08/23 21:05 Order name: LFT's 08/23 21:05 Order name: Magnesium; Complete Time: 22:08 08/23 22:12 Interpretation: Abnormal: MG 1.6. 08/23 21:05 Order name: PT-INR; Complete Time: 22:08 08/23 21:05 Order name: Troponin (emerg Dept Use Only); Complete Time: 22:08 08/23 22:13 Interpretation: Reviewed. 08/23 21:05 Order name: XRAY Chest (1 view) 08/23 21:05 Order name: Basic Metabolic Panel; Complete Time: 22:08 EDMS 08/23 22:12 Interpretation: Normal except: NA 130; CL 96; GLUC 129; GFR 64. 08/23 21:05 Order name: Liver (Hepatic) Function; Complete Time: 22:08 EDMS 08/23 22:13 Interpretation: Normal except: GLOB 3.9; A/G 0.9. cp 08/23 22:06 Order name: Urine Dipstick--Ancillary (enter results); Complete Time: 23:22 cm6 08/23 23:23 Interpretation: Reviewed. cp 08/23 20:57 Order name: Orthostatics; Complete Time: 21:42 cp 08/23 21:05 Order name: Cardiac monitoring; Complete Time: 21:06 cp 08/23 21:05 Order name: EKG - Nurse/Tech; Complete Time: 21:05 cp 08/23 21:05 Order name: IV Saline Lock; Complete Time: 21:41 cp 08/23 21:05 Order name: Labs collected and sent; Complete Time: 21:41 cp 08/23 21:05 Order name: O2 Per Protocol; Complete Time: 21:41 cp 08/23 21:05 Order name: O2 Sat Monitoring; Complete Time: 21:41 cp 08/23 22:16 Order name: PO challenge; Complete Time: 22:34 cp Administered Medications: 20:38 Drug: Zofran 4 mg Route: IVP; Site: left antecubital; ea 22:19 Follow up: Response: No adverse reaction ea 20:38 Drug: NS 0.9% 500 ml Route: IV; Rate: bolus; Site: left antecubital; ea 22:24 Follow up: Response: No adverse reaction; IV Status: Completed infusion; IV Intake: ea 500ml 20:40 Drug: Pepcid 20 mg Route: IVP; Site: left antecubital; ea 22:19 Follow up: Response: No adverse reaction ea Disposition: 08/23/18 23:44 Discharged to Home. Impression: Weakness - general. - Condition is Stable. - Discharge Instructions: Weakness. - Medication Reconciliation Form, Thank You Letter, Antibiotic Education, Prescription Opioid Use form. - Follow up: Blake Barajas DO; When: 1 - 2 days; Reason: Recheck today's complaints. - Problem is new. - Symptoms have improved. Addendum: 08/25/2018 15:12 Co-signature as Attending Physician, Haider Pruitt MD Available for consultation at p s1 all times . Signatures: Dispatcher [facility] EDS[place] RN RN lp1 Jayy Gill PA PA cp Antunez, Elena, RN RN ea Singer, Phillip, MD MD ps1 Corrections: (The following items were deleted from the chart) 08/24 00:07 08/23 23:44 08/23/2018 23:44 Discharged to Home. Impression: Weakness - general. ea Condition is Stable. Forms are Medication Reconciliation Form, Thank You Letter, Antibiotic Education, Prescription Opioid Use. Follow up: Blake Barajas; When: 1 - 2 days; Reason: Recheck today's complaints. Problem is new. Symptoms have improved. cp
[2018-08-24 01:07] VITALS: BP 137/76; TEMP 98; O2SAT 99
--- NOTE | 2018-08-24 07:44 | RAD REPORT ---
EXAM DESCRIPTION: [place] Single View08/23/2018 9:24 pm CLINICAL HISTORY: Chest pain COMPARISON: August 2018 FINDINGS: The lungs appear clear of acute infiltrate. The heart is normal size IMPRESSION: No acute abnormalities displayed
--- NOTE | 2018-08-24 10:58 | EKG ---
Test Date: 2018-08-23 Test Time: 20:47:37 [employer]: AG3 MEASUREMENT RESULTS: Intervals: Rate: 73 MN: 142 QRSD: 84 QT: 406 QTc: 447 [place]: P: 53 MN: 142 QRS: 60 T: 76 INTERPRETIVE STATEMENTS: Normal sinus rhythm T wave abnormality, consider anterior ischemia Abnormal ECG Compared to ECG 05/08/2018 13:48:17 T-wave abnormality now present ST (T wave) deviation no longer present Prolonged QT interval no longer present Possible ischemia still present Electronically Signed On 08-24-18 10:56:41 CDT by Jeffery Jacques
== END 2018-08-24 00:07 | disposition home or self-care (01) ==
LOC: ER 20:29
DX: R53.1 Weakness (principal); I10 Essential (primary) hypertension; E03.9 Hypothyroidism, unspecified; E11.9 Type 2 diabetes mellitus without complications; F41.9 Anxiety disorder, unspecified; F32.9 Major depressive disorder, single episode, unspecified; Z79.82 Long term (current) use of aspirin; Z79.4 Long term (current) use of insulin
CPT/HCPCS: 96361; 93005; 85025; 80048; 36415; 83735; 85610; 82962; 80076; 81003; 84484; 71045; 96375; 96374; 99284; J2405

== ENCOUNTER 2018-08-26 14:32 | Emergency (ER) | payer OTHER ==
--- OUTSIDE RECORDS SUMMARY | 2018-08-26 14:35 | XMS REPORT ---
[...] Start End Status Dosage System Date [facility] 44619725338 81 MG Orally Active 1 tablet Once a day [place] [facility] 65042533065 5-325 MG Orally Active 1 tablet as every 6 hrs needed Omeprazole [facility] 35227117353 40 MG Orally Active 1 capsule Once a day Metoprolol [facility] 44159755588 50 MG Active 1 TAB(S) Succinate ER TWICE DAILY Levothyroxine [facility] 64287147131 125 MCG Orally Active 1 tablet on Sodium Once a day an empty stomach in the morning BusPIRone HCl [facility] 48113519277 5 MG Orally BID Active 1 tablet Metoprolol ND 35863557346 50 MG Orally Active 1 tablet Succinate ER Once a day Acyclovir ND 68202297915 200 MG Orally Active 1 capsule Three times a day NovoFine [facility] 92952042925 32G X 6 MM SB Active as directed Twice a day Furosemide ND 43571298070 20 MG Orally Active 1 tablet Once a day Lidocaine HCl [facility] 82387147803 2 % Dec 07, Active 15 ml to Mouth/Throat 2017 affected every 3 hrs as area as needed (Swish needed around in mouth and spit out). MAX 8 doses/day Magnesium Oxide ND 97903363728 400 MG Orally Active 1 tablet as Twice a day needed NovoLog Mix [facility] 71751565719 (70-30) 100 Active INJECT 70 70/30 Flexpen UNIT/ML UNITS UNDER Subcutaneous THE SKIN Twice a day EVERY MORNING WITH BREAKFAST AND 40 UNITS EVERY EVENING WITH DINNER Levothyroxine ND 18383916012 125 MCG Orally Active 1 tablet on Sodium Once a day an empty stomach in the morning Meclizine HCl ND 75603793692 25 MG Orally Active 1 tablet as Once a day needed Promethazine HCl ND 12595509943 25 MG Orally Active 1 tablet as every 12 hrs needed Pravastatin [facility] 45952013749 40 MG Orally Active 1 tablet Sodium Once a day Levaquin [facility] 46165158461 250 MG Orally Dec 27, Dec 30, Active 1 tablet Once a day [address] [facility] 21106743451 10 MG Orally Active 1 tablet Besylate Once a day True Metrix [facility] 29369193047 - Active USE TWICE Blood Glucose DAILY Test Cozaar [facility] 68999749164 100 MG Orally Active 1 tablet Once a day Results Name Result Date Reference Range Unit Abnormality Flag Urine Dip Stick ----Appearance Dark yellow/clear 20171227 ----SP. Gr 1.015 20171227 ----pH 7.0 20171227 ----Ketone Negative [id number] ----Glucose Negative 20171227 ----Blood Negative 20171227 ----Protein Negative 20171227 ----Nitrite Negative 20171227 ----Leukocytes 1+ 20171227 Summary Purpose eClinicalWorks Submission
--- OUTSIDE RECORDS SUMMARY | 2018-08-26 14:35 | XMS REPORT ---
[...] End Status Dosage System Date Date Amlodipine [facility] 63600441117 10 MG Orally Active 1 tablet Besylate Once a day Ana [facility] 37023841485 100 MG Orally Active 1 tablet Once a day Pravastatin ND 56405674403 40 MG Orally Active 1 tablet Sodium Once a day Omeprazole [facility] 42322500351 40 MG Orally Active 1 capsule Once a day Aspir-81 [facility] 06090512014 81 MG Orally Active 1 tablet Once a day Magnesium Oxide [facility] 08152045395 400 MG Orally Active 1 tablet as Twice a day needed NovoFine [facility] 37604443829 32G X 6 MM SB Active as directed Twice a day Levothyroxine [facility] 28940854984 125 MCG Orally Active 1 tablet on Sodium Once a day an empty stomach in the morning True Metrix [facility] 69004109360 - Active USE TWICE Blood Glucose DAILY Test Magee [facility] 13420166474 5-325 MG Orally Active 1 tablet as every 6 hrs needed BusPIRone HCl [facility] 27584115444 5 MG Orally BID Active 1 tablet NovoLog Mix [facility] 35013966293 (70-30) 100 Active INJECT 70 70/30 Flexpen UNIT/ML UNITS UNDER Subcutaneous THE SKIN Twice a day EVERY MORNING WITH BREAKFAST AND 40 UNITS EVERY EVENING WITH DINNER Metoprolol [facility] 48917087310 50 MG Active 1 TAB(S) Succinate ER TWICE DAILY Levothyroxine [facility] 75631611241 125 MCG Orally Active 1 tablet on Sodium Once a day an empty stomach in the morning Promethazine HCl [facility] 25733478468 25 MG Orally Active 1 tablet as every 12 hrs needed Acyclovir [facility] 28480669226 200 MG Orally Active 1 capsule Three times a day Furosemide [facility] 32643076032 20 MG Orally Active 1 tablet Once a day Metoprolol [facility] 67116341101 50 MG Orally Active 1 tablet Succinate ER Once a day Meclizine HCl [facility] 84765174919 25 MG Orally Active 1 tablet as Once a day needed Results No Known Results Summary Purpose eClinicalWorks Submission
--- OUTSIDE RECORDS SUMMARY | 2018-08-26 14:35 | XMS REPORT ---
[...] End Status Dosage System Date Date Nystatin [facility] 21183182550 [id number] UNIT/GM September 05October Active 1 application Externally Twice 2017, to a day 2018 area Results No Known Results Summary Purpose eClinicalWorks Submission
--- OUTSIDE RECORDS SUMMARY | 2018-08-26 14:35 | XMS REPORT ---
[...] End Status Dosage System Date Date Pravastatin [facility] 36816411723 40 MG Orally Active 1 tablet Sodium Once a day Aspir-81 [facility] 33050322307 81 MG Orally Active 1 tablet Once a day BusPIRone HCl [facility] 33493203948 5 MG Orally BID August Active 1 tablet 2017 Promethazine HCl [facility] 07007337203 25 MG Orally Active 1 tablet as every 12 hrs needed Amlodipine [facility] 62841298888 10 MG Orally Active 1 tablet Besylate Once a day Levothyroxine [facility] 29734404153 125 MCG Orally Active 1 tablet on Sodium Once a day an empty stomach in the morning Cozaar [facility] 37222826585 100 MG Orally Active 1 tablet Once a day Zoloft [facility] 79044800736 25 MG Orally Inactive 1 tablet Once a day Acyclovir [facility] 95353373437 200 MG Orally Active 1 capsule Three times a day Omeprazole [facility] 91558502765 40 MG Orally Active 1 capsule Once a day Magnesium Oxide [facility] 01458916401 400 MG Orally Active 1 tablet as Once a day needed NovoFine [facility] 62807273182 32G X 6 MM SB Active as directed Twice a day NovoLog Mix [facility] 87039052852 (70-30) 100 Active INJECT 70 70/30 Flexpen UNIT/ML UNITS UNDER Subcutaneous THE SKIN Twice a day EVERY MORNING WITH BREAKFAST AND 40 UNITS EVERY EVENING WITH DINNER [place] [facility] 26619010815 5-325 MG Orally Active 1 tablet as every 6 hrs needed True Metrix [facility] 93947289712 - Active USE TWICE Blood Glucose DAILY Test Metoprolol [facility] 43378870423 50 MG Orally Active 1 tablet Succinate ER Once a day Furosemide [facility] 95559379546 20 MG Orally Active 1 tablet Once a day Meclizine HCl [facility] 74141311896 25 MG Orally Active 1 tablet as Once a day needed Results No Known Results Summary Purpose eClinicalWorks Submission
--- OUTSIDE RECORDS SUMMARY | 2018-08-26 14:35 | XMS REPORT ---
[...] Start End Status Dosage System Date Date [facility] 87224876689 81 MG Orally Active 1 tablet Once a day Promethazine HCl ND 36326472913 25 MG Orally Active 1 tablet as every 12 hrs needed [place] [facility] 06892703922 5-325 MG Orally Active 1 tablet as every 6 hrs needed Acyclovir ND 58480442861 200 MG Orally Active 1 capsule Three times a day True Metrix [facility] 96362950278 - Active USE TWICE Blood Glucose DAILY Test NovoFine [facility] 08565373368 32G X 6 MM SB Active as directed Twice a day Metoprolol [facility] 99552662884 50 MG Orally Active 1 tablet Succinate ER Once a day Omeprazole [facility] 24710636828 40 MG Orally Active 1 capsule Once a day NovoLog Mix [facility] 94563719678 (70-30) 100 Active INJECT 70 70/30 Flexpen UNIT/ML UNITS UNDER Subcutaneous THE SKIN Twice a day EVERY MORNING WITH BREAKFAST AND 40 UNITS EVERY EVENING WITH DINNER Levothyroxine [facility] 71246471310 125 MCG Orally Active 1 tablet on Sodium Once a day an empty stomach in the morning Magnesium Oxide [facility] 66366883988 400 MG Orally Active 1 tablet as Twice a day needed Levothyroxine [facility] 98932779762 125 MCG Orally Active 1 tablet on Sodium Once a day an empty stomach in the morning Cozaar [facility] 63681819704 100 MG Orally Active 1 tablet Once a day Pravastatin [facility] 70984413869 40 MG Orally Active 1 tablet Sodium Once a day Meclizine HCl [facility] 43406351485 25 MG Orally Active 1 tablet as Once a day needed Lidocaine HCl [facility] 87825776144 2 % Dec 07, Active 15 ml to Mouth/Throat 2017 affected every 3 hrs as area as needed (Swish needed around in mouth and spit out). MAX 8 doses/day Amlodipine [facility] 45157017991 10 MG Orally Active 1 tablet Besylate Once a day BusPIRone HCl [facility] 40967858866 5 MG Orally BID Active 1 tablet Chlorhexidine [facility] 52418269600 0.12 % Dec 07, Dec 17, Active 10-15 mL Gluconate Mouth/Throat 2017 2017 (Swish/Spit Every 12 hours ) Metoprolol [facility] 67971164008 50 MG Active 1 TAB(S) Succinate ER TWICE DAILY Furosemide ND 54307189570 20 MG Orally Active 1 tablet Once a day Results No Known Results Summary Purpose eClinicalWorks Submission
--- OUTSIDE RECORDS SUMMARY | 2018-08-26 14:35 | XMS REPORT ---
[...] End Status Dosage System Date Date Levothyroxine [facility] 27537143357 125 MCG Orally Active 1 tablet Sodium Once a day on an empty stomach in the morning Results No Known Results Summary Purpose eClinicalWorks Submission
--- OUTSIDE RECORDS SUMMARY | 2018-08-26 14:36 | XMS REPORT ---
[...] Medications Results No Known Results Summary Purpose eClinicalCircleBuilder Submission
--- OUTSIDE RECORDS SUMMARY | 2018-08-26 14:36 | XMS REPORT ---
[...] Status Dosage System Date Date Acyclovir [facility] 24081865335 200 MG Orally Active 1 capsule Three times a day Omeprazole [facility] 88449042502 40 MG Orally Active 1 capsule Once a day Promethazine HCl NDC 55818544078 25 MG Orally Active 1 tablet as every 12 hrs needed Meclizine HCl [facility] 28900229465 25 MG Orally Active 1 tablet as Once a day needed BusPIRone HCl [facility] 61551058307 5 MG Orally BID Active 1 tablet Cozaar [facility] 55874557845 100 MG Orally Active 1 tablet Once a day Pravastatin [facility] 80386061159 40 MG Orally Active 1 tablet Sodium Once a day True Metrix [facility] 95622270112 - Active USE TWICE Blood Glucose DAILY Test Metoprolol [facility] 10124336911 50 MG Orally Active 1 tablet Succinate ER Once a day NovoLog Mix [facility] 17230192318 (70-30) 100 Active INJECT 70 70/30 Flexpen UNIT/ML UNITS UNDER Subcutaneous THE SKIN Twice a day EVERY MORNING WITH BREAKFAST AND 40 UNITS EVERY EVENING WITH DINNER Lidocaine HCl [facility] 33294603003 2 % Dec 07, Active 15 ml to Mouth/Throat 2018 affected every 3 hrs as area as needed (Swish needed around in mouth and spit out). MAX 8 doses/day Levothyroxine [facility] 59896094587 125 MCG Orally Active 1 tablet on Sodium Once a day an empty stomach in the morning [place] [facility] 03925045501 8 MCG Orally Feb 12, Mar 14, Active 1 capsule Twice a day 2017 2017 with food Cozaar [facility] 31556964401 100 Orally Once Active 1 tablet a day Metoprolol [facility] 35030201686 50 MG Active 1 TAB(S) Succinate ER TWICE DAILY [place] [facility] 66593826431 5-325 MG Orally Active 1 tablet as every 6 hrs needed Metoprolol [facility] 04230095488 50 Active 1 TAB(S) Succinate ER TWICE DAILY Metoprolol [facility] 66909717946 50 MG Active 1 TAB(S) Succinate ER TWICE DAILY - [facility] 65993231389 81 MG Orally Active 1 tablet Once a day Amlodipine [facility] 03630624883 10 MG Orally Active 1 tablet Besylate Once a day Levothyroxine [facility] 35818222807 125 MCG Orally Active 1 tablet on Sodium Once a day an empty stomach in the morning Magnesium Oxide [facility] 45607349852 400 MG Orally Active 1 tablet as Twice a day needed Furosemide [facility] 97935108127 20 MG Orally Active 1 tablet Once a day Metoprolol [facility] 92731921357 50 MG Orally Active 1 tablet Succinate ER Once a day NovoFine [facility] 90981442405 32G X 6 MM SB Active as directed Twice a day Results Name Result Date Reference Range Unit Abnormality Flag Urine Dip Stick ----Appearance Yellow,slight cloudy 20180212 ----SP. Gr 1.020 20180212 ----pH 6.0 20180212 ----Ketone Negative 20180212 ----Glucose Negative 20180212 ----Blood Trace [id number] ----Protein Negative [id number] ----Nitrite Negative 20180212 ----Leukocytes Negative [id number] Summary Purpose eClinicalWorks Submission
--- OUTSIDE RECORDS SUMMARY | 2018-08-26 14:36 | XMS REPORT ---
[...] Medications Results No Known Results Summary Purpose eClinicalEscape the City Submission
--- OUTSIDE RECORDS SUMMARY | 2018-08-26 14:36 | XMS REPORT ---
[...] Medications Results No Known Results Summary Purpose eClinicalCarbon Objects Submission
--- OUTSIDE RECORDS SUMMARY | 2018-08-26 14:36 | XMS REPORT ---
[...] Start Date End Date Status Dosage Cozaar [facility] 44500768095 100 MG Orally Active 1 tablet Once a day Results No Known Results Summary Purpose eClinicalWorks Submission
--- OUTSIDE RECORDS SUMMARY | 2018-08-26 14:36 | XMS REPORT ---
[...] Status Dosage System Date Date True Metrix [facility] 61016769873 - In Vitro twice Active as directed Blood Glucose daily Test Results No Known Results Summary Purpose eClinicalWorks Submission
--- OUTSIDE RECORDS SUMMARY | 2018-08-26 14:36 | XMS REPORT ---
[...] Start End Date Status Dosage Date Acyclovir [facility] 79358455214 200 MG Orally Active 1 capsule Three times a day Results No Known Results Summary Purpose eClinicalWorks Submission
--- OUTSIDE RECORDS SUMMARY | 2018-08-26 14:36 | XMS REPORT ---
[...] Date Pravastatin [facility] 54706124260 40 MG Orally Active 1 tablet Sodium Once a day Results No Known Results Summary Purpose eClinicalWorks Submission
--- OUTSIDE RECORDS SUMMARY | 2018-08-26 14:36 | XMS REPORT ---
[...] Medications Results No Known Results Summary Purpose eClinicalTransactis Submission
--- OUTSIDE RECORDS SUMMARY | 2018-08-26 14:37 | XMS REPORT ---
[...] Status Dosage System Date Date NovoLog Mix [facility] 00581601304 (70-30) 100 Active INJECT 70 70/30 Flexpen UNIT/ML UNITS UNDER Subcutaneous THE SKIN Twice a day EVERY MORNING WITH BREAKFAST AND 40 UNITS EVERY EVENING WITH DINNER Results No Known Results Summary Purpose eClinicalWorks Submission
--- OUTSIDE RECORDS SUMMARY | 2018-08-26 14:37 | XMS REPORT ---
[...] End Status Dosage System Date Date Levothyroxine [facility] 74351588387 125 MCG Orally Active 1 tablet on Sodium Once a day an empty stomach in the morning NovoLog Mix [facility] 01968281882 (70-30) 100 Active INJECT 70 70/30 Flexpen UNIT/ML UNITS UNDER Subcutaneous THE SKIN Twice a day EVERY MORNING WITH BREAKFAST AND 40 UNITS EVERY EVENING WITH DINNER Furosemide [facility] 51567887046 20 MG Orally Active 1 tablet Once a day Metoprolol [facility] 47917089715 50 MG Orally Active 1 tablet Succinate ER Once a day NovoFine [facility] 14298491659 32G X 6 MM SB Active as directed Twice a day Ferrous Sulfate [facility] [address]-14 325 MG Orally Active as directed OneTouch Ultra [facility] 37446158074 - Active TEST THREE Test TIMES DAILY NovoFine [facility] 49476102746 32G X 6 MM SB Active as directed Twice a day Magnesium Oxide [facility] 70417752438 400 MG Orally Active 1 tablet as Three times a needed day Promethazine HCl [facility] 72084881851 25 MG Orally Active 1 tablet as every 12 hrs needed Metoprolol [facility] 57149096949 50 Active TAKE 1 Succinate ER TABLET BY MOUTH EVERY DAY Losartan [facility] 75509219307 100-25 MG Active TAKE 1 Potassium-HCTZ TABLET BY MOUTH EVERY DAY Acyclovir [facility] 00575061358 200 MG Orally Active 1 capsule Three times a day Levothyroxine [facility] 80766475410 125 MCG Orally Active 1 tablet on Sodium Once a day an empty stomach in the morning Pravastatin [facility] 57011182291 40 MG Orally Active 1 tablet Sodium Once a day -81 [facility] 32187257596 81 MG Orally Active 1 tablet Once a day True Metrix [facility] 55371506126 - In Vitro Active as directed Blood Glucose twice daily Test Amlodipine [facility] 92726958769 10 MG Orally Active 1 tablet Besylate Once a day Cozaar [facility] 99778636762 100 MG Orally Active 1 tablet Once a day BusPIRone HCl NDC 31749491657 5 MG Orally Inactive 1 tablet BID Meclizine HCl [facility] 47419640751 25 MG Orally Active 1 tablet as Once a day needed Ferrous Sulfate [facility] 64714494244 325 (65 Fe) MG May 15, Active 1 tablet Orally BID 2018 Lidocaine HCl ND 45408053650 2 % Dec 07, Active 15 ml to Mouth/Throat 2017 affected every 3 hrs as area as needed (Swish needed around in mouth and spit out). MAX 8 doses/day [place] [facility] 52741522722 5-325 MG Active 1 tablet as Orally every 6 needed hrs Omeprazole ND 97760729719 40 MG Orally Active 1 capsule Once a day Cozaar [facility] 23095615448 100 Orally Active 1 tablet Once a day Results No Known Results Summary Purpose eClinicalWorks Submission
--- OUTSIDE RECORDS SUMMARY | 2018-08-26 14:37 | XMS REPORT ---
[...] Status Dosage System Date Date Promethazine HCl [facility] 04751790434 25 MG Orally May 23, Active 1 tablet every 12 hrs 2018 as needed for nausea Results No Known Results Summary Purpose eClinicalWorks Submission
--- OUTSIDE RECORDS SUMMARY | 2018-08-26 14:37 | XMS REPORT ---
[...] Status Dosage System Date Date NovoLog Mix [facility] [address]-40 Active not 70/30 Flexpen defined Perphenazine [facility] [address]-19 Active not defined Promethazine HCl [facility] [address]-83 Active not defined Pravastatin [facility] [address]-89 Active not Sodium defined Hydrocodone-Acet [facility] [address]-10 Active not aminophen defined Metoprolol [facility] [address]-78 Active not Succinate ER defined Ferrous Sulfate [facility] [address]-81 Active not defined Nortriptyline [facility] [address]-18 Active not HCl defined Magnesium [facility] 0 Active not defined Omeprazole [facility] [address]-84 Active not defined Folic Acid [facility] 55576478283 1 MG Orally Active 1 tablet Once a day Levothyroxine [facility] [address]-17 Active not Sodium defined Losartan [facility] [address]-35 Active not Potassium-HCTZ defined Meclizine HCl [facility] 97603884718 25 MG Orally Active 1 tablet Once a day as needed Aspirin 81 [facility] [address] Active not defined Results No Known Results Summary Purpose eClinicalWorks Submission
--- OUTSIDE RECORDS SUMMARY | 2018-08-26 14:37 | XMS REPORT ---
[...] Medications Results No Known Results Summary Purpose eClinical[place] Direct Auto Submission
--- OUTSIDE RECORDS SUMMARY | 2018-08-26 14:38 | XMS REPORT ---
[...] Status Dosage System Date Date Amlodipine [facility] 38065474180 10 MG Orally Active 1 tablet Besylate Once a day Cozaar [facility] 42073876897 100 MG Orally Active 1 tablet Once a day Magnesium [facility] 0 Active not defined Ferrous Sulfate [facility] [address]-03 Active not defined Losartan [facility] [address]-12 Active not defined Potassium-HCTZ NovoLog Mix [facility] [address]-93 Active not defined 70/30 Flexpen Perphenazine [facility] [address]-69 Active not defined Furosemide [facility] 72358284746 20 MG Orally Active 1 tablet Once a day Omeprazole [facility] [address]-99 Active not defined NovoFine [facility] 69915929687 32G X 6 MM SB Active as directed Twice a day Hydrocodone-Acet [facility] [address]-32 Active not defined aminophen Levothyroxine [facility] [address]-24 Active not defined Sodium Metoprolol [facility] [address]-97 Active not defined Succinate ER Aspirin 81 [facility] [address]473 Active not defined Folic Acid [facility] 50814766807 1 MG Orally Active 1 tablet Once a day Meclizine HCl [facility] 54851555464 25 MG Orally Active 1 tablet as Once a day needed Nortriptyline [facility] [address]-99 Active not defined HCl Pravastatin [facility] [address]-10 Active not defined Sodium Promethazine HCl [facility] [address]-69 Active not defined Metoprolol [facility] 89716465209 50 MG Orally Active 1 tablet Succinate ER Once a day NovoLog Mix [facility] 72116776133 (70-30) 100 Active INJECT 70 70/30 Flexpen UNIT/ML UNITS UNDER Subcutaneous THE SKIN Twice a day EVERY MORNING WITH BREAKFAST AND 40 UNITS EVERY EVENING WITH DINNER Ferrous Sulfate [facility] 79870900766 325 (65 Fe) MG Active 1 tablet Orally BID Pravastatin [place] 98385264117 40 MG Orally Active 1 tablet Sodium Once a day Levothyroxine [facility] 08254944103 125 MCG Orally Active 1 tablet on Sodium Once a day an empty stomach in the morning Magnesium Oxide [facility] 25344616462 400 MG Orally Active 1 tablet as Three times a needed day Results No Known Results Summary Purpose eClinicalWorks Submission
--- OUTSIDE RECORDS SUMMARY | 2018-08-26 14:38 | XMS REPORT ---
[...] End Status Dosage System Date Date Levothyroxine [facility] 90968989407 125 MCG Orally Active 1 tablet Sodium Once a day on an empty stomach in the morning Results No Known Results Summary Purpose eClinicalWorks Submission
--- OUTSIDE RECORDS SUMMARY | 2018-08-26 14:38 | XMS REPORT ---
[...] End Status Dosage System Date Date Levothyroxine [facility] [address]-98 Active not defined Sodium Hydrocodone-Acet [facility] [address]-39 Active not defined aminophen Pravastatin [facility] 54505098679 40 MG Orally Active 1 tablet Sodium Once a day Ferrous Sulfate [facility] 72302087684 325 (65 Fe) MG Active 1 tablet Orally BID Ferrous Sulfate [facility] [address]-74 Active not defined Folic Acid [facility] 82785452238 1 MG Orally Active 1 tablet Once a day Furosemide [facility] 90116182539 20 MG Orally Active 1 tablet Once a day Levothyroxine [facility] 49904034104 125 MCG Orally Active 1 tablet on Sodium Once a day an empty stomach in the morning NovoLog Mix [facility] 30376068855 (70-30) 100 Active INJECT 70 70/30 Flexpen UNIT/ML UNITS UNDER Subcutaneous THE SKIN Twice a day EVERY MORNING WITH BREAKFAST AND 40 UNITS EVERY EVENING WITH DINNER NovoLog Mix [facility] [address]-45 Active not defined 70/30 Flexpen Aspirin 81 [facility] 28768-[address]76 Active not defined Omeprazole [facility] 51477819672 Active not defined Pravastatin [facility] [address]-28 Active not defined Sodium Amlodipine [facility] 42489934109 10 MG Orally Active 1 tablet Besylate Once a day Pravachol [facility] 62123850427 40 Active 1 EACH ONCE A DAY (AT BEDTIME) Magnesium Oxide [facility] 33699620163 400 MG Orally Active 1 tablet as Three times a needed day Meclizine HCl [facility] 09879914005 25 MG Orally Active 1 tablet as Once a day needed NovoFine [facility] 25392013345 32G X 6 MM SB Active as directed Twice a day Metoprolol [facility] 30211369528 50 MG Orally Active 1 tablet Succinate ER Once a day Perphenazine [facility] [address]-35 Active not defined Metoprolol [facility] [address]-99 Active not defined Succinate ER Cozaar [facility] 30409585523 100 MG Orally Active 1 tablet Once a day Promethazine HCl [facility] [address]-09 Active not defined Losartan [facility] [address]-20 Active not defined Potassium-HCTZ Nortriptyline [facility] [address]-18 Active not defined HCl Magnesium [facility] 0 Active not defined Results No Known Results Summary Purpose eClinicalWorks Submission
--- OUTSIDE RECORDS SUMMARY | 2018-08-26 14:38 | XMS REPORT ---
[...] End Status Dosage System Date Date Omeprazole [facility] [address]-76 Active not defined Aspirin [address] [facility] [address] Active not defined Losartan [facility] [address]-74 Active not defined Potassium-HCTZ NovoLog Mix [facility] [address]-61 Active not defined 70/30 Flexpen Cozaar [facility] 22486132388 100 MG Orally Active 1 tablet Once a day NovoLog Mix [facility] 72431432095 (70-30) 100 Active INJECT 70 70/30 Flexpen UNIT/ML UNITS UNDER Subcutaneous THE SKIN Twice a day EVERY MORNING WITH BREAKFAST AND 40 UNITS EVERY EVENING WITH DINNER Levothyroxine [facility] 58427345556 125 MCG Orally Active 1 tablet on Sodium Once a day an empty stomach in the morning Ferrous Sulfate [facility] [address]-28 Active not defined Hydrocodone-Acet [facility] [address]-00 Active not defined aminophen Meclizine HCl [facility] 04475750204 25 MG Orally Active 1 tablet as Once a day needed Pravastatin [facility] 57651814130 40 MG Orally Active 1 tablet Sodium Once a day Metoprolol [facility] 36652215036 50 MG Orally Active 1 tablet Succinate ER Once a day NovoFine [facility] 65114388483 32G X 6 MM SB Active as directed Twice a day Ferrous Sulfate [facility] 82067444864 325 (65 Fe) MG Active 1 tablet Orally BID Perphenazine [facility] [address]-30 Active not defined Nortriptyline [facility] [address]-54 Active not defined HCl Magnesium Oxide [facility] 02871496526 400 MG Orally Active 1 tablet as Three times a needed day Levothyroxine [facility] [address]-80 Active not defined Sodium Metoprolol [facility] [address]-17 Active not defined Succinate ER Pravastatin [facility] [address]-57 Active not defined Sodium Promethazine HCl [facility] [address]-79 Active not defined Furosemide [facility] 60091553280 20 MG Orally Active 1 tablet Once a day Folic Acid [facility] 36069509098 1 MG Orally Active 1 tablet Once a day Magnesium NDC 0 Active not defined Amlodipine [facility] 56234897400 10 MG Orally Active 1 tablet Besylate Once a day Results No Known Results Summary Purpose eClinicalWorks Submission
[2018-08-26 15:38] LABS: Absolute Monocytes 0.5 K/uL (0.1-1.3); Absolute Neutrophil 4.9 K/uL (1.8-8.0); Basophils % 0.7 % (0-1.3); Eosinophils % 0.8 % (0-4.4); Hematocrit 28.9 % (36.0-45.0); Lymphocytes % 15.2 % (15.3-44.8); MPV 9.8 fL (7.6-11.3); Monocytes % 7.6 % (3.3-12.3); RBC Red Blood Cell Count 3.25 M/uL (3.86-4.86)
--- NOTE | 2018-08-26 15:38 | RAD REPORT ---
EXAM DESCRIPTION: [place] Single View08/26/2018 3:16 pm CLINICAL HISTORY: Cough COMPARISON: August 23, 2018 FINDINGS: The lungs appear clear of acute infiltrate. The heart is borderline enlarged IMPRESSION: No acute abnormalities displayed
[2018-08-26] MEDS ORDERED: LORazepam 2 MG/ML VIAL ONE (15:41)
[2018-08-26] MEDS ORDERED: NA CHLORIDE 0.9% 2,000 ML ONE (15:41)
[2018-08-26 15:42] LABS: Protime INR 1.04
[2018-08-26 15:57] LABS: ALT/SGPT 29 U/L (12-78); AST/SGOT 29 U/L (15-37); Albumin 3.7 g/dL (3.4-5.0); Alkaline Phosphatase 120 U/L (45-117); BUN Blood Urea Nitrogen 10 mg/dL (7-18); Bicarbonate 24 mmol/L (21-32); Bilirubin Direct 0.2 mg/dL (0-0.2); Bilirubin Total 0.5 mg/dL (0.2-1.0); Glucose Level 82 mg/dL (74-106); Lipase 162 U/L (73-393); Magnesium 1.7 mg/dL (1.8-2.4); NT PRO-BNP 317 pg/mL (<450); Potassium 3.7 mmol/L (3.5-5.1); Protein, Total 7.8 g/dL (6.4-8.2); Sodium Level 127 mmol/L (136-145); Troponin (Emerg Dept Use Only) < 0.02 ng/mL (0.0-0.045)
--- NOTE | 2018-08-26 16:16 | ER ---
Nurse's Notes [facility] Name: Shayy Mcgovern Age: 77 yrs Sex: Female : 1940 Arrival Date: 08/26/2018 Time: 14:36 Bed 30 Private MD: Diagnosis: Weakness;Type 1 diabetes mellitus;Anxiety disorder, unspecified;Hypo-osmolality and hyponatremia;Hypomagnesemia Presentation: 08/26 14:36 Transition of care: patient was not received from another setting of care. Care prior sv to arrival: None. 14:36 Method Of Arrival: Ambulatory sv 14:37 Presenting complaint: Patient states: generalized weakness, foggy vision, decreased sv appetite x 2 weeks. "I was seen here last week for the weakness and appetite but I didn't have foggy vision. I don't want to get out of bed any more and I don't want to bother my kids anymore.". Onset of symptoms was August 2018. 14:37 Acuity: CORINE 3 sv 15:40 Risk Assessment: Do you want to hurt yourself or someone else? Patient reports no rv desire to harm self or others. Initial Sepsis Screen: Does the patient meet any 2 criteria? No. Patient's initial sepsis screen is negative. Does the patient have a suspected source of infection? No. Patient's initial sepsis screen is negative. Triage Assessment: 14:36 General: Appears in no apparent distress. uncomfortable, well developed, Behavior is sv cooperative, crying. Pain: Denies pain. EENT: Reports "foggy vision". Neuro: Level of Consciousness is awake, alert, obeys commands, Oriented to person, place, time, situation, Gait is steady. Neuro: Reports weakness. Respiratory: Airway is patent Respiratory effort is even, unlabored, Respiratory pattern is regular, symmetrical. Derm: Skin is normal. Historical: - Allergies: 14:43 Bactrim; sv 14:43 Ciprofloxacin; sv 14:43 Gentamicin; sv 14:43 Iodinated Contrast Media - IV Dye; sv 14:43 Macrobid; sv 14:43 Macrodantin; sv 14:43 nitrofuran macrocrystal (bulk); sv 14:43 PENICILLINS; sv 14:43 Sulfa (Sulfonamide Antibiotics); sv - Home Meds: 15:43 aspirin 81 mg Oral TbEC once daily [Active]; ferrous sulfate 325 mg (65 mg iron) Oral rv tab every 8 hours [Active]; gabapentin 300 mg Oral cap [Active]; levothyroxine 125 mcg tab 1 tab once daily [Active]; losartan-hydrochlorothiazide 100-25 mg Oral tab 1 tab once daily [Active]; MagOx 400 mg Oral tab 1 cap three times a day [Active]; meclizine 25 mg Oral tab twice a day [Active]; metoprolol tartrate 50 mg Oral tab 1 tab once daily [Active]; Novolin 70/30 Innolet Sub-Q 70-30 unit/mL [Active]; omeprazole 40 mg Oral cpDR 1 cap once daily [Active]; pravastatin 40 mg Oral tab 1 tab nightly [Active]; promethazine 25 mg Oral tab 2 times per day [Active]; - PMHx: 14:43 Anxiety; Depression; Diabetes - IDDM; gastritis; Hypertension; Hypothyroidism; sv - PSHx: 15:43 Unable to obtain; rv - Immunization history:: Adult Immunizations unknown. - Family history:: not pertinent. - Social history:: Smoking status: unknown. - Ebola Screening: : Patient negative for fever greater than or equal to 101.5 degrees Fahrenheit, and additional compatible Ebola Virus Disease symptoms Patient denies exposure to infectious person Patient denies travel to an Ebola-affected area in the 21 days before illness onset. Screenin:40 Abuse screen: Denies threats or abuse. Denies injuries from another. Nutritional rv screening: No deficits noted. Tuberculosis screening: No symptoms or risk factors identified. Fall Risk None identified. Assessment: 14:59 General: Appears in no apparent distress. comfortable, Behavior is calm, cooperative. rv Pain: Denies pain. Neuro: Level of Consciousness is awake, alert, obeys commands, Oriented to person, place, time, situation. Cardiovascular: Capillary refill < 3 seconds. Respiratory: Airway is patent. GI: No signs and/or symptoms were reported involving the gastrointestinal system. : No signs and/or symptoms were reported regarding the genitourinary system. EENT: No signs and/or symptoms were reported regarding the EENT system. Derm: Skin is intact. Musculoskeletal: No signs and/or symptoms reported regarding the musculoskeletal system. 16:35 Reassessment: Patient appears in no apparent distress at this time. Patient and/or rv family updated on plan of care and expected duration. Pain level reassessed. Patient is alert, oriented x 3, equal unlabored respirations, skin warm/dry/pink. Patient denies pain at this time. Vital Signs: 14:43 BP 133 / 79; Pulse 75; Resp 20; Temp 98.2; Pulse Ox 99% ; Weight 92.53 kg; Height 5 ft. sv 3 in. (160.02 cm); 15:30 BP 145 / 100 RA Supine; Pulse 75; Resp 16 S; Pulse Ox 99% on R/A; rv 16:00 BP 134 / 62 RA Supine; Pulse 74; Resp 17 S; Pulse Ox 99% on R/A; rv 16:33 BP 126 / 63 LA Supine; Pulse 65; Resp 17 S; Pulse Ox 96% on R/A; rv 17:01 BP 122 / 62 RA Supine; Pulse 76; Resp 17 S; Pulse Ox 99% on R/A; rv 14:43 Body Mass Index 36.14 (92.53 kg, 160.02 cm) sv ED Course: 14:36 Patient arrived in ED. mr 14:37 Arm band placed on. sv 14:41 Triage completed. sv 14:52 Jayy Mayberry MD is Attending Physician. russ 14:57 Kyle Ignacio, CHRIS is Primary Nurse. rv 15:15 XRAY Chest (1 view) In Process Unspecified. EDMS 15:15 Inserted saline lock: 20 gauge in left antecubital area, using aseptic technique. Blood rv collected. 15:41 Patient has correct armband on for positive identification. Bed in low position. Call rv light in reach. Side rails up X2. Pulse ox on. NIBP on. 17:02 No provider procedures requiring assistance completed. IV discontinued, intact, rv bleeding controlled, No redness/swelling at site. Pressure dressing applied. Administered Medications: 15:15 Drug: NS 0.9% 1000 ml Route: IV; Rate: 125 ml/hr; Site: left antecubital; rv 17:00 Follow up: IV Status: Completed infusion; IV Intake: 250ml rv 15:15 Drug: NS 0.9% 500 ml Route: IV; Rate: bolus; Site: left antecubital; rv 16:31 Follow up: IV Status: Completed infusion rv 17:00 Follow up: IV Intake: 500ml rv 15:15 Drug: Ativan 0.5 mg Route: IVP; Site: left antecubital; rv 16:32 Follow up: Response: Marked relief of symptoms rv 15:45 Drug: Ativan 0.5 mg Route: IVP; Site: left antecubital; rv 17:01 Follow up: Response: Marked relief of symptoms rv 16:00 Drug: NS 0.9% 500 ml Route: IV; Rate: bolus; Site: left antecubital; rv 17:00 Follow up: IV Status: Completed infusion; IV Intake: 500ml rv 16:05 Drug: Magnesium Sulfate 1 grams Route: IVPB; Infused Over: 1 hrs; Site: left rv antecubital; 17:00 Follow up: IV Status: Completed infusion; IV Intake: 100ml rv Intake: 17:00 IV: 500ml; Total: 500ml. rv 17:00 IV: 100ml; Total: 600ml. rv 17:00 IV: 500ml; Total: 1100ml. rv 17:00 IV: 250ml; Total: 1350ml. rv Outcome: 16:15 Discharge ordered by . russ 17:51 Discharged to home ambulatory. rv 17:51 Condition: good 17:51 Discharge instructions given to patient, Instructed on discharge instructions, follow up and referral plans. medication usage, Demonstrated understanding of instructions, follow-up care, medications, Prescriptions given X 1. 17:51 Patient left the ED. rv Addendum: 08/29/2018 10:28 Addendum: Culture Results: Positive urine culture. Phone call Attempt #1 Pt needs to s s see PCP for antibiotic therapy per BIANCA Padron. Attempted to call patient. No answer, unable to leave Certified letter sent to listed address for patient. Signatures: Dispatcher [employer] Madison Holt RN RN sv Anderson, Corey, MD MD cha Rivera, Mary mr Ariana Blanco RN RN ss Vicente, Ronaldo, RN RN rv Corrections: (The following items were deleted from the chart) 08/26 14:44 14:37 Presenting complaint: Patient states: generalized weakness, foggy vision, sv decreased appetite x 2 weeks. "I was seen here last week for the weakness and appetite but I didn't have foggy vision." sv 14:46 14:43 92.53 kg; Height 5 ft. 3 in.; BMI: 36.1; sv sv 14:46 14:43 Resp 20bpm; Temp 98.2F; 92.53 kg; Height 5 ft. 3 in.; BMI: 36.1; sv sv 14:47 14:43 Pulse 75bpm; Resp 20bpm; Pulse Ox 99%; Temp 98.2F; 92.53 kg; Height 5 ft. 3 in.; sv BMI: 36.1; sv
--- NOTE | 2018-08-26 16:16 | EDPHYS ---
Physician Documentation [facility] Name: Shayy Mcgovern Age: 77 yrs Sex: Female : 1940 Arrival Date: 08/26/2018 Time: 14:36 Bed 30 Private MD: [facility] Physician Jayy Mayberry HPI: 08/26 15:06 This 77 yrs old Female presents to ER via Ambulatory with complaints of russ General Weakness, Decreased Appetite, Vision Problem. 15:06 The patient presents to the emergency department with anxiety. Onset: The russ symptoms/episode began/occurred 2 day(s) ago. Past psychiatric history: Prior diagnosis: depression. anxious. Associated signs and symptoms: The patient has no apparent associated signs or symptoms. Severity of symptoms: At their worst the symptoms were mild in the emergency department the symptoms are unchanged. The patient has experienced similar episodes in the past, multiple times. Historical: - Allergies: 14:43 Bactrim; sv 14:43 Ciprofloxacin; sv 14:43 Gentamicin; sv 14:43 Iodinated Contrast Media - IV Dye; sv 14:43 Macrobid; sv 14:43 Macrodantin; sv 14:43 nitrofuran macrocrystal (bulk); sv 14:43 PENICILLINS; sv 14:43 Sulfa (Sulfonamide Antibiotics); sv - Home Meds: 15:43 aspirin 81 mg Oral TbEC once daily [Active]; ferrous sulfate 325 mg (65 mg iron) Oral rv tab every 8 hours [Active]; gabapentin 300 mg Oral cap [Active]; levothyroxine 125 mcg tab 1 tab once daily [Active]; losartan-hydrochlorothiazide 100-25 mg Oral tab 1 tab once daily [Active]; MagOx 400 mg Oral tab 1 cap three times a day [Active]; meclizine 25 mg Oral tab twice a day [Active]; metoprolol tartrate 50 mg Oral tab 1 tab once daily [Active]; Novolin 70/30 Innolet Sub-Q 70-30 unit/mL [Active]; omeprazole 40 mg Oral cpDR 1 cap once daily [Active]; pravastatin 40 mg Oral tab 1 tab nightly [Active]; promethazine 25 mg Oral tab 2 times per day [Active]; - PMHx: 14:43 Anxiety; Depression; Diabetes - IDDM; gastritis; Hypertension; Hypothyroidism; sv - PSHx: 15:43 Unable to obtain; rv - Immunization history:: Adult Immunizations unknown. - Family history:: not pertinent. - Social history:: Smoking status: unknown. - Ebola Screening: : Patient negative for fever greater than or equal to 101.5 degrees Fahrenheit, and additional compatible Ebola Virus Disease symptoms Patient denies exposure to infectious person Patient denies travel to an Ebola-affected area in the 21 days before illness onset. ROS: 15:06 Constitutional: Negative for fever, chills, and weight loss, Eyes: Negative for injury, russ pain, redness, and discharge, ENT: Negative for injury, pain, and discharge, Neck: Negative for injury, pain, and swelling, Cardiovascular: Negative for chest pain, palpitations, and edema, Respiratory: Negative for shortness of breath, cough, wheezing, and pleuritic chest pain, Abdomen/GI: Negative for abdominal pain, nausea, vomiting, diarrhea, and constipation, Back: Negative for injury and pain, : Negative for injury, bleeding, discharge, and swelling, MS/Extremity: Negative for injury and deformity, Skin: Negative for injury, rash, and discoloration, Psych: Negative for depression, anxiety, suicide ideation, homicidal ideation, and hallucinations, Allergy/Immunology: Negative for hives, rash, and allergies, Endocrine: Negative for neck swelling, polydipsia, polyuria, polyphagia, and marked weight changes, Hematologic/Lymphatic: Negative for swollen nodes, abnormal bleeding, and unusual bruising. 15:06 Neuro: Positive for weakness. Exam: 15:06 Constitutional: This is a well developed, well nourished patient who is awake, alert, russ and in no acute distress. Head/Face: Normocephalic, atraumatic. Eyes: Pupils equal round and reactive to light, extra-ocular motions intact. Lids and lashes normal. Conjunctiva and sclera are non-icteric and not injected. Cornea within normal limits. Periorbital areas with no swelling, redness, or edema. ENT: Nares patent. No nasal discharge, no septal abnormalities noted. Tympanic membranes are normal and external auditory canals are clear. Oropharynx with no redness, swelling, or masses, exudates, or evidence of obstruction, uvula midline. Mucous membranes moist. Neck: Trachea midline, no thyromegaly or masses palpated, and no cervical lymphadenopathy. Supple, full range of motion without nuchal rigidity, or vertebral point tenderness. No Meningismus. Chest/axilla: Normal chest wall appearance and motion. Nontender with no deformity. No lesions are appreciated. Cardiovascular: Regular rate and rhythm with a normal S1 and S2. No gallops, murmurs, or rubs. Normal PMI, no JVD. No pulse deficits. Respiratory: Lungs have equal breath sounds bilaterally, clear to auscultation and percussion. No rales, rhonchi or wheezes noted. No increased work of breathing, no retractions or nasal flaring. Abdomen/GI: Soft, non-tender, with normal bowel sounds. No distension or tympany. No guarding or rebound. No evidence of tenderness throughout. Back: No spinal tenderness. No costovertebral tenderness. Full range of motion. Skin: Warm, dry with normal turgor. Normal color with no rashes, no lesions, and no evidence of cellulitis. MS/ Extremity: Pulses equal, no cyanosis. Neurovascular intact. Full, normal range of motion. Neuro: Awake and alert, GCS 15, oriented to person, place, time, and situation. Cranial nerves II-XII grossly intact. Motor strength 5/5 in all extremities. Sensory grossly intact. Cerebellar exam normal. Normal gait. 15:06 Psych: Behavior/mood is anxious, Affect is calm, Oriented to person, place, time, Patient has no thoughts/intents to harm self or others. Judgement / Insight is normal. Memory is normal. Delusions/hallucinations are not present. Vital Signs: 14:43 BP 133 / 79; Pulse 75; Resp 20; Temp 98.2; Pulse Ox 99% ; Weight 92.53 kg; Height 5 ft. sv 3 in. (160.02 cm); 15:30 BP 145 / 100 RA Supine; Pulse 75; Resp 16 S; Pulse Ox 99% on R/A; rv 16:00 BP 134 / 62 RA Supine; Pulse 74; Resp 17 S; Pulse Ox 99% on R/A; rv 16:33 BP 126 / 63 LA Supine; Pulse 65; Resp 17 S; Pulse Ox 96% on R/A; rv 17:01 BP 122 / 62 RA Supine; Pulse 76; Resp 17 S; Pulse Ox 99% on R/A; rv 14:43 Body Mass Index 36.14 (92.53 kg, 160.02 cm) sv MDM: 14:52 Patient medically screened. [facility] 15:09 Data reviewed: vital signs, nurses notes, lab test result(s), EKG, radiologic studies, russ plain films. 08/26 15:04 Order name: Basic Metabolic Panel; Complete Time: 16:14 [facility] 08/26 15:04 Order name: CBC with Diff; Complete Time: 15:57 [facility] 08/26 15:04 Order name: LFT's; Complete Time: 16:14 [facility] 08/26 15:04 Order name: Magnesium; Complete Time: 16:14 [facility] 08/26 15:04 Order name: NT PRO-BNP; Complete Time: 16:14 [facility] 08/26 15:04 Order name: PT-INR; Complete Time: 17:05 [facility] 08/26 15:04 Order name: Troponin (emerg Dept Use Only); Complete Time: 16:14 [facility] 08/26 15:04 Order name: XRAY Chest (1 view); Complete Time: 15:57 [facility] 08/26 15:04 Order name: Lipase; Complete Time: 16:14 [facility] 08/26 15:04 Order name: Urine Culture [facility] 08/26 15:28 Order name: Urine Dipstick--Ancillary (enter results); Complete Time: 17:05 [facility] 08/26 15:04 Order name: EKG; Complete Time: 15:05 [facility] 08/26 15:04 Order name: Cardiac monitoring; Complete Time: 15:44 [facility] 08/26 15:04 Order name: EKG - Nurse/Tech; Complete Time: 16:31 [facility] 08/26 15:04 Order name: IV Saline Lock; Complete Time: 15:44 [facility] 08/26 15:04 Order name: Labs collected and sent; Complete Time: 15:44 [facility] 08/26 15:04 Order name: O2 Per Protocol; Complete Time: 15:44 [facility] 08/26 15:04 Order name: O2 Sat Monitoring; Complete Time: 15:44 [facility] 08/26 15:04 Order name: Urine Dipstick-Ancillary (obtain specimen); Complete Time: 15:43 [facility] Administered Medications: 15:15 Drug: NS 0.9% 1000 ml Route: IV; Rate: 125 ml/hr; Site: left antecubital; rv 17:00 Follow up: IV Status: Completed infusion; IV Intake: 250ml rv 15:15 Drug: NS 0.9% 500 ml Route: IV; Rate: bolus; Site: left antecubital; rv 16:31 Follow up: IV Status: Completed infusion rv 17:00 Follow up: IV Intake: 500ml rv 15:15 Drug: Ativan 0.5 mg Route: IVP; Site: left antecubital; rv 16:32 Follow up: Response: Marked relief of symptoms rv 15:45 Drug: Ativan 0.5 mg Route: IVP; Site: left antecubital; rv 17:01 Follow up: Response: Marked relief of symptoms rv 16:00 Drug: NS 0.9% 500 ml Route: IV; Rate: bolus; Site: left antecubital; rv 17:00 Follow up: IV Status: Completed infusion; IV Intake: 500ml rv 16:05 Drug: Magnesium Sulfate 1 grams Route: IVPB; Infused Over: 1 hrs; Site: left rv antecubital; 17:00 Follow up: IV Status: Completed infusion; IV Intake: 100ml rv Disposition: 08/26/18 16:15 Discharged to Home. Impression: Weakness, Type 1 diabetes mellitus, Anxiety disorder, unspecified, Hypo-osmolality and hyponatremia, Hypomagnesemia. - Condition is Stable. - Discharge Instructions: Anemia, Nonspecific, Type 1 Diabetes Mellitus, Diagnosis, Adult, Hypomagnesemia, Hyponatremia, Near-Syncope, Weakness, Fatigue, Near-Syncope, Hhxr-vg-[id number], Hyponatremia, Auzr-te-Dyvy, Weakness, Jeya-ke-Kdnx, Generalized Anxiety Disorder, Type 1 Diabetes Mellitus, Self Care, Adult, Type 1 Diabetes Mellitus, Diagnosis, Adult, Jzrw-mb-Tsec, Type 1 Diabetes Mellitus, Self Care, Adult, Qimb-xs-Qgql. - Prescriptions for Xanax 0.5 mg Oral Tablet - take 1 tablet by ORAL route every 8 hours As needed; 20 tablet. - Medication Reconciliation Form, Thank You Letter, Antibiotic Education, Prescription Opioid Use form. - Follow up: Private Physician; When: 2 - 3 days; Reason: Recheck today's complaints, Continuance of care, Re-evaluation by your physician. - Problem is new. - Symptoms have improved. Signatures: Dispatcher [employer] EDMS Harsha, Madison, RN RN sv Jefe, Jayy, MD MD russ Mateus, Kyle, RN RN rv Corrections: (The following items were deleted from the chart) 17:51 16:15 08/26/2018 16:15 Discharged to Home. Impression: Weakness; Type 1 diabetes rv mellitus; Anxiety disorder, unspecified; Hypo-osmolality and hyponatremia; Hypomagnesemia. Condition is Stable. Discharge Instructions: Type 1 Diabetes Mellitus, Diagnosis, Adult, Near-Syncope, Weakness, Fatigue, Near-Syncope, Wjol-ba-Akng, Weakness, Yhtb-cf-Vouz, Generalized Anxiety Disorder, Type 1 Diabetes Mellitus, Self Care, Adult, Type 1 Diabetes Mellitus, Diagnosis, Adult, Jice-sq-Fvap, Type 1 Diabetes Mellitus, Self Care, Adult, Waen-su-Guuf, Anemia, Nonspecific, Hypomagnesemia, Hyponatremia, Hyponatremia, Vscc-kt-Anuy. Prescriptions for Xanax 0.5 mg Oral Tablet - take 1 tablet by ORAL route every 8 hours As needed; 20 tablet. and Forms are Medication Reconciliation Form, Thank You Letter, Antibiotic Education, Prescription Opioid Use. Follow up: Private Physician; When: 2 - 3 days; Reason: Recheck today's complaints, Continuance of care, Re-evaluation by your physician. Problem is new. Symptoms have improved. russ
[2018-08-26] MEDS ORDERED: MAGNESIUM SULFATE 1 gm IVPB 1 GM/100 ML BAG IV ONE (16:18)
[2018-08-26 16:51] LABS: Urine Blood NEGATIVE (NEG); Urine Glucose NEGATIVE (NEG); Urine Protein NEGATIVE (NEG); Urine Specific Gravity 1.015 (1.005-1.030); Urine pH 7.5 (5.0-7.0)
[2018-08-26 17:59] VITALS: TEMP 98.2
[2018-08-26 18:04] VITALS: BP 122/62; O2SAT 99
--- NOTE | 2018-08-27 07:45 | EKG ---
Test Date: 2018-08-26 Test Time: 16:27:16 C [employer] Worker: [place] MEASUREMENT RESULTS: Intervals: Rate: 67 [place]: 128 QRSD: 86 QT: 434 QTc: 458 [place]: P: -2 [place]: 128 QRS: 22 T: 45 INTERPRETIVE STATEMENTS: Sinus rhythm with sinus arrhythmia with fusion complexes ST & T wave abnormality, consider anterior ischemia Abnormal ECG Compared to ECG 08/23/2018 20:47:37 Fusion complex(es) now present ST (T wave) deviation now present T-wave abnormality no longer present Possible ischemia still present Electronically Signed On 08-27-18 07:43:56 CDT by Evelio Cody
== END 2018-08-26 17:51 | disposition home or self-care (01) ==
LOC: ER 14:32
DX: R53.1 Weakness (principal); E10.8 Type 1 diabetes mellitus with unspecified complications; E87.1 Hypo-osmolality and hyponatremia; E83.42 Hypomagnesemia; F41.9 Anxiety disorder, unspecified; F32.9 Major depressive disorder, single episode, unspecified; I10 Essential (primary) hypertension; E03.9 Hypothyroidism, unspecified; Z79.82 Long term (current) use of aspirin; Z79.4 Long term (current) use of insulin; Z88.0 Allergy status to penicillin; Z88.2 Allergy status to sulfonamides; Z88.1 Allergy status to other antibiotic agents; Z91.041 Radiographic dye allergy status
CPT/HCPCS: 96365; 96361; 93005; 87088; 85025; 87086; 80048; 36415; 83735; 85610; 80076; 81003; 84484; 83690; 83880; 71045; 96375; 99284; J3475; J7030; 87077; 87186

== ENCOUNTER 2018-09-11 16:45 | Emergency (ER) | payer OTHER ==
--- OUTSIDE RECORDS SUMMARY | 2018-09-11 16:47 | XMS REPORT ---
[...] Start End Status Dosage System Date Date [facility] 09119770148 81 MG Orally Active 1 tablet Once a day Promethazine HCl ND 31059692644 25 MG Orally Active 1 tablet as every 12 hrs needed [place] [facility] 68690454624 5-325 MG Orally Active 1 tablet as every 6 hrs needed Acyclovir ND 33608637497 200 MG Orally Active 1 capsule Three times a day True Metrix [facility] 25285189994 - Active USE TWICE Blood Glucose DAILY Test NovoFine [facility] 08535383259 32G X 6 MM SB Active as directed Twice a day Metoprolol [facility] 52554620379 50 MG Orally Active 1 tablet Succinate ER Once a day Omeprazole [facility] 19033806984 40 MG Orally Active 1 capsule Once a day NovoLog Mix [facility] 02362507172 (70-30) 100 Active INJECT 70 70/30 Flexpen UNIT/ML UNITS UNDER Subcutaneous THE SKIN Twice a day EVERY MORNING WITH BREAKFAST AND 40 UNITS EVERY EVENING WITH DINNER Levothyroxine [facility] 12725904636 125 MCG Orally Active 1 tablet on Sodium Once a day an empty stomach in the morning Magnesium Oxide [facility] 30273270738 400 MG Orally Active 1 tablet as Twice a day needed Levothyroxine [facility] 98254393676 125 MCG Orally Active 1 tablet on Sodium Once a day an empty stomach in the morning Cozaar [facility] 78489304976 100 MG Orally Active 1 tablet Once a day Pravastatin [facility] 77106040219 40 MG Orally Active 1 tablet Sodium Once a day Meclizine HCl [facility] 62125638656 25 MG Orally Active 1 tablet as Once a day needed Lidocaine HCl [facility] 17023004488 2 % Dec 07, Active 15 ml to Mouth/Throat 2017 affected every 3 hrs as area as needed (Swish needed around in mouth and spit out). MAX 8 doses/day Amlodipine [facility] 18738802907 10 MG Orally Active 1 tablet Besylate Once a day BusPIRone HCl [facility] 19433011466 5 MG Orally BID Active 1 tablet Chlorhexidine [facility] 46348441261 0.12 % Dec 07, Dec 17, Active 10-15 mL Gluconate Mouth/Throat 2017 2017 (Swish/Spit Every 12 hours ) Metoprolol [facility] 79322005650 50 MG Active 1 TAB(S) Succinate ER TWICE DAILY Furosemide ND 30937324387 20 MG Orally Active 1 tablet Once a day Results No Known Results Summary Purpose eClinicalWorks Submission
--- OUTSIDE RECORDS SUMMARY | 2018-09-11 16:47 | XMS REPORT ---
[...] End Status Dosage System Date Date Levothyroxine [facility] 70746247070 125 MCG Orally Active 1 tablet Sodium Once a day on an empty stomach in the morning Results No Known Results Summary Purpose eClinicalWorks Submission
--- OUTSIDE RECORDS SUMMARY | 2018-09-11 16:47 | XMS REPORT ---
[...] End Status Dosage System Date Date Amlodipine [facility] 51630702615 10 MG Orally Active 1 tablet Besylate Once a day [place] [facility] 37776523847 100 MG Orally Active 1 tablet Once a day Pravastatin ND 66797919066 40 MG Orally Active 1 tablet Sodium Once a day Omeprazole [facility] 46340709452 40 MG Orally Active 1 capsule Once a day Aspir-81 [facility] 85803309178 81 MG Orally Active 1 tablet Once a day Magnesium Oxide [facility] 43131103782 400 MG Orally Active 1 tablet as Twice a day needed NovoFine [facility] 09580050584 32G X 6 MM SB Active as directed Twice a day Levothyroxine [facility] 53895126344 125 MCG Orally Active 1 tablet on Sodium Once a day an empty stomach in the morning True Metrix [facility] 44907567586 - Active USE TWICE Blood Glucose DAILY Test [place] [facility] 73269006140 5-325 MG Orally Active 1 tablet as every 6 hrs [address] HCl [facility] 21136281987 5 MG Orally BID Active [address] [facility] 57227383453 (70-30) 100 Active INJECT 70 70/30 Flexpen UNIT/ML UNITS UNDER Subcutaneous THE SKIN Twice a day EVERY MORNING WITH BREAKFAST AND 40 UNITS EVERY EVENING WITH DINNER Metoprolol [facility] 53087457603 50 MG Active 1 TAB(S) Succinate ER TWICE DAILY Levothyroxine [facility] 23671497706 125 MCG Orally Active 1 tablet on Sodium Once a day an empty stomach in the morning Promethazine HCl [facility] 96458806579 25 MG Orally Active 1 tablet as every [address] [facility] 56907401068 200 MG Orally Active 1 capsule Three times a day Furosemide [facility] 70663165264 20 MG Orally Active 1 tablet Once a day Metoprolol [facility] 35554940640 50 MG Orally Active 1 tablet Succinate ER Once a day Meclizine HCl [facility] 49217269937 25 MG Orally Active 1 tablet as Once a day needed Results No Known Results Summary Purpose eClinicalWorks Submission
--- OUTSIDE RECORDS SUMMARY | 2018-09-11 16:47 | XMS REPORT ---
[...] Status Dosage System Date Date Pravastatin [facility] 61038727852 40 MG Orally Active 1 tablet Sodium Once a day Results No Known Results Summary Purpose eClinicalWorks Submission
--- OUTSIDE RECORDS SUMMARY | 2018-09-11 16:47 | XMS REPORT ---
[...] Start End Status Dosage System Date [facility] 68225080845 81 MG Orally Active 1 tablet Once a day [place] [facility] 34556343011 5-325 MG Orally Active 1 tablet as every 6 hrs needed Omeprazole [facility] 21456203800 40 MG Orally Active 1 capsule Once a day Metoprolol [facility] 62273374667 50 MG Active 1 TAB(S) Succinate ER TWICE DAILY Levothyroxine [facility] 21839626867 125 MCG Orally Active 1 tablet on Sodium Once a day an empty stomach in the morning BusPIRone HCl [facility] 83618456094 5 MG Orally BID Active 1 tablet Metoprolol ND 60817698827 50 MG Orally Active 1 tablet Succinate ER Once a day Acyclovir ND 66787592492 200 MG Orally Active 1 capsule Three times a day NovoFine [facility] 72800144524 32G X 6 MM SB Active as directed Twice a day Furosemide ND 73179853935 20 MG Orally Active 1 tablet Once a day Lidocaine HCl [facility] 50372903953 2 % Dec 07, Active 15 ml to Mouth/Throat 2017 affected every 3 hrs as area as needed (Swish needed around in mouth and spit out). MAX 8 doses/day Magnesium Oxide ND 95362781851 400 MG Orally Active 1 tablet as Twice a day needed NovoLog Mix [facility] 62905629069 (70-30) 100 Active INJECT 70 70/30 Flexpen UNIT/ML UNITS UNDER Subcutaneous THE SKIN Twice a day EVERY MORNING WITH BREAKFAST AND 40 UNITS EVERY EVENING WITH DINNER Levothyroxine ND 12287346777 125 MCG Orally Active 1 tablet on Sodium Once a day an empty stomach in the morning Meclizine HCl ND 79677540825 25 MG Orally Active 1 tablet as Once a day needed Promethazine HCl ND 51791886028 25 MG Orally Active 1 tablet as every 12 hrs needed Pravastatin [facility] 14431076655 40 MG Orally Active 1 tablet Sodium Once a day Levaquin [facility] 41837781550 250 MG Orally Dec 27, Dec 30, Active 1 tablet Once a day 2017 2017 Amlodipine [facility] 43178964773 10 MG Orally Active 1 tablet Besylate Once a day True Metrix [facility] 51451824484 - Active USE TWICE Blood Glucose DAILY Test Cozaar [facility] 59628973705 100 MG Orally Active 1 tablet Once a day Results Name Result Date Reference Range Unit Abnormality Flag Urine Dip Stick ----Appearance Dark yellow/clear [id number] ----SP. Gr 1.015 20171227 ----pH 7.0 20171227 ----Ketone Negative [id number] ----Glucose Negative 20171227 ----Blood Negative [id number] ----Protein Negative [id number] ----Nitrite Negative 20171227 ----Leukocytes 1+ 20171227 Summary Purpose eClinicalWorks Submission
--- OUTSIDE RECORDS SUMMARY | 2018-09-11 16:48 | XMS REPORT ---
[...] Medications Results No Known Results Summary Purpose eClinicalAustral 3D Submission
--- OUTSIDE RECORDS SUMMARY | 2018-09-11 16:48 | XMS REPORT ---
[...] Medications Results No Known Results Summary Purpose eClinicalWakozi Submission
--- OUTSIDE RECORDS SUMMARY | 2018-09-11 16:48 | XMS REPORT ---
[...] Medications Results No Known Results Summary Purpose eClinicalLodestone Social Media Submission
--- OUTSIDE RECORDS SUMMARY | 2018-09-11 16:48 | XMS REPORT ---
[...] End Status Dosage System Date Date Acyclovir [facility] 88196033172 200 MG Orally Active 1 capsule Three times a day Omeprazole [facility] 62580266782 40 MG Orally Active 1 capsule Once a day Promethazine HCl NDC 40421230823 25 MG Orally Active 1 tablet as every 12 hrs needed Meclizine HCl [facility] 15220873400 25 MG Orally Active 1 tablet as Once a day needed BusPIRone HCl [facility] 47831848534 5 MG Orally BID Active 1 tablet Cozaar [facility] 00001063689 100 MG Orally Active 1 tablet Once a day Pravastatin [facility] 03869173776 40 MG Orally Active 1 tablet Sodium Once a day True Metrix [facility] 82774551613 - Active USE TWICE Blood Glucose DAILY Test Metoprolol [facility] 14057228949 50 MG Orally Active 1 tablet Succinate ER Once a day NovoLog Mix [facility] 45124523369 (70-30) 100 Active INJECT 70 70/30 Flexpen UNIT/ML UNITS UNDER Subcutaneous THE SKIN Twice a day EVERY MORNING WITH BREAKFAST AND 40 UNITS EVERY EVENING WITH DINNER Lidocaine HCl [facility] 88932774548 2 % Dec 07, Active 15 ml to Mouth/Throat 2018 affected every 3 hrs as area as needed (Swish needed around in mouth and spit out). MAX 8 doses/day Levothyroxine [facility] 94785851631 125 MCG Orally Active 1 tablet on Sodium Once a day an empty stomach in the morning [place] [facility] 90395767183 8 MCG Orally Feb 12, Mar 14, Active 1 capsule Twice a day 2017 2017 with food Cozaar [facility] 35163083989 100 Orally Once Active 1 tablet a day Metoprolol [facility] 42105355368 50 MG Active 1 TAB(S) Succinate ER TWICE DAILY [place] [facility] 45189401499 5-325 MG Orally Active 1 tablet as every 6 hrs needed Metoprolol [facility] 33109657084 50 Active 1 TAB(S) Succinate ER TWICE DAILY Metoprolol [facility] 03489384817 50 MG Active 1 TAB(S) Succinate ER TWICE DAILY - [facility] 44615255421 81 MG Orally Active 1 tablet Once a day Amlodipine [facility] 79647505932 10 MG Orally Active 1 tablet Besylate Once a day Levothyroxine [facility] 35671888335 125 MCG Orally Active 1 tablet on Sodium Once a day an empty stomach in the morning Magnesium Oxide [facility] 72602072470 400 MG Orally Active 1 tablet as Twice a day needed Furosemide [facility] 67888604178 20 MG Orally Active 1 tablet Once a day Metoprolol [facility] 50432700516 50 MG Orally Active 1 tablet Succinate ER Once a day NovoFine [facility] 66878266428 32G X 6 MM SB Active as directed Twice a day Results Name Result Date Reference Range Unit Abnormality Flag Urine Dip Stick ----Appearance Yellow,slight cloudy [id number] ----SP. Gr 1.020 20180212 ----pH 6.0 20180212 ----Ketone Negative 20180212 ----Glucose Negative 20180212 ----Blood Trace 20180212 ----Protein Negative [id number] ----Nitrite Negative 20180212 ----Leukocytes Negative [id number] Summary Purpose eClinicalWorks Submission
--- OUTSIDE RECORDS SUMMARY | 2018-09-11 16:48 | XMS REPORT ---
[...] Medications Results No Known Results Summary Purpose eClinicalGreenpie Submission
--- OUTSIDE RECORDS SUMMARY | 2018-09-11 16:48 | XMS REPORT ---
[...] Date End Date Status Dosage Cozaar [facility] 37939140759 100 MG Orally Active 1 tablet Once a day Results No Known Results Summary Purpose eClinicalWorks Submission
--- OUTSIDE RECORDS SUMMARY | 2018-09-11 16:48 | XMS REPORT ---
[...] Status Dosage System Date Date True Metrix [facility] 95476812062 - In Vitro twice Active as directed Blood Glucose daily Test Results No Known Results Summary Purpose eClinicalWorks Submission
--- OUTSIDE RECORDS SUMMARY | 2018-09-11 16:48 | XMS REPORT ---
[...] Start End Date Status Dosage Date Acyclovir [facility] 36321793823 200 MG Orally Active 1 capsule Three times a day Results No Known Results Summary Purpose eClinicalWorks Submission
--- OUTSIDE RECORDS SUMMARY | 2018-09-11 16:49 | XMS REPORT ---
[...] Status Dosage System Date Date Levothyrox[place] [facility] 73787511443 125 MCG Orally Active 1 tablet on Sodium Once a day an empty stomach in the morning NovoLog Mix [facility] [place] 30770829848 (70-30) 100 Active INJECT 70 70/30 Flexpen UNIT/ML UNITS UNDER Subcutaneous THE SKIN Twice a day EVERY MORNING WITH BREAKFAST AND 40 UNITS EVERY EVENING WITH DINNER Furosemide [facility] [place] 69495202133 20 MG Orally Active 1 tablet Once a day Metoprolol [facility] [place] 42301446036 50 MG Orally Active 1 tablet Succinate ER Once a day NovoFine [facility] [place] 03841437159 32G X 6 MM SB Active as directed Twice a day Ferrous Sulfate [facility] [place] [address]-40 325 MG Orally Active as directed OneTouch Ultra [facility] [place] 31709722772 - Active TEST THREE Test TIMES DAILY NovoFine [facility] [place] 22705809823 32G X 6 MM SB Active as directed Twice a day Magnesium Oxide [facility] [place] 95450655385 400 MG Orally Active 1 tablet as Three times a needed day Promethazine HCl [facility] [place] 37260001101 25 MG Orally Active 1 tablet as every 12 hrs needed Metoprolol [facility] [place] 32930065013 50 Active TAKE 1 Succinate ER TABLET BY MOUTH EVERY DAY Losartan [facility] [place] 54266001639 100-25 MG Active TAKE 1 Potassium-HCTZ TABLET BY MOUTH EVERY DAY Acyclovir [facility] [place] 91027864063 200 MG Orally Active 1 capsule Three times a day Levothyroxine [facility] [place] 44334321588 125 MCG Orally Active 1 tablet on Sodium Once a day an empty stomach in the morning Pravastatin [facility] [place] 14140161848 40 MG Orally Active 1 tablet Sodium Once a day -81 [facility] [place] 90433584966 81 MG Orally Active 1 tablet Once a day True Metrix [facility] [place] 91148743697 - In Vitro Active as directed Blood Glucose twice daily Test Amlodipine [facility] [place] 02377535019 10 MG Orally Active 1 tablet Besylate Once a day Cozaar [facility] [place] 08219151867 100 MG Orally Active 1 tablet Once a day BusPIRone HCl [facility] 99647205999 5 MG Orally Inactive 1 tablet BID Meclizine HCl [facility] [place] 99024704325 25 MG Orally Active 1 tablet as Once a day needed Ferrous Sulfate [facility] [place] 73893885417 325 (65 Fe) MG May 15, Active 1 tablet Orally BID 2018 Lidocaine HCl ND 35766970747 2 % Dec 07, Active 15 ml to Mouth/Throat 2017 affected every 3 hrs as area as needed (Swish needed around in mouth and spit out). MAX 8 doses/day [place] [facility] [place] 68752017256 5-325 MG Active 1 tablet as Orally every 6 needed hrs Omeprazole ND 47756732558 40 MG Orally Active 1 capsule Once a day Cozaar [facility] [place] 03232353167 100 Orally Active 1 tablet Once a day Results No Known Results Summary Purpose eClinicalWorks Submission
--- OUTSIDE RECORDS SUMMARY | 2018-09-11 16:49 | XMS REPORT ---
[...] Amlodipine [facility] 23873739545 10 MG Orally Active 1 tablet Besylate Once a day Cozaar [facility] 65162252356 100 MG Orally Active 1 tablet Once a day Magnesium [facility] 0 Active not defined Ferrous Sulfate [facility] [address]-14 Active not defined Losartan [facility] [address]-82 Active not defined Potassium-HCTZ NovoLog Mix [facility] [address]-58 Active not defined 70/[address] [facility] [address]-35 Active not defined Furosemide [facility] 23842118462 20 MG Orally Active 1 tablet Once a day Omeprazole [facility] [address]-44 Active not defined NovoFine [facility] 93850554608 32G X 6 MM SB Active as directed Twice a day Hydrocodone-Acet [facility] [address]-19 Active not defined aminophen Levothyroxine [facility] [address]-96 Active not defined Sodium Metoprolol [facility] [address]-37 Active not defined Succinate ER Aspirin 81 [facility] [address] Active not defined Folic Acid [facility] 87106463578 1 MG Orally Active 1 tablet Once a day Meclizine HCl [facility] 66982772442 25 MG Orally Active 1 tablet as Once a day needed Nortriptyline [facility] [address]-06 Active not defined HCl Pravastatin [facility] [address]-93 Active not defined Sodium Promethazine HCl [facility] [address]-40 Active not defined Metoprolol [facility] 73681721977 50 MG Orally Active 1 tablet Succinate ER Once a day NovoLog Mix [facility] 43531187357 (70-30) 100 Active INJECT 70 70/30 Flexpen UNIT/ML UNITS UNDER Subcutaneous THE SKIN Twice a day EVERY MORNING WITH BREAKFAST AND 40 UNITS EVERY EVENING WITH DINNER Ferrous Sulfate [facility] 94355593197 325 (65 Fe) MG Active 1 tablet Orally BID Pravastatin ND 01907545178 40 MG Orally Active 1 tablet Sodium Once a day Levothyroxine [facility] 32396819095 125 MCG Orally Active 1 tablet on Sodium Once a day an empty stomach in the morning Magnesium Oxide [facility] 12352399496 400 MG Orally Active 1 tablet as Three times a needed day Results No Known Results Summary Purpose eClinicalWorks Submission
--- OUTSIDE RECORDS SUMMARY | 2018-09-11 16:49 | XMS REPORT ---
[...] Status Dosage System Date Date NovoLog Mix [facility] [address]-39 Active not 70/30 Flexpen defined Perphenazine [facility] [address]-99 Active not defined Promethazine HCl [facility] [address]-43 Active not defined Pravastatin [facility] [address]-90 Active not Sodium defined Hydrocodone-Acet [facility] [address]-65 Active not aminophen defined Metoprolol [facility] [address]-43 Active not Succinate ER defined Ferrous Sulfate [facility] [address]-03 Active not defined Nortriptyline [facility] [address]-11 Active not HCl defined Magnesium [facility] 0 Active not defined Omeprazole [facility] [address]-35 Active not defined Folic Acid [facility] 62059275391 1 MG Orally Active 1 tablet Once a day Levothyroxine [facility] [address]-44 Active not Sodium defined Losartan [facility] [address]-14 Active not Potassium-HCTZ defined Meclizine HCl [facility] 32937975966 25 MG Orally Active 1 tablet Once a day as needed Aspirin 81 [facility] [address]14 Active not defined Results No Known Results Summary Purpose eClinicalWorks Submission
--- OUTSIDE RECORDS SUMMARY | 2018-09-11 16:49 | XMS REPORT ---
[...] Medications Results No Known Results Summary Purpose eClinicalTextbook [place] Submission
--- OUTSIDE RECORDS SUMMARY | 2018-09-11 16:49 | XMS REPORT ---
[...] Status Dosage System Date Date Promethazine HCl [facility] 17945372923 25 MG Orally May 23, Active 1 tablet every 12 hrs 2018 as needed for nausea Results No Known Results Summary Purpose eClinicalWorks Submission
--- OUTSIDE RECORDS SUMMARY | 2018-09-11 16:49 | XMS REPORT ---
[...] Status Dosage System Date Date NovoLog Mix [facility] 28612342664 (70-30) 100 Active INJECT 70 70/30 Flexpen UNIT/ML UNITS UNDER Subcutaneous THE SKIN Twice a day EVERY MORNING WITH BREAKFAST AND 40 UNITS EVERY EVENING WITH DINNER Results No Known Results Summary Purpose eClinicalWorks Submission
--- OUTSIDE RECORDS SUMMARY | 2018-09-11 16:50 | XMS REPORT ---
[...] Status Dosage System Date Date Levothyroxine [facility] 57243170906 125 MCG Orally Active 1 tablet Sodium Once a day on an empty stomach in the morning Results No Known Results Summary Purpose eClinicalWorks Submission
--- OUTSIDE RECORDS SUMMARY | 2018-09-11 16:50 | XMS REPORT ---
[...] Date Date Levothyroxine [facility] [address]-21 Active not defined Sodium Hydrocodone-Acet [facility] [address]-70 Active not defined aminophen Pravastatin [facility] 89068530477 40 MG Orally Active 1 tablet Sodium Once a day Ferrous Sulfate [facility] 55581727887 325 (65 Fe) MG Active 1 tablet Orally BID Ferrous Sulfate [facility] [address]-15 Active not defined Folic Acid [facility] 98413001325 1 MG Orally Active 1 tablet Once a day Furosemide [facility] 51877880049 20 MG Orally Active 1 tablet Once a day Levothyroxine [facility] 21418208060 125 MCG Orally Active 1 tablet on Sodium Once a day an empty stomach in the morning NovoLog Mix [facility] 63935432515 (70-30) 100 Active INJECT 70 70/30 Flexpen UNIT/ML UNITS UNDER Subcutaneous THE SKIN Twice a day EVERY MORNING WITH BREAKFAST AND 40 UNITS EVERY EVENING WITH DINNER NovoLog Mix [facility] [address]-00 Active not defined 70/30 Flexpen Aspirin 81 [facility] 85911-31244 Active not defined Omeprazole [facility] 89632958438 Active not defined Pravastatin [facility] [address]-58 Active not defined Sodium Amlodipine [facility] 76912287160 10 MG Orally Active 1 tablet Besylate Once a day Pravachol [facility] 65849070624 40 Active 1 EACH ONCE A DAY (AT BEDTIME) Magnesium Oxide [facility] 01927772646 400 MG Orally Active 1 tablet as Three times a needed day Meclizine HCl [facility] 60303503686 25 MG Orally Active 1 tablet as Once a day needed NovoFine [facility] 04564021605 32G X 6 MM SB Active as directed Twice a day Metoprolol [facility] 24536506722 50 MG Orally Active 1 tablet Succinate ER Once a day Perphenazine [facility] [address]-49 Active not defined Metoprolol [facility] [address]-24 Active not defined Succinate ER Cozaar [facility] 38437154966 100 MG Orally Active 1 tablet Once a day Promethazine HCl [facility] [address]-37 Active not defined Losartan [facility] [address]-38 Active not defined Potassium-HCTZ Nortriptyline [facility] [address]-65 Active not defined HCl Magnesium [facility] 0 Active not defined Results No Known Results Summary Purpose eClinicalWorks Submission
--- OUTSIDE RECORDS SUMMARY | 2018-09-11 16:50 | XMS REPORT ---
[...] Condition Code Onset Dates Condition Status Problem Intramural leiomyoma of uterus D25.1 Active Problem Secondary esophageal varices I85.10 Active without bleeding Problem Allergic rhinitis, seasonal J30.2 Active Problem Iron deficiency anemia due to D50.0 Active chronic blood loss Assessment Non-compliant behavior R46.89 Active Assessment Hypomagnesemia E83.42 Active Problem HSV (herpes simplex virus) A60.9 Active anogenital infection Assessment Depression with anxiety F41.8 Active Problem Hyperlipidemia, mixed E78.2 Active Assessment Chronic kidney disease, stage 3 N18.3 Active Problem Varicose veins I86.8 Active Problem Diverticulosis of colon K57.30 Active Problem Vitamin B 12 deficiency E53.8 Active Problem Cirrhosis of liver K74.60 Active Problem Dizziness R42 Active Problem Hypertension I10 Active Problem Depression with anxiety F41.8 Active Problem Chronic kidney disease, stage 3 N18.3 Active Problem Osteoarthritis of multiple joints M15.9 Active Problem Cervical disc disorder at C4-C5 M50.121 Active level with radiculopathy Problem Displaced fracture of greater S42.252S Active tuberosity of left humerus, sequela Problem Torus fracture of lower end of S52.522S Active left radius, sequela Problem Thrombocytopenia D69.6 Active Problem Nausea R11.0 Active Assessment Hyperlipidemia, mixed E78.2 Active Problem Chronic obstructive pulmonary J44.9 Active disease, unspecified COPD type Problem Malaise and fatigue R53.81 Active Assessment History of fall within past 90 Z91.81 Active days Problem Left ovarian cyst N83.202 Active Assessment Hypothyroidism E03.9 Active Problem Slow transit constipation K59.01 Active Assessment Cervical disc disorder at C4-C5 M50.121 Active level with radiculopathy Problem Encounter for screening mammogram Z12.31 Active for breast cancer Assessment Cirrhosis of liver K74.60 Active Problem Encounter for gynecological Z01.419 Active examination without abnormal finding Problem Venous insufficiency I87.2 Active Problem Hypomagnesemia E83.42 Active Problem Gastritis K29.70 Active Assessment Diabetes type 2, uncontrolled E11.65 Active Problem Elevated alkaline phosphatase R74.8 Active level Assessment Iron deficiency anemia due to D50.0 Active chronic blood loss Problem Diabetic neuropathy E11.40 Active Assessment Hypertension I10 Active Problem Vitamin D deficiency E55.9 Active Assessment Chronic obstructive pulmonary J44.9 Active disease, unspecified COPD type Problem Hypothyroidism E03.9 Active Problem GERD (gastroesophageal reflux K21.9 Active disease) Problem Diabetes type 2, uncontrolled E11.65 Active Medications Medication Code Code Instructions Start End Status Dosage System Date Date Pravastatin [facility] 24499806970 40 MG Orally Active 1 tablet Sodium Once a day Metoprolol [facility] 00489085729 50 MG Orally Active 1 tablet Succinate ER Once a day Nortriptyline [facility] [address]-77 Active not defined HCl Folic Acid [facility] 03928960774 1 MG Orally Active 1 tablet Once a day Breo Ellipta [facility] 21823798721 200-25 MCG/INH August Active 1 puff Inhalation 24, 18, Once a day 2018 2019 Amlodipine [facility] 90326509076 10 MG Orally Active 1 tablet Besylate Once a day NovoLog Mix [facility] 65959921349 (70-30) 100 Active INJECT 70 70/30 Flexpen UNIT/ML UNITS UNDER Subcutaneous THE SKIN Twice a day EVERY MORNING WITH BREAKFAST AND 40 UNITS EVERY EVENING WITH DINNER Magnesium Oxide ND 65982313713 400 MG Orally Active 1 tablet as Three times a needed day Hydrocodone-Acet [facility] [address]-66 Active not defined aminophen Pravachol [facility] 71505495408 40 Active 1 EACH ONCE A DAY (AT BEDTIME) Meclizine HCl [facility] 33319528753 25 MG Orally Active 1 tablet as Once a day needed Ferrous Sulfate [facility] 32213279410 325 (65 Fe) MG Active 1 tablet Orally BID Cozaar ND 89957061179 100 MG Orally Active 1 tablet Once a day Furosemide ND 04315449369 20 MG Orally Active 1 tablet Once a day NovoFine [facility] 26871332438 32G X 6 MM SB Active as directed Twice a day Levothyroxine [facility] 86543506032 137 MCG Orally Active 1 tablet on Sodium Once a day an empty stomach in the morning Results No Known Results Summary Purpose eClinicalWorks Submission
--- OUTSIDE RECORDS SUMMARY | 2018-09-11 16:50 | XMS REPORT ---
[...] End Status Dosage System Date Date Omeprazole [facility] [address]-36 Active not defined Aspirin 81 [facility] 464[address]212 Active not defined Losartan [facility] [address]-86 Active not defined Potassium-HCTZ NovoLog Mix [facility] [address]-17 Active not defined 70/30 Flexpen Cozaar [facility] 98023434010 100 MG Orally Active 1 tablet Once a day NovoLog Mix [facility] 82955296909 (70-30) 100 Active INJECT 70 70/30 Flexpen UNIT/ML UNITS UNDER Subcutaneous THE SKIN Twice a day EVERY MORNING WITH BREAKFAST AND 40 UNITS EVERY EVENING WITH DINNER Levothyroxine [facility] 53653127813 125 MCG Orally Active 1 tablet on Sodium Once a day an empty stomach in the morning Ferrous Sulfate [facility] [address]-48 Active not defined Hydrocodone-Acet [facility] [address]-11 Active not defined aminophen Meclizine HCl [facility] 33762354824 25 MG Orally Active 1 tablet as Once a day needed Pravastatin [facility] 69673998030 40 MG Orally Active 1 tablet Sodium Once a day Metoprolol [facility] 67841777597 50 MG Orally Active 1 tablet Succinate ER Once a day NovoFine [facility] 11962193223 32G X 6 MM SB Active as directed Twice a day Ferrous Sulfate [facility] 50884973883 325 (65 Fe) MG Active 1 tablet Orally BID Perphenazine [facility] [address]-21 Active not defined Nortriptyline [facility] [address]-81 Active not defined HCl Magnesium Oxide [facility] 86604798871 400 MG Orally Active 1 tablet as Three times a needed day Levothyroxine [facility] [address]-18 Active not defined Sodium Metoprolol [facility] [address]-16 Active not defined Succinate ER Pravastatin [facility] [address]-89 Active not defined Sodium Promethazine HCl [facility] [address]-16 Active not defined Furosemide [facility] 25475507401 20 MG Orally Active 1 tablet Once a day Folic Acid [facility] 80262368872 1 MG Orally Active 1 tablet Once a day Magnesium NDC 0 Active not defined Amlodipine [facility] 10377599105 10 MG Orally Active 1 tablet Besylate Once a day Results No Known Results Summary Purpose eClinicalWorks Submission
--- OUTSIDE RECORDS SUMMARY | 2018-09-11 16:51 | XMS REPORT ---
[...] to D50.0 Active chronic blood loss Problem HSV (herpes simplex virus) A60.9 Active [...] D69.6 Active Problem Nausea R11.0 Active Problem Chronic obstructive pulmonary J44.9 Active disease, unspecified COPD type Problem Malaise and fatigue R53.81 Active Problem Left ovarian cyst N83.202 Active Problem Slow transit constipation K59.01 Active Problem Encounter for screening mammogram Z12.31 Active for breast cancer Problem Encounter for gynecological Z01.419 Active examination without abnormal finding Problem Venous insufficiency I87.2 Active Problem Hypomagnesemia E83.42 Active Problem Gastritis K29.70 Active Problem Elevated alkaline phosphatase R74.8 Active level Assessment Hypomagnesemia E83.42 Active Problem Diabetic neuropathy E11.40 Active Problem Vitamin D deficiency E55.9 Active Problem Hypothyroidism E03.9 Active Problem GERD (gastroesophageal reflux K21.9 Active disease) Problem Diabetes type 2, uncontrolled E11.65 Active Medications Medication Code Code Instructions Start End Status Dosage System Date Date Acyclovir [facility] 55046838290 200 MG Orally Active 1 capsule Three times a day Magnesium [facility] 75850359710 400 MG Orally Active 1 tablet Oxide Three times a as needed day Results No Known Results Summary Purpose eClinicalWorks Submission
[2018-09-11 17:42] LABS: Urine Blood TRACE (NEG); Urine Glucose NEGATIVE (NEG); Urine Protein NEGATIVE (NEG); Urine Specific Gravity 1.015 (1.005-1.030); Urine pH 8.5 (5.0-7.0)
[2018-09-11 17:52] LABS: Urine Bacteria NONE SEEN /HPF (<20); Urine Culture Reflex Order NOT NEEDED; Urine RBC <5 /HPF (NONE SEEN)
[2018-09-11 18:01] LABS: Absolute Lymphocytes (CBC) 1.2 K/uL (0.7-4.9); Absolute Monocytes 0.4 K/uL (0.1-1.3); Absolute Neutrophil 3.6 K/uL (1.8-8.0); Basophils % 0.6 % (0-1.3); Hematocrit 27.3 % (36.0-45.0); Lymphocytes % 22.7 % (15.3-44.8); Monocytes % 7.1 % (3.3-12.3); RBC Red Blood Cell Count 3.01 M/uL (3.86-4.86)
[2018-09-11] MEDS ORDERED: DIPHENHYDRAMINE 50 MG/ML VIAL ONE (18:09)
[2018-09-11] MEDS ORDERED: MAGNE/ALUM HYDROXD 30 ML UCUP ONE (18:09)
[2018-09-11] MEDS ORDERED: LIDOCAINE VISCOUS 2% SOLN 15 ML UDC ONE (18:09)
[2018-09-11] MEDS ORDERED: METOCLOPRAMIDE 10 MG/2mL INJ ONE (18:09)
[2018-09-11 18:18] LABS: Albumin 3.7 g/dL (3.4-5.0); Bilirubin Direct 0.1 mg/dL (0-0.2); Bilirubin Total 0.3 mg/dL (0.2-1.0); Potassium 4.1 mmol/L (3.5-5.1); Protein, Total 7.6 g/dL (6.4-8.2)
--- NOTE | 2018-09-11 18:23 | EKG ---
Test Date: 2018-09-11 Test Time: 17:41:15 Employment Office Clerk: [employer] MEASUREMENT RESULTS: Intervals: Rate: 70 [place]: 134 QRSD: 82 QT: 412 QTc: 444 [place]: P: 33 [place]: 134 QRS: 65 T: 55 INTERPRETIVE STATEMENTS: Normal sinus rhythm T wave abnormality, consider anterior ischemia Abnormal ECG Compared to ECG 08/26/2018 16:27:16 T-wave abnormality now present Sinus arrhythmia no longer present Fusion complex(es) no longer present ST (T wave) deviation no longer present Possible ischemia still present Electronically Signed On 09-11-18 18:23:15 CDT by Jeffery Jacques
--- NOTE | 2018-09-11 19:18 | EDPHYS ---
Physician Documentation [facility] Name: Shayy Mcgovern Age: 77 yrs Sex: Female : 1940 Arrival Date: 09/11/2018 Time: 16:46 Bed 15 Private MD: ED Physician Jayy Mayberry HPI: 09/11 17:56 This 77 yrs old Female presents to ER via Ambulatory with complaints of jr8 Headache, Abdominal Pain. 17:56 The patient complains of pain to the forehead. The patient describes the headache as jr8 throbbing. Onset: The symptoms/episode began/occurred acutely, 2 day(s) ago. Associated signs and symptoms: Pertinent positives: This patient does not have any pertinent positive signs or symptoms associated with a headache. Severity of symptoms: At its worst the pain was moderate, in the emergency department the pain is unchanged. Headache History: Denies prior headaches. The patient has not experienced similar symptoms in the past. The patient has not recently seen a physician. also complaining of upper abdominal burning and reflux sensation. Historical: - Allergies: 16:54 Bactrim; aj 16:54 Ciprofloxacin; aj 16:54 Gentamicin; aj 16:54 Iodinated Contrast Media - IV Dye; aj 16:54 Macrobid; aj 16:54 Macrodantin; aj 16:54 nitrofuran macrocrystal (bulk); aj 16:54 PENICILLINS; aj 16:54 Sulfa (Sulfonamide Antibiotics); aj - Home Meds: 16:54 aspirin 81 mg Oral TbEC once daily [Active]; ferrous sulfate 325 mg (65 mg iron) Oral aj tab every 8 hours [Active]; gabapentin 300 mg Oral cap [Active]; levothyroxine 125 mcg tab 1 tab once daily [Active]; losartan-hydrochlorothiazide 100-25 mg Oral tab 1 tab once daily [Active]; MagOx 400 mg Oral tab 1 cap three times a day [Active]; meclizine 25 mg Oral tab twice a day [Active]; metoprolol tartrate 50 mg Oral tab 1 tab once daily [Active]; Novolin 70/30 [place] Sub-Q 70-30 unit/mL [Active]; omeprazole 40 mg Oral cpDR 1 cap once daily [Active]; promethazine 25 mg Oral tab 2 times per day [Active]; pravastatin 40 mg Oral tab 1 tab nightly [Active]; Hydrocodone-Acetaminophen Oral [Active]; - PMHx: 16:54 Anxiety; Depression; Diabetes - IDDM; gastritis; Hypertension; Hypothyroidism; aj - PSHx: 16:54 None; aj - Immunization history:: Adult Immunizations up to date. - Social history:: Smoking status: Patient/guardian denies using tobacco. - Ebola Screening: : Patient negative for fever greater than or equal to 101.5 degrees Fahrenheit, and additional compatible Ebola Virus Disease symptoms Patient denies exposure to infectious person Patient denies travel to an Ebola-affected area in the 21 days before illness onset No symptoms or risks identified at this time. ROS: 17:56 Eyes: Negative for injury, pain, redness, and discharge, ENT: Negative for injury, jr8 pain, and discharge, Neck: Negative for injury, pain, and swelling, Cardiovascular: Negative for chest pain, palpitations, and edema, Respiratory: Negative for shortness of breath, cough, wheezing, and pleuritic chest pain, Back: Negative for injury and pain, MS/Extremity: Negative for injury and deformity, Skin: Negative for injury, rash, and discoloration. 17:56 Abdomen/GI: Positive for abdominal pain, Negative for nausea, vomiting, diarrhea, abdominal distension, anorexia, dysphagia, hematemesis, black/tarry stool, rectal pain, rectal bleeding, bowel incontinence, flatulence. 17:56 Neuro: Positive for headache, Negative for altered mental status, dizziness, gait disturbance, hearing loss, loss of consciousness, numbness, seizure activity, speech changes, syncope, near syncope, tingling, tinnitus, tremor, visual changes, weakness. Exam: 17:56 Eyes: Pupils equal round and reactive to light, extra-ocular motions intact. Lids and jr8 lashes normal. Conjunctiva and sclera are non-icteric and not injected. Cornea within normal limits. Periorbital areas with no swelling, redness, or edema. ENT: Nares patent. No nasal discharge, no septal abnormalities noted. Tympanic membranes are normal and external auditory canals are clear. Oropharynx with no redness, swelling, or masses, exudates, or evidence of obstruction, uvula midline. Mucous membranes moist. Neck: Trachea midline, no thyromegaly or masses palpated, and no cervical lymphadenopathy. Supple, full range of motion without nuchal rigidity, or vertebral point tenderness. No Meningismus. Cardiovascular: Regular rate and rhythm with a normal S1 and S2. No gallops, murmurs, or rubs. Normal PMI, no JVD. No pulse deficits. Respiratory: Lungs have equal breath sounds bilaterally, clear to auscultation and percussion. No rales, rhonchi or wheezes noted. No increased work of breathing, no retractions or nasal flaring. Abdomen/GI: Soft, non-tender, with normal bowel sounds. No distension or tympany. No guarding or rebound. No evidence of tenderness throughout. Back: No spinal tenderness. No costovertebral tenderness. Full range of motion. Skin: Warm, dry with normal turgor. Normal color with no rashes, no lesions, and no evidence of cellulitis. MS/ Extremity: Pulses equal, no cyanosis. Neurovascular intact. Full, normal range of motion. Neuro: Awake and alert, GCS 15, oriented to person, place, time, and situation. Cranial nerves II-XII grossly intact. Motor strength 5/5 in all extremities. Sensory grossly intact. Cerebellar exam normal. Normal gait. Vital Signs: 16:54 BP 155 / 78; Pulse 81; Resp 20; Temp 98.0; Pulse Ox 99% on R/A; Weight 115.21 kg; aj Height 5 ft. 3 in. (160.02 cm); 18:06 BP 154 / 74; Pulse 77; Resp 20; Temp 98.4(O); Pulse Ox 97% on R/A; mh5 19:50 BP 147 / 67; Pulse 70; Resp 16; Pulse Ox 100% on R/A; jb4 16:54 Body Mass Index 44.99 (115.21 kg, 160.02 cm) aj MDM: 17:05 Patient medically screened. jr8 19:16 Data reviewed: vital signs, nurses notes, lab test result(s), EKG. Data interpreted: jr8 Pulse oximetry: on room air is 97 %. Interpretation: normal. Counseling: I had a detailed discussion with the patient and/or guardian regarding: the historical points, exam findings, and any diagnostic results supporting the discharge/admit diagnosis, lab results, the need for outpatient follow up, a family practitioner, to return to the emergency department if symptoms worsen or persist or if there are any questions or concerns that arise at home. Response to treatment: the patient's symptoms have markedly improved after treatment. ED course: No acute lab or ECG findings. Patient improved. Abdomen soft and without tenderness. No need for CT or other imaging at this time based on history and exam. Will d/c home to f/u with pcp . 09/11 17:30 Order name: Basic Metabolic Panel [facility] 09/11 17:30 Order name: CBC with Diff; Complete Time: 19:49 [facility] 09/11 17:30 Order name: Creatinine for Radiology; Complete Time: 18:38 [facility] 09/11 17:30 Order name: Hepatic Function; Complete Time: 18:38 [facility] 09/11 17:30 Order name: Lipase; Complete Time: 18:38 [facility] 09/11 17:30 Order name: Urine Microscopic Only; Complete Time: 17:54 [facility] 09/11 17:30 Order name: Basic Metabolic Panel; Complete Time: 18:38 [facility] 09/11 17:37 Order name: Urine Dipstick--Ancillary (enter results); Complete Time: 17:54 09/11 17:38 Order name: EKG; Complete Time: 17:39 [facility] 09/11 19:27 Order name: CBC Smear Scan; Complete Time: 19:49 [facility] 09/11 17:30 Order name: IV Saline Lock; Complete Time: 17:59 [facility] 09/11 17:30 Order name: Labs collected and sent; Complete Time: 17:59 [facility] 09/11 17:30 Order name: Urine Dipstick-Ancillary (obtain specimen); Complete Time: 17:44 jr8 Administered Medications: 17:40 Drug: Reglan 10 mg Route: IVP; Site: left antecubital; ca1 18:40 Follow up: Response: No adverse reaction; Pain is decreased ca1 17:42 Drug: Benadryl 25 mg Route: IVP; Site: left antecubital; ca1 18:45 Follow up: Response: No adverse reaction; Nausea is decreased ca1 17:44 Drug: GI Cocktail without - (Maalox Suspension 30 ml, Lidocaine Liquid 2 % 15 ca1 ml) Route: PO; 18:40 Follow up: Response: No adverse reaction; Pain is decreased ca1 20:05 Not Given (Patient Refused): Ativan 0.5 mg IVP once jb4 Disposition: 09/12 08:11 Co-signature as Attending Physician, Jayy Mayberry MD I agree with the assessment and russ plan of care. Disposition: 09/11/18 19:17 Discharged to Home. Impression: Migraine, Gastritis, unspecified. - Condition is Stable. - Discharge Instructions: Gastritis, Adult, Migraine Headache. - Medication Reconciliation Form, Thank You Letter, Antibiotic Education, Prescription Opioid Use form. - Follow up: Private Physician; When: 2 - 3 days; Reason: Recheck today's complaints, Continuance of care, Re-evaluation by your physician. - Problem is new. - Symptoms have improved. Signatures: Dispatcher [employer] EDAngelica Puhg, RN RN Jayy Awad MD MD cha Roszak, Josh, PA PA jr8 Gil Patel RN RN jb4 Jolene Restrepo RN RN ca1 Corrections: (The following items were deleted from the chart) 09/11 20:06 19:17 09/11/2018 19:17 Discharged to Home. Impression: Migraine; Gastritis, jb4 unspecified. Condition is Stable. Forms are Medication Reconciliation Form, Thank You Letter, Antibiotic Education, Prescription Opioid Use. Follow up: Private Physician; When: 2 - 3 days; Reason: Recheck today's complaints, Continuance of care, Re-evaluation by your physician. Problem is new. Symptoms have improved. jr8
--- NOTE | 2018-09-11 19:18 | ER ---
Nurse's Notes [facility] Name: Shayy Mcgovern Age: 77 yrs Sex: Female : 1940 Arrival Date: 09/11/2018 Time: 16:46 Bed 15 Private MD: Diagnosis: Migraine;Gastritis, unspecified Presentation: 09/11 16:52 Presenting complaint: Patient states: Generalized abdominal pain and headache x 2 days. aj Patient reports she is out of her Hydrocodone which usually helps with her headaches. Transition of care: patient was not received from another setting of care. Onset of symptoms was September 09, 2018. Risk Assessment: Do you want to hurt yourself or someone else? Patient reports no desire to harm self or others. Initial Sepsis Screen: Does the patient meet any 2 criteria? No. Patient's initial sepsis screen is negative. Does the patient have a suspected source of infection? No. Patient's initial sepsis screen is negative. Care prior to arrival: None. 16:52 Method Of Arrival: Ambulatory 16:52 Acuity: CORINE 3 Triage Assessment: 16:54 Headache History: The patient has had previous headaches and this one is similar to aj previous episodes. General: Appears in no apparent distress. uncomfortable, Behavior is calm, cooperative, appropriate for age. Pain: Complains of pain in abdomen. Neuro: Level of Consciousness is awake, alert, obeys commands, Oriented to person, place, time, situation, Appropriate for age. Neuro: Reports headache. Respiratory: Airway is patent Respiratory effort is even, unlabored, Respiratory pattern is regular, symmetrical. GI: Abdomen is obese, Reports lower abdominal pain, upper abdominal pain. : Reports burning with urination. Derm: Skin is intact, is healthy with good turgor, Skin is pink, warm \T\ dry. normal. Historical: - Allergies: 16:54 Bactrim; aj 16:54 Ciprofloxacin; aj 16:54 Gentamicin; aj 16:54 Iodinated Contrast Media - IV Dye; aj 16:54 Macrobid; aj 16:54 Macrodantin; aj 16:54 nitrofuran macrocrystal (bulk); aj 16:54 PENICILLINS; aj 16:54 Sulfa (Sulfonamide Antibiotics); aj - Home Meds: 16:54 aspirin 81 mg Oral TbEC once daily [Active]; ferrous sulfate 325 mg (65 mg iron) Oral aj tab every 8 hours [Active]; gabapentin 300 mg Oral cap [Active]; levothyroxine 125 mcg tab 1 tab once daily [Active]; losartan-hydrochlorothiazide 100-25 mg Oral tab 1 tab once daily [Active]; MagOx 400 mg Oral tab 1 cap three times a day [Active]; meclizine 25 mg Oral tab twice a day [Active]; metoprolol tartrate 50 mg Oral tab 1 tab once daily [Active]; Novolin 70/30 [place] Sub-Q 70-30 unit/mL [Active]; omeprazole 40 mg Oral cpDR 1 cap once daily [Active]; promethazine 25 mg Oral tab 2 times per day [Active]; pravastatin 40 mg Oral tab 1 tab nightly [Active]; Hydrocodone-Acetaminophen Oral [Active]; - PMHx: 16:54 Anxiety; Depression; Diabetes - IDDM; gastritis; Hypertension; Hypothyroidism; aj - PSHx: 16:54 None; aj - Immunization history:: Adult Immunizations up to date. - Social history:: Smoking status: Patient/guardian denies using tobacco. - Ebola Screening: : Patient negative for fever greater than or equal to 101.5 degrees Fahrenheit, and additional compatible Ebola Virus Disease symptoms Patient denies exposure to infectious person Patient denies travel to an Ebola-affected area in the 21 days before illness onset No symptoms or risks identified at this time. Screenin:05 Abuse screen: Denies threats or abuse. Denies injuries from another. Nutritional ca1 screening: No deficits noted. Tuberculosis screening: No symptoms or risk factors identified. Fall Risk None identified. Assessment: 17:05 General: Appears in no apparent distress. uncomfortable, Behavior is calm, cooperative, ca1 appropriate for age. Pain: Complains of pain in forehead and abdomen Pain does not radiate. Pain currently is 6 out of 10 on a pain scale. Pain began 2-3 days ago. Is intermittent. Neuro: Level of Consciousness is awake, alert, obeys commands, Oriented to person, place, time, situation, Appropriate for age. Cardiovascular: Heart tones S1 S2 present Capillary refill < 3 seconds Patient's skin is warm and dry. Respiratory: Airway is patent Respiratory effort is even, unlabored, Respiratory pattern is regular, symmetrical, Breath sounds are clear bilaterally. GI: Abdomen is round non-distended, Bowel sounds present X 4 quads. Abd is soft and non tender X 4 quads. Reports nausea, vomiting. : Reports burning with urination. EENT: No deficits noted. No signs and/or symptoms were reported regarding the EENT system. Derm: Skin is intact, is healthy with good turgor, Skin is pink, warm \T\ dry. Musculoskeletal: Circulation, motion, and sensation intact. Capillary refill < 3 seconds. 18:15 Reassessment: Patient appears in no apparent distress at this time. Patient and/or ca1 family updated on plan of care and expected duration. Pain level reassessed. Patient is alert, oriented x 3, equal unlabored respirations, skin warm/dry/pink. 19:20 Reassessment: Patient appears in no apparent distress at this time. Patient and/or jb4 family updated on plan of care and expected duration. Pain level reassessed. Patient is alert, oriented x 3, equal unlabored respirations, skin warm/dry/pink. 19:50 Reassessment: Pt refused Ativan. jb4 Vital Signs: 16:54 BP 155 / 78; Pulse 81; Resp 20; Temp 98.0; Pulse Ox 99% on R/A; Weight 115.21 kg; aj Height 5 ft. 3 in. (160.02 cm); 18:06 BP 154 / 74; Pulse 77; Resp 20; Temp 98.4(O); Pulse Ox 97% on R/A; mh5 19:50 BP 147 / 67; Pulse 70; Resp 16; Pulse Ox 100% on R/A; jb4 16:54 Body Mass Index 44.99 (115.21 kg, 160.02 cm) aj ED Course: 16:46 Patient arrived in ED. as 16:53 Triage completed. aj 16:54 Arm band placed on right wrist. Patient placed in an exam room. aj 17:05 Sonu Menchaca PA is PHCP. jr8 17:05 Jayy Mayberry MD is Attending Physician. jr8 17:34 Jolene Restrepo, CHRIS is Primary Nurse. ca1 17:43 EKG done, by oil and gas exploration technician. reviewed by Sonu VALENZUELA. 3 17:58 Initial lab(s) drawn, by mi, sent to lab. Urine collected: clean catch specimen, mh5 cloudy. Inserted saline lock: 22 gauge in left antecubital area, using aseptic technique. Blood collected. 17:59 Patient has correct armband on for positive identification. Bed in low position. Call [facility] light in reach. Side rails up X2. Warm blanket given. Pulse ox on. NIBP on. 17:59 Basic Metabolic Panel Sent. [facility] 17:59 CBC with Diff Sent. [facility] 17:59 Creatinine for Radiology Sent. [facility] 17:59 Hepatic Function Sent. [facility] 17:59 Lipase Sent. [facility] 19:10 Report given to CHRIS Gilliland. ca1 19:50 No provider procedures requiring assistance completed. IV discontinued, intact, jb4 bleeding controlled. Administered Medications: 17:40 Drug: Reglan 10 mg Route: IVP; Site: left antecubital; ca1 18:40 Follow up: Response: No adverse reaction; Pain is decreased ca1 17:42 Drug: Benadryl 25 mg Route: IVP; Site: left antecubital; ca1 18:45 Follow up: Response: No adverse reaction; Nausea is decreased ca1 17:44 Drug: GI Cocktail without - (Maalox Suspension 30 ml, Lidocaine Liquid 2 % 15 ca1 ml) Route: PO; 18:40 Follow up: Response: No adverse reaction; Pain is decreased ca1 20:05 Not Given (Patient Refused): Ativan 0.5 mg IVP once jb4 Outcome: 19:17 Discharge ordered by . robinson 19:50 Discharged to home ambulatory. jb4 19:50 Condition: stable 19:50 Discharge instructions given to patient, Instructed on discharge instructions, follow up and referral plans. Demonstrated understanding of instructions, follow-up care. 20:06 Patient left the ED. jb4 Signatures: Angelica Giron, RN Rosa Isela Cifuentes Josh, PA PA jr8 Gil Patel RN RN [facility] Edna Rodriguez Keyla Sandoval Cheryl RN RN ca1
[2018-09-11 19:27] LABS: Blood Morphology Comment NOT SEEN (NOT SEEN); Platelet Estimate DECR; Urine White Blood Cell Casts OK
[2018-09-11 20:58] VITALS: BP 154/74; TEMP 98.4; O2SAT 97
== END 2018-09-11 20:06 | disposition home or self-care (01) ==
LOC: ER 16:45
DX: G43.909 Migraine, unspecified, not intractable, without status migrainosus (principal); K29.70 Gastritis, unspecified, without bleeding; I10 Essential (primary) hypertension; E03.9 Hypothyroidism, unspecified; E11.9 Type 2 diabetes mellitus without complications; F32.9 Major depressive disorder, single episode, unspecified; F41.9 Anxiety disorder, unspecified; Z79.4 Long term (current) use of insulin; Z79.82 Long term (current) use of aspirin; Z88.0 Allergy status to penicillin; Z88.1 Allergy status to other antibiotic agents; Z88.3 Allergy status to other anti-infective agents; Z88.2 Allergy status to sulfonamides
CPT/HCPCS: 93005; 85025; 80048; 36415; 80076; 83690; 96375; 96374; 99284; J2765; 81003; 81015